=== PATIENT | female | born 1960 | race Caucasian/White ===

== ENCOUNTER 2022-09-20 11:37 | Emergency (ER) | payer MEDICARE, MEDICAID, SELFPAY ==
[2022-09-20 11:57] VITALS: BP 140/79; PULSE 110; RESP 18; TEMP 37.1; O2SAT 96; BMI 36.0
--- NOTE | 2022-09-20 12:38 | DI.RAD.S_ITS ---
PROCEDURE: XR CHEST 1V INDICATIONS: Shortness of breath TECHNIQUE: One view of the chest was acquired. COMPARISON: None. FINDINGS: Surgical changes and devices: None. Lungs and pleura: Lungs are clear. No pleural effusions or pneumothorax. Mediastinum: Mediastinal contours appear normal. Heart size is normal. Bones and chest wall: No suspicious bony lesions. Overlying soft tissues appear unremarkable. IMPRESSION: No acute cardiopulmonary process. Dictated by: Nithin Carter M.D. on 09/20/2022 at 12:52 Approved by: Nithin Carter M.D. on 09/20/2022 at 12:52
[2022-09-20 13:09] LABS: Add Manual Diff / Slide Review NO; Basophils Absolute Auto 100 /uL (0-100); Basophils Percent Auto 0.6 % (0-2); Eosinophils Absolute Auto 100 /uL (0-450); Eosinophils Percent Auto 1.1 % (2-4); Hematocrit 34.6 % (36-46); Hemoglobin 11.1 g/dL (12.0-16.0); Lymphocytes Absolute Auto 1900 /uL (1100-4500); Lymphocytes Percent Auto 18.6 % (25-40); Mean Corpuscular Hemoglobin 23.5 PG (26-34); Mean Corpuscular Volume 73.4 fL (80-100); Monocytes Absolute Auto 1000 /uL (0-900); Monocytes Percent Auto 10.2 % (3-14); Neutrophils Absolute Auto 7100 /uL (1500-7000); Neutrophils Percent Auto 69.5 % (50-75); Platelet Count 506 X10^3/uL (150-400); Red Blood Cell Count 4.71 X10^6/uL (4.0-5.2); Red Cell Distribution Width 18.9 % (11.6-14.8); White Blood Cell Count 10.2 X10^3/uL (4.5-11.0)
[2022-09-20 13:15] LABS: Alanine Aminotransferase 24 IU/L (<35); Albumin 4.1 g/dL (3.5-5.0); Albumin Globulin Ratio 1.2 (1.0-2.8); Alkaline Phosphatase 76 U/L (38-126); Aspartate Aminotransferase 28 IU/L (14-36); BUN Creatinine Ratio 20.9 (6-22); Bilirubin Total 0.2 mg/dL (0.2-1.3); Blood Urea Nitrogen 14 mg/dL (7-17); Calcium 9.1 mg/dL (8.4-10.2); Carbon Dioxide 32 mmol/L (22-32); Chloride 100 mmol/L (98-107); Creatine Kinase 85 U/L (30-135); Estimated Glomerular Filt Rate > 60 mL/min (>60); Globulin 3.4 g/dL (1.7-4.1); Glucose 129 mg/dL (80-110); HEMOLYSIS < 15 (0-50); Potassium 3.5 mmol/L (3.4-5.1); Sodium 139 mmol/L (137-145); Total Protein 7.5 g/dL (6.3-8.2)
[2022-09-20 13:27] LABS: NT-proBNP (BNP-Adult 18+) 62 pg/mL (<125); Troponin I < 0.012 ng/mL (0.01-0.034)
[2022-09-20 14:01] VITALS: BP 174/90; PULSE 105; RESP 18; O2SAT 98
--- NOTE | 2022-09-20 14:22 | ED.EXTPRO ---
HPI - Extremity Problem General Chief complaint: Extremity Problem,Nontraumatic Stated complaint: feet swelling, sent to check if heart related Time Seen by Provider: 09/20/22 14:03 Source: patient Mode of arrival: Ambulatory History of Present Illness HPI Narrative: Patient is a 62-year-old female who is sent from her primary doctor's office for evaluation of bilateral lower extremity swelling. She is had the swelling for the past several weeks. She did take 20 mg of Lasix for 3 days a couple days ago without any improvement of symptoms. She states she is having some shortness of breath with exertion. No chest pain. No fevers. No trauma. Not on anticoagulation. Related Data Home Medications Medication Instructions Recorded Confirmed aspirin 325 mg tablet 325 mg PO BID ##0 01/03/17 Previous Rx's Medication Instructions Recorded ciclopirox 8 % topical solution 3.3 ml TP QDAY ##1 02/13/16 (Ciclodan) ibuprofen 600 mg tablet 600 mg PO Q6HP PRN #60 tabs 10/24/16 Disabled Parking Permit ea ##1 10/25/16 polyethylene glycol 3350 17 17 gm PO QDAY ##527 11/21/16 gram/dose oral powder buspirone 15 mg tablet 15 mg PO BID #60 tabs 12/19/16 oxycodone 5 mg capsule 0 PO Q6HRS #40 tabs 01/03/17 ciprofloxacin HCl 500 mg tablet 500 mg PO BID #20 tabs 01/09/17 (Cipro) diclofenac sodium 1 % topical gel 1 kimo topical BID ##100 01/09/17 (Voltaren) hydrochlorothiazide 25 mg tablet 25 mg PO QDAY #90 tabs 01/09/17 lisinopril 20 mg tablet 20 mg PO QDAY #90 tabs 01/09/17 metronidazole 500 mg tablet 500 mg OR BID #20 tabs 01/09/17 gabapentin 300 mg capsule 0 PO HS #90 caps 01/23/17 (Neurontin) cyanocobalamin (vitamin B-12) 1,000 mcg IM SEE INSTRUCTIONS #14 01/25/17 1,000 mcg/mL injection solution ea tramadol 50 mg tablet 50 mg PO QIDP PRN #120 tabs 02/06/17 furosemide 20 mg tablet (Lasix) 40 mg PO DAILY #60 tabs 09/20/22 potassium chloride 10 mEq 10 meq PO DAILY #30 tabs 09/20/22 tablet,extended release Allergies Allergy/AdvReac Type Severity Reaction Status Date / Time bupropion [BUPROPION] Allergy Intermediate shaky, Verified 09/20/22 12:03 irritable Interferons [INTERFERONS] Allergy Intermediate rash, Verified 09/20/22 12:03 headache ribavirin [RIBAVIRIN] Allergy Intermediate confusion, Verified 09/20/22 12:03 agitation Review of Systems Constitutional Constitutional: Reports system reviewed and no additional complaints, except as documented Cardiovascular Cardiovascular: Reports system reviewed and no additional complaints, except as documented Respiratory Respiratory: Reports system reviewed and no additional complaints, except as documented Patient History Surgical History (Updated 09/17/17 @ 05:14 by Conversion Provider) History of carpal tunnel repair History of carpal tunnel repair Status post hysterectomy Family History (Updated 08/27/16 @ 00:00 by Conversion Provider) Brother Age: 50 Mental health problem ADHD (attention deficit hyperactivity disorder) Mother Age: 84 Hypertension High cholesterol Mental health problem Stroke Sister Age: 64 Hypertension High cholesterol Social History Smoking Status: Never smoker Smoking Status: Never smoker alcohol intake frequency: holidays/special occasions only Substance Use Type: marijuana Exam Initial Vital Signs Initial Vital Signs: Vital Signs Temperature 98.7 F 09/20/22 11:57 Pulse Rate 110 H 09/20/22 11:57 Respiratory Rate 18 09/20/22 11:57 Blood Pressure 140/79 09/20/22 11:57 Pulse Oximetry 96 09/20/22 11:57 Oxygen Delivery Method Room Air 09/20/22 11:57 HENMT Head: normal to inspection and normocephalic Resp Effort & Inspection: normal respiratory effort Auscultation: clear to auscultation bilaterally Cardio Rate: regular rate Rhythm: regular rhythm GI Inspection: normal to inspection Skin General: no rashes or lesions noted Neuro General: patient alert, patient awake and moves all extremities Extrem General: edema Course Orders Ordered: ED Orders 09/20/22 10:25 Complete Blood Count AUTO DIFF Stat Comprehensive Metabolic Panel Stat NT-proBNP (BNP-Adult 18+) Stat Troponin & CK Cardiac Panel Stat 09/20/22 12:38 XR chest 1V Stat 09/20/22 13:05 EKG-12 Lead Stat Vital Signs Vital signs: Vital Signs - 8 hr 09/20/22 11:57 09/20/22 14:01 09/20/22 14:30 Temperature 98.7 F Pulse Rate 110 H 105 H 89 Respiratory Rate 18 18 20 Blood Pressure 140/79 174/90 H Pulse Oximetry 96 98 97 Oxygen Delivery Method Room Air MDM - Extremity (Nontraumatic) Lab Data Attestation: I reviewed the patient's lab results. 09/20/22 10:25 09/20/22 10:25 Labs: Lab Results 09/20/22 09/20/22 Range/Units 10:25 10:25 WBC 10.2 (4.5-11.0) X10^3/uL RBC 4.71 (4.0-5.2) X10^6/uL Hgb 11.1 L (12.0-16.0) g/dL Hct 34.6 L (36-46) % MCV 73.4 L (80-100) fL MCH 23.5 L (26-34) PG MCHC 32.0 (30-36) % RDW 18.9 H (11.6-14.8) % Plt Count 506 H (150-400) X10^3/uL Neut % (Auto) 69.5 (50-75) % Lymph % (Auto) 18.6 L (25-40) % [place] % (Auto) 10.2 (3-14) % Eos % (Auto) 1.1 L (2-4) % Baso % (Auto) 0.6 (0-2) % Neut # (Auto) 7100 H (0637-4001) /uL Lymph # (Auto) 1900 (4223-8232) /uL [place] # (Auto) 1000 H (0-900) /uL Eos # (Auto) 100 (0-450) /uL Baso # (Auto) 100 (0-100) /uL Sodium 139 (137-145) mmol/L Potassium 3.5 (3.4-5.1) mmol/L Chloride 100 (98-107) mmol/L Carbon Dioxide 32 (22-32) mmol/L BUN 14 (7-17) mg/dL Creatinine 0.67 (0.52-1.04) mg/dL Estimated GFR > 60 (>60) mL/min BUN/Creatinine Ratio 20.9 (6-22) Glucose 129 H (80-110) mg/dL Calcium 9.1 (8.4-10.2) mg/dL Total Bilirubin 0.2 (0.2-1.3) mg/dL AST 28 (14-36) IU/L ALT 24 (<35) IU/L Alkaline Phosphatase 76 (38-126) U/L Total Creatine Kinase 85 (30-135) U/L CK-MB (CK-2) TNP CK-MB (CK-2) Rel Index TNP Troponin I < 0.012 (0.01-0.034) ng/mL NT-Pro-B Natriuret Pep 62 (<125) pg/mL Total Protein 7.5 (6.3-8.2) g/dL Albumin 4.1 (3.5-5.0) g/dL Globulin 3.4 (1.7-4.1) g/dL Albumin/Globulin Ratio 1.2 (1.0-2.8) Imaging Data Chest x-ray: Radiologist's Impression: PROCEDURE:? XR CHEST 1V ? INDICATIONS:? Shortness of breath ? TECHNIQUE:? One view of the chest was acquired.? ? COMPARISON:? None. ? FINDINGS:? ? Surgical changes and devices:? None.? ? Lungs and pleura:? Lungs are clear.? No pleural effusions or pneumothorax.? ? Mediastinum:? Mediastinal contours appear normal.? Heart size is normal.? ? Bones and chest wall:? No suspicious bony lesions.? Overlying soft tissues appear unremarkable.? ? IMPRESSION:? No acute cardiopulmonary process. ECG Data Attestation EKG: I personally reviewed and interpreted this ECG as follows: Interpretation: Sinus rhythm Ventricular rate 100 Normal axis Normal QRS No ST T wave changes MDM Narrative Medical decision making narrative: Patient does have bilateral lower extremity edema. Patient clinically not in heart failure. Her chest x-ray is unremarkable. Kidney functions unremarkable. No signs of cellulitis. Low suspicion for DVT/PE. Patient is not hypoxic. Not tachypneic. Her BNP is negative. I did discuss all this with her. She already has a echocardiogram scheduled for later this month which I advised that she continue to keep. According to her medicine list she was only on 20 mg of Lasix for 3 days. She reports no real improvement with that. The plan will be as to put her on 40 mg for a more extended period of time. I did give her quite a few pills so that she could adjust this if needed after she follows up with her primary doctor which I advised that she do. No further workup required here in the emergency department. She was given return precautions. She expressed understanding and agreement. Discharge Plan Departure Patient Disposition: Home Clinical Impression: Edema, peripheral Instructions: DI for Peripheral Edema -- Bilateral Activity Restrictions/Additional Instructions: I do recommend that you contact your primary doctor for follow-up. You will need the echocardiogram that is already scheduled. Continue to take all of your medications as directed. Use the Lasix/furosemide as directed. Return to the emergency department for new symptoms. Prescriptions: New furosemide [Lasix] 20 mg tablet 40 mg PO DAILY Qty: 60 0RF potassium chloride 10 mEq tablet extended release 10 meq PO DAILY Qty: 30 0RF Rx Instructions: use while on Lasix No Action ciclopirox [Ciclodan] 6.6 ML solution 3.3 ml TP QDAY Qty: 1 5RF ibuprofen 600 MG tablet 600 mg PO Q6HP PRNQty: 60 1RF Disabled Parking Permit Qty: 1 0RF polyethylene glycol 3350 527 GM powder 17 gm PO QDAY Qty: 527 0RF buspirone 15 MG tablet 15 mg PO BID Qty: 60 3RF aspirin 325 MG tablet 325 mg PO BID Qty: 0 oxycodone 5 MG capsule 0 PO Q6HRS Qty: 40 0RF metronidazole 500 MG tablet 500 mg OR BID Qty: 20 0RF ciprofloxacin HCl [Cipro] 500 MG tablet 500 mg PO BID Qty: 20 0RF hydrochlorothiazide 25 MG tablet 25 mg PO QDAY Qty: 90 1RF lisinopril 20 MG tablet 20 mg PO QDAY Qty: 90 0RF diclofenac sodium [Voltaren] 1 % gel 1 kimo Topical BID Qty: 100 3RF gabapentin [Neurontin] 300 MG capsule 0 PO HS Qty: 90 3RF cyanocobalamin (vitamin B-12) 1,000 MCG/1 ML solution 1,000 mcg IM SEE INSTRUCTIONS Qty: 14 0RF tramadol 50 MG tablet 50 mg PO QIDP PRNQty: 120 0RF Referrals: Arabella Haynes ARNP [Primary Care Provider] - Stand Alone Forms: Patient Portal/API
[2022-09-20 14:30] VITALS: PULSE 89; RESP 20; O2SAT 97
== END 2022-09-20 14:52 | disposition home or self-care (01) ==
PROVIDERS: Emergency Provider Emergency Medicine; Family Provider Nurse Practitioner; PCP Nurse Practitioner
DX: R60.9 Edema, unspecified (principal); R06.02 Shortness of breath; R07.9 Chest pain, unspecified
CPT/HCPCS: 36415; 71045; 80053; 82550; 83880; 84484; 85025; 93005; 99283; 99284

== ENCOUNTER → 2022-11-29 12:17 | Outpatient (CLI) | payer MEDICARE, MEDICAID, SELFPAY ==
--- NOTE | 2022-11-29 | DI.ECHO.S_ITS ---
[facility] +---------+ : : [address] [place] : : : : [id number] : : : : Phone: [phone]+ Echocardiogram Report + + :Name: ROBY HERRON Study Date: 11/29/2022 Height: 67 in : :[facility] ReadingLocation: Weight: 220 lb : : Gender: Female BSA: 2.1 m2 : :: 1960 Age: 62 yrs BP: 152/99 mmHg: :Reason For Study: SHORTNESS OF BREATH : :Ordering Physician: GILDA POSADAS : :E Performed By: Gabrielle Gill : :Referring: GILDA POSADAS E : + + Interpretation Summary 1) Mildly enlarged left ventriclar with mildly reduced systolic function (EF 45-50%). 2) Normal right ventricular size and function. 3) No significant valvular abnormalities. 4) No prior Echo available for comparison. Procedure: A two-dimensional transthoracic echocardiogram with color flow and Doppler was performed. The study quality was technically adequate. There is no prior echocardiogram noted for this patient. The patient was in sinus rhythm with heart rates between 82-95 bpm during the exam. Left Ventricle: The left ventricle is mildly dilated. There is normal left ventricular wall thickness. The ejection fraction is estimated to be 45-50%. There is mild global hypokinesis of the left ventricle. Diastolic parameters suggest a relaxation abnormality of the left ventricle, consistent with probable normal filling pressures. Right Ventricle: The right ventricle is normal in size and function. Atria: The left atrial size is normal. Right atrial size is normal. There is no Doppler evidence for an interatrial shunt. Mitral Valve: The mitral valve leaflets appear borderline thickened, but open well. There is mild mitral annular calcification. There is no mitral regurgitation noted. Aortic Valve: The aortic valve is trileaflet. The aortic valve opens well. There is no aortic valve stenosis. There is trace aortic regurgitation. Tricuspid Valve: The tricuspid valve is normal in structure and function. There is a trace or physiologic amount of tricuspid regurgitation. Pulmonary artery pressures cannot be estimated because of the lack of a measurable TR jet velocity. Pulmonic Valve: The pulmonic valve leaflets are thin and pliable; valve motion is normal. There is no pulmonic valvular regurgitation. Great Vessels: The aortic root is normal size. The dimensions of the ascending aorta are normal. The IVC is of normal diameter and collapses greater than 50% with a sniff. This suggests a low right atrial pressure of 3 mm Hg. Pericardium/ Pleura There is no pericardial effusion. There is no pleural effusion. MMode/2D Measurements & Calculations LVIDd: 5.9 cm LVOT diam: 2.1 cm LVIDs: 4.1 cm Ao root diam: 3.5 cm FS: 30.8 % asc Aorta Diam: 3.6 cm EPSS: 1.2 cm Ao Arch Diam (Prox Trans): 2.6 cm IVSd: 0.93 cm LVPWd: 0.94 cm LV durant. diameter/BSA (cm/m^2): 2.8 LV sys. diameter/BSA (cm/m^2): 1.9 LA A2 area: 23.7 cm2 RA long axis: 4.8 cm LA A4 area: 16.5 cm2 RA area: 13.4 cm2 LA length (vol): 5.1 cm RA vol: 31.6 ml LA vol: 65.1 ml RA : 15.0 ml/m2 LA vol index: 30.9 ml/m2 IVC diam: 1.0 cm RVD1 (basal): 2.9 cm RVD2 (mid): 2.5 cm TAPSE: 1.6 cm Doppler Measurements & Calculations Ao V2 max: 141.1 cm/sec LVOT Max Warren: 78.8 cm/sec Ao V2 mean: 100.4 cm/sec LV V1 max P.5 mmHg Ao max P.0 mmHg LV V1 VTI: 15.9 cm Ao mean P.4 mmHg KISHORE(I,D): 2.1 cm2 Ao V2 VTI: 25.8 cm KISHORE(V,D): 1.9 cm2 sev ratio: 0.62 KISHORE indexed to BSA (cm^2/m^2): 0.98 Med Peak E' Warren: 8.6 cm/sec PA V2 max: 95.0 cm/sec Lat Peak E' Warren: 6.0 cm/sec PA V2 mean: 65.4 cm/sec PA mean P.9 mmHg PA pr(Accel): 29.3 mmHg SV(LVOT): 53.3 ml Reading Physician:03:36 PM
== END ==
PROVIDERS: Family Provider Nurse Practitioner; PCP Family Medicine; Referring Provider Family Medicine; Visit Provider Family Medicine
DX: R06.02 Shortness of breath (principal); R60.0 Localized edema; I34.81 Nonrheumatic mitral (valve) annulus calcification
CPT/HCPCS: 93306

== ENCOUNTER → 2023-01-07 13:10 | Outpatient (CLI) | payer MEDICARE, MEDICAID, SELFPAY ==
--- NOTE | 2023-01-07 | DI.MRI.S_ITS ---
PROCEDURE: MR LUMBAR SPINE WO CON INDICATIONS: Chronic low back pain TECHNIQUE: Noncontrast sagittal T1 spin echo and T2 fast echo, sagittal STIR, and T2 fast spin echo through the lumbar spine. In cases with scoliosis, additional coronal T2 fast spin echo may be performed. COMPARISON: None. FINDINGS: 3 Image quality: This examination is limited by involuntary motion artifact. Alignment and Curvature: There is minimal grade 1 anterolisthesis seen at the L4-L5 level. No definite associated pars defects are seen. [id number] dextroconvex lumbar scoliosis can seen. Bone Marrow: Marrow is of normal overall signal. No acute vertebral body compression fractures. Spinal Cord: Conus medullaris terminates at the L1 level. Visualized cord demonstrates normal signal and size. Paraspinous Soft Tissues: No paravertebral masses. A 2.3 cm right medial renal cyst is incidentally noted. T12-L1: There is no significant abnormality. L1-L2: The disc height is well-preserved. Loss of disc signal is seen at this level. Mild to moderate disc bulge is seen, which is eccentric to the right. There is a minimal central disc extrusion seen, with inferior migration of the disc material, as on series 2, image 8. Mild to moderate facet hypertrophy is seen. Fluid is seen within the right facet joint. Moderate bilateral neural foraminal narrowing is seen. Mild central canal narrowing is seen. L2-L3: Moderate loss of disc height and disc signal can be seen on the left side. Bridging endplate osteophytes are seen on the left. Moderate disc bulge is seen, with a mild central/left disc extrusion, with mild superior migration of the disc material, as on series 2, image 9. There is mild right-sided and [id number] left-sided facet hypertrophy. There is moderate to severe left-sided neural foraminal narrowing, with a degree of compression upon the exiting left L2 nerve root. No significant right-sided neural foraminal narrowing is seen. Mild central canal narrowing is seen. L3-L4: The disc height is well-preserved. Loss of disc signal is seen at this level. Mild to moderate disc bulge is seen. Moderate facet hypertrophy is seen, left worse than right. No significant neural foraminal narrowing is seen. Moderate central canal narrowing is seen. L4-L5: Mild loss of disc height is seen. Loss of disc signal is seen. Moderate disc bulge is seen, with a superimposed central disc extrusion, with superior migration of the disc material. At least moderate facet hypertrophy is seen. Fluid is seen within the facet joints themselves. There is at least moderate right-sided neural foraminal narrowing, with a degree of compression upon the exiting right L4 nerve root. Moderate left-sided neural foraminal narrowing is seen. At least moderate central canal narrowing is seen at this level. L5-S1: Mild loss of disc height is seen. Loss of disc signal is seen. Mild disc bulge is seen, with a mild central disc extrusion, with inferior migration of the disc material. There is a focal annular fissure seen posteriorly. Moderate facet joint hypertrophy is seen, right worse than left. There is moderate to severe right-sided neural foraminal narrowing can with a degree of compression upon the exiting right L5 nerve root. There is moderate left-sided neural foraminal narrowing. Moderate central canal narrowing is seen. IMPRESSION: Multiple levels of significant lumbar spine degenerative change seen. Moderate disc extrusions are seen at L4-L5 and L5-S1. Milder disc extrusions can be seen at L1-L2 and L2-L3. Several sites of significant neural foraminal narrowing can be seen, with associated exiting nerve root compression. [id number] dextroconvex lumbar scoliosis. Dictated by: Johnny Cagle M.D. on 01/07/2023 at 17:11 Approved by: Johnny Cagle M.D. on 01/07/2023 at 17:17
== END ==
PROVIDERS: Family Provider Nurse Practitioner; PCP Family Medicine; Referring Provider Family Medicine; Visit Provider Family Medicine
DX: M51.16 Intervertebral disc disorders with radiculopathy, lumbar region (principal); M51.17 Intervertebral disc disorders with radiculopathy, lumbosacral region; M47.26 Other spondylosis with radiculopathy, lumbar region; M47.27 Other spondylosis with radiculopathy, lumbosacral region; M48.061 Spinal stenosis, lumbar region without neurogenic claudication; M48.07 Spinal stenosis, lumbosacral region; G89.29 Other chronic pain
CPT/HCPCS: 72148

== ENCOUNTER 2023-10-11 14:44 | Inpatient (IN) | payer MEDICARE, MEDICAID, SELFPAY ==
[2023-10-11] VITALS (15 sets, daily range): BP systolic 127–148; BP diastolic 59–87; PULSE 114–129; RESP 14–26; TEMP 35.6–36.3; O2SAT 88–98; BMI 38.7; BMI 36.6
--- NOTE | 2023-10-11 15:09 | DI.RAD.S_ITS ---
PROCEDURE: XR CHEST 1V INDICATIONS: short of breath TECHNIQUE: One view of the chest was acquired. COMPARISON: [facility], CR, XR CHEST 1V, 09/20/2022, 12:40. FINDINGS: Surgical changes and devices: None. Lungs and pleura: Lungs are clear. No pleural effusions or pneumothorax. Mediastinum: Mediastinal contours appear normal. Heart size is normal. Bones and chest wall: No suspicious bony lesions. Overlying soft tissues appear unremarkable. IMPRESSION: No acute cardiopulmonary pathology. Dictated by: Felix Kc M.D. on 10/11/2023 at 17:12 Approved by: Felix Kc M.D. on 10/11/2023 at 17:12
--- NOTE | 2023-10-11 15:16 | ED_ITS ---
HPI - Abdominal Pain General Chief Complaint: Abdominal Pain Stated Complaint: Lower abdominal pain unable to urinate Time Seen by Provider: 10/11/23 15:01 Source: patient and EMS Mode of arrival: EMS History of Present Illness HPI narrative: Patient is a 63-year-old female history of hypertension back pain on tramadol and methocarbamol presenting today with lower abdominal pain. She reports that she started having significant pain last night. She has had decreased urine output. No nausea or vomiting. She was noted to be slightly hypoxic but denies any sort of no respiratory issue and home oxygen. EMS gave her fentanyl and then she required a small amount of oxygen. She denies any chest pain shortness of breath fever chills. No painful frequent urination. She reports inability to urinate. Bedside bladder scan only shows 83 cc. Patient does have history of diverticulitis however she says it does not feel quite like this. Related Data Home Medications Medication Instructions Recorded Confirmed aspirin 325 mg tablet 325 mg PO BID ##0 01/03/17 Previous Rx's Medication Instructions Recorded ciclopirox 8 % topical solution 3.3 ml TP QDAY ##1 02/13/16 (Ciclodan) ibuprofen 600 mg tablet 600 mg PO Q6HP PRN #60 tabs 10/24/16 Disabled Parking Permit ea ##1 10/25/16 polyethylene glycol 3350 17 17 gm PO QDAY ##527 11/21/16 gram/dose oral powder buspirone 15 mg tablet 15 mg PO BID #60 tabs 12/19/16 oxycodone 5 mg capsule 0 PO Q6HRS #40 tabs 01/03/17 ciprofloxacin HCl 500 mg tablet 500 mg PO BID #20 tabs 01/09/17 (Cipro) diclofenac sodium 1 % topical gel 1 kimo topical BID ##100 01/09/17 (Voltaren) hydrochlorothiazide 25 mg tablet 25 mg PO QDAY #90 tabs 01/09/17 lisinopril 20 mg tablet 20 mg PO QDAY #90 tabs 01/09/17 metronidazole 500 mg tablet 500 mg OR BID #20 tabs 01/09/17 gabapentin 300 mg capsule 0 PO HS #90 caps 01/23/17 (Neurontin) cyanocobalamin (vitamin B-12) 1,000 mcg IM SEE INSTRUCTIONS #14 01/25/17 1,000 mcg/mL injection solution ea tramadol 50 mg tablet 50 mg PO QIDP PRN #120 tabs 02/06/17 furosemide 20 mg tablet (Lasix) 40 mg (2 x 20 mg) PO DAILY #60 tabs 09/20/22 potassium chloride 10 mEq 10 meq PO DAILY #30 tabs 09/20/22 tablet,extended release Allergies Allergy/AdvReac Type Severity Reaction Status Date / Time bupropion [BUPROPION] Allergy Intermediate shaky, Verified 09/20/22 12:03 irritable Interferons [INTERFERONS] Allergy Intermediate rash, Verified 09/20/22 12:03 headache ribavirin [RIBAVIRIN] Allergy Intermediate confusion, Verified 09/20/22 12:03 agitation Patient History Surgical History (Updated 09/17/17 @ 05:14 by Conversion Provider) History of carpal tunnel repair Status post hysterectomy History of carpal tunnel repair Family History (Updated 08/27/16 @ 00:00 by Conversion Provider) Brother Age: 51 Mental health problem ADHD (attention deficit hyperactivity disorder) Mother Age: 85 Hypertension High cholesterol Mental health problem Stroke Sister Age: 65 Hypertension High cholesterol Social History household members: family Smoking Status: Never smoker alcohol intake: current Smoking Status: Never smoker alcohol intake frequency: holidays/special occasions only Substance Use Type: marijuana Exam Initial Vital Signs Initial Vital Signs: Vital Signs Pulse Rate 126 H 10/11/23 14:50 Blood Pressure 136/74 10/11/23 14:50 Pulse Oximetry 93 10/11/23 14:50 Oxygen Delivery Method Room Air 10/11/23 14:50 GENERAL: Alert 63-year-old female BMI 38 no acute distress HEENT: Head atraumatic,EOMI, pupils reactive, face symmetric, moist mucous membranes CARDIOVASCULAR: Tachycardic regular no murmur RESPIRATORY: Breath sounds equal bilaterally, no wheezes rales or rhonchi. No conversational dyspnea ABDOMEN: Soft, no significant distentions flight lower abdominal pain difficult to localize no right upper quadrant pain no guarding or rebound no periumbilical pain : No CVA tenderness EXTREMITIES: Normal range of motion, no clubbing or edema. Neurovascularly intact NEUROLOGICAL: Alert and oriented x4.Normal gait and speech. SKIN: Warm, dry, no laceration, no petechiae, no rashes or lesions. Course Orders Ordered: ED Orders 10/11/23 15:09 XR chest 1V Stat EKG-12 Lead Stat 10/11/23 15:22 BNP [NT-proBNP (BNP-Adult 18+)] Stat Complete Blood Count AUTO DIFF Stat Comprehensive Metabolic Panel Stat Lactate (Lactic Acid) Stat Lipase Stat Procalcitonin Stat Troponin & CK Cardiac Panel Stat 10/11/23 15:23 CT abdomen pelvis w con Stat 10/11/23 15:32 UA Complete [Urinalysis and Microscopic] Stat 10/11/23 15:45 CT angio chest PE protocol Stat 10/11/23 15:52 Blood Culture Stat Acetaminophen (Acetaminophen 325 Mg Tablet) 650 mg PO Q6H PRN PRN Reason: Fever/Mild Pain (1-3) Enoxaparin Sodium (Enoxaparin 40 Mg/0.4 Ml Syringe) 40 mg SUBCUT DAILY SUDARSHAN Hydromorphone HCl (Hydromorphone 0.5 Mg Inj) 0.5 mg IV Q2H PRN PRN Reason: Pain, Severe (7-10) Sodium Chloride (Normal Saline 0.9%) 1,779 mls @ 593 mls/hr 30 ml/kg infuse over 3 hr (1779 ml) IV NOW ONE Stop: 10/11/23 19:32 Last Admin: 10/11/23 17:16 Dose: 593 mls/hr Documented By: SPF Ciprofloxacin (Cipro) 400 mg in 200 mls @ 200 mls/hr IV Q12H SUDARSHAN Metronidazole (Flagyl) 500 mg in 100 mls @ 100 mls/hr IV Q8H SUDARSHAN Sodium Chloride (Normal Saline 0.9%) 1,000 mls @ 100 mls/hr IV CONT SUDARSHAN Naloxone HCl (Naloxone 0.4 Mg/Ml Vial) 0.2 mg IV Q2MIN PRN PRN Reason: Opiate Reversal Ondansetron HCl (Ondansetron 4 Mg/2 Ml Inj) 4 mg IV Q8HR PRN PRN Reason: Nausea And Vomiting Oxycodone HCl (Oxycodone Ir 5 Mg Tablet) 5 mg PO Q3H PRN PRN Reason: Pain, Moderate (4-6) Discontinued Medications Hydromorphone HCl (Hydromorphone 0.5 Mg Inj) 0.5 mg IV NOW ONE Stop: 10/11/23 17:56 Last Admin: 10/11/23 17:59 Dose: 0.5 mg Documented By: SPF Sodium Chloride (Normal Saline 0.9%) 1,000 mls @ 150 mls/hr IV CONT SUDARSHAN Last Infusion: 10/11/23 17:12 Dose: 0 mls/hr Documented By: Admin: 10/11/23 15:52 Dose: 150 mls/hr Documented By: JOSE Piperacillin Sod/Tazobactam (Sod 4.5 gm/ Sodium Chloride) 100 mls @ 200 mls/hr IV NOW ONE Stop: 10/11/23 16:34 Last Infusion: 10/11/23 17:55 Dose: Infused Documented By: Admin: 10/11/23 17:18 Dose: 200 mls/hr Documented By: JOSE Morphine Sulfate (Morphine 2 Mg/Ml Inj) 2 mg IV NOW ONE Stop: 10/11/23 15:24 Last Admin: 10/11/23 15:45 Dose: 2 mg Documented By: JOSE Vital Signs Vital signs: Vital Signs - 8 hr 10/11/23 14:50 10/11/23 14:50 10/11/23 14:57 Pulse Rate 126 H 122 H Respiratory Rate 14 Blood Pressure 136/74 136/74 Pulse Oximetry 93 94 Oxygen Delivery Method Room Air Nasal Cannula Oxygen Flow Rate 1.5 10/11/23 15:00 10/11/23 15:00 10/11/23 15:30 Pulse Rate 124 H 129 H Respiratory Rate 25 H Blood Pressure 127/59 L Pulse Oximetry 90 L 98 Oxygen Delivery Method Room Air Nasal Cannula Oxygen Flow Rate 1.5 10/11/23 15:36 10/11/23 15:36 10/11/23 16:16 Pulse Rate 122 H 114 H Respiratory Rate 26 H Blood Pressure 127/70 Pulse Oximetry 92 Oxygen Delivery Method Nasal Cannula Oxygen Flow Rate 1.5 10/11/23 16:30 10/11/23 16:49 10/11/23 16:49 Pulse Rate 115 H 123 H Respiratory Rate 21 Blood Pressure 132/85 Pulse Oximetry 93 94 Oxygen Delivery Method Nasal Cannula Nasal Cannula Oxygen Flow Rate 1.5 1.5 10/11/23 17:00 10/11/23 17:00 10/11/23 17:28 Pulse Rate 117 H Respiratory Rate Blood Pressure 130/87 Pulse Oximetry 88 L Oxygen Delivery Method Room Air Oxygen Flow Rate 10/11/23 17:29 10/11/23 17:30 05/24/24 17:30 Pulse Rate 114 H Respiratory Rate 20 Blood Pressure 143/84 H Pulse Oximetry 95 92 Oxygen Delivery Method Nasal Cannula High Flow Nasal Cannula Oxygen Flow Rate 1.5 1.5 MDM - Abdominal Pain Lab Data 10/11/23 15:22 10/11/23 15:22 Labs: Lab Results 10/11/23 10/11/23 Range/Units 15:22 15:32 WBC 20.5 H (4.5-11.0) X10^3/uL RBC 4.58 (4.0-5.2) X10^6/uL Hgb 10.8 L (12.0-16.0) g/dL Hct 34.4 L (36-46) % MCV 75.0 L (80-100) fL MCH 23.6 L (26-34) PG MCHC 31.4 (30-36) % RDW 17.9 H (11.6-14.8) % Plt Count 428 H (150-400) X10^3/uL Neut % (Auto) 93.3 H (50-75) % Lymph % (Auto) 2.4 L (25-40) % [place] % (Auto) 4.0 (3-14) % Eos % (Auto) 0.2 L (2-4) % Baso % (Auto) 0.1 (0-2) % Neut # (Auto) 94062 H (6382-9861) /uL Lymph # (Auto) 500 L (7500-1863) /uL [place] # (Auto) 800 (0-900) /uL Eos # (Auto) 0 (0-450) /uL Baso # (Auto) 0 (0-100) /uL Sodium 134 L (137-145) mmol/L Potassium 3.9 (3.4-5.1) mmol/L Chloride 99 (98-107) mmol/L Carbon Dioxide 31 (22-32) mmol/L BUN 16 (7-17) mg/dL Creatinine 0.65 (0.52-1.04) mg/dL Estimated GFR > 60 (>60) mL/min BUN/Creatinine Ratio 24.6 H (6-22) Glucose 134 H (80-110) mg/dL Lactate 0.9 (0.7-2.1) mmol/L Calcium 8.6 (8.4-10.2) mg/dL Total Bilirubin 0.5 (0.2-1.3) mg/dL AST 20 (14-36) IU/L ALT 16 (<35) IU/L Alkaline Phosphatase 84 (38-126) U/L Total Creatine Kinase 44 (30-135) U/L Troponin I < 0.012 (0.01-0.034) ng/mL NT-Pro-B Natriuret Pep 194 H (<125) pg/mL Total Protein 7.3 (6.3-8.2) g/dL Albumin 3.9 (3.5-5.0) g/dL Globulin 3.4 (1.7-4.1) g/dL Albumin/Globulin Ratio 1.1 (1.0-2.8) Lipase 24 (23-300) U/L Procalcitonin 2.44 H (<0.5) ng/mL Urine Color [place] Urine Appearance Clear Urine pH 7.0 (4.5-8.0) Ur Specific [place] 1.015 (1.000-1.035) Urine Protein 1+ H (Negative) Urine Glucose (UA) Negative (Negative) g/dL Urine Ketones Trace H (NEGATIVE) Urine Occult Blood Negative (Negative) Urine Nitrate Negative (Negative) Urine Bilirubin Negative (NEGATIVE) Urine Urobilinogen 1.0 (0.2) E.U./dL Ur Leukocyte Esterase Negative (NEGATIVE) Urine RBC None seen (0-5/HPF) Urine WBC 0-1/hpf (0-5/HPF) Ur Squamous Epith Cells 0-1 /hpf (0-5/HPF) Urine Bacteria Few (2-10) H (None) Urine Mucus 2+ H (Negative) Urine Yeast 0-1/hpf (None) Ur Culture Indicated? Cult not indicated Vol Urine Centrifuged 10ml (spun) Imaging Data Chest x-ray: Radiologist's Impression: PROCEDURE: XR CHEST 1V INDICATIONS: short of breath TECHNIQUE: One view of the chest was acquired. COMPARISON: [facility], , XR CHEST 1V, 09/20/2022, 12:40. FINDINGS: Surgical changes and devices: None. Lungs and pleura: Lungs are clear. No pleural effusions or pneumothorax. Mediastinum: Mediastinal contours appear normal. Heart size is normal. Bones and chest wall: No suspicious bony lesions. Overlying soft tissues appear unremarkable. IMPRESSION: No acute cardiopulmonary pathology. CT scan - abdomen/pelvis: Radiologist's Impression: PROCEDURE: CT ABDOMEN PELVIS W CON INDICATIONS: sever low ab pain TECHNIQUE: After the administration of intravenous contrast, axial sections acquired from the lung bases to the pubic symphysis. Coronal and sagittal reformats were performed. For radiation dose reduction, the following was used: automated exposure control, adjustment of mA and/or kV according to patient size. COMPARISON: [facility], CT, CT ANGIO CHEST PE PROTOCOL, 10/11/2023, 16:03. [facility], CT, ABDOMEN/PELVIS WITH CONTRAST, 04/26/2011, 11:50. FINDINGS: Image quality: Diagnostic. Lower Chest: No significant findings. ABDOMEN: Liver: No solid mass. Gallbladder: No radiopaque gallstones or wall thickening. Biliary ducts: No biliary dilation. Pancreas: No ductal dilation. Spleen: Size is within normal limits. Adrenal Glands: No adrenal nodules the right of the left adrenal nodule previously present had measured up to 2.4 cm transverse dimension and the left adrenal gland mass now measures up to 4.1 cm. A greater degree of soft tissue component is present versus low-attenuation homogeneous throughout previously. Kidneys and Ureters: No hydronephrosis. No solid mass. No complex renal cystic lesion which requires follow up. Stomach and Bowel: Normal colonic caliber, without significant wall thickening. Peritoneum: No abnormal intraperitoneal fluid. No free air. Ventral Wall: No significant ventral hernia. Abdominal Nodes: No retroperitoneal or mesenteric adenopathy by size criteria. Vessels: Aorta and inferior vena cava are normal in size. PELVIS: Pelvic Organs: Uterus appears absent, ovaries remain and there is a finding of a 3.5 cm left ovarian cyst. The right ovary lies in close proximity to an acute appearing inflammatory process involving the sigmoid colon. Bladder: No bladder wall thickening, accounting for underdistention. Pelvic Nodes: No enlarged lymph nodes. Miscellaneous: No inguinal hernias are seen. The appendix is elongated and extends cephalad towards the liver. It is not inflamed. The sigmoid colon shows prominent inflammatory change and extensive sigmoid diverticulosis with acute diverticulitis involving much of the proximal 3rd, the entirety of the middle 3rd and extending into the posterior 3rd of the sigmoid bowel. A peridiverticular abscess is not present, however. Bones: No aggressive osseous abnormality. IMPRESSION: 1. Interval enlargement and increased solid soft tissue component of a previously present left adrenal mass discussed above. Urology consultation is recommended, contrast-enhanced MR scanning may be warranted for more accurate assessment. 2. Severe sigmoid diverticulitis, with prominent sigmoid diverticulosis superimposed. A significant portion of the sigmoid bowel wall is abnormally thickened and inflamed. Currently the appearance is not obstructive. No peridiverticular abscess. 3. Prior hysterectomy. Left ovary contains a 3.5 cm cyst. The right ovary is in close proximity to the inflamed sigmoid colon. Dictated by: Benson Tao M.D. on 10/11/2023 at 16:45 Approved by: Benson Tao M.D. on 10/11/2023 at 16:56 CT scan - chest: Radiologist's Impression: PROCEDURE: CT ANGIO CHEST PE PROTOCOL INDICATIONS: hypoxia TECHNIQUE: After the administration of intravenous contrast, 2 mm thick sections acquired from the pulmonary apices to the posterior costophrenic angles. 3-dimensional maximum intensity projection (MIP) coronal and sagittal reformats were then acquired through the thorax. For radiation dose reduction, the following was used: automated exposure control, adjustment of mA and/or kV according to patient size. COMPARISON: [facility], , XR CHEST 1V, 09/20/2022, 12:40. FINDINGS: Image quality: Diagnostic. Pulmonary arteries: Pulmonary arteries are normal in size, and demonstrate no intraluminal filling defects to suggest central pulmonary embolism. Lower Neck: No enlarged lymph nodes. Thyroid: No thyroid nodules which require sonographic follow up, per consensus guidelines. Axillae: No enlarged lymph nodes. Chest Wall: Unremarkable. Bones: Unremarkable. Lungs and Pleura: No pneumothorax or pleural effusions. No consolidation or suspicious nodules. There is, however, an alveolar prominence not present on plain film imaging 09/20/22. This appears to represent likely an acute process such as alveolitis from any inflammatory cause but also mild alveolar edema potentially cardiogenic in origin. Heart: Heart size is normal. No pericardial effusion. Thoracic Vessels: No aortic aneurysm. Mediastinum and Desire: No enlarged lymph nodes. Esophagus: No wall thickening. No hiatal hernia. Upper Abdomen: Visualized upper abdomen solid organs and bowel loops appear normal. IMPRESSION: No pulmonary embolus. Alveolar edema is present, etiology uncertain. The pattern is generally uniform slightly greater at the lung bases than superiorly and does not have an appearance of definite atypical pneumonia. Alveolitis from an inflammatory etiology could produce this appearance as can cardiogenic alveolar edema. No focal pneumonia found. Dictated by: Benson Tao M.D. on 10/11/2023 at 16:56 ECG Data Attestation: I personally reviewed and interpreted this ECG as follows: Prior ECG tracings: available for review Interpretation: Sinus tachycardia rate 117 VT interval 128 QRS [address] changes MDM Narrative Medical decision making narrative: MDM CC: Decreased urinary output and abdominal Complicating co-morbidities: Obesity Data collected from EMS Medical records reviewed: Yes Differential considered: Urinary retention diverticulitis abdominal perforation, pulmonary embolism acute coronary artery disease, sepsis Exam documented above, pertinent findings include: Patient is quite tender in her lower abdomen no significant flank pain. Awake alert and able to talk is requiring about 1 L of O2. No significant shortness of breath lung sounds are clear Lab Test results independently reviewed as above. Pertinent findings: WBC 20.5, hemoglobin 10.8, Hct 34.4 platelets 428, sodium 134, potassium 3.9, chloride 99, carbon dioxide 31, BUN 16, creatinine 0.65, glucose 134, lactate 0.9, T bili 0.5, AST 20, ALT 16, alk-phos 84 troponin negative BNP is 194 procalcitonin 2.44 Independently reviewed EKG as above no acute ischemic changes or significant interval abnormality Imaging studies independently reviewed: CT angio was done for hypoxia no pulmonary embolism some alveolar edema CT abdomen pelvis shows pretty severe sigmoid diverticulitis with prominent sigmoid diverticulosis superimposed with a thickened inflamed sigmoid wall. There is also concern for an adrenal mass which has enlarged from the previous CT. The left adrenal node was previously 2 point or cm in his now 4.1 cm with soft tissue component Consultations: 1750 Dr. Ramirez urology recommends referral to [facility] urology for an adrenal mass oncology evaluation. And needs faxed referral phone tel:[phone] Humphries accepts to observation Treatments: IV sepsis fluids, Zosyn, Dilaudid morphine Re-evaluations: [Patient is a overall feeling a lot better after the Dilaudid. Discussion: Patient presents today with pretty severe lower abdominal pain. She is noted to be quite tachycardic initially but normotensive no evidence of sepsis shoc, but does have concern for sepsis with elevated heart rate respiratory rate and hypoxia. Also leukocytosis 20. However lactate is surprisingly within normal limits. Procalcitonin is elevated at 2.4. She does have a noose score 8 only concern for worsening sepsis. There was discussion with Neurology in regards to incidental finding of left- sided adrenal mass which has enlarged. This is unlikely related to issues today. National Early Warning Score (NEWS) from [email or web address] on 10/11/2023 All calculations should be rechecked by clinician prior to use RESULT SUMMARY: 8 points High score: Emergency assessment by a clinical/critical care outreach team with critical-care competencies and usually transfer of the patient to a higher dependency care area. INPUTS: Respiratory Rate ?> 2 = 21-24 Oxygen Saturations ?> 2 = 92-93% Any Supplemental Oxygen ?> 2 = Yes Temperature ?> 0 = 36.1-38?C / 96.9-100.4?F Systolic Blood Pressure ?> 0 = 111-219 Heart Rate ?> 2 = 111-130 AVPU Score ?> 0 = A Discharge Plan Departure Patient Disposition: Admitted as Observation Clinical Impression: Diverticulitis, Adrenal mass, left Admit Date/Time: 10/11/23 18:05 Admit Provider: Hira Humphries
--- NOTE | 2023-10-11 15:23 | DI.CT.S_ITS ---
PROCEDURE: CT ABDOMEN PELVIS W CON INDICATIONS: sever low ab pain TECHNIQUE: After the administration of intravenous contrast, axial sections acquired from the lung bases to the pubic symphysis. Coronal and sagittal reformats were performed. For radiation dose reduction, the following was used: automated exposure control, adjustment of mA and/or kV according to patient size. COMPARISON: [facility], CT, CT ANGIO CHEST PE PROTOCOL, 10/11/2023, 16:03. [facility], CT, ABDOMEN/PELVIS WITH CONTRAST, 04/26/2011, 11:50. FINDINGS: Image quality: Diagnostic. Lower Chest: No significant findings. ABDOMEN: Liver: No solid mass. Gallbladder: No radiopaque gallstones or wall thickening. Biliary ducts: No biliary dilation. Pancreas: No ductal dilation. Spleen: Size is within normal limits. Adrenal Glands: No adrenal nodules the right of the left adrenal nodule previously present had measured up to 2.4 cm transverse dimension and the left adrenal gland mass now measures up to 4.1 cm. A greater degree of soft tissue component is present versus low-attenuation homogeneous throughout previously. Kidneys and Ureters: No hydronephrosis. No solid mass. No complex renal cystic lesion which requires follow up. Stomach and Bowel: Normal colonic caliber, without significant wall thickening. Peritoneum: No abnormal intraperitoneal fluid. No free air. Ventral Wall: No significant ventral hernia. Abdominal Nodes: No retroperitoneal or mesenteric adenopathy by size criteria. Vessels: Aorta and inferior vena cava are normal in size. PELVIS: Pelvic Organs: Uterus appears absent, ovaries remain and there is a finding of a 3.5 cm left ovarian cyst. The right ovary lies in close proximity to an acute appearing inflammatory process involving the sigmoid colon. Bladder: No bladder wall thickening, accounting for underdistention. Pelvic Nodes: No enlarged lymph nodes. Miscellaneous: No inguinal hernias are seen. The appendix is elongated and extends cephalad towards the liver. It is not inflamed. The sigmoid colon shows prominent inflammatory change and extensive sigmoid diverticulosis with acute diverticulitis involving much of the proximal 3rd, the entirety of the middle 3rd and extending into the posterior 3rd of the sigmoid bowel. A peridiverticular abscess is not present, however. Bones: No aggressive osseous abnormality. IMPRESSION: 1. Interval enlargement and increased solid soft tissue component of a previously present left adrenal mass discussed above. Urology consultation is recommended, contrast-enhanced MR scanning may be warranted for more accurate assessment. 2. Severe sigmoid diverticulitis, with prominent sigmoid diverticulosis superimposed. A significant portion of the sigmoid bowel wall is abnormally thickened and inflamed. Currently the appearance is not obstructive. No peridiverticular abscess. 3. Prior hysterectomy. Left ovary contains a 3.5 cm cyst. The right ovary is in close proximity to the inflamed sigmoid colon. Dictated by: Benson Tao M.D. on 10/11/2023 at 16:45 Approved by: Benson Tao M.D. on 10/11/2023 at 16:56
[2023-10-11 15:34] LABS: Add Manual Diff / Slide Review NO; Basophils Absolute Auto 0 /uL (0-100); Basophils Percent Auto 0.1 % (0-2); Eosinophils Absolute Auto 0 /uL (0-450); Eosinophils Percent Auto 0.2 % (2-4); Hematocrit 34.4 % (36-46); Hemoglobin 10.8 g/dL (12.0-16.0); Lymphocytes Absolute Auto 500 /uL (1100-4500); Lymphocytes Percent Auto 2.4 % (25-40); Mean Corpuscular HGB Conc 31.4 % (30-36); Mean Corpuscular Hemoglobin 23.6 PG (26-34); Monocytes Absolute Auto 800 /uL (0-900); Neutrophils Absolute Auto 19200 /uL (1500-7000); Neutrophils Percent Auto 93.3 % (50-75); Platelet Count 428 X10^3/uL (150-400); Red Blood Cell Count 4.58 X10^6/uL (4.0-5.2); Red Cell Distribution Width 17.9 % (11.6-14.8); White Blood Cell Count 20.5 X10^3/uL (4.5-11.0)
[2023-10-11] MEDS: MORPHINE 2 MG/ML INJ IV (15:45)
--- NOTE | 2023-10-11 15:45 | DI.CT.S_ITS ---
PROCEDURE: CT ANGIO CHEST PE PROTOCOL INDICATIONS: hypoxia TECHNIQUE: After the administration of intravenous contrast, 2 mm thick sections acquired from the pulmonary apices to the posterior costophrenic angles. 3-dimensional maximum intensity projection (MIP) coronal and sagittal reformats were then acquired through the thorax. For radiation dose reduction, the following was used: automated exposure control, adjustment of mA and/or kV according to patient size. COMPARISON: [facility], CR, XR CHEST 1V, 09/20/2022, 12:40. FINDINGS: Image quality: Diagnostic. Pulmonary arteries: Pulmonary arteries are normal in size, and demonstrate no intraluminal filling defects to suggest central pulmonary embolism. Lower Neck: No enlarged lymph nodes. Thyroid: No thyroid nodules which require sonographic follow up, per consensus guidelines. Axillae: No enlarged lymph nodes. Chest Wall: Unremarkable. Bones: Unremarkable. Lungs and Pleura: No pneumothorax or pleural effusions. No consolidation or suspicious nodules. There is, however, an alveolar prominence not present on plain film imaging 09/20/22. This appears to represent likely an acute process such as alveolitis from any inflammatory cause but also mild alveolar edema potentially cardiogenic in origin. Heart: Heart size is normal. No pericardial effusion. Thoracic Vessels: No aortic aneurysm. Mediastinum and Desire: No enlarged lymph nodes. Esophagus: No wall thickening. No hiatal hernia. Upper Abdomen: Visualized upper abdomen solid organs and bowel loops appear normal. IMPRESSION: No pulmonary embolus. Alveolar edema is present, etiology uncertain. The pattern is generally uniform slightly greater at the lung bases than superiorly and does not have an appearance of definite atypical pneumonia. Alveolitis from an inflammatory etiology could produce this appearance as can cardiogenic alveolar edema. No focal pneumonia found. Dictated by: Benson Tao M.D. on 10/11/2023 at 16:56 Approved by: Benson Tao M.D. on 10/11/2023 at 17:00
[2023-10-11 15:47] LABS: Alanine Aminotransferase 16 IU/L (<35); Albumin 3.9 g/dL (3.5-5.0); Albumin Globulin Ratio 1.1 (1.0-2.8); Alkaline Phosphatase 84 U/L (38-126); Aspartate Aminotransferase 20 IU/L (14-36); BUN Creatinine Ratio 24.6 (6-22); Bilirubin Total 0.5 mg/dL (0.2-1.3); Blood Urea Nitrogen 16 mg/dL (7-17); Calcium 8.6 mg/dL (8.4-10.2); Carbon Dioxide 31 mmol/L (22-32); Chloride 99 mmol/L (98-107); Creatine Kinase 44 U/L (30-135); Estimated Glomerular Filt Rate > 60 mL/min (>60); Globulin 3.4 g/dL (1.7-4.1); Glucose 134 mg/dL (80-110); HEMOLYSIS < 15 (0-50); Lactate (Lactic Acid) 0.9 mmol/L (0.7-2.1); Lipase 24 U/L (23-300); Potassium 3.9 mmol/L (3.4-5.1); Sodium 134 mmol/L (137-145); Total Protein 7.3 g/dL (6.3-8.2)
[2023-10-11] MEDS: SODIUM CHLORIDE 0.9% 1,000 ML 150 ML IV (15:52)
[2023-10-11 15:59] LABS: Troponin I < 0.012 ng/mL (0.01-0.034)
[2023-10-11 16:05] LABS: Procalcitonin 2.44 ng/mL (<0.5)
[2023-10-11 16:08] LABS: NT-proBNP (BNP-Adult 18+) 194 pg/mL (<125)
[2023-10-11 16:10] LABS: Appearance Urine UA CLEAR; Bilirubin Urine UA NEGATIVE (NEGATIVE); Color Urine UA ORANGE; Glucose Urine UA NEGATIVE (Negative); Ketones Urine UA TRACE (NEGATIVE); Leukocyte Esterase Urine UA NEGATIVE (NEGATIVE); Nitrite Urine UA NEGATIVE (Negative); Occult Blood Urine UA NEGATIVE (Negative); Protein Urine UA 1+ (Negative); Specific Gravity Urine UA 1.015 (1.000-1.035)
[2023-10-11 16:18] LABS: Urine Volume 10mL (spun)
[2023-10-11 16:19] LABS: Bacteria Urine Few (2-10); Culture Indicated Urine Cult Not Indicated; Mucus Urine 2+ (Negative); RBC Urine None Seen (0-5/HPF); Squamous Epithelial Cell Urine 0-1 /HPF (0-5/HPF); WBC Urine 0-1/HPF (0-5/HPF)
[2023-10-11] MEDS: SODIUM CHLORIDE 0.9% 1,779 ML 593 ML IV (17:16)
[2023-10-11] MEDS: PIPERACILLIN/TAZO 4.5 GM in SODIUM CHLORIDE 0.9% 100 ML IV (17:18)
[2023-10-11] MEDS: HYDROMORPHONE 0.5 MG INJ IV ×3 (17:59→22:00)
--- NOTE | 2023-10-11 18:53 | P.HP_ITS ---
History of Present Illness History of Present Illness Date Patient Seen: 10/11/23 Time Patient Seen: 18:53 Chief complaint: Lower abdominal pain unable to urinate Narrative: This is a 63 year old female with PMH of HTN, urinary urgency with prior neural stimulator which was removed, ADHD, anxiety and depression, chronic pain who presented with 2 days of suprapubic abdominal pain. She stated she has had little urine output and was concerned that she couldn't void. There was minimal fluid in her bladder per ER provider on bladder scan. She has had a few small loose stools, denies hematochezia, melena or hematemesis. Had a prior c-scope which she said was normal earlier this year at [facility]. She has had one episode of diverticulitis in the past 2 years ago. She has had chills, denies shortness of breath. Did have one episode of nausea/vomiting today which was nb/nb. CT scan in the ER showed diverticulitis, without abscess or free air. WBC was 20. She got some fenatyl for pain with EMS and was mildly hypoxic after, placed on a couple of L. No other evidence of end organ damage. COUNTS INCLUDE 234 BEDS AT THE [facility] Surgical History History of carpal tunnel repair Status post hysterectomy History of carpal tunnel repair Family History Brother Age: 51 Mental health problem ADHD (attention deficit hyperactivity disorder) Mother Age: 85 Hypertension High cholesterol Mental health problem Stroke Sister Age: 65 Hypertension High cholesterol Social History household members: family Smoking Status: Never smoker alcohol intake: current Meds Home Medications and Allergies Home Medications Medication Instructions Recorded Confirmed Type ibuprofen 600 mg tablet 600 mg PO Q6HP PRN #60 tabs 10/24/16 10/11/23 Rx polyethylene glycol 3350 17 17 gm PO QDAY ##527 11/21/16 10/11/23 Rx gram/dose oral powder buspirone 15 mg tablet 15 mg PO BID #60 tabs 12/19/16 10/11/23 Rx hydrochlorothiazide 25 mg tablet 25 mg PO QDAY #90 tabs 01/09/17 10/11/23 Rx tramadol 50 mg tablet 50 mg PO QIDP PRN #120 tabs 02/06/17 10/11/23 Rx alendronate 70 mg tablet 70 mg PO WEEKLY 10/11/23 10/11/23 History amlodipine 5 mg tablet 5 mg PO DAILY 10/11/23 10/11/23 History lisinopril 40 mg tablet 40 mg PO DAILY 10/11/23 10/11/23 History methocarbamol 500 mg tablet 500 - 1,000 mg PO Q6H PRN muscle 10/11/23 10/11/23 History spasm omeprazole 20 mg capsule,delayed 20 mg PO DAILY 10/11/23 10/11/23 History release pregabalin 75 mg capsule 75 mg PO BID 10/11/23 10/11/23 History Allergies Allergy/AdvReac Type Severity Reaction Status Date / Time bupropion [BUPROPION] Allergy Intermediate shaky, Verified 09/20/22 12:03 irritable Interferons [INTERFERONS] Allergy Intermediate rash, Verified 09/20/22 12:03 headache ribavirin [RIBAVIRIN] Allergy Intermediate confusion, Verified 09/20/22 12:03 agitation Review of Systems Review of Systems Narrative: All other systems reviewed with the patient and are negative unless otherwise stated. Exam Vital Signs (past 8 hours): - 10/11/23 14:50 10/11/23 14:50 10/11/23 14:57 Pulse Rate 126 H 122 H Respiratory Rate 14 Blood Pressure 136/74 136/74 Pulse Oximetry 93 94 Oxygen Delivery Method Room Air Nasal Cannula Oxygen Flow Rate 1.5 10/11/23 15:00 10/11/23 15:00 10/11/23 15:30 Pulse Rate 124 H 129 H Respiratory Rate 25 H Blood Pressure 127/59 L Pulse Oximetry 90 L 98 Oxygen Delivery Method Room Air Nasal Cannula Oxygen Flow Rate 1.5 10/11/23 15:36 10/11/23 15:36 10/11/23 16:16 Pulse Rate 122 H 114 H Respiratory Rate 26 H Blood Pressure 127/70 Pulse Oximetry 92 Oxygen Delivery Method Nasal Cannula Oxygen Flow Rate 1.5 10/11/23 16:30 10/11/23 16:49 10/11/23 16:49 Pulse Rate 115 H 123 H Respiratory Rate 21 Blood Pressure 132/85 Pulse Oximetry 93 94 Oxygen Delivery Method Nasal Cannula Nasal Cannula Oxygen Flow Rate 1.5 1.5 10/11/23 17:00 10/11/23 17:00 10/11/23 17:28 Pulse Rate 117 H Respiratory Rate Blood Pressure 130/87 Pulse Oximetry 88 L Oxygen Delivery Method Room Air Oxygen Flow Rate 10/11/23 17:29 10/11/23 17:30 10/11/23 17:30 Pulse Rate 114 H Respiratory Rate 20 Blood Pressure 143/84 H Pulse Oximetry 95 92 Oxygen Delivery Method Nasal Cannula High Flow Nasal Cannula Oxygen Flow Rate 1.5 1.5 Oxygen Delivery Method High Flow Nasal Cannula Oxygen Flow Rate 1.5 Narrative Exam Narrative: General:? Patient is well developed and well nourished, in no distress at this time. HEENT:? Normocephalic, atraumatic, extraocular muscles intact, oral pharynx is clear and mucous membranes are moist. Neck: supple and symmetric, trachea is midline, no cervical adenopathy. Negative for JVD Chest:? Normal AP diameter and contour without kyphoscoliosis, no tachypnea, equal chest rise bilaterally. Lungs:? CTA b/l no wheezing rhonchi or rales. Cardio:?RRR no m/r/g. Abdomen: soft, non-distended, moderate b/l LQ abdominal tenderness without guarding. Musculoskeletal:? Muscle strength and tone are equal within normal limits, no deformity. Extremities: No edema or joint effusions. No cyanosis or clubbing. Neuro:? Alert and orientated x3,? sensation to touch intact in all extremities, no gross deficits noted of cranial nerves. Psych:? Patient has a well-kept appearance, appropriate affect, mental status attitude thought context and judgment are appropriate for age. Objective Labs 10/11/23 15:22 10/11/23 15:22 Labs: Laboratory Results - last 24 hr 10/11/23 10/11/23 15:22 15:32 WBC 20.5 H RBC 4.58 Hgb 10.8 L Hct 34.4 L MCV 75.0 L MCH 23.6 L MCHC 31.4 RDW 17.9 H Plt Count 428 H Neut % (Auto) 93.3 H Lymph % (Auto) 2.4 L Saline % (Auto) 4.0 Eos % (Auto) 0.2 L Baso % (Auto) 0.1 Neut # (Auto) 52600 H Lymph # (Auto) 500 L Saline # (Auto) 800 Eos # (Auto) 0 Baso # (Auto) 0 Sodium 134 L Potassium 3.9 Chloride 99 Carbon Dioxide 31 BUN 16 Creatinine 0.65 Estimated GFR > 60 BUN/Creatinine Ratio 24.6 H Glucose 134 H Lactate 0.9 Calcium 8.6 Total Bilirubin 0.5 AST 20 ALT 16 Alkaline Phosphatase 84 Total Creatine Kinase 44 Troponin I < 0.012 NT-Pro-B Natriuret Pep 194 H Total Protein 7.3 Albumin 3.9 Globulin 3.4 Albumin/Globulin Ratio 1.1 Lipase 24 Procalcitonin 2.44 H Urine Color [place] Urine Appearance Clear Urine pH 7.0 Ur Specific [place] 1.015 Urine Protein 1+ H Urine Glucose (UA) Negative Urine Ketones Trace H Urine Occult Blood Negative Urine Nitrate Negative Urine Bilirubin Negative Urine Urobilinogen 1.0 Ur Leukocyte Esterase Negative Urine RBC None seen Urine WBC 0-1/hpf Ur Squamous Epith Cells 0-1 /hpf Urine Bacteria Few (2-10) H Urine Mucus 2+ H Urine Yeast 0-1/hpf Ur Culture Indicated? Cult not indicated Vol Urine Centrifuged 10ml (spun) Assessment & Plan Assessment & Plan narrative: 1. Acute diverticulitis, present on admission - continue IV fluids, cipro/flagyl for antibiotics, and okay for clears. Can advance diet as tolerated. - reported colonoscopy was unremarkable earlier this year per patient. - WBC 20 - no abscess or free air on CT. Consider surgery consultation if worsening. - continue IV fluids 2. Rule out sepsis, acute respiratory failure with hypoxia - receiving sepsis fluids currently and antibiotics as above. - SOFA score currently 1 for acute respiratory failure. She has borderline hypoxia 89% on room air, possibly secondary to obesity with opiates for pain. Suspect opiate related at this time. No other evidence for end organ failure. 3. HTN - continue home amlodipine, lisionpril. Hold home HCTZ for now. 4. GERD, prior GI bleeding - continue home PPI 5. Chronic pain - continue home tramadol, pregabalin. Code: Full, surrogate is patient's spouse DVT: Lovenox daily I have utilized all available immediate resources to obtain, update, or review the patient's current medications. Dispo: patient admitted under observation status. Likely discharge home in 1-2 days, possibly longer depending on pain, WBC, possible development of sepsis. Additional history obtained via discussions with the ER provider. These discussions contributed to the creation of the above assessment and plan. I have reviewed patient's presenting documentation, labs, and imaging personally. Quality VTE Deep Vein Thrombosis/Pulmonary Embolism Present on Admission: No
[2023-10-11] MEDS: OXYCODONE IR 5 MG TABLET PO ×2 (19:05→23:12)
[2023-10-11] MEDS: SODIUM CHLORIDE 0.9% 1,000 ML 100 ML IV (21:52)
[2023-10-11] MEDS: metroNIDAZOLE 500 MG/100 ML PIGGYBACK 100 MG IV (21:52)
[2023-10-11] MEDS: CIPROFLOXACIN 400 MG/200 ML PIGGYBACK 200 MG IV (22:05)
[2023-10-11] MEDS: PREGABALIN 75 MG CAPSULE PO (23:11)
[2023-10-12] VITALS (11 sets, daily range): BP systolic 119–140; BP diastolic 71–81; PULSE 110–129; RESP 19–24; TEMP 36.1–37.1; O2SAT 91–97
[2023-10-12] MEDS: TRAMADOL 50 MG TABLET PO ×2 (00:35→10:41)
--- NOTE | 2023-10-12 00:57 | PC.NURSE ---
Patient is alert and oriented. Breath sounds CTA but RA sat dropping down to 85%. Patient declines to wear nasal canula related to stuffy nose, so placed on oximask with oxygen at 1L/min initially but increased to 2L/min as still desats intermittently. Daughter reports patient has sleep apnea with CPAP at home but patient has declined to use it. HRR but tachycardic with rate into 120's. Denies nausea but complains of tenderness/pain in RLQ of abdomen with severity of 5-8/10 and has been medicated with dilaudid + oxycodone + tramadol. Is voiding frequently and reports she gets up every hour at home to urinate; urine is clear, dark ramirez. External catheter placed to allow patient to rest and sleep. Fall risk score is moderate and bed alarm is not activated; patient agrees to call for assistance when getting out of bed.
[2023-10-12] MEDS: HYDROMORPHONE 0.5 MG INJ IV ×3 (01:53→06:07)
[2023-10-12] MEDS: OXYCODONE IR 5 MG TABLET PO ×3 (02:45→20:01)
[2023-10-12] MEDS: PANTOPRAZOLE DR 40 MG TABLET PO (06:06)
[2023-10-12] MEDS: metroNIDAZOLE 500 MG/100 ML PIGGYBACK 100 MG IV ×3 (06:12→21:39)
[2023-10-12 06:33] LABS: Add Manual Diff / Slide Review NO; Basophils Absolute Auto 200 /uL (0-100); Basophils Percent Auto 0.9 % (0-2); Eosinophils Absolute Auto 0 /uL (0-450); Hematocrit 33.1 % (36-46); Hemoglobin 10.4 g/dL (12.0-16.0); Lymphocytes Absolute Auto 600 /uL (1100-4500); Mean Corpuscular HGB Conc 31.4 % (30-36); Mean Corpuscular Hemoglobin 23.8 PG (26-34); Mean Corpuscular Volume 75.7 fL (80-100); Monocytes Absolute Auto 1600 /uL (0-900); Monocytes Percent Auto 7.5 % (3-14); Neutrophils Absolute Auto 18400 /uL (1500-7000); Neutrophils Percent Auto 88.6 % (50-75); Platelet Count 388 X10^3/uL (150-400); Red Blood Cell Count 4.38 X10^6/uL (4.0-5.2); Red Cell Distribution Width 17.3 % (11.6-14.8); White Blood Cell Count 20.8 X10^3/uL (4.5-11.0)
[2023-10-12 07:11] LABS: Alanine Aminotransferase 15 IU/L (<35); Albumin 3.7 g/dL (3.5-5.0); Albumin Globulin Ratio 1.1 (1.0-2.8); Alkaline Phosphatase 82 U/L (38-126); Aspartate Aminotransferase 23 IU/L (14-36); BUN Creatinine Ratio 16.4 (6-22); Bilirubin Total 0.4 mg/dL (0.2-1.3); Blood Urea Nitrogen 9 mg/dL (7-17); Calcium 7.9 mg/dL (8.4-10.2); Carbon Dioxide 29 mmol/L (22-32); Chloride 100 mmol/L (98-107); Estimated Glomerular Filt Rate > 60 mL/min (>60); Globulin 3.3 g/dL (1.7-4.1); Glucose 132 mg/dL (80-110); HEMOLYSIS < 15 (0-50); Magnesium 2.2 mg/dL (1.6-2.3); Potassium 3.4 mmol/L (3.4-5.1); Sodium 135 mmol/L (137-145)
[2023-10-12] MEDS: CIPROFLOXACIN 400 MG/200 ML PIGGYBACK 200 MG IV ×2 (08:00→19:50)
[2023-10-12] MEDS: PREGABALIN 75 MG CAPSULE PO ×2 (08:01→21:39)
[2023-10-12] MEDS: ENOXAPARIN 40 MG/0.4 ML SYRINGE SUBCUT (08:16)
[2023-10-12] MEDS: BUSPIRONE 5 MG TABLET 15 MG PO ×2 (08:16→21:39)
[2023-10-12] MEDS: AMLODIPINE 5 MG TABLET PO (08:16)
--- NOTE | 2023-10-12 08:17 | P.PN_ITS ---
Subjective Subjective Interval history: Abdomen pain is better. She still has some right lower quadrant pain. No nausea. Exam Vital Signs (past 8 hours): - 10/12/23 02:46 10/12/23 02:48 10/12/23 06:14 Temperature 98.7 F Pulse Rate 129 H Respiratory Rate 24 Blood Pressure 136/81 Pulse Oximetry 92 92 92 Oxygen Delivery Method Oximask Oximask Oxygen Flow Rate 2 2 2 10/12/23 07:56 Temperature 97.2 F L Pulse Rate 122 H Respiratory Rate 20 Blood Pressure 140/81 Pulse Oximetry 96 Oxygen Delivery Method Oxygen Flow Rate 2 Oxygen Delivery Method Oximask Oxygen Flow Rate 2 Narrative Exam Narrative: NAD, alert and oriented. Fluent speech. Lungs are clear, normal rate and effort. Heart is regular, no murmur gallop or rub. Abdomen is soft, non distended. Some mild right lower quadrant tenderness. Extremities are free of edema. Objective Labs 10/12/23 05:25 10/12/23 05:25 Labs: Laboratory Results - last 24 hr 10/11/23 10/11/23 10/12/23 15:22 15:32 05:25 WBC 20.5 H 20.8 H RBC 4.58 4.38 Hgb 10.8 L 10.4 L Hct 34.4 L 33.1 L MCV 75.0 L 75.7 L MCH 23.6 L 23.8 L MCHC 31.4 31.4 RDW 17.9 H 17.3 H Plt Count 428 H 388 Neut % (Auto) 93.3 H 88.6 H Lymph % (Auto) 2.4 L 3.0 L [place] % (Auto) 4.0 7.5 Eos % (Auto) 0.2 L 0.0 L Baso % (Auto) 0.1 0.9 Neut # (Auto) 62598 H 64107 H Lymph # (Auto) 500 L 600 L [place] # (Auto) 800 1600 H Eos # (Auto) 0 0 Baso # (Auto) 0 200 H Sodium 134 L 135 L Potassium 3.9 3.4 Chloride 99 100 Carbon Dioxide 31 29 BUN 16 9 Creatinine 0.65 0.55 Estimated GFR > 60 > 60 BUN/Creatinine Ratio 24.6 H 16.4 Glucose 134 H 132 H Lactate 0.9 Calcium 8.6 7.9 L Magnesium 2.2 Total Bilirubin 0.5 0.4 AST 20 23 ALT 16 15 Alkaline Phosphatase 84 82 Total Creatine Kinase 44 Troponin I < 0.012 NT-Pro-B Natriuret Pep 194 H Total Protein 7.3 7.0 Albumin 3.9 3.7 Globulin 3.4 3.3 Albumin/Globulin Ratio 1.1 1.1 Lipase 24 Procalcitonin 2.44 H Urine Color [place] Urine Appearance Clear Urine pH 7.0 Ur Specific [place] 1.015 Urine Protein 1+ H Urine Glucose (UA) Negative Urine Ketones Trace H Urine Occult Blood Negative Urine Nitrate Negative Urine Bilirubin Negative Urine Urobilinogen 1.0 Ur Leukocyte Esterase Negative Urine RBC None seen Urine WBC 0-1/hpf Ur Squamous Epith Cells 0-1 /hpf Urine Bacteria Few (2-10) H Urine Mucus 2+ H Urine Yeast 0-1/hpf Ur Culture Indicated? Cult not indicated Vol Urine Centrifuged 10ml (spun) [facility] Surgical History History of carpal tunnel repair Status post hysterectomy History of carpal tunnel repair Family History Brother Age: 51 Mental health problem ADHD (attention deficit hyperactivity disorder) Mother Age: 85 Hypertension High cholesterol Mental health problem Stroke Sister Age: 65 Hypertension High cholesterol Social History household members: family Smoking Status: Never smoker alcohol intake: current Assessment & Plan Assessment & Plan narrative: 1. Acute diverticulitis, present on admission and active. - continue IV fluids, cipro/flagyl for antibiotics, and okay for clears. Can advance diet as tolerated. - reported colonoscopy was unremarkable earlier this year per patient. - no abscess or free air on CT. Consider surgery consultation if worsening. -we will continue IV antibiotics for an additional midnight given her persistent leukocytosis. 2. Acute respiratory failure with hypoxia -She has borderline hypoxia 89% on room air, possibly secondary to obesity with opiates for pain. Suspect opiate related at this time. 3. HTN, stable. - continue home amlodipine, lisionpril. Hold home HCTZ for now. 4. GERD, stable. - continue home PPI 5. Chronic pain, stable. - continue home tramadol, pregabalin. 6. Obesity Class 2, stable. Code: Full, surrogate is patient's spouse DVT: Lovenox daily I have utilized all available immediate resources to obtain, update, or review the patient's current medications. She requires another 24 hours of IV antibiotics for a white count of 20,000. Quality VTE Deep Vein Thrombosis/Pulmonary Embolism Present on Admission: No
[2023-10-12] MEDS: POTASSIUM CHLORIDE 20 MEQ TAB 40 MEQ PO (08:21)
[2023-10-12] MEDS: polyethylene glycoL 3350 17 GM POWD.PACK PO (08:52)
[2023-10-12] MEDS: SODIUM CHLORIDE 0.9% 1,000 ML 100 ML IV (09:57)
[2023-10-12] MEDS: ONDANSETRON 4 MG/2 ML INJ IV (12:27)
--- NOTE | 2023-10-12 12:49 | CM.DANOTE ---
Initial DCP Assessment Visit Note Reviewed EMR and team rounds for status updates. Met with pt at bedside to introduce self and role, pt was found to be resting comfortably in bed, expressing feeling much better today than yesterday. She resides independently alone in her own home on [address], may need a ferry pass at d/c. No anticipated DCP needs at this time. Her landlord will transport her home once she advances in her diet to solids and is medically cleared for home discharge. Payor: [facility] PCP: Julia Lindo Pt is a 63 year-old F who presented to the ED last evening with c/o worsening abdominal pain and nausea/vomiting, and was unable to urinate. CT imaging in the ED showed diverticulitis, she was started on IV fluids and antibiotics, and was placed in OBS for continued tx. Today she has done well with clears, the plan is to advance her diet to solids, 1-more midnight inpt, will d/c back home tomorrow/Saturday. DCP will continue to follow and assist with any further evolving needs. Discharge Planning/Care Management CM Discharge Assessment Start: 10/12/23 12:48 Freq: Status: Active Protocol: Document 10/12/23 12:48 DPL (Rec: 10/12/23 12:49 DPL [id number]) Discharge Planning Assessment Assigned Hand Glove Cleaner LAVERNE Hitchcock Advance Directives? No History Provided By Patient,Medical Record Has Patient been admitted in last 30 No days? Prior Living Arrangements House Household Members family Type of transporation used prior to Drives own vehicle admit Independent with ADL's Yes Is patient alert and oriented? Yes Comment N/A Caregiver for Another No Comment No identified home d/c needs at this time. Barriers to Discharge No Discharge Plan Home Transportation Arrangement Landlord Referrals Initiated None needed Whiteboard Updated in Patient Room with Yes name and ext. # of Hand Glove Cleaner Review Status In Process Please Provide Date Initial DC 10/12/23 Assessment Was Performed
[2023-10-12] MEDS: SODIUM CHLORIDE 0.9% 1,000 ML 75 ML IV (15:55)
[2023-10-12] MEDS: SODIUM CHLORIDE 0.9% FLUSH 10 ML IV (21:39)
[2023-10-13] VITALS (8 sets, daily range): BP systolic 106–124; BP diastolic 71–75; PULSE 108–113; RESP 16–20; TEMP 36–37.1; O2SAT 94–97
[2023-10-13] MEDS: SODIUM CHLORIDE 0.9% 1,000 ML 75 ML IV (00:50)
--- NOTE | 2023-10-13 00:53 | PC.NURSE ---
Patient is alert and oriented. Breath sounds CTA but continues to require oxygen at 2L/min per NC to keep sats > 90%. HRR but remains tachy although rate has come down to 113. Denied nausea but reportedly with poor appetite over the course of today. BT hypoactive and reports not having had BM x several days although on admit has stated last BM was 10/10. Still with RLQ abdominal pain and is tender with palpation; medicated earlier with oxycodone and is currently asleep. Voids frequently but denies dysuria; external catheter placed for overnight per her request. Is able to turn herself in bed and is out of bed with SBA for safety related to generalized weakness. Reports chronic numbness in right LE related to pinched nerve. Fall risk score is moderate and bed alarm is activated.
[2023-10-13] MEDS: metroNIDAZOLE 500 MG/100 ML PIGGYBACK 100 MG IV ×3 (05:58→23:01)
[2023-10-13] MEDS: ACETAMINOPHEN 325 MG TABLET 650 MG PO ×2 (06:01→21:03)
[2023-10-13] MEDS: PANTOPRAZOLE DR 40 MG TABLET PO (06:01)
[2023-10-13 06:28] LABS: Add Manual Diff / Slide Review NO; Basophils Absolute Auto 0 /uL (0-100); Basophils Percent Auto 0.1 % (0-2); Eosinophils Absolute Auto 0 /uL (0-450); Hematocrit 32.3 % (36-46); Lymphocytes Absolute Auto 700 /uL (1100-4500); Lymphocytes Percent Auto 3.4 % (25-40); Mean Corpuscular HGB Conc 30.9 % (30-36); Mean Corpuscular Volume 74.6 fL (80-100); Monocytes Absolute Auto 1200 /uL (0-900); Monocytes Percent Auto 5.4 % (3-14); Neutrophils Absolute Auto 19500 /uL (1500-7000); Neutrophils Percent Auto 91.1 % (50-75); Platelet Count 357 X10^3/uL (150-400); Red Blood Cell Count 4.33 X10^6/uL (4.0-5.2); Red Cell Distribution Width 17.8 % (11.6-14.8); White Blood Cell Count 21.4 X10^3/uL (4.5-11.0)
[2023-10-13 06:47] LABS: Alanine Aminotransferase 14 IU/L (<35); Albumin 3.3 g/dL (3.5-5.0); Albumin Globulin Ratio 1.1 (1.0-2.8); Alkaline Phosphatase 85 U/L (38-126); Aspartate Aminotransferase 19 IU/L (14-36); Bilirubin Total 0.5 mg/dL (0.2-1.3); Blood Urea Nitrogen 10 mg/dL (7-17); Calcium 7.7 mg/dL (8.4-10.2); Carbon Dioxide 31 mmol/L (22-32); Chloride 101 mmol/L (98-107); Estimated Glomerular Filt Rate > 60 mL/min (>60); Glucose 128 mg/dL (80-110); HEMOLYSIS < 15 (0-50); Magnesium 2.3 mg/dL (1.6-2.3); Potassium 3.2 mmol/L (3.4-5.1); Sodium 135 mmol/L (137-145); Total Protein 6.3 g/dL (6.3-8.2)
--- NOTE | 2023-10-13 07:43 | P.PN_ITS ---
Subjective Subjective Interval history: Admitted for diverticulitis. CT imaging negative for fluid collection. She has had a persistent leukocytosis at about 20 K. Today: She feels better overall, less right lower quadrant pain. She does have a clammy feeling and has been sweating her bed. No nausea. She has not really been eating and denies any flatus. WBC today remains elevated at 21.4. Exam Vital Signs (past 8 hours): - 10/12/23 23:50 10/12/23 23:50 10/13/23 03:04 Temperature 97.0 F L Pulse Rate 110 H Respiratory Rate 20 Blood Pressure 124/79 Pulse Oximetry 97 97 94 Oxygen Delivery Method Nasal Cannula Nasal Cannula Oxygen Flow Rate 2 2 2 10/13/23 04:20 Temperature 96.8 F L Pulse Rate 113 H Respiratory Rate 20 Blood Pressure 124/75 Pulse Oximetry 97 Oxygen Delivery Method Oxygen Flow Rate 2 Oxygen Delivery Method Nasal Cannula Oxygen Flow Rate 2 Narrative Exam Narrative: NAD, alert and oriented. Fluent speech. Lungs are clear, normal rate and effort. Heart is regular, no murmur gallop or rub. Abdomen is soft, non distended. She does have fairly significant right lower quadrant tenderness with deep palpation. Extremities are free of edema. Objective Labs 10/13/23 05:45 10/13/23 05:45 Labs: Laboratory Results - last 24 hr 10/13/23 05:45 WBC 21.4 H RBC 4.33 Hgb 10.0 L Hct 32.3 L MCV 74.6 L MCH 23.0 L MCHC 30.9 RDW 17.8 H Plt Count 357 Neut % (Auto) 91.1 H Lymph % (Auto) 3.4 L [place] % (Auto) 5.4 Eos % (Auto) 0.0 L Baso % (Auto) 0.1 Neut # (Auto) 39818 H Lymph # (Auto) 700 L [place] # (Auto) 1200 H Eos # (Auto) 0 Baso # (Auto) 0 Sodium 135 L Potassium 3.2 L Chloride 101 Carbon Dioxide 31 BUN 10 Creatinine 0.50 L Estimated GFR > 60 BUN/Creatinine Ratio 20.0 Glucose 128 H Calcium 7.7 L Magnesium 2.3 Total Bilirubin 0.5 AST 19 ALT 14 Alkaline Phosphatase 85 Total Protein 6.3 Albumin 3.3 L Globulin 3.0 Albumin/Globulin Ratio 1.1 [facility] Surgical History History of carpal tunnel repair Status post hysterectomy History of carpal tunnel repair Family History Brother Age: 51 Mental health problem ADHD (attention deficit hyperactivity disorder) Mother Age: 85 Hypertension High cholesterol Mental health problem Stroke Sister Age: 65 Hypertension High cholesterol Social History household members: family Smoking Status: Never smoker alcohol intake: current Assessment & Plan Assessment & Plan narrative: 1. Acute diverticulitis, present on admission and active. - continue IV fluids, cipro/flagyl for antibiotics, and okay for clears. Can advance diet as tolerated. - reported colonoscopy was unremarkable earlier this year per patient. - no abscess or free air on CT. Consider surgery consultation if worsening. 2. Acute respiratory failure with hypoxia -She has borderline hypoxia 89% on room air, possibly secondary to obesity with opiates for pain. Suspect opiate related at this time. 3. HTN, stable. - continue home amlodipine, lisionpril. Hold home HCTZ for now. 4. GERD, stable. - continue home PPI 5. Chronic pain, stable. - continue home tramadol, pregabalin. 6. Obesity Class 2, stable. PLAN: Given her high white count of 21, we will continue IV antibiotics. If she does not improve clinically and her white count does not began to decrease we will repeat her CT scan on October 13 in the a.m.. Code: Full, surrogate is patient's spouse DVT: Lovenox daily I have utilized all available immediate resources to obtain, update, or review the patient's current medications. Quality VTE Deep Vein Thrombosis/Pulmonary Embolism Present on Admission: No
[2023-10-13] MEDS: CIPROFLOXACIN 400 MG/200 ML PIGGYBACK 200 MG IV ×2 (09:32→21:04)
[2023-10-13] MEDS: PREGABALIN 75 MG CAPSULE PO ×2 (09:33→21:03)
[2023-10-13] MEDS: BUSPIRONE 5 MG TABLET 15 MG PO ×2 (09:33→21:03)
[2023-10-13] MEDS: polyethylene glycoL 3350 17 GM POWD.PACK PO (09:33)
[2023-10-13] MEDS: AMLODIPINE 5 MG TABLET PO (09:33)
[2023-10-13] MEDS: ENOXAPARIN 40 MG/0.4 ML SYRINGE SUBCUT (09:33)
[2023-10-13 10:45] LABS: Hemoglobin A1C% w Est Avg Glu 6.1 % (4.0-6.0)
[2023-10-13] MEDS: POTASSIUM CHLORIDE 20 MEQ TAB 40 MEQ PO ×2 (10:53→14:14)
--- NOTE | 2023-10-13 11:41 | CM.DPNOTE ---
DCP note MOLDER BENCH reviewed EMR. Per hospitalist in morning multidisciplinary rounds, anticipate dc in another day or two. Due to high white count hospitalist wants to continue IV abx. Potential need for repeat CT tomorrow. Per chart review, pt previously denied DCP/CM needs. Landlord plans to transport pt home to [place]. potential need for priority boarding ferry pass. Plan: home when medically stable, landlord to transport. Potential need for priority ferry pass. Saturday vs another few days. CM team will continue to follow as needed. LAVERNE Sun
[2023-10-13] MEDS: HYDROMORPHONE 0.5 MG INJ IV ×2 (14:15→18:55)
[2023-10-13] MEDS: SODIUM CHLORIDE 0.9% FLUSH 10 ML IV (21:16)
[2023-10-14] VITALS (10 sets, daily range): BP systolic 92–133; BP diastolic 67–79; PULSE 99–111; RESP 16–20; TEMP 35.8–36.5; O2SAT 93–98
[2023-10-14] MEDS: HYDROMORPHONE 0.5 MG INJ IV ×2 (00:57→06:11)
[2023-10-14] MEDS: metroNIDAZOLE 500 MG/100 ML PIGGYBACK 100 MG IV ×3 (05:30→23:15)
[2023-10-14] MEDS: PANTOPRAZOLE DR 40 MG TABLET PO (06:01)
[2023-10-14 06:29] LABS: Add Manual Diff / Slide Review NO; Basophils Absolute Auto 100 /uL (0-100); Basophils Percent Auto 0.4 % (0-2); Eosinophils Absolute Auto 0 /uL (0-450); Eosinophils Percent Auto 0.1 % (2-4); Hematocrit 31.5 % (36-46); Hemoglobin 9.8 g/dL (12.0-16.0); Lymphocytes Absolute Auto 800 /uL (1100-4500); Lymphocytes Percent Auto 4.1 % (25-40); Mean Corpuscular HGB Conc 31.1 % (30-36); Mean Corpuscular Hemoglobin 23.2 PG (26-34); Mean Corpuscular Volume 74.7 fL (80-100); Monocytes Absolute Auto 1100 /uL (0-900); Monocytes Percent Auto 5.6 % (3-14); Neutrophils Absolute Auto 17300 /uL (1500-7000); Neutrophils Percent Auto 89.8 % (50-75); Platelet Count 377 X10^3/uL (150-400); Red Blood Cell Count 4.22 X10^6/uL (4.0-5.2); Red Cell Distribution Width 17.6 % (11.6-14.8); White Blood Cell Count 19.3 X10^3/uL (4.5-11.0)
[2023-10-14 06:50] LABS: Alanine Aminotransferase 12 IU/L (<35); Albumin 3.1 g/dL (3.5-5.0); Alkaline Phosphatase 96 U/L (38-126); Aspartate Aminotransferase 18 IU/L (14-36); Bilirubin Total 0.4 mg/dL (0.2-1.3); Blood Urea Nitrogen 12 mg/dL (7-17); Calcium 7.7 mg/dL (8.4-10.2); Carbon Dioxide 32 mmol/L (22-32); Chloride 100 mmol/L (98-107); Glucose 117 mg/dL (80-110); HEMOLYSIS < 15 (0-50); Magnesium 2.6 mg/dL (1.6-2.3); Potassium 3.6 mmol/L (3.4-5.1); Sodium 133 mmol/L (137-145); Total Protein 6.1 g/dL (6.3-8.2)
[2023-10-14 06:55] LABS: BUN Creatinine Ratio 23.1 (6-22); Estimated Glomerular Filt Rate > 60 mL/min (>60)
--- NOTE | 2023-10-14 07:29 | DI.CT.S_ITS ---
PROCEDURE: CT ABDOMEN PELVIS W CON INDICATIONS: Diverticulitis and persist WBC, R/O abscess TECHNIQUE: After the administration of intravenous contrast, axial sections acquired from the lung bases to the pubic symphysis. Coronal and sagittal reformats were performed. For radiation dose reduction, the following was used: automated exposure control, adjustment of mA and/or kV according to patient size. COMPARISON: [facility], CT, CT ABDOMEN PELVIS W CON, 10/11/2023, 16:03. FINDINGS: Image quality: Diagnostic. Lower Chest: No significant findings. ABDOMEN: Liver: No solid mass. Gallbladder: No radiopaque gallstones or wall thickening. Biliary ducts: No biliary dilation. Pancreas: No ductal dilation. Spleen: Size is within normal limits. Adrenal Glands: Stable left adrenal nodule measuring up to 4 cm. No right adrenal nodule. . Kidneys and Ureters: No hydronephrosis. No solid mass. No complex renal cystic lesion which requires follow up. Stomach and Bowel: Sigmoid diverticulosis with wall thickening inflammation, consistent with acute diverticulitis. There is a new gas and fluid collection within the pelvis measuring 9.8 x 4.6 cm. Peritoneum: No abnormal intraperitoneal fluid. No free air. Ventral Wall: No significant ventral hernia. Abdominal Nodes: No retroperitoneal or mesenteric adenopathy by size criteria. Vessels: Aorta and inferior vena cava are normal in size. Atherosclerotic vascular calcifications. PELVIS: Pelvic Organs: Left ovarian cyst measuring 3.5 cm is redemonstrated. Status post hysterectomy.. Bladder: No bladder wall thickening, accounting for underdistention. Pelvic Nodes: No enlarged lymph nodes. Miscellaneous: No inguinal hernias are seen. Bones: No aggressive osseous abnormality. Decreased osseous mineralization. Degenerative changes of the spine. IMPRESSION: 1. Sigmoid diverticulitis with new collection containing gas and fluid in the pelvis. 2. Stable left adrenal nodule measuring 4 cm. Recommend urology consultation given size. 3. Stable left ovarian cyst measuring 3.5 cm. Dictated by: Raleigh Baeza M.D. on 10/14/2023 at 9:05 Approved by: Raleigh Baeza M.D. on 10/14/2023 at 9:14
--- NOTE | 2023-10-14 07:30 | PM.PN.1 ---
Subjective Subjective Interval history: She feels a lot better today. Less pain. More energy. She was able to eat and did have 1 bowel movement. She was still very weak. Physical therapy is evaluating her today. Exam Vital Signs (past 8 hours): - 10/14/23 00:42 10/14/23 01:00 10/14/23 04:39 Temperature 96.6 F L 97.1 F L Pulse Rate 99 H 103 H Respiratory Rate 18 20 Blood Pressure 114/74 131/79 Pulse Oximetry 98 96 98 Oxygen Delivery Method Nasal Cannula Oxygen Flow Rate 2 2 2 10/14/23 05:00 Temperature Pulse Rate Respiratory Rate Blood Pressure Pulse Oximetry 97 Oxygen Delivery Method Nasal Cannula Oxygen Flow Rate 2 Oxygen Delivery Method Nasal Cannula Oxygen Flow Rate 2 Narrative Exam Narrative: NAD, alert and oriented. Fluent speech. Lungs are clear, normal rate and effort. Heart is regular, no murmur gallop or rub. Abdomen is soft, non distended. Minimal RLQ tenderness. Extremities are free of edema. Objective Labs 10/14/23 05:30 10/14/23 05:30 Labs: Laboratory Results - last 24 hr 10/13/23 10/14/23 05:45 05:30 WBC 19.3 H RBC 4.22 Hgb 9.8 L Hct 31.5 L MCV 74.7 L MCH 23.2 L MCHC 31.1 RDW 17.6 H Plt Count 377 Neut % (Auto) 89.8 H Lymph % (Auto) 4.1 L [place] % (Auto) 5.6 Eos % (Auto) 0.1 L Baso % (Auto) 0.4 Neut # (Auto) 43715 H Lymph # (Auto) 800 L [place] # (Auto) 1100 H Eos # (Auto) 0 Baso # (Auto) 100 Sodium 133 L Potassium 3.6 Chloride 100 Carbon Dioxide 32 BUN 12 Creatinine 0.52 Estimated GFR > 60 BUN/Creatinine Ratio 23.1 H Glucose 117 H Hemoglobin A1c 6.1 H Calcium 7.7 L Magnesium 2.6 H Total Bilirubin 0.4 AST 18 ALT 12 Alkaline Phosphatase 96 Total Protein 6.1 L Albumin 3.1 L Globulin 3.0 Albumin/Globulin Ratio 1.0 PFSH Surgical History History of carpal tunnel repair Status post hysterectomy History of carpal tunnel repair Family History Brother Age: 51 Mental health problem ADHD (attention deficit hyperactivity disorder) Mother Age: 85 Hypertension High cholesterol Mental health problem Stroke Sister Age: 65 Hypertension High cholesterol Social History household members: none Smoking Status: Never smoker alcohol intake: current Assessment & Plan Assessment & Plan narrative: 1. Acute diverticulitis, present on admission and active. - continue antibiotics - reported colonoscopy was unremarkable earlier this year per patient. 2. Acute respiratory failure with hypoxia, present on admission and improved. -She has borderline hypoxia 89% on room air, possibly secondary to obesity with opiates for pain. Suspect opiate related at this time. -wean O2 3. HTN, stable. - continue home amlodipine, lisionpril. Hold home HCTZ for now. -Monitor 4. GERD, stable. - continue home PPI 5. Chronic pain, stable. - continue home tramadol, pregabalin. 6. Obesity Class 2, stable. PLAN: -cont antibiotics -she requires another night of in-hospital care with IV antibiotics and monitoring. -ambulate -advance diet and follow WBC. -she is quite weak and physical therapy did evaluate her today and felt that she would require prison facility. I did speak to the social science instructor and we will try to arrange for a transition for rehabilitation. Estimated date of discharge is October 14 or pending clinical improvement in white count. Code: Full, DVT: Lovenox daily Quality VTE Deep Vein Thrombosis/Pulmonary Embolism Present on Admission: No
[2023-10-14] MEDS: AMLODIPINE 5 MG TABLET PO (10:07)
[2023-10-14] MEDS: CIPROFLOXACIN 400 MG/200 ML PIGGYBACK 200 MG IV ×2 (10:07→21:08)
[2023-10-14] MEDS: BUSPIRONE 5 MG TABLET 15 MG PO ×2 (10:07→21:07)
[2023-10-14] MEDS: ENOXAPARIN 40 MG/0.4 ML SYRINGE SUBCUT (10:08)
[2023-10-14] MEDS: PREGABALIN 75 MG CAPSULE PO ×2 (10:08→21:07)
[2023-10-14] MEDS: SODIUM CHLORIDE 0.9% FLUSH 10 ML IV ×2 (10:09→21:08)
--- NOTE | 2023-10-14 11:11 | DIET.CONS ---
Dietary Consultation Note Admission Date: 10/11/2023 18:05 Assessment: 63 y F admitted for diverticulitis. Nutrition consulted for pre-diabetes. Met with pt at bedside. Open to discussing nutrition therapy for pre-DM. Has 1 meal/day, meat + carb/starchy veg. No sugar sweetened beverages. Ht: 167.64 cm Wt: 102.965 kg BMI: 36.6 UBW: 104.326 kg on 09/20/22 per chart Last BM: 10/11/23 (10/11/23 18:14) MNA: 11 Angel Score: 19 Diet: 10/11/23 Dinner Clear Liquid Diet Diet Modifications: Nutrition Percent Meal Consumed 50% 10/13/23 18:00 Percent Meal Consumed 100% 10/12/23 21:40 Labs: RBC 4.22 X10^6/uL (4.0-5.2) 10/14/23 05:30 Hgb 9.8 g/dL (12.0-16.0) L 10/14/23 05:30 Hct 31.5 % (36-46) L 10/14/23 05:30 Creatinine 0.52 mg/dL (0.52-1.04) 10/14/23 05:30 Hemoglobin A1c 6.1 % (4.0-6.0) H 10/13/23 05:45 Lactate 0.9 mmol/L (0.7-2.1) 10/11/23 15:22 NT-Pro-B Natriuret Pep 194 pg/mL (<125) H 10/11/23 15:22 Nutrition Diagnosis: Nutrition r/t knowledge deficit r/t no previous educ aeb pt assessment Interventions: 1. Provided overview MNT for pre-diabetes, provided handout Monitoring/Evaluations: f/u prn Electronically Signed by: Dali Grimes 10/14/23 11:11 Clinical Dietitian [address] [address]
[2023-10-14] MEDS: ACETAMINOPHEN 325 MG TABLET 650 MG PO (12:37)
[2023-10-14] MEDS: OXYCODONE IR 5 MG TABLET PO (12:38)
--- NOTE | 2023-10-14 12:47 | PT.IIE ---
Surgical History (Last Reviewed 10/12/23 @ 08:18 by Oliverio Stewart MD) History of carpal tunnel repair History of carpal tunnel repair Status post hysterectomy Physical Therapy Inpatient Evaluation/Re-Eval M1 PT/OT-IP Prior Functional Status Start: 10/14/23 11:44 Freq: NEEDED Status: Active Protocol: Document 10/14/23 11:45 MB (Rec: 10/14/23 12:46 MB [id number]) Medical Review Prior Functional Status Medical History Reviewed Yes Diet/Fluid Consistency Regular Communication WNLs Mobility and Gait I, has cane Activities of Daily Living and IADL's Pt reports I, drives Social History Household Members none Living Arrangements Other Number of Stairs To Enter/Railing? Pt lives off the grid in a small home that she rents. She has a neighbor and a landlord . She states there are some steps but she is not clear about these. She uses a commode and then manually empties commode outside in the outhouse. Her shower is also outside. Additional Social History Comment Pt states that she is unemployed d/t disability d/t scoliosis. M2 PT-IP Current Condition Start: 10/14/23 11:44 Freq: NEEDED Status: Active Protocol: Document 10/14/23 11:45 MB (Rec: 10/14/23 12:46 MB [id number]) Physical Therapy Current Condition Current Condition Evaluation Date 10/14/23 Treatment Diagnosis Abdominal pain M3 PT-IP Subjective Start: 10/14/23 11:44 Freq: NEEDED Status: Active Protocol: Document 10/14/23 11:45 MB (Rec: 10/14/23 12:46 MB [id number]) Subjective Physical Therapy Visit Type Type Initial Evaluation Visit Start Time 11:45 Visit Stop Time 12:10 Number of SUPERVISOR FIREWORKS ASSEMBLY Visits 0 Physical Therapy Visit Comments Patient Comments Pt states that she would rather stay in the bed with pure wick and she requires encouragement to participate with PT, to get up to the BR and to stay OOB and sit up for lunch after treatment. Therapy Pain Assessment Pain When Pain Assessed At Rest Pain Present Pain Present Denied Pain M4 PT-IP Mobility and Gait Start: 10/14/23 11:44 Freq: NEEDED Status: Active Protocol: Document 10/14/23 11:45 MB (Rec: 10/14/23 12:46 MB [id number]) PT-Bed Mobility Assessment Supine to Sit Supine to Sit Independent,1 Person Assistance,Head of Bed Elevated,Bedrails Scooting Scooting to Edge of Bed Independent PT-Transfer Assessment Sit to and From Stand Sit to and from Stand Contact Guard Assistance,1 Person Assistance,Use of Upper Extremities Equipment Transfer Assistive Device Gait Belt,Front Wheeled Walker Orthotic/Prosthetic Devices or Brace: No Transfers Transfer Destination Chair,Toilet Transfer Technique Ambulation Transfer Ability Level of Assist Contact Guard Assistance,1 Person Assistance,Use of Upper Extremities Comments Mobility Comments Cues for hand placement to push up from the bed and not to reach for RW. 2L O2 donned upon arrival and sats are in the mid to low 90s and HR is 110 BPM. PT doffs O2 and sats remain 91-95% with mobility and HR is 118-122 BPM. Pt has some FERRERA. PT encourages pt to try the toilet in BR when pt states that she can just use the pure wick for urination. PT ed pt that she needs to practice bowel and urination hygiene to prepare for B&B control and d/c. Pt performs toileting hygiene with cues and PT assist with donning and doffing brief. Pt with some bowel incontinence in brief. Gait Assessment Gait Gait Assistance Required: Contact Guard Assist,Minimum Assistance Distance (Feet) 15 Able to Maintain Weight Bearing Status Yes During Gait Assistive Devices Assistive Device Gait Belt,Front Wheeled Walker Gait Deviations General Gait Pattern Decreased Stride Length, Decreased Feet Clearance, Flexed Trunk,Wide Based Gait Factors Limiting Gait Function Factors Limiting Gait Function Difficulty Following Directions,Poor Balance,Poor Safety Awareness Comments Gait Comments 15'x1 and 10'x1 with RW and cues for stepping and staying with walker and PT manages IV line PT-Balance Assessment Sitting Balance and Reactions Static Sitting Balance Ability Good Dynamic Sitting Balance Ability Good Standing Balance and Reactions Static Standing Balance Ability Good Dynamic Standing Balance Ability Good Device Used RW M5 PT-IP Objective Assessments Start: 10/14/23 11:44 Freq: NEEDED Status: Active Protocol: Document 10/14/23 11:45 MB (Rec: 10/14/23 12:46 MB [id number]) Orientation Orientation/Cognition Level of Alertness Alert Orientation Name,Age,Birthday,Month,Year, Place,Situation Language Function Ability No Deficits Noted Safety Awareness Decreased Safety Awareness Memory Description No Deficits Noted Gross Range of Motion Upper Extremity ROM Assessment Within Functional Limits Lower Extremity ROM Assessment Within Functional Limits Strength Upper Extremity Strength Assessment Within Functional Limits Lower Extremity Strength Assessment Within Functional Limits M6 PT-IP Treatment Start: 10/14/23 11:44 Freq: NEEDED Status: Active Protocol: Document 10/14/23 11:45 MB (Rec: 10/14/23 12:46 MB [id number]) Physical Therapy Treatment Education Education Provided Safety Other Treatments Other Treatment Performed See education above M7 PT-IP Assessment and Plan Start: 10/14/23 11:44 Freq: NEEDED Status: Active Protocol: Document 10/14/23 11:45 MB (Rec: 10/14/23 12:46 MB [id number]) PT Summary Assessment and Plan Potential Rehabilitation Potential Good Status of Condition at Evaluation Evolving Summary Impairments Balance,Bed Mobility,Transfers ,Gait,Activity Tolerance Progress Towards Goals Progressing Toward Goals Assessment Summary Pt is a 63 y/o female who is very I and lives off the grid in [facility] at baseline . Pt has supportive neighbor and landlord. She presents with functional weakness and decreased I mobility during PT assessment today and requires CGA to min A as well as cues. Pt uses a commode she has to empty into outhouse at baseline and her shower is also outside. There are steps and uneven terrain in her living area. She will benefit from ongoing skilled PT to maximize I before d/c home. Goals Bed Mobility Goal Independent Transfer Goal Independent,Cane,Front Wheeled Walker,Four Wheeled Walker Gait Goal Independent,Cane,Front Wheel Walker,Four Wheel Walker Gait Distance 100 Other Goals Pt will ascend and descend 2 steps with LRAD and mod I. Days to Meet Goals 5 Frequency of Treatment Frequency Of Treatment Once a Day Treatment Plan Physical Therapy Treatment Plan Bed Mobility Training,Transfer Training,Gait Training, Therapeutic Exercise,Balance Retraining,Discharge Planning, Hot or Cold Pack Weight Bearing Status Weight Bearing Status Weight Bear as Tolerated Recommendations To Nursing Amount of Assist Needed 1 Person Assist Discharge Recommendations PT Discharge Recommendations SNF Rehab Transportation Needs at Discharge Private Vehicle
--- NOTE | 2023-10-14 13:06 | CM.DPC ---
Addendum entered by LAVERNE Mijares 10/14/23 14:38: ADD: Return call from [facility], they will submit for insurance auth to determine if SNF will be approved and then they could accept. Unclear if determination will be made today or tomorrow due to the holiday. BF Original Note: DCP SNF vs Home Cont: Per MD, pt continues to have some abdominal pain and remains on liquids today and not yet stable for discharge but if she continues to tolerate advancing diet might be stable for d/c tomorrow Tues. PT ordered and recommend that pt could benefit from SNF rehab at d/c due to her remote living situation on [place] and has weakness with fatigue and below baseline. SW met bedside with pt and explained role and she confirms that she is still somewhat painful but aware of possible d/c tomorrow. Pt denies any hx of SNF and SW explained purpose of SNF and need for insurance auth for coverage and provided the SNF Choice list. Pt states she is hopeful to stay at her [facility]'s place in their extra room with a bigger bed and bathroom and get some assist but SW confirmed pt has not yet discussed this with [facility]. SW strongly encouraged her to call today and discuss to determine if this could be an options as pt's [facility] already plans to provide transport home for patient at d/. Pt agreeable to call [facility] this afternoon. Pt agreeable with backup plan of SNF and preference is [facility]. SW called [facility] admissions and made new referral and they will review. No PASRR done yet. Plan: SW to follow for [facility] review to determine if they can submit for SNF auth and possible option of home to [facility] [place] for increased assist at d/c. LAVERNE Mijares
[2023-10-15] VITALS (8 sets, daily range): BP systolic 97–137; BP diastolic 47–79; PULSE 65–115; RESP 14–20; TEMP 36.1–37.3; O2SAT 93–96
[2023-10-15] MEDS: metroNIDAZOLE 500 MG/100 ML PIGGYBACK 100 MG IV ×3 (06:28→21:28)
[2023-10-15] MEDS: PANTOPRAZOLE DR 40 MG TABLET PO (06:28)
[2023-10-15] MEDS: OXYCODONE IR 5 MG TABLET PO ×2 (07:15→12:17)
--- NOTE | 2023-10-15 07:59 | PM.CALLCOV.1 ---
Call Coverage Note Note Date of Patient Contact: 10/15/23 Narrative of Care Provided: CT scan reviewed. Labs pending. recommend reveiw w radiology for pelvic drain and transfer if there is a window. o/w continue w antibiotics with the possibility of surgery if she fails to respond.
[2023-10-15] MEDS: AMLODIPINE 5 MG TABLET PO (08:27)
[2023-10-15] MEDS: PREGABALIN 75 MG CAPSULE PO ×2 (08:27→20:57)
[2023-10-15] MEDS: CIPROFLOXACIN 400 MG/200 ML PIGGYBACK 200 MG IV ×2 (08:27→19:46)
[2023-10-15] MEDS: polyethylene glycoL 3350 17 GM POWD.PACK PO (08:28)
[2023-10-15] MEDS: BUSPIRONE 5 MG TABLET 15 MG PO ×2 (08:28→20:57)
[2023-10-15] MEDS: ENOXAPARIN 40 MG/0.4 ML SYRINGE SUBCUT (08:28)
[2023-10-15] MEDS: SODIUM CHLORIDE 0.9% FLUSH 10 ML IV (08:28)
[2023-10-15 08:50] LABS: Add Manual Diff / Slide Review NO; Basophils Absolute Auto 100 /uL (0-100); Basophils Percent Auto 0.4 % (0-2); Eosinophils Absolute Auto 0 /uL (0-450); Eosinophils Percent Auto 0.2 % (2-4); Hematocrit 31.1 % (36-46); Hemoglobin 9.8 g/dL (12.0-16.0); Lymphocytes Absolute Auto 900 /uL (1100-4500); Lymphocytes Percent Auto 4.4 % (25-40); Mean Corpuscular HGB Conc 31.6 % (30-36); Mean Corpuscular Hemoglobin 23.2 PG (26-34); Mean Corpuscular Volume 73.5 fL (80-100); Monocytes Absolute Auto 1000 /uL (0-900); Monocytes Percent Auto 5.1 % (3-14); Neutrophils Absolute Auto 17900 /uL (1500-7000); Neutrophils Percent Auto 89.9 % (50-75); Platelet Count 484 X10^3/uL (150-400); Red Blood Cell Count 4.23 X10^6/uL (4.0-5.2); Red Cell Distribution Width 18.2 % (11.6-14.8); White Blood Cell Count 19.9 X10^3/uL (4.5-11.0)
[2023-10-15 09:02] LABS: Alanine Aminotransferase 12 IU/L (<35); Albumin 3.1 g/dL (3.5-5.0); Alkaline Phosphatase 114 U/L (38-126); Aspartate Aminotransferase 21 IU/L (14-36); Blood Urea Nitrogen 12 mg/dL (7-17); Calcium 7.6 mg/dL (8.4-10.2); Carbon Dioxide 28 mmol/L (22-32); Chloride 98 mmol/L (98-107); Glucose 132 mg/dL (80-110); HEMOLYSIS < 15 (0-50); Potassium 2.9 mmol/L (3.4-5.1); Sodium 131 mmol/L (137-145)
[2023-10-15 09:03] LABS: Magnesium 2.6 mg/dL (1.6-2.3)
[2023-10-15 09:04] LABS: Bilirubin Total 0.5 mg/dL (0.2-1.3); Estimated Glomerular Filt Rate > 60 mL/min (>60); Globulin 3.1 g/dL (1.7-4.1); Total Protein 6.2 g/dL (6.3-8.2)
[2023-10-15] MEDS: POTASSIUM CHLORIDE 20 MEQ TAB 40 MEQ PO ×2 (11:41→17:37)
--- NOTE | 2023-10-15 11:42 | CM.DPC ---
DCP SNF Planning: Per MD, pt needing another day of IV-Abx and labs and then likely discharge tomorrow Wed if stable. BILLY met bedside with pt and explained role again and confirmed that pt has not spoken to her Landlord about staying there as she realized that they would not be able to provide assist anyways and pt decided that SNF would be needed at d/c. SW updated her that [facility] can accept and that they obtained [facility] MCR auth. Pt very appreciative and agreeable with d/c to [facility] and BILLY explained likely semi-private shared room most likely and answered some questions and pt thankful. BILLY called Ronna at [facility] and updated and transport tentatively scheduled for 1100 tomorrow Sat. LAVERNE Mijares
--- NOTE | 2023-10-15 12:35 | PT.IPTN ---
Physical Therapy Treatment Note M2 PT-IP Current Condition Start: 10/14/23 11:44 Freq: NEEDED Status: Active Protocol: Document 10/14/23 11:45 MB (Rec: 10/14/23 12:46 MB [id number]) Physical Therapy Current Condition Current Condition Evaluation Date 10/14/23 Treatment Diagnosis Abdominal pain M3 PT-IP Subjective Start: 10/14/23 11:44 Freq: NEEDED Status: Active Protocol: Document 10/15/23 12:51 TS (Rec: 10/15/23 13:03 TS [id number]) Subjective Physical Therapy Visit Type Type Treatment Note Visit Start Time 12:35 Visit Stop Time 12:51 Number of SHOW JUMPING INSTRUCTOR Visits 1 Physical Therapy Visit Comments Patient Comments Pt is agreeable to PT. M4 PT-IP Mobility and Gait Start: 10/14/23 11:44 Freq: NEEDED Status: Active Protocol: Document 10/15/23 12:51 TS (Rec: 10/15/23 13:03 TS [id number]) PT-Bed Mobility Assessment Supine to Sit Supine to Sit Independent,1 Person Assistance,Head of Bed Elevated,Bedrails Sit to Supine Sit to Supine Independent Scooting Scooting to Edge of Bed Independent PT-Transfer Assessment Sit to and From Stand Sit to and from Stand Standby Assistance,Use of Upper Extremities Equipment Transfer Assistive Device Gait Belt,Front Wheeled Walker Orthotic/Prosthetic Devices or Brace: No Comments Mobility Comments Supine to sit Ind with HOB slighly elevated. STS from bed SBA with FWW, pt has good standing balance. She ambulated in room/hallway ~150 'SBA with FWW. She performed steps x3 with B handrails SBA, pt had no buckling or LOB. She ambulated ~50'CGA with no AD, pt has some swaying but no LOB. Pt was left back in bed, all needs met. Gait Assessment Gait Gait Assistance Required: Contact Guard Assist,Minimum Assistance Distance (Feet) 200 Able to Maintain Weight Bearing Status Yes During Gait Assistive Devices Assistive Device Gait Belt,Front Wheeled Walker Orthotic/Prosthetic Devices or Brace: No Gait Deviations General Gait Pattern Decreased Stride Length, Decreased Feet Clearance, Flexed Trunk,Wide Based Gait Factors Limiting Gait Function Factors Limiting Gait Function Difficulty Following Directions,Poor Balance,Poor Safety Awareness Comments Gait Comments x50' no AD, x150' with AD. Stair Climbing Assessment Evaluation Level of Assist On Stairs Standby Assistance Devices Stair Climbing Assistive Devices Left Railing,Right Railing Technique/Endurance Stair Climbing Direction Ascend and Descend Stair Climbing Technique Step to Step Number of Steps Climbed 3 PT-Balance Assessment Sitting Balance and Reactions Static Sitting Balance Ability Good Dynamic Sitting Balance Ability Good Standing Balance and Reactions Static Standing Balance Ability Good Dynamic Standing Balance Ability Good Device Used RW M5 PT-IP Objective Assessments Start: 10/14/23 11:44 Freq: NEEDED Status: Active Protocol: Document 10/14/23 11:45 MB (Rec: 10/14/23 12:46 MB [id number]) Orientation Orientation/Cognition Level of Alertness Alert Orientation Name,Age,Birthday,Month,Year, Place,Situation Language Function Ability No Deficits Noted Safety Awareness Decreased Safety Awareness Memory Description No Deficits Noted Gross Range of Motion Upper Extremity ROM Assessment Within Functional Limits Lower Extremity ROM Assessment Within Functional Limits Strength Upper Extremity Strength Assessment Within Functional Limits Lower Extremity Strength Assessment Within Functional Limits M6 PT-IP Treatment Start: 10/14/23 11:44 Freq: NEEDED Status: Active Protocol: Document 10/15/23 12:51 TS (Rec: 10/15/23 13:03 TS [id number]) Physical Therapy Treatment Education Education Provided Safety M7 PT-IP Assessment and Plan Start: 10/14/23 11:44 Freq: NEEDED Status: Active Protocol: Document 10/15/23 12:51 TS (Rec: 10/15/23 13:03 TS [id number]) PT Summary Assessment and Plan Potential Rehabilitation Potential Good Summary Impairments Balance,Bed Mobility,Transfers ,Gait,Activity Tolerance Progress Towards Goals Progressing Toward Goals Assessment Summary Bibiana is making good progress with her mobility. She is Ind with all bed mobility. She progressed her gait to ~x50' with no AD and x150' with AD. Pt likes the support the FWW gives. She progressed to stairs SBA with B handrails, had no buckling or LOB. PT is recommending pt return home assist and with HHPT. Goals Bed Mobility Goal Independent Transfer Goal Independent,Cane,Front Wheeled Walker,Four Wheeled Walker Gait Goal Independent,Cane,Front Wheel Walker,Four Wheel Walker Gait Distance 100 Other Goals Pt will ascend and descend 2 steps with LRAD and mod I. Days to Meet Goals 5 Frequency of Treatment Frequency Of Treatment Once a Day Treatment Plan Physical Therapy Treatment Plan Bed Mobility Training,Transfer Training,Gait Training, Therapeutic Exercise,Balance Retraining,Discharge Planning, Hot or Cold Pack Weight Bearing Status Weight Bearing Status Weight Bear as Tolerated Recommendations To Nursing Amount of Assist Needed Standby Assistance Discharge Recommendations PT Discharge Recommendations Home with Assistance,Home Health Transportation Needs at Discharge Private Vehicle
--- NOTE | 2023-10-15 12:40 | PC.NURSE ---
Pt up with PT and walking in the [place] with SBA using FWW. Pt has showered and brushed her teeth. Gown and sheets changed.
--- NOTE | 2023-10-15 13:18 | P.PN_ITS ---
Subjective Subjective Interval history: Continues to feel okay, minimal abdominal pain, wants to try more food. CT showed abscess, discussed with surgery whom recommended discussion with IR for possible drainage whom stated there was no accessible window for drainage. Surgery recommends conservative management with continued IV antibiotics for now. Exam Vital Signs (past 8 hours): - 10/15/23 07:40 10/15/23 08:00 10/15/23 12:00 Temperature 97.2 F L Pulse Rate 108 H Respiratory Rate 16 Blood Pressure 137/79 Pulse Oximetry 94 94 96 Oxygen Delivery Method Room Air Room Air Oxygen Flow Rate 0 0 0 10/15/23 12:00 Temperature 97.5 F L Pulse Rate 110 H Respiratory Rate 16 Blood Pressure 131/69 Pulse Oximetry 93 Oxygen Delivery Method Oxygen Flow Rate 0 Oxygen Delivery Method Room Air Oxygen Flow Rate 0 Narrative Exam Narrative: NAD, alert and oriented. Fluent speech. Lungs are clear, normal rate and effort. Heart is regular, no murmur gallop or rub. Abdomen is soft, non distended. Minimal RLQ tenderness. Extremities are free of edema. Objective Labs 10/15/23 08:33 10/15/23 08:33 Labs: Laboratory Results - last 24 hr 10/15/23 08:33 WBC 19.9 H RBC 4.23 Hgb 9.8 L Hct 31.1 L MCV 73.5 L MCH 23.2 L MCHC 31.6 RDW 18.2 H Plt Count 484 H Neut % (Auto) 89.9 H Lymph % (Auto) 4.4 L Frederick % (Auto) 5.1 Eos % (Auto) 0.2 L Baso % (Auto) 0.4 Neut # (Auto) 60045 H Lymph # (Auto) 900 L [place] # (Auto) 1000 H Eos # (Auto) 0 Baso # (Auto) 100 Sodium 131 L Potassium 2.9 L Chloride 98 Carbon Dioxide 28 BUN 12 Creatinine 0.50 L Estimated GFR > 60 BUN/Creatinine Ratio 24.0 H Glucose 132 H Calcium 7.6 L Magnesium 2.6 H Total Bilirubin 0.5 AST 21 ALT 12 Alkaline Phosphatase 114 Total Protein 6.2 L Albumin 3.1 L Globulin 3.1 Albumin/Globulin Ratio 1.0 PFSH Surgical History History of carpal tunnel repair Status post hysterectomy History of carpal tunnel repair Family History Brother Age: 51 Mental health problem ADHD (attention deficit hyperactivity disorder) Mother Age: 85 Hypertension High cholesterol Mental health problem Stroke Sister Age: 65 Hypertension High cholesterol Social History household members: none Smoking Status: Never smoker alcohol intake: current Assessment & Plan Assessment & Plan narrative: 1. Acute diverticulitis with abscess, present on admission and active. - continue antibiotics. Repeat CT on 10/13 showed 9.8x4.6 cm abscess - reported colonoscopy was unremarkable earlier this year per patient. - discussed with IR today, no window for IR drainage. - continue IV antibiotics with ciprofloxacin and metronidazole for now, follow leukocytosis. General surgery following. - can advance diet to full liquid, consider regular if clinically improving. 2. Acute respiratory failure with hypoxia, present on admission and improved. -She has borderline hypoxia 89% on room air, possibly secondary to obesity with opiates for pain. Suspect opiate related at this time. -wean O2 3. HTN, stable. - continue home amlodipine, lisionpril. Hold home HCTZ for now. -Monitor 4. GERD, stable. - continue home PPI 5. Chronic pain, stable. - continue home tramadol, pregabalin. 6. Obesity Class 2, stable. PLAN: -cont antibiotics IV for now given abscess without available window for IR drainage. Follow WBC count, around 19 today and yesterday, only slightly improved since admit. -she requires another night of in-hospital care with IV antibiotics and monitoring. -ambulate -advance diet and follow WBC. -continue PT/OT. Case discussed with general surgery and radiology to formulate the above assessment and plan. Code: Full, DVT: Lovenox daily Quality VTE Deep Vein Thrombosis/Pulmonary Embolism Present on Admission: No
[2023-10-15] MEDS: FLUCONAZOLE 200 MG/100 ML PIGGYBACK 100 MG IV (16:40)
--- NOTE | 2023-10-15 23:09 | PC.NURSE ---
Patient is alert and oriented. Breath sounds CTA with RA sat of 94%. Continues to be tachycardic and telemetry reading was ST w/rate of 121. Denies nausea. Denies abdominal pain although mixer tender on palpation in RLQ. States she has been having looser bowel movements. Denies dysuria with urination but states she does have frequency which is not new. Is able to turn herself in bed. Gets out of bed with SBA. Fall risk score is moderate and bed alarm is activated. Knows she will be NPO after 0000 for possible surgery in the morning.
[2023-10-16] VITALS (19 sets, daily range): BP systolic 103–153; BP diastolic 55–119; PULSE 100–118; RESP 16–24; TEMP 36.4–37; O2SAT 90–98
[2023-10-16] MEDS: metroNIDAZOLE 500 MG/100 ML PIGGYBACK 100 MG IV ×3 (06:13→21:39)
[2023-10-16] MEDS: PANTOPRAZOLE DR 40 MG TABLET PO (06:14)
[2023-10-16] MEDS: SODIUM CHLORIDE 0.9% 250 ML 21 ML IV (06:14)
[2023-10-16] MEDS: SODIUM CHLORIDE 0.9% FLUSH 10 ML IV ×3 (06:15→19:43)
[2023-10-16 06:38] LABS: Add Manual Diff / Slide Review NO; Basophils Absolute Auto 200 /uL (0-100); Basophils Percent Auto 0.8 % (0-2); Eosinophils Absolute Auto 0 /uL (0-450); Eosinophils Percent Auto 0.3 % (2-4); Hematocrit 30.3 % (36-46); Hemoglobin 9.5 g/dL (12.0-16.0); Lymphocytes Absolute Auto 1000 /uL (1100-4500); Lymphocytes Percent Auto 5.5 % (25-40); Mean Corpuscular HGB Conc 31.3 % (30-36); Mean Corpuscular Hemoglobin 23.1 PG (26-34); Mean Corpuscular Volume 73.8 fL (80-100); Monocytes Absolute Auto 1200 /uL (0-900); Monocytes Percent Auto 6.3 % (3-14); Neutrophils Absolute Auto 16500 /uL (1500-7000); Neutrophils Percent Auto 87.1 % (50-75); Platelet Count 499 X10^3/uL (150-400); Red Cell Distribution Width 17.7 % (11.6-14.8); White Blood Cell Count 18.9 X10^3/uL (4.5-11.0)
[2023-10-16 06:50] LABS: Alanine Aminotransferase 12 IU/L (<35); Albumin 3.1 g/dL (3.5-5.0); Albumin Globulin Ratio 1.1 (1.0-2.8); Alkaline Phosphatase 99 U/L (38-126); Aspartate Aminotransferase 20 IU/L (14-36); BUN Creatinine Ratio 21.6 (6-22); Bilirubin Total 0.3 mg/dL (0.2-1.3); Blood Urea Nitrogen 11 mg/dL (7-17); Calcium 7.8 mg/dL (8.4-10.2); Carbon Dioxide 30 mmol/L (22-32); Chloride 100 mmol/L (98-107); Estimated Glomerular Filt Rate > 60 mL/min (>60); Globulin 2.9 g/dL (1.7-4.1); Glucose 120 mg/dL (80-110); HEMOLYSIS < 15 (0-50); Magnesium 2.7 mg/dL (1.6-2.3); Potassium 3.4 mmol/L (3.4-5.1); Sodium 134 mmol/L (137-145)
[2023-10-16] MEDS: CIPROFLOXACIN 400 MG/200 ML PIGGYBACK 200 MG IV ×2 (07:30→19:41)
[2023-10-16] MEDS: PREGABALIN 75 MG CAPSULE PO ×2 (08:22→20:42)
[2023-10-16] MEDS: AMLODIPINE 5 MG TABLET PO (08:22)
[2023-10-16] MEDS: BUSPIRONE 5 MG TABLET 15 MG PO ×2 (08:22→20:42)
--- NOTE | 2023-10-16 09:11 | PT.IPTN ---
Current Diagnoses Diverticulitis of intestine, part unspecified, without perforation or abscess without bleeding (10/11/23) Surgery Performed Operation Date: 10/16/23 13:00 <No data on this case meets the specified criteria> Physical Therapy Treatment Note M2 PT-IP Current Condition Start: 10/14/23 11:44 Freq: NEEDED Status: Active Protocol: Document 10/14/23 11:45 MB (Rec: 10/14/23 12:46 MB [id number]) Physical Therapy Current Condition Current Condition Evaluation Date 10/14/23 Treatment Diagnosis Abdominal pain M3 PT-IP Subjective Start: 10/14/23 11:44 Freq: NEEDED Status: Active Protocol: Document 10/16/23 09:36 TS (Rec: 10/16/23 09:44 TS [id number]) Subjective Physical Therapy Visit Type Type Treatment Note Visit Start Time 09:11 Visit Stop Time 09:34 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 M4 PT-IP Mobility and Gait Start: 10/14/23 11:44 Freq: NEEDED Status: Active Protocol: Document 10/16/23 09:36 TS (Rec: 10/16/23 09:44 TS [id number]) PT-Bed Mobility Assessment Supine to Sit Supine to Sit Independent,1 Person Assistance,Head of Bed Elevated,Bedrails Sit to Supine Sit to Supine Independent Scooting Scooting to Edge of Bed Independent PT-Transfer Assessment Sit to and From Stand Sit to and from Stand Standby Assistance,Use of Upper Extremities Equipment Transfer Assistive Device Gait Belt,Front Wheeled Walker Orthotic/Prosthetic Devices or Brace: No Comments Mobility Comments Supine to sit with HOB elevated 30D pt is Ind with use of rails. STS from bed Ind with use of FWW. Pt ambulated ~250'SBA with FWW, had good balance. She performed steps x3 with B handrails, pt is slow to step and has some diffiuclty with balance. Pt amublated back to room. Performed NBOS w/ eyes closed, bilateral tandem stance and SLS with rail support. PT was left back in bed, all needs met, RN notified. Gait Assessment Gait Gait Assistance Required: Standby Assistance Distance (Feet) 250 Able to Maintain Weight Bearing Status Yes During Gait Assistive Devices Assistive Device Gait Belt,Front Wheeled Walker Orthotic/Prosthetic Devices or Brace: No Gait Deviations General Gait Pattern Wide Based Gait Factors Limiting Gait Function Factors Limiting Gait Function Decreased Activity Tolerance Comments Gait Comments x250'SBA with FWW Stair Climbing Assessment Evaluation Level of Assist On Stairs Standby Assistance Devices Stair Climbing Assistive Devices Left Railing,Right Railing Technique/Endurance Stair Climbing Direction Ascend and Descend Stair Climbing Technique Step to Step Number of Steps Climbed 3 PT-Balance Assessment Sitting Balance and Reactions Static Sitting Balance Ability Good Dynamic Sitting Balance Ability Good Standing Balance and Reactions Static Standing Balance Ability Good Dynamic Standing Balance Ability Good Device Used RW M5 PT-IP Objective Assessments Start: 10/14/23 11:44 Freq: NEEDED Status: Active Protocol: Document 10/14/23 11:45 MB (Rec: 10/14/23 12:46 MB [id number]) Orientation Orientation/Cognition Level of Alertness Alert Orientation Name,Age,Birthday,Month,Year, Place,Situation Language Function Ability No Deficits Noted Safety Awareness Decreased Safety Awareness Memory Description No Deficits Noted Gross Range of Motion Upper Extremity ROM Assessment Within Functional Limits Lower Extremity ROM Assessment Within Functional Limits Strength Upper Extremity Strength Assessment Within Functional Limits Lower Extremity Strength Assessment Within Functional Limits M6 PT-IP Treatment Start: 10/14/23 11:44 Freq: NEEDED Status: Active Protocol: Document 10/16/23 09:36 TS (Rec: 10/16/23 09:44 [id number]) Physical Therapy Treatment Education Education Provided Safety M7 PT-IP Assessment and Plan Start: 10/14/23 11:44 Freq: NEEDED Status: Active Protocol: Document 10/16/23 09:36 TS (Rec: 10/16/23 09:44 [id number]) PT Summary Assessment and Plan Potential Rehabilitation Potential Good Summary Impairments Balance,Bed Mobility,Transfers ,Gait,Activity Tolerance Progress Towards Goals Progressing Toward Goals Assessment Summary Bibiana continues to make progress with her mobility. She continues to be Ind with all bed mobility. She does require HOB elevated for easier mobility. She progressed her gait to ~250' SBA with FWW. She feel more comfortable with the FWW at this point in time. She performed balance testing of tandem stance, NBOS with eyes closed and SLS with counter support. PT is recommending home with assist and HHPT. Goals Bed Mobility Goal Independent Transfer Goal Independent,Cane,Front Wheeled Walker,Four Wheeled Walker Gait Goal Independent,Cane,Front Wheel Walker,Four Wheel Walker Gait Distance 100 Other Goals Pt will ascend and descend 2 steps with LRAD and mod I. Days to Meet Goals 5 Frequency of Treatment Frequency Of Treatment Once a Day Treatment Plan Physical Therapy Treatment Plan Bed Mobility Training,Transfer Training,Gait Training, Therapeutic Exercise,Balance Retraining,Discharge Planning, Hot or Cold Pack Weight Bearing Status Weight Bearing Status Weight Bear as Tolerated Recommendations To Nursing Amount of Assist Needed Standby Assistance Discharge Recommendations PT Discharge Recommendations Home with Assistance,Home Health Transportation Needs at Discharge Private Vehicle
--- NOTE | 2023-10-16 09:36 | CM.DPC ---
DCP Cont. Reviewed EMR and team rounds for status updates. Pt will not be ready for d/c today to [facility], she may need surgery today, she's been NPO since midnight. Called [facility] and cancelled her admission/transport. Will continue to monitor and reschedule [facility] admit once she's medically stable.
[2023-10-16] MEDS: POTASSIUM CHLORIDE 20 MEQ TAB 40 MEQ PO (09:53)
[2023-10-16] MEDS: OXYCODONE IR 5 MG TABLET PO ×2 (09:55→17:43)
--- NOTE | 2023-10-16 10:18 | PM.CN ---
History of Present Illness Consult details Date Patient Seen: 10/16/23 Time Patient Seen: 10:18 Chief complaint: Lower abdominal pain unable to urinate Reason for consult: Perforated diverticulitis Requesting provider: Oliverio Stewart Narrative: Patient having less abdominal pain today. Having BMs and was tolerating full liquids. Repeat CT scan I reviewed personally and with Dr. Stubbs of radiology. She has free fluid and gas in the pelvis that is not responding to antibiotics. Radiology will try aspiration later today. Continue IV antibiotics. No acute abdomen at this time. Meds Home Medications and Allergies Home Medications Medication Instructions Recorded Confirmed Type ibuprofen 600 mg tablet 600 mg PO Q6HP PRN #60 tabs 10/24/16 10/11/23 Rx polyethylene glycol 3350 17 17 gm PO QDAY ##527 11/21/16 10/11/23 Rx gram/dose oral powder buspirone 15 mg tablet 15 mg PO BID #60 tabs 12/19/16 10/11/23 Rx hydrochlorothiazide 25 mg tablet 25 mg PO QDAY #90 tabs 01/09/17 10/11/23 Rx tramadol 50 mg tablet 50 mg PO QIDP PRN #120 tabs 02/06/17 10/11/23 Rx alendronate 70 mg tablet 70 mg PO WEEKLY 10/11/23 10/11/23 History amlodipine 5 mg tablet 5 mg PO DAILY 10/11/23 10/11/23 History lisinopril 40 mg tablet 40 mg PO DAILY 10/11/23 10/11/23 History methocarbamol 500 mg tablet 500 - 1,000 mg PO Q6H PRN muscle 10/11/23 10/11/23 History spasm omeprazole 20 mg capsule,delayed 20 mg PO DAILY 10/11/23 10/11/23 History release pregabalin 75 mg capsule 75 mg PO BID 10/11/23 10/11/23 History rosuvastatin 10 mg tablet 10 mg PO QPM 10/16/23 10/16/23 History Allergies Allergy/AdvReac Type Severity Reaction Status Date / Time bupropion [BUPROPION] Allergy Intermediate shaky, Verified 09/20/22 12:03 irritable Interferons [INTERFERONS] Allergy Intermediate rash, Verified 09/20/22 12:03 headache ribavirin [RIBAVIRIN] Allergy Intermediate confusion, Verified 09/20/22 12:03 agitation Review of Systems Review of Systems ROS: Yes All systems reviewed with the patient and are negative except as otherwise documented Exam Vital Signs (past 8 hours): - 10/16/23 03:32 10/16/23 03:32 10/16/23 07:00 Temperature 97.6 F 98.4 F Pulse Rate 111 H 107 H Respiratory Rate 17 19 Blood Pressure 103/55 L 122/77 Pulse Oximetry 96 96 94 Oxygen Delivery Method Room Air Oxygen Flow Rate 0 0 0 10/16/23 08:00 Temperature Pulse Rate Respiratory Rate Blood Pressure Pulse Oximetry 94 Oxygen Delivery Method Room Air Oxygen Flow Rate 0 Oxygen Delivery Method Room Air Oxygen Flow Rate 0 Const General: cooperative and No acute distress Nutritional Appearance: obese HENMT Head: normocephalic and atraumatic Eyes Sclera: sclerae normal Neck Neck: normal visual inspection and trachea midline Resp Effort & Inspection: normal respiratory effort and able to speak in complete sentences Cardio Rate: tachycardic Rhythm: regular rhythm GI Inspection: distended and obesity Palpation: soft, No guarding, No rigid and tender (lower abdomen) Skin General: turgor normal and atrophy Neuro General: patient alert, patient awake and patient oriented x3 Cognition: normal cognition Psych Mental Status: mental status grossly normal Judgment: judgment good Objective Labs 10/16/23 05:10 10/16/23 05:10 Labs: Laboratory Results - last 24 hr 10/16/23 05:10 WBC 18.9 H RBC 4.10 Hgb 9.5 L Hct 30.3 L MCV 73.8 L MCH 23.1 L MCHC 31.3 RDW 17.7 H Plt Count 499 H Neut % (Auto) 87.1 H Lymph % (Auto) 5.5 L [place] % (Auto) 6.3 Eos % (Auto) 0.3 L Baso % (Auto) 0.8 Neut # (Auto) 83411 H Lymph # (Auto) 1000 L [place] # (Auto) 1200 H Eos # (Auto) 0 Baso # (Auto) 200 H Sodium 134 L Potassium 3.4 Chloride 100 Carbon Dioxide 30 BUN 11 Creatinine 0.51 L Estimated GFR > 60 BUN/Creatinine Ratio 21.6 Glucose 120 H Calcium 7.8 L Magnesium 2.7 H Total Bilirubin 0.3 AST 20 ALT 12 Alkaline Phosphatase 99 Total Protein 6.0 L Albumin 3.1 L Globulin 2.9 Albumin/Globulin Ratio 1.1 PFSH Surgical History History of carpal tunnel repair Status post hysterectomy History of carpal tunnel repair Family History Brother Age: 51 Mental health problem ADHD (attention deficit hyperactivity disorder) Mother Age: 85 Hypertension High cholesterol Mental health problem Stroke Sister Age: 65 Hypertension High cholesterol Social History household members: none Tobacco & Substance Use Smoking Status: Never smoker alcohol intake: current Assessment & Plan Assessment & Plan narrative: Early perforation of sigmoid diverticulitis, not responding to medical management alone. Plan: IR to aspirate vs drain pelvic collection. Likely too early for drain. Continue IV antibiotics and fluconazole. Time Spent With Patient Time with patient: 30 to 49 minutes with 50% spent counseling/coordinating care
--- NOTE | 2023-10-16 10:20 | DI.CT.S_ITS ---
PROCEDURE: CT GUIDED CATHETER PLACEMENT COMPARISON: [facility], CT, CT ABDOMEN PELVIS W CON, 10/14/2023, 7:53. [facility], CT, CT ABDOMEN PELVIS W CON, 10/11/2023, 16:03. INDICATIONS: aspiration of pelvic fluid for perforated diverticulitis. TECHNIQUE: Informed consent was obtained from the patient. IV contrast was administered. 100 cc IV Isovue-300. A target was identified with CT guidance. The patient was sterilely prepped and draped. 1 % lidocaine was used as a local anesthetic. Intravenous Versed and fentanyl was given for moderate sedation. Under guidance, a 18 gauge Chiba needle was advanced into the fluid collection through a window at the right lower pelvis. Approximately 160 cc of fecculant/purulent fluid was obtained. Repeated attempts to aspirate were performed. The procedure was well tolerated by the patient. FINDINGS: Pelvic fluid collection containing gas. The collection is in close proximity to the rectum. Approximately 160 cc of fecculant/purulent fluid was obtained. IMPRESSION: Successful aspiration of 160 cc fecculant/purulent fluid was obtained from the right pelvis. Dictated by: Moncho Stubbs M.D. on 10/16/2023 at 16:51 Approved by: Moncho Stubbs M.D. on 10/16/2023 at 17:00
--- NOTE | 2023-10-16 11:07 | P.PN_ITS ---
Subjective Subjective Interval history: Continues to feel okay, minimal abdominal pain. Surgery thought there was a window for drainage. After further discussions radiology will attempt drainage today of the abscess. Exam Vital Signs (past 8 hours): - 10/16/23 03:32 10/16/23 03:32 10/16/23 07:00 Temperature 97.6 F 98.4 F Pulse Rate 111 H 107 H Respiratory Rate 17 19 Blood Pressure 103/55 L 122/77 Pulse Oximetry 96 96 94 Oxygen Delivery Method Room Air Oxygen Flow Rate 0 0 0 10/16/23 08:00 Temperature Pulse Rate Respiratory Rate Blood Pressure Pulse Oximetry 94 Oxygen Delivery Method Room Air Oxygen Flow Rate 0 Oxygen Delivery Method Room Air Oxygen Flow Rate 0 Narrative Exam Narrative: NAD, alert and oriented. Fluent speech. Lungs are clear, normal rate and effort. Heart is regular, no murmur gallop or rub. Abdomen is soft, non distended. Minimal RLQ tenderness. Extremities are free of edema. Objective Labs 10/16/23 05:10 10/16/23 05:10 Labs: Laboratory Results - last 24 hr 10/16/23 05:10 WBC 18.9 H RBC 4.10 Hgb 9.5 L Hct 30.3 L MCV 73.8 L MCH 23.1 L MCHC 31.3 RDW 17.7 H Plt Count 499 H Neut % (Auto) 87.1 H Lymph % (Auto) 5.5 L [place] % (Auto) 6.3 Eos % (Auto) 0.3 L Baso % (Auto) 0.8 Neut # (Auto) 72531 H Lymph # (Auto) 1000 L [place] # (Auto) 1200 H Eos # (Auto) 0 Baso # (Auto) 200 H Sodium 134 L Potassium 3.4 Chloride 100 Carbon Dioxide 30 BUN 11 Creatinine 0.51 L Estimated GFR > 60 BUN/Creatinine Ratio 21.6 Glucose 120 H Calcium 7.8 L Magnesium 2.7 H Total Bilirubin 0.3 AST 20 ALT 12 Alkaline Phosphatase 99 Total Protein 6.0 L Albumin 3.1 L Globulin 2.9 Albumin/Globulin Ratio 1.1 PFSH Surgical History History of carpal tunnel repair Status post hysterectomy History of carpal tunnel repair Family History Brother Age: 51 Mental health problem ADHD (attention deficit hyperactivity disorder) Mother Age: 85 Hypertension High cholesterol Mental health problem Stroke Sister Age: 65 Hypertension High cholesterol Social History household members: none Smoking Status: Never smoker alcohol intake: current Assessment & Plan Assessment & Plan narrative: 1. Acute diverticulitis with abscess, present on admission and active. - continue antibiotics. Repeat CT on 10/13 showed 9.8x4.6 cm abscess. IR will now attempt drainage. - reported colonoscopy was unremarkable earlier this year per patient. - continue IV antibiotics with ciprofloxacin and metronidazole for now, follow leukocytosis. General surgery following. - advance diet as tolerated after abscess aspiration, follow up cultures. - surgery recommended addition of fluconazole which was added 10/14. With cipro telemetry monitored and will discontinue today as she has not had prolonged qt interval thus far. 2. Acute respiratory failure with hypoxia, present on admission and improved. -She has borderline hypoxia 89% on room air, possibly secondary to obesity with opiates for pain. Suspect opiate related at this time. -wean O2 3. HTN, stable. - continue home amlodipine, lisionpril. Continuing to hold home HCTZ for now, patient is normotensive. -Monitor 4. GERD, stable. - continue home PPI 5. Chronic pain, stable. - continue home tramadol, pregabalin. 6. Obesity Class 2, stable. PLAN: -cont antibiotics IV for now given abscess IR drainage planned for today. Follow WBC count, around 19 still again today, only slightly improved since admit. -she requires another night of in-hospital care with IV antibiotics and monitoring. -ambulate -advance diet and follow WBC. -continue PT/OT. Case discussed with general surgery to formulate the above assessment and plan. Patient plan for discharge to SNF once able from current inpatient diverticulitis management. Code: Full, DVT: Lovenox daily Quality VTE Deep Vein Thrombosis/Pulmonary Embolism Present on Admission: No
[2023-10-16 12:07] LABS: INR 1.2 (0.9-1.3); Prothrombin Time 13.4 SECONDS (9.4-12.5)
[2023-10-16 12:10] LABS: PTT Partial Thromboplastin Tim 30 SECONDS (25.1-36.5)
[2023-10-16] MEDS: MIDAZOLAM 2 MG/2 ML VIAL IV (13:52)
[2023-10-16] MEDS: fentaNYL 100 MCG/2 ML INJ IV (13:54)
[2023-10-16] MEDS: FLUCONAZOLE 200 MG/100 ML PIGGYBACK 100 MG IV (15:36)
--- NOTE | 2023-10-16 16:28 | PC.NURSE ---
Initial gram stain results resulted from peritoneal fluid show gram + cocci. Pt placed on contact precautions awaiting further results.
[2023-10-16] MEDS: TRAMADOL 50 MG TABLET PO (19:43)
--- NOTE | 2023-10-16 22:48 | PC.NURSE ---
Patient is alert and oriented. Breath sounds CTA with RA sat of 96% although does drop when asleep related to sleep apnea. HRR but remains tachy at 116 bpm. Denied nausea. Complained of 5/10 RLQ abdominal pain and is tender to palpation; medicated with Tramadol. BT present and is passing flatus with some looser stool. Voids frequently but denies dysuria. Independent with bed mobility. Up to bathroom with walker and SBA. Is now wearing bilateral calf SCD's. Fall risk score is high and bed alarm is activated. Now on contact isolation as fluid culture from peritoneum is showing gm + cocci on gram stain; patient verbalized understanding.
[2023-10-17 00:25] VITALS: BP 135/76; PULSE 115; RESP 16; TEMP 36.7; O2SAT 96
[2023-10-17 05:31] VITALS: BP 123/81; PULSE 102; RESP 16; TEMP 37; O2SAT 96
[2023-10-17 05:52] LABS: Alanine Aminotransferase 12 IU/L (<35); Albumin 2.9 g/dL (3.5-5.0); Alkaline Phosphatase 88 U/L (38-126); Aspartate Aminotransferase 23 IU/L (14-36); BUN Creatinine Ratio 20.4 (6-22); Bilirubin Total 0.3 mg/dL (0.2-1.3); Blood Urea Nitrogen 10 mg/dL (7-17); Calcium 7.9 mg/dL (8.4-10.2); Carbon Dioxide 31 mmol/L (22-32); Chloride 100 mmol/L (98-107); Estimated Glomerular Filt Rate > 60 mL/min (>60); Globulin 2.9 g/dL (1.7-4.1); Glucose 122 mg/dL (80-110); HEMOLYSIS < 15 (0-50); Magnesium 2.4 mg/dL (1.6-2.3); Potassium 3.7 mmol/L (3.4-5.1); Sodium 133 mmol/L (137-145); Total Protein 5.8 g/dL (6.3-8.2)
[2023-10-17 05:59] LABS: Add Manual Diff / Slide Review NO; Basophils Absolute Auto 0 /uL (0-100); Basophils Percent Auto 0.2 % (0-2); Eosinophils Absolute Auto 0 /uL (0-450); Eosinophils Percent Auto 0.2 % (2-4); Hematocrit 28.1 % (36-46); Lymphocytes Absolute Auto 1200 /uL (1100-4500); Lymphocytes Percent Auto 6.5 % (25-40); Mean Corpuscular Hemoglobin 23.4 PG (26-34); Monocytes Absolute Auto 1300 /uL (0-900); Neutrophils Absolute Auto 15600 /uL (1500-7000); Neutrophils Percent Auto 86.1 % (50-75); Platelet Count 574 X10^3/uL (150-400); Red Blood Cell Count 3.85 X10^6/uL (4.0-5.2); Red Cell Distribution Width 18.3 % (11.6-14.8); White Blood Cell Count 18.1 X10^3/uL (4.5-11.0)
[2023-10-17] MEDS: metroNIDAZOLE 500 MG/100 ML PIGGYBACK 100 MG IV ×3 (06:03→23:10)
[2023-10-17] MEDS: PANTOPRAZOLE DR 40 MG TABLET PO (06:03)
[2023-10-17] MEDS: SODIUM CHLORIDE 0.9% FLUSH 10 ML IV ×3 (06:04→21:43)
[2023-10-17] MEDS: CIPROFLOXACIN 400 MG/200 ML PIGGYBACK 200 MG IV ×2 (07:28→21:17)
--- NOTE | 2023-10-17 07:45 | PM.PN.1 ---
Subjective Subjective Interval history: She feels better since abdomen tap yesterday. Fluid with 4+ GPC. Less pain overnight, no nausea. Exam Vital Signs (past 8 hours): - 10/17/23 00:25 10/17/23 00:25 10/17/23 05:31 Temperature 98.0 F 98.6 F Pulse Rate 115 H 102 H Respiratory Rate 16 16 Blood Pressure 135/76 123/81 Pulse Oximetry 96 96 96 Oxygen Delivery Method Room Air Oxygen Flow Rate 0 0 0 10/17/23 05:31 Temperature Pulse Rate Respiratory Rate Blood Pressure Pulse Oximetry 96 Oxygen Delivery Method Room Air Oxygen Flow Rate 0 Oxygen Delivery Method Room Air Oxygen Flow Rate 0 Narrative Exam Narrative: NAD, alert and oriented. Fluent speech. Lungs are clear, normal rate and effort. Heart is regular, no murmur gallop or rub. Abdomen is soft, non distended. Some RLQ with deep palpation. Extremities are free of edema. Objective Labs 10/17/23 05:20 10/17/23 05:20 Labs: Laboratory Results - last 24 hr 10/16/23 10/17/23 11:36 05:20 WBC 18.1 H RBC 3.85 L Hgb 9.0 L Hct 28.1 L MCV 73.0 L MCH 23.4 L MCHC 32.0 RDW 18.3 H Plt Count 574 H Neut % (Auto) 86.1 H Lymph % (Auto) 6.5 L [place] % (Auto) 7.0 Eos % (Auto) 0.2 L Baso % (Auto) 0.2 Neut # (Auto) 36098 H Lymph # (Auto) 1200 [place] # (Auto) 1300 H Eos # (Auto) 0 Baso # (Auto) 0 PT 13.4 H INR 1.2 APTT 30 Sodium 133 L Potassium 3.7 Chloride 100 Carbon Dioxide 31 BUN 10 Creatinine 0.49 L Estimated GFR > 60 BUN/Creatinine Ratio 20.4 Glucose 122 H Calcium 7.9 L Magnesium 2.4 H Total Bilirubin 0.3 AST 23 ALT 12 Alkaline Phosphatase 88 Total Protein 5.8 L Albumin 2.9 L Globulin 2.9 Albumin/Globulin Ratio 1.0 PFSH Surgical History History of carpal tunnel repair Status post hysterectomy History of carpal tunnel repair Family History Brother Age: 51 Mental health problem ADHD (attention deficit hyperactivity disorder) Mother Age: 85 Hypertension High cholesterol Mental health problem Stroke Sister Age: 65 Hypertension High cholesterol Social History household members: none Smoking Status: Never smoker alcohol intake: current Assessment & Plan Assessment & Plan narrative: 1. Acute diverticulitis with abscess, present on admission and active. - continue antibiotics. Repeat CT on 10/13 showed 9.8x4.6 cm abscess. IR will now attempt drainage. - reported colonoscopy was unremarkable earlier this year per patient. - continue IV antibiotics with ciprofloxacin and metronidazole for now. - advance diet as tolerated after abscess aspiration, follow up cultures. - surgery recommended addition of fluconazole which was added 10/14. 2. Acute respiratory failure with hypoxia, present on admission and improved. -She has borderline hypoxia 89% on room air, possibly secondary to obesity with opiates for pain. Suspect opiate related at this time. -weaned O2. 3. HTN, stable. - continue home amlodipine, lisionpril. Continuing to hold home HCTZ for now, patient is normotensive. -Monitor 4. GERD, stable. - continue home PPI 5. Chronic pain, stable. - continue home tramadol, pregabalin. 6. Obesity Class 2, stable. PLAN: -continue antibiotics and fluconazole. Await cultures. -advance activity. -discuss with surgery -[facility] tomorrow, possibly with IV antibiotics. Estimated date of discharge is October 17 or October 18. Code: Full, DVT: Lovenox daily Quality VTE Deep Vein Thrombosis/Pulmonary Embolism Present on Admission: No
[2023-10-17] MEDS: AMLODIPINE 5 MG TABLET PO (08:38)
[2023-10-17] MEDS: BUSPIRONE 5 MG TABLET 15 MG PO ×2 (08:38→21:16)
[2023-10-17] MEDS: PREGABALIN 75 MG CAPSULE PO ×2 (08:39→21:17)
[2023-10-17 09:06] VITALS: BP 123/73; PULSE 99; RESP 19; TEMP 36.6; O2SAT 95
[2023-10-17] MEDS: ENOXAPARIN 40 MG/0.4 ML SYRINGE SUBCUT (09:12)
[2023-10-17 09:58] VITALS: O2SAT 95
--- NOTE | 2023-10-17 11:59 | CM.DPC ---
DCP Continued Reviewed EMR and team rounds for pt?s medical status. Per General Surgery, services have signed off due to no signs of SBO per gastrografin challenge completed. Per hospitalist, pt should be stable for dc to SNF either 10/17 or 10/18 with PO antibiotics. DCP spoke with Ronna at [facility] who accepted pt for [facility]. Relayed hospitalist recommendations of PO abx at dc for about 5 days. Plan: [facility] would need new insurance auth, anticipating dc tomorrow, 10/17. CM Team will continue to follow for coordination of discharge plans. AR Guallpa
--- NOTE | 2023-10-17 12:47 | CM.DPC ---
DCP Continued Reviewed EMR and team rounds for pt?s medical status. Per hospitalist, pt should be stable for dc to SNF either 10/17 or 10/18 with PO antibiotics. DCP spoke with Ronna at [facility] who accepted pt for [facility]. Relayed message that provider will be recommending PO abx for approximately 5 days. Plan: [facility] would need new insurance auth, anticipating dc tomorrow, 10/17. CM Team will continue to follow for coordination of discharge plans. AR Guallpa
--- NOTE | 2023-10-17 12:52 | PT.IPTN ---
Addendum entered and electronically signed by Altagracia Sahu PT 10/17/23 13:01: PT provides direct supervision for SPT during treatment Original Note: Current Diagnoses Diverticulitis of intestine, part unspecified, without perforation or abscess without bleeding (10/11/23) Surgery Performed Operation Date: 10/16/23 13:00 <No data on this case meets the specified criteria> Physical Therapy Treatment Note M2 PT-IP Current Condition Start: 10/14/23 11:44 Freq: NEEDED Status: Active Protocol: Document 10/14/23 11:45 MB (Rec: 10/14/23 12:46 MB [id number]) Physical Therapy Current Condition Current Condition Evaluation Date 10/14/23 Treatment Diagnosis Abdominal pain M3 PT-IP Subjective Start: 10/14/23 11:44 Freq: NEEDED Status: Active Protocol: Document 10/17/23 11:50 JG (Rec: 10/17/23 12:35 JG [id number]) Subjective Physical Therapy Visit Type Type Treatment Note Visit Start Time 11:50 Visit Stop Time 12:15 Number of LOCAL AREA NETWORK ADMINISTRATOR Visits 0 Physical Therapy Visit Comments Patient Comments Pt was sleeping upon arrival and was hesitant to begin PT but agreed upon encouragement. M4 PT-IP Mobility and Gait Start: 10/14/23 11:44 Freq: NEEDED Status: Active Protocol: Document 10/17/23 11:50 JG (Rec: 10/17/23 12:35 JG [id number]) PT-Bed Mobility Assessment Supine to Sit Supine to Sit Contact Guard Assistance,Head of Bed Elevated,Bedrails Scooting Scooting to Edge of Bed Contact Guard Assistance PT-Transfer Assessment Sit to and From Stand Sit to and from Stand Standby Assistance,Use of Upper Extremities Equipment Transfer Assistive Device Gait Belt,Front Wheeled Walker Orthotic/Prosthetic Devices or Brace: No Comments Mobility Comments Supine to sit with bed flat. pt used PT's hand to grab onto for support during the side rolling to sitting EOB portion of transfer. Gait Assessment Gait Gait Assistance Required: Standby Assistance Distance (Feet) 120 Able to Maintain Weight Bearing Status Yes During Gait Assistive Devices Assistive Device Gait Belt,Front Wheeled Walker ,4 Wheeled Walker Orthotic/Prosthetic Devices or Brace: No Gait Deviations General Gait Pattern Flexed Trunk,Wide Based Gait Factors Limiting Gait Function Factors Limiting Gait Function Decreased Activity Tolerance, Difficulty Following Directions,Poor Safety Awareness Comments Gait Comments 100'x1, 120'x1, 15'x2, started with RW and then changed to rollator to practice what she would need for outdoor mobility at home. Note, pt is very quick with rollator and impulsive with all transfers and gait. Stair Climbing Assessment Evaluation Level of Assist On Stairs Contact Guard Assistance Devices Stair Climbing Assistive Devices Left Railing Technique/Endurance Stair Climbing Direction Ascend and Descend Stair Climbing Technique Step to Step Number of Steps Climbed 3 Stair Climbing Set # Repetitions (reps) 2 Comments Stair Climbing Comments Pt mentioned that they only had a L railing at home. switched from using both railings to utlizing L railing to mimic home set-up. PT-Balance Assessment Sitting Balance and Reactions Static Sitting Balance Ability Good Dynamic Sitting Balance Ability Good Standing Balance and Reactions Static Standing Balance Ability Good Dynamic Standing Balance Ability Fair Device Used 4WW Comments Other Balance Tests/Deviations/Treatment Impulsivity and dec safety : awareness are her most contributing factors. M5 PT-IP Objective Assessments Start: 10/14/23 11:44 Freq: NEEDED Status: Active Protocol: Document 10/14/23 11:45 MB (Rec: 10/14/23 12:46 MB [id number]) Orientation Orientation/Cognition Level of Alertness Alert Orientation Name,Age,Birthday,Month,Year, Place,Situation Language Function Ability No Deficits Noted Safety Awareness Decreased Safety Awareness Memory Description No Deficits Noted Gross Range of Motion Upper Extremity ROM Assessment Within Functional Limits Lower Extremity ROM Assessment Within Functional Limits Strength Upper Extremity Strength Assessment Within Functional Limits Lower Extremity Strength Assessment Within Functional Limits M6 PT-IP Treatment Start: 10/14/23 11:44 Freq: NEEDED Status: Active Protocol: Document 10/17/23 11:50 JG (Rec: 10/17/23 12:35 JG [id number]) Physical Therapy Treatment Education Education Provided Safety M7 PT-IP Assessment and Plan Start: 10/14/23 11:44 Freq: NEEDED Status: Active Protocol: Document 10/17/23 11:50 JG (Rec: 10/17/23 12:35 JG [id number]) PT Summary Assessment and Plan Potential Rehabilitation Potential Good Summary Impairments Balance,Bed Mobility,Transfers ,Gait,Activity Tolerance Progress Towards Goals Progressing Toward Goals Assessment Summary Pt felt comfortable performing PT today using a 4WW. She was impulsive throughout the session and did not follow instructions for proper hand placement for STS transfers. She was able to perform supine to sit with bed flat. Toileting performed after gait and PT notes that pt does not attempt hygiene by herself and asked nursing staff for help. Goals Bed Mobility Goal Independent Transfer Goal Independent,Cane,Front Wheeled Walker,Four Wheeled Walker Gait Goal Independent,Cane,Front Wheel Walker,Four Wheel Walker Gait Distance 150 Other Goals Pt will ascend and descend 2 steps with LRAD and mod I. Days to Meet Goals 5 Frequency of Treatment Frequency Of Treatment Once a Day Treatment Plan Physical Therapy Treatment Plan Bed Mobility Training,Transfer Training,Gait Training, Therapeutic Exercise,Balance Retraining,Discharge Planning, Hot or Cold Pack Other Recommendations and Next Treatment Focus on impulsivity and Focus safety awareness, Gait training with 4WW, stairs Weight Bearing Status Weight Bearing Status Weight Bear as Tolerated Recommendations To Nursing Amount of Assist Needed Standby Assistance Discharge Recommendations PT Discharge Recommendations Home vs SNF Transportation Needs at Discharge Private Vehicle
--- NOTE | 2023-10-17 13:50 | PM.PN.1 ---
Subjective Subjective Date Patient Seen: 10/17/23 Time Patient Seen: 13:50 Interval history: successful aspiration of pelvis, but love stool appearance. Patient feels better. Exam Vital Signs (past 8 hours): - 10/17/23 09:06 10/17/23 09:58 Temperature 97.9 F Pulse Rate 99 H Respiratory Rate 19 Blood Pressure 123/73 Pulse Oximetry 95 95 Oxygen Delivery Method Room Air Oxygen Flow Rate 0 Oxygen Delivery Method Room Air Oxygen Flow Rate 0 Narrative Exam Narrative: improved tachcardia. WBC remains elevated (could represent post procedure bacteremia Abdomen soft with decreased tenderness. Const General: cooperative, comfortable and No anxious Nutritional Appearance: overweight Objective Labs 10/17/23 05:20 10/17/23 05:20 Labs: Laboratory Results - last 24 hr 10/17/23 05:20 WBC 18.1 H RBC 3.85 L Hgb 9.0 L Hct 28.1 L MCV 73.0 L MCH 23.4 L MCHC 32.0 RDW 18.3 H Plt Count 574 H Neut % (Auto) 86.1 H Lymph % (Auto) 6.5 L [place] % (Auto) 7.0 Eos % (Auto) 0.2 L Baso % (Auto) 0.2 Neut # (Auto) 13596 H Lymph # (Auto) 1200 [place] # (Auto) 1300 H Eos # (Auto) 0 Baso # (Auto) 0 Sodium 133 L Potassium 3.7 Chloride 100 Carbon Dioxide 31 BUN 10 Creatinine 0.49 L Estimated GFR > 60 BUN/Creatinine Ratio 20.4 Glucose 122 H Calcium 7.9 L Magnesium 2.4 H Total Bilirubin 0.3 AST 23 ALT 12 Alkaline Phosphatase 88 Total Protein 5.8 L Albumin 2.9 L Globulin 2.9 Albumin/Globulin Ratio 1.0 PFS Surgical History History of carpal tunnel repair Status post hysterectomy History of carpal tunnel repair Family History Brother Age: 51 Mental health problem ADHD (attention deficit hyperactivity disorder) Mother Age: 85 Hypertension High cholesterol Mental health problem Stroke Sister Age: 65 Hypertension High cholesterol Social History household members: none Smoking Status: Never smoker alcohol intake: current Assessment & Plan Assessment & Plan narrative: Impression: perforated diverticulitis s/p aspiration of pelvic fluid. Clinically improved. Plan: Continue current treatment Time Spent With Patient Time with patient: less than 30 minutes Quality VTE Deep Vein Thrombosis/Pulmonary Embolism Present on Admission: No
--- NOTE | 2023-10-17 15:28 | DI.RAD.S_ITS ---
PROCEDURE: XR CHEST FOR PICC 1V INDICATIONS: picc placement COMPARISON: [facility], , XR CHEST 1V, 10/11/2023, 16:02. FINDINGS: PICC was placed by the intravenous therapy team from the right side. Fluoroscopic spot film demonstrates the tip of PICC projecting to the area of mid SVC. IMPRESSION: Tip of PICC projects to the area of mid SVC. Dictated by: Kylie Lara M.D. on 10/17/2023 at 16:02 Approved by: Kylie Lara M.D. on 10/17/2023 at 16:02
[2023-10-17] MEDS: FLUCONAZOLE 200 MG/100 ML PIGGYBACK 100 MG IV (16:55)
[2023-10-17 20:00] VITALS: BP 126/60; PULSE 108; RESP 18; TEMP 37; O2SAT 95
[2023-10-17] MEDS: HYDROMORPHONE 0.5 MG INJ IV (23:10)
[2023-10-18 04:59] LABS: Add Manual Diff / Slide Review NO; Basophils Absolute Auto 100 /uL (0-100); Basophils Percent Auto 0.9 % (0-2); Eosinophils Absolute Auto 0 /uL (0-450); Eosinophils Percent Auto 0.4 % (2-4); Hemoglobin 9.1 g/dL (12.0-16.0); Lymphocytes Absolute Auto 1300 /uL (1100-4500); Lymphocytes Percent Auto 11.2 % (25-40); Mean Corpuscular HGB Conc 31.5 % (30-36); Mean Corpuscular Hemoglobin 23.1 PG (26-34); Mean Corpuscular Volume 73.1 fL (80-100); Monocytes Absolute Auto 1000 /uL (0-900); Monocytes Percent Auto 8.5 % (3-14); Neutrophils Absolute Auto 9300 /uL (1500-7000); Platelet Count 704 X10^3/uL (150-400); Red Blood Cell Count 3.96 X10^6/uL (4.0-5.2); Red Cell Distribution Width 17.9 % (11.6-14.8); White Blood Cell Count 11.8 X10^3/uL (4.5-11.0)
[2023-10-18 05:45] LABS: Alanine Aminotransferase 14 IU/L (<35); Alkaline Phosphatase 86 U/L (38-126); Aspartate Aminotransferase 29 IU/L (14-36); Bilirubin Total 0.3 mg/dL (0.2-1.3); Blood Urea Nitrogen 10 mg/dL (7-17); Carbon Dioxide 31 mmol/L (22-32); Chloride 102 mmol/L (98-107); Estimated Glomerular Filt Rate > 60 mL/min (>60); Globulin 3.1 g/dL (1.7-4.1); Glucose 122 mg/dL (80-110); HEMOLYSIS < 15 (0-50); Magnesium 2.3 mg/dL (1.6-2.3); Potassium 3.5 mmol/L (3.4-5.1); Sodium 135 mmol/L (137-145); Total Protein 6.1 g/dL (6.3-8.2)
[2023-10-18] MEDS: PANTOPRAZOLE DR 40 MG TABLET PO (06:27)
[2023-10-18 07:00] VITALS: BP 126/77; PULSE 94; RESP 17; O2SAT 96
[2023-10-18] MEDS: metroNIDAZOLE 500 MG/100 ML PIGGYBACK 100 MG IV (07:43)
[2023-10-18] MEDS: PREGABALIN 75 MG CAPSULE PO (08:52)
[2023-10-18] MEDS: BUSPIRONE 5 MG TABLET 15 MG PO (08:52)
[2023-10-18] MEDS: AMLODIPINE 5 MG TABLET PO (08:52)
[2023-10-18] MEDS: ENOXAPARIN 40 MG/0.4 ML SYRINGE SUBCUT (08:53)
[2023-10-18] MEDS: CIPROFLOXACIN 400 MG/200 ML PIGGYBACK 200 MG IV (08:53)
[2023-10-18] MEDS: SODIUM CHLORIDE 0.9% FLUSH 10 ML IV (08:53)
[2023-10-18] MEDS: OXYCODONE IR 5 MG TABLET PO (08:55)
[2023-10-18] MEDS: POTASSIUM CHLORIDE 20 MEQ TAB 40 MEQ PO (09:20)
[2023-10-18] MEDS: HYDROMORPHONE 0.5 MG INJ IV (09:42)
--- NOTE | 2023-10-18 10:32 | CM.DPC ---
DCP Cont. Reviewed EMR and team rounds for status updates. Pt has been medically cleared for d/c back to [facility]. They will be transporting her today at 1:00pm. No further DCP needs indicated at this time. PASSAR and d/c clinicals faxed to [facility].
--- NOTE | 2023-10-18 10:48 | PT.IPTN ---
Current Diagnoses Diverticulitis of intestine, part unspecified, without perforation or abscess without bleeding (10/11/23) Surgery Performed Operation Date: 10/16/23 13:00 <No data on this case meets the specified criteria> Physical Therapy Treatment Note M2 PT-IP Current Condition Start: 10/14/23 11:44 Freq: NEEDED Status: Active Protocol: Document 10/14/23 11:45 MB (Rec: 10/14/23 12:46 MB [id number]) Physical Therapy Current Condition Current Condition Evaluation Date 10/14/23 Treatment Diagnosis Abdominal pain M3 PT-IP Subjective Start: 10/14/23 11:44 Freq: NEEDED Status: Active Protocol: Document 10/18/23 11:06 TS (Rec: 10/18/23 11:14 TS [id number]) Subjective Physical Therapy Visit Type Type Treatment Note Visit Start Time 10:48 Visit Stop Time 11:06 Number of BIT GRINDER Visits 1 Physical Therapy Visit Comments Patient Comments Pt found resting in bed, is agreeable to PT. M4 PT-IP Mobility and Gait Start: 10/14/23 11:44 Freq: NEEDED Status: Active Protocol: Document 10/18/23 11:06 TS (Rec: 10/18/23 11:14 TS [id number]) PT-Bed Mobility Assessment Supine to Sit Supine to Sit Independent Sit to Supine Sit to Supine Independent Scooting Scooting to Edge of Bed Independent PT-Transfer Assessment Sit to and From Stand Sit to and from Stand Standby Assistance,Use of Upper Extremities Equipment Transfer Assistive Device Gait Belt,Front Wheeled Walker Orthotic/Prosthetic Devices or Brace: No Comments Mobility Comments Pt performed all bed mobility Ind. She ambulated with FWW SBA ~250'. She performed steps x3 with B handrails assist SBA. Pt was left back in bed, all needs met. Gait Assessment Gait Gait Assistance Required: Standby Assistance Distance (Feet) 250 Able to Maintain Weight Bearing Status Yes During Gait Assistive Devices Assistive Device Gait Belt,Front Wheeled Walker Orthotic/Prosthetic Devices or Brace: No Gait Deviations General Gait Pattern Wide Based Gait Factors Limiting Gait Function Factors Limiting Gait Function Decreased Activity Tolerance Comments Gait Comments See mobility comments Stair Climbing Assessment Evaluation Level of Assist On Stairs Standby Assistance Devices Stair Climbing Assistive Devices Left Railing Technique/Endurance Stair Climbing Direction Ascend and Descend Stair Climbing Technique Step to Step Number of Steps Climbed 3 Stair Climbing Set # Repetitions (reps) 1 PT-Balance Assessment Sitting Balance and Reactions Static Sitting Balance Ability Good Dynamic Sitting Balance Ability Good Standing Balance and Reactions Static Standing Balance Ability Good Dynamic Standing Balance Ability Fair Device Used FWW M5 PT-IP Objective Assessments Start: 10/14/23 11:44 Freq: NEEDED Status: Active Protocol: Document 10/14/23 11:45 MB (Rec: 10/14/23 12:46 MB [id number]) Orientation Orientation/Cognition Level of Alertness Alert Orientation Name,Age,Birthday,Month,Year, Place,Situation Language Function Ability No Deficits Noted Safety Awareness Decreased Safety Awareness Memory Description No Deficits Noted Gross Range of Motion Upper Extremity ROM Assessment Within Functional Limits Lower Extremity ROM Assessment Within Functional Limits Strength Upper Extremity Strength Assessment Within Functional Limits Lower Extremity Strength Assessment Within Functional Limits M6 PT-IP Treatment Start: 10/14/23 11:44 Freq: NEEDED Status: Active Protocol: Document 10/18/23 11:06 TS (Rec: 10/18/23 11:14 TS [id number]) Physical Therapy Treatment Education Education Provided Safety M7 PT-IP Assessment and Plan Start: 10/14/23 11:44 Freq: NEEDED Status: Active Protocol: Document 10/18/23 11:06 TS (Rec: 10/18/23 11:14 TS [id number]) PT Summary Assessment and Plan Potential Rehabilitation Potential Good Summary Impairments Balance,Bed Mobility,Transfers ,Gait,Activity Tolerance Progress Towards Goals Progressing Toward Goals Assessment Summary Bibiana continues to do well with her mobility. She is ind for all bed mobility. She continues to ambulate long distances with FWW. She performed steps x3 with B handrails SBA. PT is recommending Home vs SNF. Pt is to d/c to SNF for continued use of IV antibiotics. Goals Bed Mobility Goal Independent Transfer Goal Independent,Cane,Front Wheeled Walker,Four Wheeled Walker Gait Goal Independent,Cane,Front Wheel Walker,Four Wheel Walker Gait Distance 150 Other Goals Pt will ascend and descend 2 steps with LRAD and mod I. Days to Meet Goals 5 Frequency of Treatment Frequency Of Treatment Once a Day Treatment Plan Physical Therapy Treatment Plan Bed Mobility Training,Transfer Training,Gait Training, Therapeutic Exercise,Balance Retraining,Discharge Planning, Hot or Cold Pack Weight Bearing Status Weight Bearing Status Weight Bear as Tolerated Recommendations To Nursing Amount of Assist Needed Standby Assistance Discharge Recommendations PT Discharge Recommendations Home vs SNF Transportation Needs at Discharge Private Vehicle
--- NOTE | 2023-10-18 10:48 | P.DS_ITS ---
History of Present Illness History of Present Illness Chief complaint: Lower abdominal pain unable to urinate Narrative: This is a 63 year old female with PMH of HTN, urinary urgency with prior neural stimulator which was removed, ADHD, anxiety and depression, chronic pain who presented with 2 days of suprapubic abdominal pain. She stated she has had little urine output and was concerned that she couldn't void. There was minimal fluid in her bladder per ER provider on bladder scan. She has had a few small loose stools, denies hematochezia, melena or hematemesis. Had a prior c-scope which she said was normal earlier this year at [facility]. She has had one episode of diverticulitis in the past 2 years ago. She has had chills, denies shortness of breath. Did have one episode of nausea/vomiting today which was nb/nb. CT scan in the ER showed diverticulitis, without abscess or free air. WBC was 20. She got some fenatyl for pain with EMS and was mildly hypoxic after, placed on a couple of L. No other evidence of end organ damage. Discharge Providers Provider Date of admission: 10/11/23 18:05 Discharge Date: 10/18/23 Primary care physician: Julia Lindo MD Consults: 10/13/23 14:23 Consult to Dietitian, Adult Routine Comment: Reason For Exam: pre diabetes 10/14/23 11:02 Consult to Physical Therapy Evaluate & Treat Comment: Physician Instructions: Evaluate and Treat Discharge provider: Oliverio Stewart MD Summary Hospital Course Discharge Diagnosis: 1. Acute diverticulitis with abscess, present on admission and active. - continue antibiotics. Repeat CT on 10/13 showed 9.8x4.6 cm abscess. IR will now attempt drainage. - reported colonoscopy was unremarkable earlier this year per patient. - continue IV antibiotics with ciprofloxacin and metronidazole for now. - advance diet as tolerated after abscess aspiration, follow up cultures. - surgery recommended addition of fluconazole which was added 10/14. 2. Acute respiratory failure with hypoxia, present on admission and improved. -She has borderline hypoxia 89% on room air, possibly secondary to obesity with opiates for pain. Suspect opiate related at this time. -weaned O2. 3. HTN, stable. - continue home amlodipine, lisionpril. Continuing to hold home HCTZ for now, patient is normotensive. -Monitor 4. GERD, stable. - continue home PPI 5. Chronic pain, stable. - continue home tramadol, pregabalin. 6. Obesity Class 2, stable. Hospital Course: She was admitted with acute diverticulitis and treated with IV antibiotics. Her initial CT was negative for localizing fluid collection. A repeat CT was performed on October 13 for persistent leukocytosis of 20,000. This revealed a 9.8 by 4.6 cm abscess. IR drained this on October 15 without complication. Cultures are pending. She did improve clinically and her white count dropped over the next 2 days. On the day of discharge she was felt to be stable for transfer to [facility] and will have 5 more days of IV ceftriaxone and metronidazole given via a right arm PICC. The PICC will then be discontinued. She was able to wean off from oxygen while in the hospital. Imaging was unremarkable. Status at Discharge Cognitive/behavioral status at discharge: oriented Functional status at discharge: uses cane/walker Overall status at discharge: patient is back to baseline Time Spent with Patient Time spent: Greater than 30 minutes Exam Vital Signs (past 8 hours): - 10/18/23 07:00 Pulse Rate 94 H Respiratory Rate 17 Blood Pressure 126/77 Pulse Oximetry 96 Oxygen Flow Rate 0 Oxygen Delivery Method Room Air Oxygen Flow Rate 0 Narrative Exam Narrative: NAD, alert and oriented. Fluent speech. Lungs are clear, normal rate and effort. Heart is regular, no murmur gallop or rub. Abdomen is soft, non distended. Extremities are free of edema. Objective Imaging Chest x-ray: Radiologist's impression: MPRESSION: Tip of PICC projects to the area of mid SVC. Dictated by: Kyile Lara M.D. on 10/17/2023 at 16:02 CT scan - chest: Radiologist's impression: No pulmonary embolus. Alveolar edema is present, etiology uncertain. The pattern is generally uniform slightly greater at the lung bases than superiorly and does not have an appearance of definite atypical pneumonia. Alveolitis from an inflammatory etiology could produce this appearance as can cardiogenic alveolar edema. No focal pneumonia found. Dictated by: Benson Tao M.D. on 10/11/2023 at 16:56 CT scan - abdomen: Radiologist's impression: 2nd: 1. Sigmoid diverticulitis with new collection containing gas and fluid in the pelvis. 2. Stable left adrenal nodule measuring 4 cm. Recommend urology consultation given size. 3. Stable left ovarian cyst measuring 3.5 cm. Dictated by: Raleigh Baeza M.D. on 10/14/2023 at 9:05 1st: 1. Interval enlargement and increased solid soft tissue component of a previously present left adrenal mass discussed above. Urology consultation is recommended, contrast-enhanced MR scanning may be warranted for more accurate assessment. 2. Severe sigmoid diverticulitis, with prominent sigmoid diverticulosis superimposed. A significant portion of the sigmoid bowel wall is abnormally thickened and inflamed. Currently the appearance is not obstructive. No peridiverticular abscess. 3. Prior hysterectomy. Left ovary contains a 3.5 cm cyst. The right ovary is in close proximity to the inflamed sigmoid colon. Dictated by: Benson Tao M.D. on 10/11/2023 at 16:45 Labs 10/18/23 04:37 10/18/23 04:37 Labs: Laboratory Results - last 24 hr 10/18/23 04:37 WBC 11.8 H RBC 3.96 L Hgb 9.1 L Hct 29.0 L MCV 73.1 L MCH 23.1 L MCHC 31.5 RDW 17.9 H Plt Count 704 H Neut % (Auto) 79.0 H Lymph % (Auto) 11.2 L [place] % (Auto) 8.5 Eos % (Auto) 0.4 L Baso % (Auto) 0.9 Neut # (Auto) 9300 H Lymph # (Auto) 1300 [place] # (Auto) 1000 H Eos # (Auto) 0 Baso # (Auto) 100 Sodium 135 L Potassium 3.5 Chloride 102 Carbon Dioxide 31 BUN 10 Creatinine 0.50 L Estimated GFR > 60 BUN/Creatinine Ratio 20.0 Glucose 122 H Calcium 8.0 L Magnesium 2.3 Total Bilirubin 0.3 AST 29 ALT 14 Alkaline Phosphatase 86 Total Protein 6.1 L Albumin 3.0 L Globulin 3.1 Albumin/Globulin Ratio 1.0 [facility] Surgical History History of carpal tunnel repair Status post hysterectomy History of carpal tunnel repair Family History Brother Age: 51 Mental health problem ADHD (attention deficit hyperactivity disorder) Mother Age: 85 Hypertension High cholesterol Mental health problem Stroke Sister Age: 65 Hypertension High cholesterol Social History household members: none Smoking Status: Never smoker alcohol intake: current Discharge Assessment & Plan Assessment and Plan Assessment: 1. Acute diverticulitis with abscess, present on admission and active. 2. Acute respiratory failure with hypoxia, present on admission and improved. Plan of Treatment: Discharge to [facility], PICC line in right arm. IV antibiotics including ceftriaxone and metronidazole for an additional 5 days and then stop. Oral fluconazole will be given for 5 additional days. Discharge Plan Discharge Plan Patient Disposition: SNF Transfer to: [facility] Under care of provider: Dr. Carroll Provider Discharge Comment: Stable for discharge to [facility] with 5 additional days of IV antibiotics via PICC. Discharge orders & Medications Prescriptions: New metronidazole in NaCl (iso-os) 500 mg/100 mL Piggyback 500 mg IV Q8H Qty: 15 0RF ceftriaxone 2 gram [place] 2 g IM DAILY Qty: 5 0RF fluconazole 150 mg tablet 150 mg PO DAILY 21 Days Qty: 5 0RF tramadol 50 mg Tablet 50 mg PO QID PRN (Reason: Pain, Moderate (4-6)) Qty: 20 0RF Continued ibuprofen 600 MG tablet 600 mg PO Q6HP PRNQty: 60 1RF buspirone 15 MG tablet 15 mg PO BID Qty: 60 3RF methocarbamol 500 mg tablet 500 - 1,000 mg PO Q6H PRN (Reason: muscle spasm) alendronate 70 mg tablet 70 mg PO WEEKLY amlodipine 5 mg tablet 5 mg PO DAILY omeprazole 20 mg capsule,delayed release(DR/EC) 20 mg PO DAILY lisinopril 40 mg tablet 40 mg PO DAILY rosuvastatin 10 mg tablet 10 mg PO BEDTIME Patient Comments: TAKE ONE(1) TABLET BY MOUTH ONCE DAILY hydrochlorothiazide 25 mg tablet 25 mg PO DAILY Patient Comments: TAKE ONE(1) TABLET BY MOUTH ONCE DAILY pregabalin 75 mg capsule 75 mg PO BID Qty: 30 0RF Changed tramadol 50 MG tablet 50 mg PO QIDP Qty: 20 0RF Medication counseling provided by Pharmacist: No Follow up/Referrals: Julia Lindo MD [Primary Care Provider] - Discharge Health Status Multidrug resistant organism: No MDRO Diet/Activity/Treatments Diet: Diet as Tolerated Liquid consistency: Normal/Thin Activity: As tolerated. Skin/Wound/Dressing Care Report to your healthcare provider any signs of infection, such as:: chills, fever and increased pain Visit Report/Discharge Packet Instructions: DI for Diverticulitis Stand Alone Forms: Patient Portal/API Discharge Data Primary Care Provider: Julia Lindo VTE Deep Vein Thrombosis/Pulmonary Embolism Present on Admission: No
== END 2023-10-18 13:12 | DRG 391 ==
LOC: ED 15:01 → AC 18:38
PROVIDERS: Surgery; Admitting Provider Internal Medicine; Emergency Provider Emergency Medicine; Family Provider Nurse Practitioner; PCP Family Medicine; Referring Provider Emergency Medicine; Visit Provider Internal Medicine
DX: K57.20 Diverticulitis of large intestine with perforation and abscess without bleeding (principal); J96.01 Acute respiratory failure with hypoxia; I10 Essential (primary) hypertension; K21.9 Gastro-esophageal reflux disease without esophagitis; G89.29 Other chronic pain; E66.8 Other obesity; T40.605A Adverse effect of unspecified narcotics, initial encounter; F41.9 Anxiety disorder, unspecified; Z68.36 Body mass index [BMI] 36.0-36.9, adult
CPT/HCPCS: 36415; 36569; 49418; 51798; 71045; 71275; 74177; 80053; 81001; 82550; 83036; 83605; 83690; 83735; 83880; 84145; 84484; 85025; 85610; 85730; 87040; 87070; 87075; 87077; 87185; 87186; 87205; 93005; 94760; 96365; 96375; 97112; 97116; 97161; 97530; 97535; 99285; J0744; J1170; J1450; J1642; J1650; J2250; J2270; J2405; J2543; J3010; Q9967

== ENCOUNTER 2023-10-29 14:48 | Inpatient (IN) | payer MEDICARE, MEDICAID, SELFPAY ==
[2023-10-11 18:14] VITALS: BMI 36.6
[2023-10-29] VITALS (8 sets, daily range): BP systolic 126–164; BP diastolic 76–89; PULSE 116–140; RESP 16–26; TEMP 36.4–36.7; O2SAT 92–95; BMI 37.5
[2023-10-29] MEDS: SODIUM CHLORIDE 0.9% 1,779 ML 593 ML IV (15:30)
--- NOTE | 2023-10-29 15:31 | ED_ITS ---
HPI - General Adult General Chief complaint: Abdominal Pain Stated complaint: Diverticulitis flare up Time Seen by Provider: 10/29/23 15:00 Source: patient, RN notes reviewed and old records reviewed Mode of arrival: Ambulatory Limitations: no limitations History of Present Illness HPI narrative: This is a 63-year-old female with history of hypertension, urinary urgency with prior neurostimulator, prior ADHD, anxiety and depression, chronic pain who represents she had diverticulitis with abscess had percutaneous drainage. Was discharged to [facility] on antibiotics for 5 days and returned home. She was discharged on the 17 of October. Patient represents she had increasing pain in the last day. She states no fevers or chills, sharps came in his lower abdomen but also moving upwards. She has a little bit of lower back pain. She does have some chronic back pain. She denies any nausea or vomiting. She states she started to have small bowel movements they have been dark but no black or blood. She denies any urinary symptoms no gas or air, no dysuria urgency or frequency. Patient states she had aspiration of her abscess but did not have a drain. She denies any drug allergies. No tobacco occasional alcohol uses marijuana but no IV drugs. She sees [facility] as her primary care. She lives on [place] [facility] Medications Medication Instructions Recorded Confirmed alendronate 70 mg tablet 70 mg PO WEEKLY 10/11/23 10/11/23 amlodipine 5 mg tablet 5 mg PO DAILY 10/11/23 10/11/23 lisinopril 40 mg tablet 40 mg PO DAILY 10/11/23 10/11/23 methocarbamol 500 mg tablet 500 - 1,000 mg PO Q6H PRN muscle 10/11/23 10/11/23 spasm omeprazole 20 mg capsule,delayed 20 mg PO DAILY 10/11/23 10/11/23 release hydrochlorothiazide 25 mg tablet 25 mg PO DAILY 10/16/23 10/16/23 rosuvastatin 10 mg tablet 10 mg PO BEDTIME 10/16/23 10/16/23 Previous Rx's Medication Instructions Recorded ibuprofen 600 mg tablet 600 mg PO Q6HP PRN #60 tabs 10/24/16 buspirone 15 mg tablet 15 mg PO BID #60 tabs 12/19/16 ceftriaxone 2 gram solution for 2 g IM DAILY #5 ea 10/18/23 injection fluconazole 150 mg tablet 150 mg PO DAILY 21 days #5 tabs 10/18/23 metronidazole 500 mg/100 mL in 500 mg IV Q8H #15 mL 10/18/23 sodium chlor(iso) intravenous piggyback pregabalin 75 mg capsule 75 mg PO BID #30 caps 10/18/23 tramadol 50 mg tablet 50 mg PO QID PRN Pain, Moderate 10/18/23 (4-6) #20 tabs tramadol 50 mg tablet 50 mg PO QIDP #20 tabs 10/18/23 Allergies Allergy/AdvReac Type Severity Reaction Status Date / Time bupropion [BUPROPION] Allergy Intermediate shaky, Verified 09/20/22 12:03 irritable Interferons [INTERFERONS] Allergy Intermediate rash, Verified 09/20/22 12:03 headache ribavirin [RIBAVIRIN] Allergy Intermediate confusion, Verified 09/20/22 12:03 agitation Review of Systems Review of Systems ROS Unobtainable: All systems reviewed & are unremarkable except as noted in HPI and below Patient History Surgical History History of carpal tunnel repair Status post hysterectomy History of carpal tunnel repair Family History Brother Age: 51 Mental health problem ADHD (attention deficit hyperactivity disorder) Mother Age: 85 Hypertension High cholesterol Mental health problem Stroke Sister Age: 65 Hypertension High cholesterol Social History household members: none Smoking Status: Never smoker alcohol intake: current Smoking Status: Never smoker alcohol intake frequency: holidays/special occasions only Substance Use Type: marijuana Exam Narrative Exam Narrative: GENERAL: Alert and oriented x three, female in mild distress HEENT: Head normocephalic, atraumatic, EOMI, pupils reactive, face symmetric, moist mucous membranes NECK: Supple, full range of motion CARDIOVASCULAR: Tachy but regular rate and rhythm without murmurs, rubs or gallops. No JVD. RESPIRATORY: Breath sounds equal bilaterally, no wheezes rales or rhonchi. ABDOMEN: Soft, mildly distended. Mild tenderness of lower abdomen. Normoactive bowel sounds all 4 quadrants. No guarding or rebound, rigidity, no mass : No CVA tenderness EXTREMITIES: Normal range of motion, no clubbing or edema. Neurovascularly intact NEUROLOGICAL: Cranial nerves II through XII grossly intact. Moving all extremities SKIN: Warm, dry, no petechiae, no rashes or lesions. Initial Vital Signs Initial Vital Signs: Vital Signs Pulse Rate 138 H 10/29/23 15:00 Respiratory Rate 24 10/29/23 15:00 Blood Pressure 140/81 10/29/23 15:00 Pulse Oximetry 95 10/29/23 15:00 Course Orders Ordered: ED Orders 10/29/23 15:00 EKG-12 Lead Stat 10/29/23 15:40 Complete Blood Count AUTO DIFF Stat Comprehensive Metabolic Panel Stat Lipase Stat MAG [Magnesium] Stat 10/29/23 16:00 CT abdomen pelvis w con Stat 10/29/23 17:11 Blood Culture Stat 10/29/23 17:13 UA Complete [Urinalysis and Microscopic] Stat Sodium Chloride (Normal Saline 0.9%) 1,779 mls @ 593 mls/hr 30 ml/kg infuse over 3 hr (1779 ml) IV NOW ONE Stop: 10/29/23 20:10 Last Admin: 10/29/23 15:30 Dose: 593 mls/hr Documented By: NOHEMI Discontinued Medications Sodium Chloride (Normal Saline 0.9%) 1,000 mls @ 1,000 mls/hr IV BOLUS ONE Stop: 10/29/23 15:59 Piperacillin Sod/Tazobactam (Sod 4.5 gm/ Sodium Chloride) 100 mls @ 200 mls/hr IV NOW ONE Stop: 10/29/23 17:12 Morphine Sulfate (Morphine 4 Mg/Ml Inj) 4 mg IV NOW ONE Stop: 10/29/23 17:12 Last Admin: 10/29/23 17:29 Dose: 4 mg Documented By: NOHEMI Ondansetron HCl (Ondansetron 4 Mg/2 Ml Inj) 4 mg IV NOW ONE Stop: 10/29/23 15:01 Last Admin: 10/29/23 16:07 Dose: 4 mg Documented By: RB Vital Signs Vital signs: Vital Signs - 8 hr 10/29/23 15:00 10/29/23 15:04 10/29/23 15:30 Temperature 97.6 F Pulse Rate 138 H 134 H 133 H Respiratory Rate 24 26 H 25 H Blood Pressure 140/81 138/76 144/83 H Pulse Oximetry 95 95 92 Oxygen Delivery Method Room Air 10/29/23 16:30 10/29/23 17:00 Temperature Pulse Rate 140 H 126 H Respiratory Rate 24 23 Blood Pressure 164/82 H 144/84 H Pulse Oximetry 95 93 Oxygen Delivery Method Medical Decision Making Lab Data 10/29/23 15:40 10/29/23 15:40 Labs: Lab Results 10/29/23 Range/Units 15:40 WBC 20.1 H (4.5-11.0) X10^3/uL RBC 4.67 (4.0-5.2) X10^6/uL Hgb 10.8 L (12.0-16.0) g/dL Hct 34.2 L (36-46) % MCV 73.3 L (80-100) fL MCH 23.1 L (26-34) PG MCHC 31.5 (30-36) % RDW 18.2 H (11.6-14.8) % Plt Count 1040 H* (150-400) X10^3/uL Neut % (Auto) 83.0 H (50-75) % Lymph % (Auto) 6.0 L (25-40) % [place] % (Auto) 10.7 (3-14) % Eos % (Auto) 0.3 L (2-4) % Baso % (Auto) 0.0 (0-2) % Neut # (Auto) 23590 H (8798-2495) /uL Lymph # (Auto) 1200 (4522-6378) /uL [place] # (Auto) 2200 H (0-900) /uL Eos # (Auto) 100 (0-450) /uL Baso # (Auto) 0 (0-100) /uL RBC Morphology Normal morphology Sodium 134 L (137-145) mmol/L Potassium 4.2 (3.4-5.1) mmol/L Chloride 100 (98-107) mmol/L Carbon Dioxide 28 (22-32) mmol/L BUN 12 (7-17) mg/dL Creatinine 0.59 (0.52-1.04) mg/dL Estimated GFR > 60 (>60) mL/min BUN/Creatinine Ratio 20.3 (6-22) Glucose 139 H (80-110) mg/dL Calcium 8.9 (8.4-10.2) mg/dL Magnesium 2.0 (1.6-2.3) mg/dL Total Bilirubin 0.5 (0.2-1.3) mg/dL AST 25 (14-36) IU/L ALT 18 (<35) IU/L Alkaline Phosphatase 82 (38-126) U/L Total Protein 7.5 (6.3-8.2) g/dL Albumin 3.9 (3.5-5.0) g/dL Globulin 3.6 (1.7-4.1) g/dL Albumin/Globulin Ratio 1.1 (1.0-2.8) Lipase 48 (23-300) U/L Imaging Data CT scan - abdomen/pelvis: Radiologist's Impression: [address] [address] [address] Scan Report Signed Patient: Bibiana Newsome MR#: [id number] : 1960 Acct:[id number] Age/Sex: 63 / F Date of Service: 10/29/23 Loc: ED Accession Number: [id number] Procedure: CT abdomen pelvis w con Ordering Provider: Lilliam Coyle D.O. PROCEDURE: CT ABDOMEN PELVIS W CON INDICATIONS: diarrhea for several weeks TECHNIQUE: After the administration of intravenous contrast, axial sections acquired from the lung bases to the pubic symphysis. Coronal and sagittal reformats were performed. For radiation dose reduction, the following was used: automated exposure control, adjustment of mA and/or kV according to patient size. COMPARISON: [facility], CT, CT ABDOMEN PELVIS W CON, 10/14/2023, 7:53. [facility], CT, CT ABDOMEN PELVIS W CON, 10/11/2023, 16:03. FINDINGS: Image quality: Diagnostic. Lower Chest: No significant findings. ABDOMEN: Liver: No solid mass. Mild geographic fatty infiltration of the right hepatic lobe. Gallbladder: No radiopaque gallstones or wall thickening. Biliary ducts: No biliary dilation. Pancreas: No ductal dilation. Spleen: Size is within normal limits. Adrenal Glands: Stable 4 cm left adrenal nodule. No right adrenal nodule. Kidneys and Ureters: No hydronephrosis. No solid mass. No complex renal cystic lesion which requires follow up. Right renal simple cyst. Bowel and peritoneum: Bowel wall thickening and pericolonic fat stranding are again seen in the sigmoid colon. Irregular collection of fluid and gas in the right lower quadrant has significantly decreased in size when compared to the CT from 10/14/2023. The collection likely involves the right adnexa and multiple tethered loops of small bowel are seen suspicious for: Anterior fistula. No residual drainable fluid collection is seen in this location. Peripherally enhancing fluid collection is seen in the pelvic cul-de-sac measuring approximately 5.0 x 3.5 cm (80/2), which previously measured approximately 10.0 x 5.2 cm. Inflammatory tissue is again seen inferior to the colon and along the left adnexa. Nearby 3.5 cm left ovarian cyst is not appear significantly changed. No signs of small bowel obstruction. Stomach is unremarkable. Ventral Wall: No significant ventral hernia. Abdominal Nodes: No retroperitoneal or mesenteric adenopathy by size criteria. Vessels: Aorta and inferior vena cava are normal in size. PELVIS: Pelvic Organs: Unremarkable. Bladder: Bladder wall thickening is seen with a small amount of gas in the nondependent portion. Suspected fistula tract extending superiorly from the right superior bladder. Pelvic Nodes: No enlarged lymph nodes. Miscellaneous: No inguinal hernias are seen. Bones: No aggressive osseous abnormality. IMPRESSION: 1. Sigmoid diverticulitis with decreased surrounding inflammatory tissue and fluid collections when compared to the CT from 10/14/2023. Tethering of small bowel loops in the right lower quadrant is suspicious for possible enterocolonic fistula formation. Additionally, suspected colovesical fistula with a small amount of gas in the bladder. Small peripherally enhancing fluid collection in the pelvic cul-de-sac has decreased in size, now measuring up to 5 cm compared to [address] from 10/14/2023. 2. Stable 4 cm left adrenal nodule. Recommend urology consultation if not previously performed. 3. Stable left ovarian 3.5 cm cyst. Approved by: Butch Nuñez M.D. on 10/29/2023 at 16:31 ECG Data Attestation: I personally reviewed and interpreted this ECG as follows: Interpretation: Sinus tachycardia rate of 124 NE 140 QRS 86 QTC 448[address] No acute [address] elevation depression noted. [place] Narrative Medical decision making narrative: 63-year-old female who presents with complaint of abdominal pain, tachycardia with recent diagnosis of diverticulitis with abscess she had aspiration of abscess and discharged to [facility] on antibiotics for 5 days. Ultimately returned home. Labs show white count of 20, patient had a white count of 11 in September, does run elevated range throughout september. Patient's hemoglobin is 10.8 is actually slightly improved has been in the 9 range throughout September. Platelets are significantly elevated at 1040, patient has been trending upwards since October 14. Patient differential shows high note neutrophils on auto as well as elevated monocytes. Electrolytes shows sodium 134 potassium of 4.2 chloride 100 CO2 of 28 BUN 12 creatinine 0.59 glucose of 139 LFTs are appropriate range you do not lipase is negative. EKG shows sinus tach. CT abdomen pelvis shows mild geographic fatty infiltrative right hepatic lobe, stable 4 cm left adrenal nodule right renal simple cyst. Bowel wall thickening and pericolonic fat stranding in the sigmoid seen again irregular fluid collection and gas right lower quadrant significantly decreased and CT of 10/14/2023 likely involves the right adnexa and multiple Radha loops of small bowel suspicious for anterior fistula no residual drainable fluid collection in this location. Peripherally enhancing fluid collection pelvic cul-de-sac measuring 5 x 3.5 cm previously was 10 x 5.2. Telemetry tissue inferior colon to the left adnexa nearby 3.5 cm left ovarian cyst appears unchanged. Bladder wall thickening small amount of gas nondependent portion suspected fistula tract extending superiorly from right superior bladder. Patient abscess has improved in size, she does have changes concerning for entero colonic fistula as well as colovesical fistula. Patient does meet septic criteria with her white count, tachycardia which is still present after almost a L of fluids. Lactate, procalcitonin blood cultures were added on. Patient was given Zosyn. 30 cc/kilos bolus of ideal body weight was ordered. Spoke with Dr. Butler, general surgery who plans to bring the patient in. States we do not require urology consultation at this time. Plan for admission to hospitalist as patient does have multiple medical issues. Spoke with Dr. Stewart hospitalist who accepts. Lactate, protocol and cultures are pending. Receiving additional fluids she is tacky but not hypotensive well- appearing at bedside. Discussed General surgery plans to see. Dr. Stewart saw patient here in the department. Discharge Plan Departure Patient Disposition: Admitted As Inpatient Clinical Impression: Adrenal nodule, Abscess of sigmoid colon due to diverticulitis, Entero-colonic fistula, [place]-vesical fistula, Sepsis Admit Date/Time: 10/29/23 17:28 Admit Provider: Oliverio Stewart
--- NOTE | 2023-10-29 16:00 | DI.CT.S_ITS ---
PROCEDURE: CT ABDOMEN PELVIS W CON INDICATIONS: diarrhea for several weeks TECHNIQUE: After the administration of intravenous contrast, axial sections acquired from the lung bases to the pubic symphysis. Coronal and sagittal reformats were performed. For radiation dose reduction, the following was used: automated exposure control, adjustment of mA and/or kV according to patient size. COMPARISON: [facility], CT, CT ABDOMEN PELVIS W [facility], 10/14/2023, 7:53. [facility], CT, CT ABDOMEN PELVIS W CON, 10/11/2023, 16:03. FINDINGS: Image quality: Diagnostic. Lower Chest: No significant findings. ABDOMEN: Liver: No solid mass. Mild geographic fatty infiltration of the right hepatic lobe. Gallbladder: No radiopaque gallstones or wall thickening. Biliary ducts: No biliary dilation. Pancreas: No ductal dilation. Spleen: Size is within normal limits. Adrenal Glands: Stable 4 cm left adrenal nodule. No right adrenal nodule. Kidneys and Ureters: No hydronephrosis. No solid mass. No complex renal cystic lesion which requires follow up. Right renal simple cyst. Bowel and peritoneum: Bowel wall thickening and pericolonic fat stranding are again seen in the sigmoid colon. Irregular collection of fluid and gas in the right lower quadrant has significantly decreased in size when compared to the CT from 10/14/2023. The collection likely involves the right adnexa and multiple tethered loops of small bowel are seen suspicious for: Anterior fistula. No residual drainable fluid collection is seen in this location. Peripherally enhancing fluid collection is seen in the pelvic cul-de-sac measuring approximately 5.0 x 3.5 cm (80/2), which previously measured approximately 10.0 x 5.2 cm. Inflammatory tissue is again seen inferior to the colon and along the left adnexa. Nearby 3.5 cm left ovarian cyst is not appear significantly changed. No signs of small bowel obstruction. Stomach is unremarkable. Ventral Wall: No significant ventral hernia. Abdominal Nodes: No retroperitoneal or mesenteric adenopathy by size criteria. Vessels: Aorta and inferior vena cava are normal in size. PELVIS: Pelvic Organs: Unremarkable. Bladder: Bladder wall thickening is seen with a small amount of gas in the nondependent portion. Suspected fistula tract extending superiorly from the right superior bladder. Pelvic Nodes: No enlarged lymph nodes. Miscellaneous: No inguinal hernias are seen. Bones: No aggressive osseous abnormality. IMPRESSION: 1. Sigmoid diverticulitis with decreased surrounding inflammatory tissue and fluid collections when compared to the CT from 10/14/2023. Tethering of small bowel loops in the right lower quadrant is suspicious for possible enterocolonic fistula formation. Additionally, suspected colovesical fistula with a small amount of gas in the bladder. Small peripherally enhancing fluid collection in the pelvic cul-de-sac has decreased in size, now measuring up to 5 cm compared to [address] from 10/14/2023. 2. Stable 4 cm left adrenal nodule. Recommend urology consultation if not previously performed. 3. Stable left ovarian 3.5 cm cyst. Approved by: Butch Nuñez M.D. on 10/29/2023 at 16:31
[2023-10-29 16:02] LABS: Add Manual Diff / Slide Review NO; Basophils Absolute Auto 0 /uL (0-100); Eosinophils Absolute Auto 100 /uL (0-450); Eosinophils Percent Auto 0.3 % (2-4); Hematocrit 34.2 % (36-46); Hemoglobin 10.8 g/dL (12.0-16.0); Lymphocytes Absolute Auto 1200 /uL (1100-4500); Mean Corpuscular HGB Conc 31.5 % (30-36); Mean Corpuscular Hemoglobin 23.1 PG (26-34); Mean Corpuscular Volume 73.3 fL (80-100); Monocytes Absolute Auto 2200 /uL (0-900); Monocytes Percent Auto 10.7 % (3-14); Neutrophils Absolute Auto 16700 /uL (1500-7000); Red Blood Cell Count 4.67 X10^6/uL (4.0-5.2); Red Cell Distribution Width 18.2 % (11.6-14.8); White Blood Cell Count 20.1 X10^3/uL (4.5-11.0)
[2023-10-29 16:05] LABS: Platelet Count 1040 X10^3/uL (150-400)
[2023-10-29] MEDS: ONDANSETRON 4 MG/2 ML INJ IV (16:07)
[2023-10-29 16:20] LABS: Alanine Aminotransferase 18 IU/L (<35); Albumin 3.9 g/dL (3.5-5.0); Albumin Globulin Ratio 1.1 (1.0-2.8); Alkaline Phosphatase 82 U/L (38-126); Aspartate Aminotransferase 25 IU/L (14-36); BUN Creatinine Ratio 20.3 (6-22); Bilirubin Total 0.5 mg/dL (0.2-1.3); Blood Urea Nitrogen 12 mg/dL (7-17); Calcium 8.9 mg/dL (8.4-10.2); Carbon Dioxide 28 mmol/L (22-32); Chloride 100 mmol/L (98-107); Estimated Glomerular Filt Rate > 60 mL/min (>60); Globulin 3.6 g/dL (1.7-4.1); Glucose 139 mg/dL (80-110); HEMOLYSIS < 15 (0-50); Lipase 48 U/L (23-300); Potassium 4.2 mmol/L (3.4-5.1); Sodium 134 mmol/L (137-145); Total Protein 7.5 g/dL (6.3-8.2)
[2023-10-29 16:32] LABS: RBC Morphology Normal Morphology
[2023-10-29] MEDS: MORPHINE 4 MG/ML INJ IV (17:29)
--- NOTE | 2023-10-29 17:44 | PM.CALLCOV.1 ---
Call Coverage Note Note Date of Patient Contact: 10/29/23 Time of Patient Contact: 17:45 Narrative of Care Provided: 63F PMH obesity, HTN admitted with sepsis secondary to complicated diverticulitis. Recent hospitalization for diverticular abscess percutaneously drained. Today worsening pain, fever. Now with pneumouria. WBC 20 CT colovesicular fistula, possible entero-colonic fistula. Failing medical treatment will need sigmoid colectomy with likely colostomy . -Ok for clears -NPO after midnight -Abx -No bowel prep -Full consult note to follow -Sigmoid colectomy 10/29
[2023-10-29] MEDS: PIPERACILLIN/TAZO 4.5 GM in SODIUM CHLORIDE 0.9% 100 ML IV (17:51)
--- NOTE | 2023-10-29 18:11 | P.HP_ITS ---
History of Present Illness History of Present Illness Date Patient Seen: 10/29/23 Time Patient Seen: 18:12 Chief complaint: Diverticulitis flare up Narrative: This is a 63-year-old female with history of hypertension, cirrhosis, ADHD, a neurostimulator, and chronic pain who presented with diverticulitis. She had had this before. She was admitted to this hospital from October 10 to October 17 for diverticulitis and treated with IV antibiotics. She was discharged on October 17 2 alf. She had an additional 5 days of IV antibiotics after discharge. The patient did have an abscess noted during that hospitalization which was drained on October 15 by Interventional Radiology. She returned home from alf facility to her home on [address] and did well. She thought she was improving through yesterday. She then developed severe suprapubic right sided anterior and posterior pain today. 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 She was seen by General surgery in the emergency department, they recommend a sigmoid colectomy on October 29. She was started on IV antibiotics. She denies fevers, chills, vomiting, or diarrhea. She also notes some particulate matter in her bladder but no fecal matter. She was tachycardic in the emergency department with a lactic acid pending and IV fluids started. Platelet count is 1040, acute phase reactant. [facility] Surgical History History of carpal tunnel repair Status post hysterectomy History of carpal tunnel repair Family History Brother Age: 51 Mental health problem ADHD (attention deficit hyperactivity disorder) Mother Age: 85 Hypertension High cholesterol Mental health problem Stroke Sister Age: 65 Hypertension High cholesterol Social History household members: none Smoking Status: Never smoker alcohol intake: current Meds Home Medications and Allergies Home Medications Medication Instructions Recorded Confirmed Type ibuprofen 600 mg tablet 600 mg PO Q6HP PRN #60 tabs 10/24/16 10/16/23 Rx buspirone 15 mg tablet 15 mg PO BID #60 tabs 12/19/16 10/11/23 Rx alendronate 70 mg tablet 70 mg PO WEEKLY 10/11/23 10/11/23 History amlodipine 5 mg tablet 5 mg PO DAILY 10/11/23 10/11/23 History lisinopril 40 mg tablet 40 mg PO DAILY 10/11/23 10/11/23 History methocarbamol 500 mg tablet 500 - 1,000 mg PO Q6H PRN muscle 10/11/23 10/11/23 History spasm omeprazole 20 mg capsule,delayed 20 mg PO DAILY 10/11/23 10/11/23 History release hydrochlorothiazide 25 mg tablet 25 mg PO DAILY 10/16/23 10/16/23 History rosuvastatin 10 mg tablet 10 mg PO BEDTIME 10/16/23 10/16/23 History ceftriaxone 2 gram solution for 2 g IM DAILY #5 ea 10/18/23 Rx injection fluconazole 150 mg tablet 150 mg PO DAILY 21 days #5 tabs 10/18/23 Rx metronidazole 500 mg/100 mL in 500 mg IV Q8H #15 mL 10/18/23 Rx sodium chlor(iso) intravenous piggyback pregabalin 75 mg capsule 75 mg PO BID #30 caps 10/18/23 Rx tramadol 50 mg tablet 50 mg PO QID PRN Pain, Moderate 10/18/23 Rx (4-6) #20 tabs tramadol 50 mg tablet 50 mg PO QIDP #20 tabs 10/18/23 Rx Allergies Allergy/AdvReac Type Severity Reaction Status Date / Time bupropion [BUPROPION] Allergy Intermediate shaky, Verified 09/20/22 12:03 irritable Interferons [INTERFERONS] Allergy Intermediate rash, Verified 09/20/22 12:03 headache ribavirin [RIBAVIRIN] Allergy Intermediate confusion, Verified 09/20/22 12:03 agitation Review of Systems Review of Systems Narrative: All else reviewed and otherwise unremarkable except as noted in the history and physical. Exam Vital Signs (past 8 hours): - 10/29/23 15:00 10/29/23 15:04 10/29/23 15:30 Temperature 97.6 F Pulse Rate 138 H 134 H 133 H Respiratory Rate 24 26 H 25 H Blood Pressure 140/81 138/76 144/83 H Pulse Oximetry 95 95 92 Oxygen Delivery Method Room Air 10/29/23 16:30 10/29/23 17:00 10/29/23 17:30 Temperature Pulse Rate 140 H 126 H 127 H Respiratory Rate 24 23 23 Blood Pressure 164/82 H 144/84 H 134/89 Pulse Oximetry 95 93 94 Oxygen Delivery Method Oxygen Delivery Method Room Air Narrative Exam Narrative: NAD, alert and oriented, fluent speech, calm. She does not appear toxic. Normocephalic skull, EOMI, anicteric sclera, symmetric pupils. Oropharynx unremarkable, no droop. Neck supple, midline trachea, no adenopathy. Lungs clear, normal rate and effort. Heart regular, no murmur gallop or rub. She was tachycardic. Abdomen is soft, non distended and non tender. Extremities are free of edema. Skin is free of rash or lesions. Joints are not swollen or deformed. Judgment appears to be normal. Objective Imaging CT scan - abdomen: Radiologist's impression: 1. Sigmoid diverticulitis with decreased surrounding inflammatory tissue and fluid collections when compared to the CT from 10/14/2023. Tethering of small bowel loops in the right lower quadrant is suspicious for possible enterocolonic fistula formation. Additionally, suspected colovesical fistula with a small amount of gas in the bladder. Small peripherally enhancing fluid collection in the pelvic cul-de-sac has decreased in size, now measuring up to 5 cm compared to [address] from 10/14/2023. 2. Stable 4 cm left adrenal nodule. Recommend urology consultation if not previously performed. 3. Stable left ovarian 3.5 cm cyst. Labs 10/29/23 15:40 10/29/23 15:40 Labs: Laboratory Results - last 24 hr 10/29/23 15:40 WBC 20.1 H RBC 4.67 Hgb 10.8 L Hct 34.2 L MCV 73.3 L MCH 23.1 L MCHC 31.5 RDW 18.2 H Plt Count 1040 H* Neut % (Auto) 83.0 H Lymph % (Auto) 6.0 L [place] % (Auto) 10.7 Eos % (Auto) 0.3 L Baso % (Auto) 0.0 Neut # (Auto) 27145 H Lymph # (Auto) 1200 [place] # (Auto) 2200 H Eos # (Auto) 100 Baso # (Auto) 0 RBC Morphology Normal morphology Sodium 134 L Potassium 4.2 Chloride 100 Carbon Dioxide 28 BUN 12 Creatinine 0.59 Estimated GFR > 60 BUN/Creatinine Ratio 20.3 Glucose 139 H Calcium 8.9 Magnesium 2.0 Total Bilirubin 0.5 AST 25 ALT 18 Alkaline Phosphatase 82 Total Protein 7.5 Albumin 3.9 Globulin 3.6 Albumin/Globulin Ratio 1.1 Lipase 48 Assessment & Plan Assessment & Plan narrative: 1. Sigmoid diverticulitis with concern for entero colonic fistula and colonic vesicular fistula. Present on admission and active. 2. Leukocytosis, present on admission and active. 3. Tachycardia, present on admission and active. 4. Sepsis with leukocytosis, tachycardia, and source of infection being sigmoid diverticulitis with possible fistulas. 5. Hypertension, present on admission and stable. 6. GERD, stable. 7. Chronic pain, present stable. Plan: -surgery consult obtained, plan is sigmoid colectomy tomorrow. -continue Zosyn -fluid resuscitation and monitor tachycardia on telemetry. -NPO -hold blood pressure medications and monitor. She was full resuscitation. She was admitted inpatient status, a 2 midnight expectation of need for hospitalization is present. Time Spent With Patient Time with patient: 30 to 49 minutes with 50% spent counseling/coordinating care Quality MIPS - Admit I confirm the patient?s Advance Care Plan is present, Code status is documented, Surrogate decision maker is in patient?s record [If Yes, STOP here]: Yes MIPS - Meds 'Current medications' to include all prescriptions, [id number] products, herbals, cannabis/cannabidiol products, and vitamin/mineral/dietary (nutritional) supplements. I have utilized all available resources to obtain, update, or review the patient?s current medications. [If Yes, STOP here]: Yes
[2023-10-29 18:13] LABS: Lactate (Lactic Acid) 0.9 mmol/L (0.7-2.1)
[2023-10-29 18:19] LABS: Appearance Urine UA SL CLOUDY; Bilirubin Urine UA NEGATIVE (NEGATIVE); Glucose Urine UA NEGATIVE (Negative); Ketones Urine UA NEGATIVE (NEGATIVE); Leukocyte Esterase Urine UA 1+ (NEGATIVE); Nitrite Urine UA NEGATIVE (Negative); Occult Blood Urine UA TRACE-INTACT (Negative); Protein Urine UA NEGATIVE (Negative); Specific Gravity Urine UA <=1.005 (1.000-1.035); Urobilinogen Urine UA 0.2 E.U./dL (0.2)
[2023-10-29 18:25] LABS: Color Urine UA 10; Urine Volume 10mL (spun)
[2023-10-29 18:26] LABS: Bacteria Urine Few (2-10); Culture Indicated Urine Specimen Cultured; RBC Urine 0-1/HPF (0-5/HPF); Squamous Epithelial Cell Urine 5-10 /HPF (0-5/HPF); WBC Urine 5-10/HPF (0-5/HPF)
[2023-10-29 18:31] LABS: Procalcitonin 0.188 ng/mL (<0.5)
[2023-10-29] MEDS: HYDROMORPHONE 0.5 MG INJ IV ×2 (19:30→22:24)
[2023-10-29] MEDS: SODIUM CHLORIDE 0.45% 1,000 ML 125 ML IV (19:38)
[2023-10-30] VITALS (36 sets, daily range): BP systolic 88–139; BP diastolic 61–84; PULSE 104–128; RESP 14–21; TEMP 36.6–37.5; O2SAT 91–98; BMI 37.5
--- NOTE | 2023-10-30 | PATH_ITS ---
[facility] Accession Number: [id number] No. of containers..01 Tissue . 01 Material submitted: . sigmoid colon - SIGMOID COLON, SEGMENTAL RESECTION . 01 Diagnosis: SIGMOID COLON, SEGMENTAL RESECTION: 1. Segment of colon with severe diverticulitis, including abscess formation. 2. Focal subserosal endosalpingiosis, with adjacent benign mesothelial cyst. 3. Five lymph nodes with reactive changes. 4. No dysplasia or malignancy identified. [facility] 11/07/2023 1433 Local . 01 Electronically signed: . Otoniel Mills MD, Pathologist NPI- [id number] . 01 Gross description: . Received in formalin with two identifiers and sigmoid colon, is an unoriented length of colon 17.3 cm in length by 4.4 cm in average diameter with creeping fat and richard smooth serosa. One margin is stapled and is inked blue, while the opposite margin is presumably patent and is inked black, while the mesenteric margin is inked green. Several cystic structures ranging from 0.2 to 0.9 cm are located 2.9 cm from the black-inked margin, and are inked orange. The contents are clear and serous. The lumen contains brown semi-solid fecal material, and the mucosa is richard and velvety with edematous folds and small roughened erythematous areas ranging from 0.2 to 0.4 cm in greatest dimension located across an area measuring approximately 7.4 cm in greatest dimension. A small polyp measures 0.5 cm in greatest dimension and is located 3.2 cm from the nearest black-inked margin. No masses are identified. The ivan range from 0.5 to 0.7 cm thick with numerous diverticula measuring up to 1.5 cm in depth. The lumen is tortuous. Sectioning reveals areas of auguste gelatinous necrotic adipose with a presumed full thickness defect located adjacent to the necrotic fat. No additional lesions are identified. Palpation reveals five richard lymph node candidates 0.4 to 0.6 cm in greatest dimension. . Printer Apprentice sections are submitted as follows: A1: Printer Apprentice blue and black margins en face. A2-A3: Presumed area of defect with necrotic fat. A4: Serosal cysts. A5: Full thickness mucosal roughened area. A6: Mucosal polyp. A7: Full thickness unremarkable sections. A8: Two intact lymph node candidates. A9: Two bisected differentially inked lymph node candidates. A10: Single bisected lymph node candidate. ([id number]) /[facility] 11/07/2023 1433 Local . 01 Microscopic: . SIGMOID COLON: There is a focal aggregate of subserosal cystic spaces lined by bland cuboidal to columnar epithelium, which in places is ciliated. Surrounding this are elements of spindled and hyalinized stroma. A select panel of immunostains was performed for further evaluation, with appropriately staining controls. The spindled stromal cells are negative for CD10 and inhibin, arguing against endometriosis or ovarian type stroma. The epithelium in most areas is positive on Pax8, supporting Mullerian differentiation, consistent with endosalpingiosis. One small cyst is lined by bland epithelium that stains positive for calretinin, consistent with mesothelial cells. The special stains were also reviewed by Dr. Helena Aguillon, who concurs with this interpretation. . 01 Pathologist provided ICD-10: K57.20 . 01 CPT . 305412, [id number], [id number] Specimen Comment: A courtesy copy of this report has been sent to [phone] Performed at: [address] [address], [place], [place] [id number] MD Otoniel Mills MD Phone: [phone]
[2023-10-30] MEDS: PIPERACILLIN/TAZO 3.375 GM in SODIUM CHLORIDE 0.9% 100 ML IV ×3 (01:12→20:02)
[2023-10-30] MEDS: HYDROMORPHONE 0.5 MG INJ IV ×6 (01:28→23:06)
[2023-10-30] MEDS: SODIUM CHLORIDE 0.45% 1,000 ML 125 ML IV ×2 (03:31→11:30)
[2023-10-30 05:53] LABS: Alanine Aminotransferase 15 IU/L (<35); Albumin 3.4 g/dL (3.5-5.0); Alkaline Phosphatase 71 U/L (38-126); Aspartate Aminotransferase 20 IU/L (14-36); BUN Creatinine Ratio 13.2 (6-22); Bilirubin Total 0.5 mg/dL (0.2-1.3); Blood Urea Nitrogen 7 mg/dL (7-17); Calcium 8.1 mg/dL (8.4-10.2); Carbon Dioxide 31 mmol/L (22-32); Chloride 105 mmol/L (98-107); Estimated Glomerular Filt Rate > 60 mL/min (>60); Globulin 3.4 g/dL (1.7-4.1); Glucose 128 mg/dL (80-110); HEMOLYSIS < 15 (0-50); Potassium 4.1 mmol/L (3.4-5.1); Sodium 134 mmol/L (137-145); Total Protein 6.8 g/dL (6.3-8.2)
[2023-10-30 05:57] LABS: Add Manual Diff / Slide Review NO; Basophils Absolute Auto 0 /uL (0-100); Basophils Percent Auto 0.2 % (0-2); Eosinophils Absolute Auto 0 /uL (0-450); Eosinophils Percent Auto 0.2 % (2-4); Hematocrit 32.8 % (36-46); Hemoglobin 10.4 g/dL (12.0-16.0); Lymphocytes Absolute Auto 1300 /uL (1100-4500); Lymphocytes Percent Auto 8.3 % (25-40); Mean Corpuscular HGB Conc 31.7 % (30-36); Mean Corpuscular Hemoglobin 23.4 PG (26-34); Mean Corpuscular Volume 73.6 fL (80-100); Monocytes Absolute Auto 1300 /uL (0-900); Monocytes Percent Auto 8.2 % (3-14); Neutrophils Absolute Auto 12900 /uL (1500-7000); Neutrophils Percent Auto 83.1 % (50-75); Red Blood Cell Count 4.45 X10^6/uL (4.0-5.2); Red Cell Distribution Width 18.5 % (11.6-14.8); White Blood Cell Count 15.6 X10^3/uL (4.5-11.0)
[2023-10-30 06:07] LABS: Platelet Count 929 X10^3/uL (150-400)
[2023-10-30 06:27] LABS: Platelet Estimate Increased on smear
[2023-10-30 06:35] LABS: RBC Morphology Normal Morphology
--- NOTE | 2023-10-30 07:36 | P.PN_ITS ---
Subjective Subjective Interval history: Admitted rate of for recurrent pain after recent admission for diverticulitis. Imaging is suggestive of sigmoid diverticulitis with a fistula to the small bowel and possibly bladder. Dr. Menon of surgery intends to perform a sigmoid colectomy and exploration today. She was having a low more lower abdominal pain today. Her urine is hazy. Her heart rate is improved overnight. Exam Vital Signs (past 8 hours): - 10/30/23 00:02 10/30/23 04:00 Temperature 98.4 F 97.9 F Pulse Rate 118 H 113 H Respiratory Rate 18 14 Blood Pressure 125/75 120/74 Pulse Oximetry 94 96 Oxygen Delivery Method Room Air Oxygen Flow Rate 0 Narrative Exam Narrative: NAD, alert and oriented. Fluent speech. Lungs are clear, normal rate and effort. Heart is regular, no murmur gallop or rub. Tachycardic Abdomen is soft, non distended. Left and right lower quadrants are tender without guarding. Extremities are free of edema. Objective Imaging CT scan - abdomen: Radiologist's impression: 1. Sigmoid diverticulitis with decreased surrounding inflammatory tissue and fluid collections when compared to the CT from 10/14/2023. Tethering of small bowel loops in the right lower quadrant is suspicious for possible enterocolonic fistula formation. Additionally, suspected colovesical fistula with a small amount of gas in the bladder. Small peripherally enhancing fluid collection in the pelvic cul-de-sac has decreased in size, now measuring up to 5 cm compared to [address] from 10/14/2023. 2. Stable 4 cm left adrenal nodule. Recommend urology consultation if not previously performed. 3. Stable left ovarian 3.5 cm cyst. Labs 10/30/23 05:10 10/30/23 05:10 Labs: Laboratory Results - last 24 hr 10/29/23 10/29/23 10/29/23 15:40 17:16 17:40 WBC 20.1 H RBC 4.67 Hgb 10.8 L Hct 34.2 L MCV 73.3 L MCH 23.1 L MCHC 31.5 RDW 18.2 H Plt Count 1040 H* Neut % (Auto) 83.0 H Lymph % (Auto) 6.0 L [place] % (Auto) 10.7 Eos % (Auto) 0.3 L Baso % (Auto) 0.0 Neut # (Auto) 47694 H Lymph # (Auto) 1200 [place] # (Auto) 2200 H Eos # (Auto) 100 Baso # (Auto) 0 Platelet Estimate RBC Morphology Normal morphology Sodium 134 L Potassium 4.2 Chloride 100 Carbon Dioxide 28 BUN 12 Creatinine 0.59 Estimated GFR > 60 BUN/Creatinine Ratio 20.3 Glucose 139 H Lactate 0.9 Calcium 8.9 Magnesium 2.0 Total Bilirubin 0.5 AST 25 ALT 18 Alkaline Phosphatase 82 Total Protein 7.5 Albumin 3.9 Globulin 3.6 Albumin/Globulin Ratio 1.1 Lipase 48 Procalcitonin 0.188 Urine Color 10 Urine Appearance Sl cloudy Urine pH 8.0 Ur Specific [place] <=1.005 Urine Protein Negative Urine Glucose (UA) Negative Urine Ketones Negative Urine Occult Blood Trace-intact Urine Nitrate Negative Urine Bilirubin Negative Urine Urobilinogen 0.2 Ur Leukocyte Esterase 1+ H Urine RBC 0-1/hpf Urine WBC 5-10/hpf H Ur Squamous Epith Cells 5-10 /hpf H Urine Bacteria Few (2-10) H Ur Culture Indicated? Specimen cultured Vol Urine Centrifuged 10ml (spun) 10/30/23 05:10 WBC 15.6 H RBC 4.45 Hgb 10.4 L Hct 32.8 L MCV 73.6 L MCH 23.4 L MCHC 31.7 RDW 18.5 H Plt Count 929 H* Neut % (Auto) 83.1 H Lymph % (Auto) 8.3 L [place] % (Auto) 8.2 Eos % (Auto) 0.2 L Baso % (Auto) 0.2 Neut # (Auto) 76681 H Lymph # (Auto) 1300 [place] # (Auto) 1300 H Eos # (Auto) 0 Baso # (Auto) 0 Platelet Estimate Increased on smear RBC Morphology Normal morphology Sodium 134 L Potassium 4.1 Chloride 105 Carbon Dioxide 31 BUN 7 Creatinine 0.53 Estimated GFR > 60 BUN/Creatinine Ratio 13.2 Glucose 128 H Lactate Calcium 8.1 L Magnesium Total Bilirubin 0.5 AST 20 ALT 15 Alkaline Phosphatase 71 Total Protein 6.8 Albumin 3.4 L Globulin 3.4 Albumin/Globulin Ratio 1.0 Lipase Procalcitonin Urine Color Urine Appearance Urine pH Ur Specific [place] Urine Protein Urine Glucose (UA) Urine Ketones Urine Occult Blood Urine Nitrate Urine Bilirubin Urine Urobilinogen Ur Leukocyte Esterase Urine RBC Urine WBC Ur Squamous Epith Cells Urine Bacteria Ur Culture Indicated? Vol Urine Centrifuged [facility] Surgical History History of carpal tunnel repair Status post hysterectomy History of carpal tunnel repair Family History Brother Age: 51 Mental health problem ADHD (attention deficit hyperactivity disorder) Mother Age: 85 Hypertension High cholesterol Mental health problem Stroke Sister Age: 65 Hypertension High cholesterol Social History household members: none Smoking Status: Never smoker alcohol intake: current Assessment & Plan Assessment & Plan narrative: 1. Sigmoid diverticulitis with concern for enterocolonic fistula and colovesicular fistula. Present on admission and active. 2. Leukocytosis, present on admission and active. 3. Tachycardia, present on admission and active. 4. Sepsis with leukocytosis, tachycardia, and source of infection being sigmoid diverticulitis with possible fistulas. 5. Hypertension, present on admission and stable. 6. GERD, stable. 7. Chronic pain, present stable. Plan: -surgery consult obtained, plan is sigmoid colectomy today. -continue Zosyn -fluid resuscitation and monitor tachycardia on telemetry. -NPO -hold blood pressure medications and monitor. She was full resuscitation. She was admitted inpatient status, a 2 midnight expectation of need for hospitalization is present. Quality VTE Deep Vein Thrombosis/Pulmonary Embolism Present on Admission: No
--- NOTE | 2023-10-30 08:31 | P.CONS_ITS ---
History of Present Illness Consult details Date Patient Seen: 10/30/23 Time Patient Seen: 08:31 Chief complaint: Diverticulitis flare up Narrative: Bibiana Newsome is a 63 y.o woman PMH obesity (BMI 38), HTN, Hep C, GERD admitted with sepsis secondary to complicated diverticulitis. She had a recent hospitalization for diverticulitis, discharged 2 weeks ago. During this hospitalization she had a diverticular abscess percutaneously drained and treated with IV Abx. Yesterday she presented to the ER with worsening abdominal pain, and fever. She now reports pneumouria. At admission WBC 20 CT demonstrates colovesicular fistula, possible entero-colonic fistula intra adominal abscess decreased in size. Prior abdominal surgery is open hysterectomy which she tolerated without bleeding or anesthetic issues. She can climb one flight of stairs before becoming short of breath no angina. Meds Home Medications and Allergies Home Medications Medication Instructions Recorded Confirmed Type buspirone 15 mg tablet 15 mg PO BID #60 tabs 12/19/16 10/29/23 Rx alendronate 70 mg tablet 70 mg PO WEEKLY 10/11/23 10/29/23 History amlodipine 5 mg tablet 5 mg PO DAILY 10/11/23 10/29/23 History lisinopril 40 mg tablet 40 mg PO DAILY 10/11/23 10/29/23 History methocarbamol 500 mg tablet 500 - 1,000 mg PO Q6H PRN muscle 10/11/23 10/29/23 History spasm omeprazole 20 mg capsule,delayed 20 mg PO DAILY 10/11/23 10/29/23 History release hydrochlorothiazide 25 mg tablet 25 mg PO DAILY 10/16/23 10/29/23 History rosuvastatin 10 mg tablet 10 mg PO BEDTIME 10/16/23 10/29/23 History pregabalin 75 mg capsule 75 mg PO BID #30 caps 10/18/23 10/29/23 Rx tramadol 50 mg tablet 50 mg PO QID PRN Pain, Moderate 10/18/23 10/29/23 Rx (4-6) #20 tabs ibuprofen 600 mg tablet 600 mg PO Q6HP PRN Pain (Scale 10/29/23 10/29/23 History Score 4-6) Allergies Allergy/AdvReac Type Severity Reaction Status Date / Time bupropion [BUPROPION] Allergy Intermediate ramiro, Verified 09/20/22 12:03 irritable Interferons [INTERFERONS] Allergy Intermediate rash, Verified 09/20/22 12:03 headache ribavirin [RIBAVIRIN] Allergy Intermediate confusion, Verified 09/20/22 12:03 agitation Exam Vital Signs (past 8 hours): - 10/30/23 04:00 10/30/23 08:00 Temperature 97.9 F 97.9 F Pulse Rate 113 H 122 H Respiratory Rate 14 18 Blood Pressure 120/74 130/81 Pulse Oximetry 96 94 Oxygen Flow Rate 0 Oxygen Delivery Method Room Air Oxygen Flow Rate 0 Narrative Exam Narrative: Gen-Adult woman alert and clearly uncomfortable Cardiac-Sinus tachycardia Resp Mildly labored resp Abdomen-Obese focal peritonitis lower abdomen Ext-WWP Objective Labs 10/30/23 05:10 10/30/23 05:10 Labs: Laboratory Results - last 24 hr 10/29/23 10/29/23 10/29/23 15:40 17:16 17:40 WBC 20.1 H RBC 4.67 Hgb 10.8 L Hct 34.2 L MCV 73.3 L MCH 23.1 L MCHC 31.5 RDW 18.2 H Plt Count 1040 H* Neut % (Auto) 83.0 H Lymph % (Auto) 6.0 L [place] % (Auto) 10.7 Eos % (Auto) 0.3 L Baso % (Auto) 0.0 Neut # (Auto) 38724 H Lymph # (Auto) 1200 [place] # (Auto) 2200 H Eos # (Auto) 100 Baso # (Auto) 0 Platelet Estimate RBC Morphology Normal morphology Sodium 134 L Potassium 4.2 Chloride 100 Carbon Dioxide 28 BUN 12 Creatinine 0.59 Estimated GFR > 60 BUN/Creatinine Ratio 20.3 Glucose 139 H Lactate 0.9 Calcium 8.9 Magnesium 2.0 Total Bilirubin 0.5 AST 25 ALT 18 Alkaline Phosphatase 82 Total Protein 7.5 Albumin 3.9 Globulin 3.6 Albumin/Globulin Ratio 1.1 Lipase 48 Procalcitonin 0.188 Urine Color 10 Urine Appearance Sl cloudy Urine pH 8.0 Ur Specific [place] <=1.005 Urine Protein Negative Urine Glucose (UA) Negative Urine Ketones Negative Urine Occult Blood Trace-intact Urine Nitrate Negative Urine Bilirubin Negative Urine Urobilinogen 0.2 Ur Leukocyte Esterase 1+ H Urine RBC 0-1/hpf Urine WBC 5-10/hpf H Ur Squamous Epith Cells 5-10 /hpf H Urine Bacteria Few (2-10) H Ur Culture Indicated? Specimen cultured Vol Urine Centrifuged 10ml (spun) 10/30/23 05:10 WBC 15.6 H RBC 4.45 Hgb 10.4 L Hct 32.8 L MCV 73.6 L MCH 23.4 L MCHC 31.7 RDW 18.5 H Plt Count 929 H* Neut % (Auto) 83.1 H Lymph % (Auto) 8.3 L [place] % (Auto) 8.2 Eos % (Auto) 0.2 L Baso % (Auto) 0.2 Neut # (Auto) 52792 H Lymph # (Auto) 1300 [place] # (Auto) 1300 H Eos # (Auto) 0 Baso # (Auto) 0 Platelet Estimate Increased on smear RBC Morphology Normal morphology Sodium 134 L Potassium 4.1 Chloride 105 Carbon Dioxide 31 BUN 7 Creatinine 0.53 Estimated GFR > 60 BUN/Creatinine Ratio 13.2 Glucose 128 H Lactate Calcium 8.1 L Magnesium Total Bilirubin 0.5 AST 20 ALT 15 Alkaline Phosphatase 71 Total Protein 6.8 Albumin 3.4 L Globulin 3.4 Albumin/Globulin Ratio 1.0 Lipase Procalcitonin Urine Color Urine Appearance Urine pH Ur Specific [place] Urine Protein Urine Glucose (UA) Urine Ketones Urine Occult Blood Urine Nitrate Urine Bilirubin Urine Urobilinogen Ur Leukocyte Esterase Urine RBC Urine WBC Ur Squamous Epith Cells Urine Bacteria Ur Culture Indicated? Vol Urine Centrifuged [facility] Surgical History History of carpal tunnel repair Status post hysterectomy History of carpal tunnel repair Family History Brother Age: 51 Mental health problem ADHD (attention deficit hyperactivity disorder) Mother Age: 85 Hypertension High cholesterol Mental health problem Stroke Sister Age: 65 Hypertension High cholesterol Social History household members: none Tobacco & Substance Use Smoking Status: Never smoker alcohol intake: current Assessment & Plan Assessment & Plan narrative: 63 y.o woman PMH obesity, hep C, HTN readmitted with complicated diverticulitis failing conservative therapy, sepsis on admission with focal peritonitis. CT A/P demonstrates new colovesicular and possible entero-colonic fistula. She is failing to improve with medical management and will need sigmoid colectomy (open) with likely ostomy either colostomy or diverting loop ileostomy. Operative risk factors include sepsis, contaminated field, emergent nature of operation, and obesity. Operative risks including infection, hemorrhage, anastomotic leak, damage to surrounding structures bowel bladder urinary structures hernia formation rare but serious complications such as stroke myocardial infarction and were reviewed. Her questions have been answered and she is in agreement with this plan she provides her consent to proceed.
[2023-10-30] MEDS: LORazepam 0.5 MG TABLET PO ×2 (10:56→14:55)
--- NOTE | 2023-10-30 15:06 | CM.DANOTE ---
Addendum entered by LAVERNE Brown 10/31/23 13:52: ADD: Patient with new Ostomy and may benefit from SNF upon discharge. PT will plan to see tomorrow according to Dr Humphries. Will wait for therapy recommendations and discuss DCP options with patient. Patient has managed [facility], will need therapy notes before a SNF auth can be obtained by any facility. Following closely. SHANNAN Original Note: Initial DCP Assessment Note Pt is a 63 yo female, resident of [place] , here 10.10-10/17, admitted with acute diverticulitis and treated with IV antibiotics. Patient discharged to [facility] for addtl days of IV abx and r/t deconditioning. Patient readmitted with complicated diverticulitis failing conservative therapy and has been scheduled for sigmoid colectomy (open) with likely ostomy either colostomy or diverting loop ileostomy according to Dr Butler. PCP: Julia Lindo Payer: [facility] Reviewed chart, met with patient briefly to introduce self and role. Patient lives alone on [address], patient reports she has assist from daughter and landlord depending on what is needed. Patient is hopeful to return home instead of returning to [facility]. Patient reports she did well at home x2 days and then sx returned from diverticulitis. CM team will plan to follow clinical course closely for any DC coordination, questions, concerns that may arise. Plan to reassess needs after patient's surgery. LAVERNE Pruitt Discharge Planning/Care Management CM Discharge Assessment Start: 10/30/23 14:58 Freq: Status: Active Protocol: Document 10/30/23 14:58 SHANNAN (Rec: 10/30/23 15:03 SHANNAN [id number]) Discharge Planning Assessment Assigned Order Picker LAVERNE Garrison DPOA/Assigned Designee Name chelo Felton Contact Information [phone] Advance Directives? No History Provided By Patient,Medical Record Has Patient been admitted in last 30 Yes days? Comment Patient admitted 10/10-10/17 Prior Living Arrangements House Household Members none Type of transporation used prior to Drives own vehicle admit Independent with ADL's Yes Is patient alert and oriented? Yes Needs Assistance With Home Chores / Shopping Patient/Family Preference Home with Home Health Barriers to Discharge Yes Comment Discharge needs TBD, will plan to reasess needs post operatively. Discharge Plan Home Transportation Arrangement Family or friend Referrals Initiated None needed
[2023-10-30] MEDS: LACTATED RINGERS 1,000 ML 42 ML IV ×3 (15:51→18:26)
--- NOTE | 2023-10-30 16:16 | PC.NURSE ---
Pt to OR for surgery via bed at 1530
--- NOTE | 2023-10-30 16:34 | SUR.OPER ---
Lithotomy on padded OR bed. Emelle Pad Positioner under torso. Head on pillow, arms padded and out. Legs secured in padded yellow fins stirrups.
[2023-10-30] MEDS: BUPIVACAINE 0.25% (PF) VIAL 30 ML INJ (16:37)
[2023-10-30] MEDS: BUPIVACAINE LIPOSOME 266 MG/20 ML VIAL INJ (18:03)
--- NOTE | 2023-10-30 19:29 | SUR.PHASEI ---
1700 Pt transported from OR to ICU by [employer] bedside report given
[2023-10-30] MEDS: fentaNYL 1,000 MCG in DEXTROSE 5% IN WATER 230 ML 18.495 MCG IV (19:30)
--- NOTE | 2023-10-30 19:36 | PC.NURSE ---
Postop Note Pt to room 226 from OR at 1900. Intubated 22 at the teeth, placed to vent by RT. SpO2 92-95% on 40% FiO2. BP stable, SBP in the 100-[address] in the 110s. Fentanyl gtt and propofol gtt initiated for sedation - see emar. Restraints placed to bilateral wrists for airway protection per MD order. Midline CESAR dressing in place to abdomen, small amount bloody drainage to bottom of dressing. LEYDA drain in place and compressed with sanguinous/serosanguinous drainage. Colostomy to left abdomen, stoma dark red/pink, small amount bloody drainage in bag. Reports given bedside to Eva OCONNOR. Dr. Butler at bedside and updating daughter via phone.
--- NOTE | 2023-10-30 19:47 | DI.RAD.S_ITS ---
PROCEDURE: XR CHEST 1V INDICATIONS: ETT position TECHNIQUE: One view of the chest was acquired. COMPARISON: [facility], , XR CHEST FOR PICC 1V, 10/17/2023, 15:29. FINDINGS: Surgical changes and devices: Endotracheal tube tip projects 4.0 cm above the donn. Lungs and pleura: Streaky opacity in the left lower lung, probable atelectasis. No pleural effusions or pneumothorax. Mediastinum: Mediastinal contours appear normal. Heart size is normal. Bones and chest wall: No suspicious bony lesions. Overlying soft tissues appear unremarkable. IMPRESSION: Endotracheal tube tip projects 4.0 cm above the donn in the midtrachea. Dictated by: Lakshmi Ardon M.D.,Ph.D. on 10/30/2023 at 20:04 Approved by: Lakshmi Ardon M.D.,Ph.D. on 10/30/2023 at 20:07
--- NOTE | 2023-10-30 19:48 | P.TELICUCN_ITS ---
History of Present Illness Consult details IF CAMERA ACTIVATED, patient seen via real-time interactive audiovisual communication: Camera activated Chief complaint: Diverticulitis flare up Consent obtained for tele-telesales supervisor care: Yes Patient Location: ICU Provider location (State): [place] Other participants/roles: bedside nursing team, Dr. Stewart Narrative: This is a 63-year-old female with history of hypertension, cirrhosis, ADHD, a neurostimulator, and chronic pain who presented with diverticulitis. She had had this before. She was admitted to this hospital from October 10 to October 17 for diverticulitis and treated with IV antibiotics. She was discharged on October 17 2 halfway. She had an additional 5 days of IV antibiotics after discharge. The patient did have an abscess noted during that hospitalization which was drained on October 15 by Interventional Radiology. She returned home from halfway facility to her home on [address] and did well. She thought she was improving through yesterday. She then developed severe suprapubic right sided anterior and posterior pain today. 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 She was seen by General surgery in the emergency department, they recommend a sigmoid colectomy on October 29. She was started on IV antibiotics. 10/29 s/p colectomy left intubated post op. no acute events currently intubated sedated in ICU [facility] Surgical History History of carpal tunnel repair Status post hysterectomy History of carpal tunnel repair Family History Brother Age: 51 Mental health problem ADHD (attention deficit hyperactivity disorder) Mother Age: 85 Hypertension High cholesterol Mental health problem Stroke Sister Age: 65 Hypertension High cholesterol Social History household members: none Smoking Status: Never smoker alcohol intake: current Current Medications Current Medications Medications: Home Medications buspirone 15 mg tablet 15 mg PO BID #60 tabs 12/19/16 [Rx Confirmed 10/29/23] alendronate 70 mg tablet 70 mg PO WEEKLY 10/11/23 [History Confirmed 10/29/23] amlodipine 5 mg tablet 5 mg PO DAILY 10/11/23 [History Confirmed 10/29/23] lisinopril 40 mg tablet 40 mg PO DAILY 10/11/23 [History Confirmed 10/29/23] methocarbamol 500 mg tablet 500 - 1,000 mg PO Q6H PRN muscle spasm 10/11/23 [History Confirmed 10/29/23] omeprazole 20 mg capsule,delayed release 20 mg PO DAILY 10/11/23 [History Confirmed 10/29/23] hydrochlorothiazide 25 mg tablet 25 mg PO DAILY 10/16/23 [History Confirmed 10/29/23] rosuvastatin 10 mg tablet 10 mg PO BEDTIME 10/16/23 [History Confirmed 10/29/23] pregabalin 75 mg capsule 75 mg PO BID #30 caps 10/18/23 [Rx Confirmed 10/29/23] tramadol 50 mg tablet 50 mg PO QID PRN Pain, Moderate (4-6) #20 tabs 10/18/23 [Rx Confirmed 10/29/23] ibuprofen 600 mg tablet 600 mg PO Q6HP PRN Pain (Scale Score 4-6) 10/29/23 [History Confirmed 10/29/23] Visit Medications (administered) Generic Name Dose Route Start Last Admin Trade Name Freq PRN Reason Stop Dose Admin Hydromorphone HCl 0.5 mg 10/29/23 18:08 10/30/23 13:53 Hydromorphone 0.5 Mg Inj IV 0.5 mg Q2H PRN Administration Pain, Severe (7-10) Sodium Chloride 1,000 mls @ 125 mls/hr 10/29/23 18:15 10/30/23 11:30 Normal Saline 0.45% IV 125 mls/hr CONT SUDARSHAN Administration Piperacillin Sod/Tazobactam 100 mls @ 25 mls/hr 10/30/23 02:00 10/30/23 13:53 Sod 3.375 gm/ Sodium Chloride IV Infused Q8H SUDARSHAN Infusion Lactated Ringer's 1,000 mls @ 42 mls/hr 10/30/23 15:45 10/30/23 18:26 Lactated Ringers IV 10/31/23 15:33 42 mls/hr NOW ONE Administration Lorazepam 0.5 mg 10/30/23 10:41 10/30/23 14:55 Lorazepam 0.5 Mg Tablet PO 0.5 mg Q4HR PRN Administration Anxiety Exam Vital Signs (past 8 hours): - 10/30/23 12:00 10/30/23 15:34 10/30/23 19:40 Temperature 97.9 F 99 F 99.5 F Pulse Rate 122 H 128 H 114 H Respiratory Rate 18 20 17 Blood Pressure 139/79 131/84 107/67 Pulse Oximetry 94 96 94 Oxygen Delivery Method Room Air Oxygen Flow Rate 0 Fraction of Inspired Oxygen 40 10/30/23 19:41 Temperature Pulse Rate Respiratory Rate Blood Pressure Pulse Oximetry Oxygen Delivery Method Oxygen Flow Rate Fraction of Inspired Oxygen 40 Fraction of Inspired Oxygen 40 Oxygen Delivery Method Room Air Oxygen Flow Rate 0 Objective Labs 10/30/23 05:10 10/30/23 05:10 Labs: Laboratory Results - last 24 hr 10/30/23 05:10 WBC 15.6 H RBC 4.45 Hgb 10.4 L Hct 32.8 L MCV 73.6 L MCH 23.4 L MCHC 31.7 RDW 18.5 H Plt Count 929 H* Neut % (Auto) 83.1 H Lymph % (Auto) 8.3 L [place] % (Auto) 8.2 Eos % (Auto) 0.2 L Baso % (Auto) 0.2 Neut # (Auto) 81304 H Lymph # (Auto) 1300 [place] # (Auto) 1300 H Eos # (Auto) 0 Baso # (Auto) 0 Platelet Estimate Increased on smear RBC Morphology Normal morphology Sodium 134 L Potassium 4.1 Chloride 105 Carbon Dioxide 31 BUN 7 Creatinine 0.53 Estimated GFR > 60 BUN/Creatinine Ratio 13.2 Glucose 128 H Calcium 8.1 L Total Bilirubin 0.5 AST 20 ALT 15 Alkaline Phosphatase 71 Total Protein 6.8 Albumin 3.4 L Globulin 3.4 Albumin/Globulin Ratio 1.0 Assessment & Plan Assessment & Plan narrative: This patient was seen via real time interactive two-way audiovisual telecommunication. 63 year old female admitted to ICU with: acute diverticulitis s/p sigmoid colectomy w/ostomy creation post op respiratory failure suggest: -neurochecks/seizure precautions -minimize sedation, goal rass -1 -sat/sbt in am -vent support keep sat above 92% -check cxr/abg -keep map above 65 -npo/ngt -ivf change to LR, bolus prn -abx -check final cxs -monitor ins/outs -replace lytes prn -keep glucose 140-180s -gi/dvt ppx -please call eICU if condition changes -
[2023-10-30] MEDS: propofoL 1,000 MG/100 ML VIAL 12.682 MG IV (20:00)
--- NOTE | 2023-10-30 20:31 | P.OP_ITS ---
Operative Date/Time/Diagnoses Date of procedure: 10/30/23 Time of procedure: 20:31 Pre-op diagnosis: Colovesicular fistula, purulent peritonitis, intra-abdominal abscess Post-op diagnosis: same Procedure & Clinicians Procedure: Sigmoid colectomy with end-colostomy Drainage of intra abdominal abscess Placement of ventral hernia mesh Same procedure as scheduled: Yes Indications: Bibiana is a 63-year-old woman who presented to the hospital 2 weeks ago with complicated diverticulitis and intra-abdominal abscess. She underwent a percutaneous drainage received antibiotic therapy and re-presented to the hospital 2 weeks later with a colovesicular fistula, sepsis and worsening abdominal pain. Surgeon: Severo Butler Brick Machine Operator: Jerod Martines Anesthesia Type: General Operative Notes Findings: Purulent peritonitis Perforated diverticulitis Suspected colovesicular fistula 1 ft of severely indurated sigmoid colon fixed to the pelvis Specimen(s): other (Sigmoid colon) Estimated Blood Loss (mL): 300 Procedure in detail: Patient was brought to the operating room placed supine on the table. Bilateral lower extremity compression devices were applied. General anesthesia was induced she was intubated with an endotracheal tube. She received Zosyn prior to skin incision. Humphreys catheter was sterilely placed. She was then prepped and draped in sterile fashion time-out was performed. A midline laparotomy was made in the abdomen was entered. A general exploration of the abdomen demonstrated a indurated firm fixed distal colon. There was purulent material in the left lower quadrant cultures were taken. Self-retaining retractor was placed. Using blunt dissection the sigmoid colon was fractured off of the left pelvic wall. During this process we encountered several intra abdominal abscesses which were drained. Sigmoid colon was divided where it was soft and pliable near its junction with the descending colon using the ANGELIKA stapler. Window within the mesentery was made and the the bowel was divided using the linear stapler blue load 75 mm. We divided the mesentery using the LigaSure staying as close as we could to the colon wall. We could not positively identify the left ureter although a search for it was made given the severe inflammatory nature and her intra-abdominal obesity. The dissection was carried down to the rectum were the bowel became fairly soft. The rectal stump was closed using a running PDS suture. The wall of the rectum was quite friable and we placed a tongue of omentum over it to reinforced the stump. In the setting of sepsis multiple intra abdominal abscess the friable nature of the rectal stump and her intra abdominal obesity, marginal functional status I did not feel that we could safely make a primary anastomosis. The descending colon was mobilized by incising along the white line of Toldt to the splenic flexure. A circular incision was made on the left abdominal wall the fascia was divided and the descending colon was brought through the abdominal wall to fashion a end colostomy. The abdomen was irrigated with multiple L of saline a drain was placed into the pelvis brought out through the left abdominal wall. The abdomen was then closed with PDS suture in running fashion. Given the long length of her midline incision, the emergent nature of the operation, the contaminated nature of the operation and her obesity we deemed her to be at high-risk of incisional hernia development. We therefore reinforced the anterior sheath with a 20 cm piece of Phasix mesh cut to size. subcutaneous skin flaps were raised on either side. The Phasix mesh was then tacked to the anterior fascia using interrupted Ethibond suture. The subcutaneous tissue was then reapproximated with Vicryl suture the skin closed with john followed by the application of a incisional VAC decrease her risk of wound infection. We then brooked the colostomy in typical fashion and an appliance was placed. The sponge and instrument count was correct. We used a total of 30 mL of 0.25% bupivacaine and 20 mL of Exparel for local anesthetic. Her respiratory status was not adequate to safely extubate in the operating room and therefore she was transferred intubated to the intensive care unit for further care. Complications: none Post-operative Condition: stable Disposition: ICU
[2023-10-30 20:51] LABS: Add Manual Diff / Slide Review NO; Basophils Absolute Auto 0 /uL (0-100); Basophils Percent Auto 0.2 % (0-2); Eosinophils Absolute Auto 0 /uL (0-450); Hematocrit 32.5 % (36-46); Hemoglobin 10.1 g/dL (12.0-16.0); Lymphocytes Absolute Auto 300 /uL (1100-4500); Lymphocytes Percent Auto 1.5 % (25-40); Mean Corpuscular Hemoglobin 22.9 PG (26-34); Mean Corpuscular Volume 73.8 fL (80-100); Monocytes Absolute Auto 700 /uL (0-900); Monocytes Percent Auto 3.1 % (3-14); Neutrophils Absolute Auto 20200 /uL (1500-7000); Neutrophils Percent Auto 95.2 % (50-75); Platelet Count 834 X10^3/uL (150-400); Red Cell Distribution Width 18.7 % (11.6-14.8); White Blood Cell Count 21.2 X10^3/uL (4.5-11.0)
[2023-10-30 20:53] LABS: RBC Morphology Normal Morphology
[2023-10-30 21:02] LABS: INR 1.1 (0.9-1.3); Prothrombin Time 12.6 SECONDS (9.4-12.5)
[2023-10-30 21:05] LABS: Alanine Aminotransferase 14 IU/L (<35); Albumin 3.3 g/dL (3.5-5.0); Alkaline Phosphatase 72 U/L (38-126); Aspartate Aminotransferase 18 IU/L (14-36); BUN Creatinine Ratio 11.3 (6-22); Bilirubin Total 0.7 mg/dL (0.2-1.3); Blood Urea Nitrogen 7 mg/dL (7-17); Calcium 7.8 mg/dL (8.4-10.2); Carbon Dioxide 25 mmol/L (22-32); Chloride 105 mmol/L (98-107); Estimated Glomerular Filt Rate > 60 mL/min (>60); Globulin 3.2 g/dL (1.7-4.1); Glucose 236 mg/dL (80-110); HEMOLYSIS < 15 (0-50); Potassium 4.2 mmol/L (3.4-5.1); Sodium 135 mmol/L (137-145); Total Protein 6.5 g/dL (6.3-8.2)
[2023-10-30] MEDS: LACTATED RINGERS 1,000 ML 125 ML IV (21:15)
[2023-10-30] MEDS: LACTATED RINGERS 1,000 ML 1000 ML IV (23:05)
[2023-10-30] MEDS: INSULIN LISPRO 100 UNIT/ML 3ML VIAL SUBCUT (23:11)
[2023-10-30] MEDS: CHLORHEXIDINE GLUCONATE 15 ML CUP PO (23:12)
--- NOTE | 2023-10-30 23:25 | PC.NURSE ---
Notified blasting miner that pt urine output was roughly 25 mL/hr over the last 3-4 hours, as well as blood sugar of 236. Ordered 1 L LR bolus, as well as a low dose insulin sliding scale.
[2023-10-31] VITALS (30 sets, daily range): BP systolic 90–125; BP diastolic 60–76; PULSE 99–124; RESP 12–30; TEMP 36.7–37.1; O2SAT 90–98
[2023-10-31] MEDS: propofoL 1,000 MG/100 ML VIAL 15.853 MG IV (00:26)
[2023-10-31] MEDS: fentaNYL 1,000 MCG in DEXTROSE 5% IN WATER 230 ML 36.99 MCG IV (03:19)
[2023-10-31] MEDS: PIPERACILLIN/TAZO 3.375 GM in SODIUM CHLORIDE 0.9% 100 ML IV ×2 (04:15→12:44)
[2023-10-31 05:09] LABS: Allen Test for ABG Passed? Yes, Passed; Blood Gas Collection Site Left Radial; Fractionated Inspired Oxygen 35; HCO3 ABG 23 mmol/L (23-27); Oxygen Saturation ABG 98 % (95-100); PCO2 ABG 33.9 mmHg (35-45); PO2 ABG 98 mmHg (80-100); TCO2 ABG 24 mmol/L (23-27); pH ABG 7.43 (7.35-7.45)
[2023-10-31 05:18] LABS: Add Manual Diff / Slide Review NO; Basophils Absolute Auto 100 /uL (0-100); Basophils Percent Auto 0.4 % (0-2); Eosinophils Absolute Auto 0 /uL (0-450); Hematocrit 29.4 % (36-46); Hemoglobin 9.2 g/dL (12.0-16.0); Lymphocytes Absolute Auto 700 /uL (1100-4500); Lymphocytes Percent Auto 3.9 % (25-40); Mean Corpuscular HGB Conc 31.3 % (30-36); Mean Corpuscular Hemoglobin 23.1 PG (26-34); Mean Corpuscular Volume 73.8 fL (80-100); Monocytes Absolute Auto 1100 /uL (0-900); Monocytes Percent Auto 5.7 % (3-14); Neutrophils Absolute Auto 16600 /uL (1500-7000); Platelet Count 680 X10^3/uL (150-400); Red Blood Cell Count 3.98 X10^6/uL (4.0-5.2); Red Cell Distribution Width 18.5 % (11.6-14.8); White Blood Cell Count 18.5 X10^3/uL (4.5-11.0)
[2023-10-31 05:35] LABS: MRSA (Nasal) PCR NOT DETECTED (Not Detect)
[2023-10-31 05:45] LABS: Alanine Aminotransferase 15 IU/L (<35); Albumin 2.9 g/dL (3.5-5.0); Alkaline Phosphatase 67 U/L (38-126); Aspartate Aminotransferase 21 IU/L (14-36); Bilirubin Total 0.6 mg/dL (0.2-1.3); Blood Urea Nitrogen 11 mg/dL (7-17); Calcium 7.4 mg/dL (8.4-10.2); Carbon Dioxide 25 mmol/L (22-32); Chloride 105 mmol/L (98-107); Estimated Glomerular Filt Rate > 60 mL/min (>60); Globulin 2.9 g/dL (1.7-4.1); Glucose 202 mg/dL (80-110); HEMOLYSIS < 15 (0-50); Potassium 4.1 mmol/L (3.4-5.1); Sodium 133 mmol/L (137-145); Total Protein 5.8 g/dL (6.3-8.2)
[2023-10-31] MEDS: INSULIN LISPRO 100 UNIT/ML 3ML VIAL SUBCUT (06:10)
[2023-10-31] MEDS: CHLORHEXIDINE GLUCONATE 15 ML CUP PO (06:11)
[2023-10-31] MEDS: LACTATED RINGERS 1,000 ML 125 ML IV ×2 (08:22→16:08)
--- NOTE | 2023-10-31 09:25 | RT ---
Leak noted around ETT. Extubation per MD orders at 0911. Patient on room air saturation 95%. No labored breathing, no stridor noted, respirations 23.
[2023-10-31] MEDS: OXYCODONE IR 5 MG TABLET PO (09:48)
--- NOTE | 2023-10-31 09:52 | PM.EICU.INT ---
Teleintensivist Intervention Date/Time Was camera activated?: Yes Time Patient Seen: 09:53 Issue(s) Addressed Issue(s): Resp. Distress/Ventilator management Other:: patient extubated safely by primary team will sign off d/w Dr. Humphries
[2023-10-31] MEDS: HYDROMORPHONE 0.5 MG INJ IV ×2 (10:18→21:35)
--- NOTE | 2023-10-31 11:15 | PM.PNPO.1 ---
Subjective Subjective Date Patient Seen: 10/31/23 Time Patient Seen: 11:16 Interval history: Postoperative day 1 status post sigmoid colectomy and colostomy for perforated diverticulitis with colovesicular fistula. Exam Vital Signs (past 8 hours): - 10/31/23 04:00 10/31/23 04:00 10/31/23 05:00 Temperature 98.8 F Pulse Rate 100 H 99 H Respiratory Rate 17 17 Blood Pressure 106/73 Pulse Oximetry 98 97 Oxygen Delivery Method Oxygen Flow Rate 0 0 10/31/23 05:00 10/31/23 06:00 10/31/23 06:00 Temperature Pulse Rate 100 H Respiratory Rate 18 Blood Pressure 90/61 121/76 Pulse Oximetry 96 Oxygen Delivery Method Oxygen Flow Rate 0 10/31/23 07:00 10/31/23 07:00 10/31/23 07:00 Temperature Pulse Rate 104 H Respiratory Rate 18 Blood Pressure 91/62 Pulse Oximetry 97 Oxygen Delivery Method Mechanical Ventilation Oxygen Flow Rate 10/31/23 07:12 10/31/23 07:12 10/31/23 08:00 Temperature Pulse Rate 103 H Respiratory Rate 17 Blood Pressure 98/60 91/61 Pulse Oximetry 95 Oxygen Delivery Method Oxygen Flow Rate 10/31/23 08:00 10/31/23 09:00 10/31/23 09:00 Temperature Pulse Rate 101 H 104 H Respiratory Rate 20 19 Blood Pressure 99/67 Pulse Oximetry 96 95 Oxygen Delivery Method Oxygen Flow Rate 10/31/23 09:23 10/31/23 10:00 10/31/23 10:00 Temperature 98.0 F Pulse Rate 107 H Respiratory Rate 23 Blood Pressure 107/65 Pulse Oximetry Oxygen Delivery Method Oxygen Flow Rate 10/31/23 10:00 10/31/23 11:00 10/31/23 11:00 Temperature Pulse Rate 113 H 111 H Respiratory Rate 12 22 Blood Pressure 104/60 Pulse Oximetry 91 91 Oxygen Delivery Method Oxygen Flow Rate Fraction of Inspired Oxygen 40 Oxygen Delivery Method Mechanical Ventilation Oxygen Flow Rate 0 Narrative Exam Narrative: General adult woman sedated from mechanical ventilation. Awakens to voice. Follows commands. Chest vent 35% FiO2 peep 5. Abdomen appropriately tender. Colostomy well perfused midline incision with dressing intact but not holding suction. Objective Labs 10/31/23 04:50 10/31/23 04:50 Labs: Laboratory Results - last 24 hr 10/30/23 10/30/23 10/31/23 20:07 20:19 00:30 WBC 21.2 H RBC 4.40 Hgb 10.1 L Hct 32.5 L MCV 73.8 L MCH 22.9 L MCHC 31.0 RDW 18.7 H Plt Count 834 H Neut % (Auto) 95.2 H Lymph % (Auto) 1.5 L [place] % (Auto) 3.1 Eos % (Auto) 0.0 L Baso % (Auto) 0.2 Neut # (Auto) 13833 H Lymph # (Auto) 300 L [place] # (Auto) 700 Eos # (Auto) 0 Baso # (Auto) 0 RBC Morphology Normal morphology PT 12.6 H INR 1.1 ABG Sample Site Left radial ABG pH 7.43 ABG pCO2 33.9 L ABG pO2 98 ABG HCO3 23 ABG Total CO2 24 ABG O2 Saturation 98 ABG Base Excess -1.0 FiO2 35 Sodium 135 L Potassium 4.2 Chloride 105 Carbon Dioxide 25 BUN 7 Creatinine 0.62 Estimated GFR > 60 BUN/Creatinine Ratio 11.3 Glucose 236 H D Calcium 7.8 L Total Bilirubin 0.7 AST 18 ALT 14 Alkaline Phosphatase 72 Total Protein 6.5 Albumin 3.3 L Globulin 3.2 Albumin/Globulin Ratio 1.0 Nasal Screen MRSA (PCR) Not detected 10/31/23 04:50 WBC 18.5 H RBC 3.98 L Hgb 9.2 L Hct 29.4 L MCV 73.8 L MCH 23.1 L MCHC 31.3 RDW 18.5 H Plt Count 680 H Neut % (Auto) 90.0 H Lymph % (Auto) 3.9 L [place] % (Auto) 5.7 Eos % (Auto) 0.0 L Baso % (Auto) 0.4 Neut # (Auto) 16890 H Lymph # (Auto) 700 L [place] # (Auto) 1100 H Eos # (Auto) 0 Baso # (Auto) 100 RBC Morphology PT INR ABG Sample Site ABG pH ABG pCO2 ABG pO2 ABG HCO3 ABG Total CO2 ABG O2 Saturation ABG Base Excess FiO2 Sodium 133 L Potassium 4.1 Chloride 105 Carbon Dioxide 25 BUN 11 Creatinine 0.61 Estimated GFR > 60 BUN/Creatinine Ratio 18.0 Glucose 202 H Calcium 7.4 L Total Bilirubin 0.6 AST 21 ALT 15 Alkaline Phosphatase 67 Total Protein 5.8 L Albumin 2.9 L Globulin 2.9 Albumin/Globulin Ratio 1.0 Nasal Screen MRSA (PCR) PFSH Surgical History History of carpal tunnel repair Status post hysterectomy History of carpal tunnel repair Family History Brother Age: 51 Mental health problem ADHD (attention deficit hyperactivity disorder) Mother Age: 85 Hypertension High cholesterol Mental health problem Stroke Sister Age: 65 Hypertension High cholesterol Social History household members: none Smoking Status: Never smoker alcohol intake: current Assessment & Plan Post-op Postoperative Procedures: Procedures Operation Date: 10/30/23 16:30 Actual Procedure Side Surgeon p Colon Resection Severo Butler MD Postoperative status narrative: 63-year-old woman postoperative day 1 status post open sigmoid colectomy with end-colostomy drainage of intra-abdominal abscess for perforated diverticulitis with colovesicular fistula.. Intra-abdominal infection/purulent peritonitis-sources been controlled. Follow up intra-abdominal abscess cultures. Continue Zosyn until microbiology results. Colostomy-we will need ostomy teaching at some point Colovesicular fistula-continue Humphreys catheter for least [address] cystogram. If cystogram negative for leak Humphreys can be removed. Replaced snap VAC dressing with Aquacel as not holding suction. SCDs prophylactic Lovenox Full liquid diet once extubated Quality VTE Deep Vein Thrombosis/Pulmonary Embolism Present on Admission: No
[2023-10-31] MEDS: HYDROMORPHONE 1 MG INJ IV (12:38)
[2023-10-31] MEDS: OXYCODONE IR 10 MG TABLET PO ×3 (13:45→20:13)
--- NOTE | 2023-10-31 15:53 | PM.PN.1 ---
Subjective Subjective Interval history: S/p ex-lap with colectomy and colostomy placement. Extubated early this morning, doing well. No issues with swallowing after surgery and intubation. Exam Vital Signs (past 8 hours): - 10/31/23 08:00 10/31/23 08:00 10/31/23 09:00 Temperature Pulse Rate 101 H Respiratory Rate 20 Blood Pressure 91/61 99/67 Pulse Oximetry 96 Oxygen Flow Rate 10/31/23 09:00 10/31/23 09:23 10/31/23 10:00 Temperature 98.0 F Pulse Rate 104 H 107 H Respiratory Rate 19 23 Blood Pressure Pulse Oximetry 95 Oxygen Flow Rate 10/31/23 10:00 10/31/23 10:00 10/31/23 11:00 Temperature Pulse Rate 113 H 111 H Respiratory Rate 12 22 Blood Pressure 107/65 Pulse Oximetry 91 91 Oxygen Flow Rate 10/31/23 11:00 10/31/23 12:00 10/31/23 12:00 Temperature 98.0 F Pulse Rate 110 H Respiratory Rate 20 Blood Pressure 104/60 Pulse Oximetry 93 Oxygen Flow Rate 10/31/23 12:00 10/31/23 13:00 10/31/23 13:00 Temperature Pulse Rate 117 H Respiratory Rate 23 Blood Pressure 106/68 113/68 Pulse Oximetry 90 L Oxygen Flow Rate 10/31/23 13:38 10/31/23 14:00 10/31/23 14:00 Temperature Pulse Rate 115 H Respiratory Rate 19 Blood Pressure 109/62 Pulse Oximetry 93 94 Oxygen Flow Rate 2 10/31/23 15:00 10/31/23 15:00 Temperature Pulse Rate 111 H Respiratory Rate 18 Blood Pressure 121/60 Pulse Oximetry 92 Oxygen Flow Rate Fraction of Inspired Oxygen 40 Oxygen Delivery Method Mechanical Ventilation Oxygen Flow Rate 2 Narrative Exam Narrative: NAD, alert and oriented. Fluent speech. Lungs are clear, normal rate and effort. Heart is regular, no murmur gallop or rub. Tachycardic Abdomen is soft, non distended. appropriately tender near incisions. Extremities are free of edema. Objective Labs 10/31/23 04:50 10/31/23 04:50 Labs: Laboratory Results - last 24 hr 10/30/23 10/30/23 10/31/23 20:07 20:19 00:30 WBC 21.2 H RBC 4.40 Hgb 10.1 L Hct 32.5 L MCV 73.8 L MCH 22.9 L MCHC 31.0 RDW 18.7 H Plt Count 834 H Neut % (Auto) 95.2 H Lymph % (Auto) 1.5 L [place] % (Auto) 3.1 Eos % (Auto) 0.0 L Baso % (Auto) 0.2 Neut # (Auto) 51022 H Lymph # (Auto) 300 L [place] # (Auto) 700 Eos # (Auto) 0 Baso # (Auto) 0 RBC Morphology Normal morphology PT 12.6 H INR 1.1 ABG Sample Site Left radial ABG pH 7.43 ABG pCO2 33.9 L ABG pO2 98 ABG HCO3 23 ABG Total CO2 24 ABG O2 Saturation 98 ABG Base Excess -1.0 FiO2 35 Sodium 135 L Potassium 4.2 Chloride 105 Carbon Dioxide 25 BUN 7 Creatinine 0.62 Estimated GFR > 60 BUN/Creatinine Ratio 11.3 Glucose 236 H D Calcium 7.8 L Total Bilirubin 0.7 AST 18 ALT 14 Alkaline Phosphatase 72 Total Protein 6.5 Albumin 3.3 L Globulin 3.2 Albumin/Globulin Ratio 1.0 Nasal Screen MRSA (PCR) Not detected 10/31/23 04:50 WBC 18.5 H RBC 3.98 L Hgb 9.2 L Hct 29.4 L MCV 73.8 L MCH 23.1 L MCHC 31.3 RDW 18.5 H Plt Count 680 H Neut % (Auto) 90.0 H Lymph % (Auto) 3.9 L [place] % (Auto) 5.7 Eos % (Auto) 0.0 L Baso % (Auto) 0.4 Neut # (Auto) 79315 H Lymph # (Auto) 700 L [place] # (Auto) 1100 H Eos # (Auto) 0 Baso # (Auto) 100 RBC Morphology PT INR ABG Sample Site ABG pH ABG pCO2 ABG pO2 ABG HCO3 ABG Total CO2 ABG O2 Saturation ABG Base Excess FiO2 Sodium 133 L Potassium 4.1 Chloride 105 Carbon Dioxide 25 BUN 11 Creatinine 0.61 Estimated GFR > 60 BUN/Creatinine Ratio 18.0 Glucose 202 H Calcium 7.4 L Total Bilirubin 0.6 AST 21 ALT 15 Alkaline Phosphatase 67 Total Protein 5.8 L Albumin 2.9 L Globulin 2.9 Albumin/Globulin Ratio 1.0 Nasal Screen MRSA (PCR) [facility] Surgical History History of carpal tunnel repair Status post hysterectomy History of carpal tunnel repair Family History Brother Age: 51 Mental health problem ADHD (attention deficit hyperactivity disorder) Mother Age: 85 Hypertension High cholesterol Mental health problem Stroke Sister Age: 65 Hypertension High cholesterol Social History household members: none Smoking Status: Never smoker alcohol intake: current Assessment & Plan Assessment & Plan narrative: 1. Sigmoid diverticulitis with concern for enterocolonic fistula and colovesicular fistula. Present on admission and active. 2. Leukocytosis, present on admission and active. 3. Tachycardia, present on admission and active. 4. Sepsis with leukocytosis, tachycardia, and source of infection being sigmoid diverticulitis with possible fistulas. 5. Hypertension, present on admission and stable. 6. GERD, stable. 7. Chronic pain, present stable. Plan: -s/p colectomy with colostomy placement. - per surgery needs ramirez for 2 weeks, with cystogram in 2 weeks recommended as outpatient for further evaluation of possible bladder fistula. Discussed with surgery today. -continue Zosyn for now, did have pseudomonas on previous aspiration so will increase to 4.5 g dosing from 3.375 given prior cultures with pseudomonas amongst other bacteria sensitive to zosyn. -fluid resuscitation and monitor tachycardia on telemetry. -advanced diet to full liquid, bedside swallow without issues after successful extubation this morning 10/30. -hold blood pressure medications and monitor. She was full resuscitation. She was admitted inpatient status then ICU after surgery. Can likely downgrade to floor later today. I spent 35 minutes providing critical care management this patient. This excludes time spent in performing separately billed procedures. Quality VTE Deep Vein Thrombosis/Pulmonary Embolism Present on Admission: No
--- NOTE | 2023-10-31 18:15 | PC.NURSE ---
Day shift: Sedation titrated off at 0800 per provider. Pt awake, able to follow commands, tracking, vitals stable. Pt extubated at approximately 0905, able to cough, RA 95%, talking. Pt able to swallow water, sitting up in bed. CESAR CDI, LEYDA in place. Holding PT/OT per provider until tomorrow. Pt able to reposition in bed ind, ramirez care provided, urine dark and cloudy provider aware. Able to tolerate meds whole with water, able to tolerate full liquid diet. Care ongoing, will continue to monitor.
[2023-10-31] MEDS: PIPERACILLIN/TAZO 4.5 GM in SODIUM CHLORIDE 0.9% 100 ML IV (20:12)
[2023-10-31] MEDS: BUSPIRONE 5 MG TABLET 15 MG PO (20:13)
[2023-10-31] MEDS: PREGABALIN 75 MG CAPSULE PO (20:13)
[2023-10-31] MEDS: ATORVASTATIN 20 MG TABLET PO (20:13)
[2023-11-01] VITALS (31 sets, daily range): BP systolic 108–169; BP diastolic 58–91; PULSE 95–121; RESP 12–28; TEMP 36.3–37.1; O2SAT 91–97
[2023-11-01] MEDS: HYDROMORPHONE 0.5 MG INJ IV ×4 (01:21→10:37)
[2023-11-01 01:40] LABS: Appearance Urine UA CLEAR; Bilirubin Urine UA NEGATIVE (NEGATIVE); Color Urine UA YELLOW; Glucose Urine UA NEGATIVE (Negative); Ketones Urine UA NEGATIVE (NEGATIVE); Leukocyte Esterase Urine UA 2+ (NEGATIVE); Nitrite Urine UA NEGATIVE (Negative); Occult Blood Urine UA 3+ (Negative); Protein Urine UA 1+ (Negative); Urobilinogen Urine UA 0.2 E.U./dL (0.2)
[2023-11-01 01:43] LABS: Bacteria Urine Many (>30); Culture Indicated Urine Specimen Cultured; RBC Urine 10-30/HPF (0-5/HPF); Squamous Epithelial Cell Urine 1-5 /HPF (0-5/HPF); Urine Volume 10mL (spun); WBC Urine >100/HPF (0-5/HPF)
[2023-11-01] MEDS: PIPERACILLIN/TAZO 4.5 GM in SODIUM CHLORIDE 0.9% 100 ML IV ×3 (04:05→20:08)
[2023-11-01 04:34] LABS: Add Manual Diff / Slide Review NO; Basophils Absolute Auto 100 /uL (0-100); Basophils Percent Auto 0.5 % (0-2); Eosinophils Absolute Auto 0 /uL (0-450); Hematocrit 22.6 % (36-46); Hemoglobin 7.2 g/dL (12.0-16.0); Lymphocytes Absolute Auto 1000 /uL (1100-4500); Lymphocytes Percent Auto 5.8 % (25-40); Mean Corpuscular Hemoglobin 23.4 PG (26-34); Mean Corpuscular Volume 73.1 fL (80-100); Monocytes Absolute Auto 1400 /uL (0-900); Monocytes Percent Auto 7.9 % (3-14); Neutrophils Absolute Auto 15500 /uL (1500-7000); Neutrophils Percent Auto 85.8 % (50-75); Platelet Count 558 X10^3/uL (150-400); Red Blood Cell Count 3.09 X10^6/uL (4.0-5.2); White Blood Cell Count 18.1 X10^3/uL (4.5-11.0)
[2023-11-01 04:48] LABS: Alanine Aminotransferase 15 IU/L (<35); Albumin 2.6 g/dL (3.5-5.0); Albumin Globulin Ratio 0.9 (1.0-2.8); Alkaline Phosphatase 69 U/L (38-126); Aspartate Aminotransferase 18 IU/L (14-36); BUN Creatinine Ratio 15.7 (6-22); Bilirubin Total 0.3 mg/dL (0.2-1.3); Blood Urea Nitrogen 8 mg/dL (7-17); Calcium 7.7 mg/dL (8.4-10.2); Carbon Dioxide 31 mmol/L (22-32); Chloride 105 mmol/L (98-107); Estimated Glomerular Filt Rate > 60 mL/min (>60); Globulin 2.9 g/dL (1.7-4.1); Glucose 134 mg/dL (80-110); HEMOLYSIS < 15 (0-50); Potassium 4.2 mmol/L (3.4-5.1); Sodium 136 mmol/L (137-145); Total Protein 5.5 g/dL (6.3-8.2)
[2023-11-01] MEDS: BUSPIRONE 5 MG TABLET 15 MG PO ×2 (08:25→21:18)
[2023-11-01] MEDS: PREGABALIN 75 MG CAPSULE PO ×2 (08:25→21:18)
[2023-11-01] MEDS: OXYCODONE IR 10 MG TABLET PO ×5 (08:25→21:18)
[2023-11-01] MEDS: SODIUM CHLORIDE 0.9% FLUSH 10 ML IV ×2 (08:26→20:08)
--- NOTE | 2023-11-01 09:13 | OT.IPNOTE ---
Checked in with nursing for OT eval and pt just got back to bed to rest after sitting up for over an hour. To check on the pt later for OT eval.
--- NOTE | 2023-11-01 10:25 | PT.IIE ---
Current Diagnoses Sepsis, unspecified organism (10/29/23) Diverticulitis of large intestine with perforation and abscess without bleeding (10/29/23) Surgery Performed Operation Date: 10/30/23 16:30 Actual Procedures p Colon Resection - Severo Butler MD Surgical History (Last Reviewed 10/30/23 @ 07:37 by Oliverio Stewart MD) History of carpal tunnel repair History of carpal tunnel repair Status post hysterectomy Physical Therapy Inpatient Evaluation/Re-Eval M1 PT/OT-IP Prior Functional Status Start: 11/01/23 13:45 Freq: NEEDED Status: Active Protocol: Document 11/01/23 10:25 AB (Rec: 11/01/23 13:59 AB [id number]) Medical Review Prior Functional Status Medical History Reviewed Yes Communication able to make needs known Mobility and Gait pt stated that she was independent with all mobilities and ambulation wihtout AD Activities of Daily Living and IADL's per OT note: Completely independent for ADL amd IADL needs. Social History Household Members none Living Arrangements House Number of Floors (Floors) One Floor Number of Stairs To Enter/Railing? pt has 2 steps with R rail ascending to enter the house Home Environment Walk in Shower Home Equipment Straight Cane,Bedside Commode, Shower Seat without Backrest, Hand Held Shower,Applications Engineering Manager Additional Social History Comment Pt lives on [address] in a rental and uses a bedside commode inside and has to take it outside to empty in the outhouse. Pt also has an outside shower. pt stated that her daughter can borrow a FWW for her at [facility] M2 PT-IP Current Condition Start: 11/01/23 13:45 Freq: NEEDED Status: Active Protocol: Document 11/01/23 10:25 AB (Rec: 11/01/23 13:59 AB [id number]) Physical Therapy Current Condition Current Condition Evaluation Date 11/01/23 Treatment Diagnosis sepsis; abscess of sigmoid colon s/p colectomy; difficulty in walking Onset Date 10/29/23 M3 PT-IP Subjective Start: 11/01/23 13:45 Freq: NEEDED Status: Active Protocol: Document 11/01/23 10:25 AB (Rec: 11/01/23 13:59 AB [id number]) Subjective Physical Therapy Visit Type Type Initial Evaluation Visit Start Time 10:25 Visit Stop Time 11:10 Number of APPAREL PATTERNMAKER Visits 0 Physical Therapy Visit Comments Patient Comments needs encouragement Therapy Pain Assessment Pain When Pain Assessed At Rest Pain Present Pain Present Pain Reported Location Lower Abdomen Intensity 8 Scale Used Numeric (0 - 10) Pain Management Techniques Distraction,Modification of Treatment,Re-positioning, Timing of Activity with Medications M4 PT-IP Mobility and Gait Start: 11/01/23 13:45 Freq: NEEDED Status: Active Protocol: Document 11/01/23 10:25 AB (Rec: 11/01/23 13:59 AB [id number]) PT-Bed Mobility Assessment Rolling Type of Rolling Log Rolling Level of Assist Standby Assistance Supine to Sit Supine to Sit Standby Assistance PT-Transfer Assessment Sit to and From Stand Sit to and from Stand Minimal Assistance,1 Person Assistance,Use of Upper Extremities Equipment Transfer Assistive Device Gait Belt,Front Wheeled Walker Orthotic/Prosthetic Devices or Brace: No Transfers Transfer Destination Chair Transfer Technique ambulated Transfer Ability Level of Assist Minimal Assistance,1 Person Assistance,Use of Upper Extremities Comments Mobility Comments pt supine in bed wants her pain meds first before doing PT. nurse provided pt with IV pain meds. obtained pLOF and home set up from pt. BP: 129 /74. educated pt regarding abdominal precautions and log roll bed mobility. pt completed supine to sit SBA and max cues for techniques. BP checked: 134/86. able to sit on EOB SBA. completed sit to stand min A and ambulated in room using FWW ~20 ft min A . pt sat on the chair. encouraged pt to stay up on the chair and agreed. positioned pt on the chair. call light and table placed within reach. Gait Assessment Gait Gait Assistance Required: Minimum Assistance Distance (Feet) 20 Able to Maintain Weight Bearing Status Yes During Gait Assistive Devices Assistive Device Gait Belt,Front Wheeled Walker Orthotic/Prosthetic Devices or Brace: No Gait Deviations General Gait Pattern Antalgic,Step-to Gait Factors Limiting Gait Function Factors Limiting Gait Function Decreased Activity Tolerance, Decreased Strength,Difficulty Following Directions,Limited Range of Motion,Pain,Poor Balance,Poor Safety Awareness PT-Balance Assessment Sitting Balance and Reactions Static Sitting Balance Ability Normal Dynamic Sitting Balance Ability Good Standing Balance and Reactions Static Standing Balance Ability Fair Dynamic Standing Balance Ability Fair Device Used FWW M5 PT-IP Objective Assessments Start: 11/01/23 13:45 Freq: NEEDED Status: Active Protocol: Document 11/01/23 10:25 AB (Rec: 11/01/23 13:59 AB [id number]) Orientation Orientation/Cognition Level of Alertness Alert Orientation Name,Place,Situation Safety Awareness Decreased Safety Awareness Memory Description No Deficits Noted Gross Range of Motion Lower Extremity ROM Assessment Within Functional Limits Strength Lower Extremity Strength Hip 4-/5 Knee 4-/5 Sensation Assessment Sensation Gross Sensation Right LE Impaired,Left LE Impaired Comments Sensation Comments chronic numbness on BLE per pt due to pinched nerves due to her scoliosis Muscle Tone Muscle Tone WNL Yes M6 PT-IP Treatment Start: 11/01/23 13:45 Freq: NEEDED Status: Active Protocol: Document 11/01/23 10:25 AB (Rec: 11/01/23 13:59 AB [id number]) Physical Therapy Treatment Education Education Provided Precautions,Post-Op Packet, Safety M7 PT-IP Assessment and Plan Start: 11/01/23 13:45 Freq: NEEDED Status: Active Protocol: Document 11/01/23 10:25 AB (Rec: 11/01/23 13:59 AB [id number]) PT Summary Assessment and Plan Potential Rehabilitation Potential Fair Status of Condition at Evaluation Evolving Summary Impairments Pain,ROM,Strength,Balance, Coordination,Sensation,Tone, Cognition,Bed Mobility, Transfers,Gait,Activity Tolerance Assessment Summary pt is a 63 y/o F who is admitted for sepsis, abscess of sigmoid colon and underwent colectomy POD 2. pt requiring min A for transfers and ambulation using FWW and needs encouragement to get out of the bed and do PT. pt lives alone and will need assistance. pt may require SNF rehab to improve overall strength and mobility independence. will continue to assess. Goals Bed Mobility Goal Independent Transfer Goal Independent,Front Wheeled Walker Gait Goal Independent,Front Wheel Walker Gait Distance 200 Other Goals improve transfers and ambulation without AD/LRAD 300 ft mod I up/down 2 steps R rail ascending mod I Days to Meet Goals 10 Frequency of Treatment Frequency Of Treatment Once a Day Treatment Plan Physical Therapy Treatment Plan Bed Mobility Training,Transfer Training,Gait Training, Therapeutic Exercise,Balance Retraining,Post Op Education, Discharge Planning,Hot or Cold Pack,Neuromuscular Re-ed, Coordination Retraining,Manual Therapy Precautions Abdominal Surgery Precautions Log Roll,Lifting Restrictions, Gait Belt above Incisional Area Recommendations To Nursing Amount of Assist Needed 1 Person Assist Discharge Recommendations PT Discharge Recommendations SNF Rehab Equipment Needed for Home Before FWW Discharge Transportation Needs at Discharge Private Vehicle,Wheelchair/ Cabulance
--- NOTE | 2023-11-01 12:06 | OT.IP.EVAL ---
Current Diagnoses Sepsis, unspecified organism (10/29/23) Diverticulitis of large intestine with perforation and abscess without bleeding (10/29/23) Surgery Performed Operation Date: 10/30/23 16:30 Actual Procedures p Colon Resection - Severo Butler MD Surgical History (Last Reviewed 10/30/23 @ 07:37 by Oliverio Stewart MD) History of carpal tunnel repair History of carpal tunnel repair Status post hysterectomy Occupational Therapy Inpatient Evaluation/Re-Eval M1 PT/OT-IP Prior Functional Status Start: 11/01/23 12:34 Freq: NEEDED Status: Active Protocol: Document 11/01/23 12:35 [facility] (Rec: 11/01/23 13:00 [facility] [id number]) Medical Review Prior Functional Status Medical History Reviewed Yes Communication Independent Mobility and Gait Independent and did not use a device. Activities of Daily Living and IADL's Completely independent for ADL amd IADL needs. Social History Household Members none Living Arrangements House Number of Floors (Floors) One Floor Number of Stairs To Enter/Railing? 2 steps up with right rail. Home Equipment Straight Cane,Bedside Commode, Shower Seat without Backrest, Hand Held Shower,Hand Carver Additional Social History Comment Pt lives on [address] in a rental and uses a commode inside and has to take it outside to empty in the outhouse. Pt also has an outside shower. Pt also lives with multiple pets. M2 OT-IP Current Condition Start: 11/01/23 12:34 Freq: Status: Active Protocol: Document 11/01/23 12:35 [facility] (Rec: 11/01/23 13:00 [facility] [id number]) Occupational Therapy Current Condition Current Condition Evaluation Date 11/01/23 Treatment Diagnosis S/P Ex-lap with colectomy and colostomy placement Diagnosis Onset Date 10/30/23 Post Operative Precautions Abdominal Surgery Precautions Log Roll,Lifting Restrictions, Gait Belt above Incisional Area M3 OT- IP Subjective and Pain Start: 11/01/23 12:34 Freq: Status: Active Protocol: Document 11/01/23 12:35 [facility] (Rec: 11/01/23 13:00 [facility] [id number]) OT- Subjective Occupational Therapy Visit Type Type Initial Evaluation Visit Start Time 11:25 Visit Stop Time 12:06 Occupational Therapy Visit Comments Patient Comments Pt after encouragement agreed to get up brush her teeth and work with OT. Patient/Caregiver Goals TO get better. OT Pain Assessment Pain When Pain Assessed During Mobility Pain Present Pain Present Pain Reported Location Lower Abdomen Pain Behaviors Facial Grimacing,Holding Area M4 OT- IP ADL's Start: 11/01/23 12:34 Freq: Status: Active Protocol: Document 11/01/23 12:35 [facility] (Rec: 11/01/23 13:00 [facility] [id number]) OT [id number] Comments OT Self-Feeding Comments Not at meal time. OT ADL-Grooming General Evaluation Grooming Ability Standby Assistance Comments OT Grooming Comments Pt able to do while standing with FWW. OT ADL-Oral Care General Eval Oral Care Ability Independent OT ADL-Dressing General Eval Lower Body Dressing Ability Maximum Assistance Comments OT Dressing Comments Able to go over LB dressing needs with pt so able to follow her abdominal precautions. Able to issue pt sock aid, long handled shoe horn and sponge to pt. OT ADL-Toileting General Evaluation Toileting Ability Total Assistance Comments OT Toileting Comments Humphreys in place. OT ADL-Bathing Comments OT Bathing Comments Not performed. M5 OT- IP IADL's Start: 11/01/23 12:34 Freq: Status: Active Protocol: Document 11/01/23 12:35 [facility] (Rec: 11/01/23 13:00 [facility] [id number]) OT-Instrumental Activities of Daily Living Home Safety Awareness Awareness of Need for Assistance at Home Good Awareness Ability to Problem Solve Emergency Able to Problem Solve Situations Home Safety Comments At this time pt will need assist for IADL needs. Medication Management Medication Management No Deficits Identified Money Management Money Management No Deficits Identified Meal Preparation Meal Preparation Comments Pt will benefit from assist. Wood Heel Flap Trimmer Wood Heel Flap Trimmer Comments Pt to benefit from assist. M6 OT- IP Functional Cognition Start: 11/01/23 12:34 Freq: Status: Active Protocol: Document 11/01/23 12:35 [facility] (Rec: 11/01/23 13:00 [facility] [id number]) Cognitive Factors Limiting Selfcare Function Cognitive Ability Level of Alertness Alert Patient Orientation Name,Age,Birthday,Month,Date, Year,Day of Week,Place, Situation Attention Span Ability Capable of Focused Attention, Capable of Sustained Attention Ability to Follow Commands Able to Follow One Step Commands Cognitive Comments Cognitive Assessment Comments Pt able to follow commands for ADL and mobility needs. OT- Vision and Hearing OT- Hearing Assessment OT- Hearing Assessment Hearing Impaired OT- Vision Assessment Visual Acuity Glasses All The Time Vision Assessment Comments Pt states that she probably needs hearing aids. M7 OT- IP Mobility and Balance Start: 11/01/23 12:34 Freq: Status: Active Protocol: Document 11/01/23 12:35 [facility] (Rec: 11/01/23 13:00 [facility] [id number]) OT-Transfer Assessment Sit to and From Stand Sit to and from Stand Contact Guard Assistance Transfers Transfer Ability Contact Guard Assistance Comments Mobility Comments Pt on RA and O2 at 91% and dropped to mid 80's after activity. Educated pt to take deep breaths and still not coming up. Nursing came in to give pt spirometer and put pt on 2L of O2 and up to 95%. Pt gets fatigued after just getting up to the sink and now having to use FWW for mobility. OT- Balance Assessment Sitting Balance and Reactions Static Sitting Balance Ability Normal Dynamic Sitting Balance Ability Good Standing Balance and Reactions Static Standing Balance Ability Good Dynamic Standing Balance Ability Fair M8 OT- IP Objective Assessments Start: 11/01/23 12:34 Freq: Status: Active Protocol: Document 11/01/23 12:35 [facility] (Rec: 11/01/23 13:00 [facility] [id number]) OT Gross Range of Motion Upper Extremity Range of Motion Assessment Within Functional Limits OT Strength Upper Extremity Strength Assessment Within Functional Limits OT- Coordination Assessment Upper Extremity Finger to Nose Test Within Functional Limits OT-Muscle Tone Assessment Muscle Tone WNL Yes M9 OT- IP Assessment and Plan Start: 11/01/23 12:34 Freq: Status: Active Protocol: Document 11/01/23 12:35 [facility] (Rec: 11/01/23 13:00 [facility] [id number]) OT Summary Assessment and Plan Potential Rehabilitation Potential Good Analytic Complexity at Evaluation Moderate Summary OT Impairments Pain,Balance,Functional Mobility,Grooming,Dressing, Toileting,Bathing,Toilet Transfers,Shower Transfers, Activity Tolerance Progress Towards Goals Progressing Toward Goals,Slow Progress due to Medical Issues ,Slow Progress due to Activity Tolerance Assessment Summary Pt main barriers are pain, steps, having to negotiate terrain to walk to and from her outhouse, decreased activity tolerance. Pt would greatly benefit from skilled rehab to improve her activity tolerance, overall strength and balance, so able to return home to take care of herself and multiple pets. Goals Self-Feeding Goal Independent Grooming Goal Independent Dressing Goal Independent,Long Handled Shoe Horn,Hand Carver,Sock Aid Toileting Goal Independent Bathing Goal Independent Toilet Transfer Goal Independent Shower Transfer Goal Independent Days to Meet Goals 15 Frequency of Treatment Frequency Of Treatment Once a Day Treatment Plan OT Treatment Plan ADL Training,Functional Mobility,Patient/Family Education,Discharge Planning Other Treatment Recommendations and Next ADL activity tolerance Treatment Focus Discharge Recommendations OT Discharge Recommendations SNF Rehab Transportation Needs at Discharge Private Vehicle,Wheelchair/ Cabulance
--- NOTE | 2023-11-01 14:36 | CM.DPNOTE ---
DCP Cont Therapies recommending SNF upon discharge. Met w/patient to review discharge plan and patient requests referral to [facility]. Spoke with Ronna at [facility]; she will review and submit auth to [facility], may be secured by tomorrow. CM team following closely for discharge coordination. SHANNAN
--- NOTE | 2023-11-01 16:49 | PM.PN.1 ---
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 Not much gas or liquid out of her ostomy yet. She continues to have pain which is a bit worse today. Was able to tolerate her diet thus far but has minimal appetite and doesn't eat much. No fever, chills, vomiting. Exam Vital Signs (past 8 hours): - 11/01/23 14:00 Temperature 97.8 F Pulse Rate 113 H Respiratory Rate 16 Blood Pressure 128/77 Pulse Oximetry 95 Fraction of Inspired Oxygen 40 Oxygen Delivery Method Nasal Cannula Oxygen Flow Rate 2 Narrative Exam Narrative: NAD, alert and oriented. Fluent speech. Lungs are clear, normal rate and effort. Heart is regular, no murmur gallop or rub. Tachycardic Abdomen is soft, non distended. appropriately tender near incisions. Extremities are free of edema. Objective Labs 11/01/23 04:10 11/01/23 04:10 Labs: Laboratory Results - last 24 hr 11/01/23 11/01/23 01:10 04:10 WBC 18.1 H RBC 3.09 L Hgb 7.2 L Hct 22.6 L MCV 73.1 L MCH 23.4 L MCHC 32.0 RDW 18.0 H Plt Count 558 H Neut % (Auto) 85.8 H Lymph % (Auto) 5.8 L Andrews % (Auto) 7.9 Eos % (Auto) 0.0 L Baso % (Auto) 0.5 Neut # (Auto) 51573 H Lymph # (Auto) 1000 L Andrews # (Auto) 1400 H Eos # (Auto) 0 Baso # (Auto) 100 Sodium 136 L Potassium 4.2 Chloride 105 Carbon Dioxide 31 BUN 8 Creatinine 0.51 L Estimated GFR > 60 BUN/Creatinine Ratio 15.7 Glucose 134 H Calcium 7.7 L Total Bilirubin 0.3 AST 18 ALT 15 Alkaline Phosphatase 69 Total Protein 5.5 L Albumin 2.6 L Globulin 2.9 Albumin/Globulin Ratio 0.9 L Urine Color Yellow Urine Appearance Clear Urine pH 6.0 Ur Specific [place] 1.010 Urine Protein 1+ H Urine Glucose (UA) Negative Urine Ketones Negative Urine Occult Blood 3+ H Urine Nitrate Negative Urine Bilirubin Negative Urine Urobilinogen 0.2 Ur Leukocyte Esterase 2+ H Urine RBC 10-30/hpf H Urine WBC >100/hpf H Ur Squamous Epith Cells 1-5 /hpf Urine Bacteria Many (>30) H Ur Culture Indicated? Specimen cultured Vol Urine Centrifuged 10ml (spun) [facility] [place] Surgical History History of carpal tunnel repair Status post hysterectomy History of carpal tunnel repair Family History Brother Age: 51 Mental health problem ADHD (attention deficit hyperactivity disorder) Mother Age: 85 Hypertension High cholesterol Mental health problem Stroke Sister Age: 65 Hypertension High cholesterol Social History household members: none Smoking Status: Never smoker alcohol intake: current Assessment & Plan Assessment & Plan narrative: 1. Sigmoid diverticulitis with concern for enterocolonic fistula and colovesicular fistula. Present on admission and active. 2. Leukocytosis, present on admission and active. 3. Tachycardia, present on admission and active. 4. Sepsis with leukocytosis, tachycardia, and source of infection being sigmoid diverticulitis with possible fistulas. 5. Hypertension, present on admission and stable. 6. GERD, stable. 7. Chronic pain, present stable. Plan: -POD #2 s/p colectomy with colostomy placement. WBC remains high but has been falling since her surgery. - per surgery needs ramirez for 2 weeks, with cystogram in 2 weeks recommended as outpatient for further evaluation of possible bladder fistula. Discussed with surgery today. -continue Zosyn for now, did have pseudomonas on previous aspiration of abscess so increased to 4.5 g dosing from 3.375 given prior cultures with pseudomonas amongst other bacteria sensitive to zosyn. -advanced diet to full liquid, bedside swallow without issues after successful extubation this morning 10/30. -hold blood pressure medications still for now and continue to monitor. 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 Will follow up cultures for possible ESBL organism, but should be adequately treated by zosyn. She was full resuscitation. Remains inpatient status. Probable discharge to SNF, in 3-4 days likely awaiting return of bowel function. Quality VTE Deep Vein Thrombosis/Pulmonary Embolism Present on Admission: No
--- NOTE | 2023-11-01 18:12 | P.PN_ITS ---
Subjective Subjective Date Patient Seen: 11/01/23 Time Patient Seen: 18:12 Interval history: Tolerating liquids minimal appetite. Incision pain No colostomy output Exam Vital Signs (past 8 hours): - 11/01/23 14:00 Temperature 97.8 F Pulse Rate 113 H Respiratory Rate 16 Blood Pressure 128/77 Pulse Oximetry 95 Fraction of Inspired Oxygen 40 Oxygen Delivery Method Nasal Cannula Oxygen Flow Rate 2 Narrative Exam Narrative: Gen-Adult woman alert oriented Abdomen-Soft appropriately tender. Colostomy perfused. Objective Labs 11/01/23 04:10 11/01/23 04:10 Labs: Laboratory Results - last 24 hr 11/01/23 11/01/23 01:10 04:10 WBC 18.1 H RBC 3.09 L Hgb 7.2 L Hct 22.6 L MCV 73.1 L MCH 23.4 L MCHC 32.0 RDW 18.0 H Plt Count 558 H Neut % (Auto) 85.8 H Lymph % (Auto) 5.8 L Teller % (Auto) 7.9 Eos % (Auto) 0.0 L Baso % (Auto) 0.5 Neut # (Auto) 88379 H Lymph # (Auto) 1000 L Teller # (Auto) 1400 H Eos # (Auto) 0 Baso # (Auto) 100 Sodium 136 L Potassium 4.2 Chloride 105 Carbon Dioxide 31 BUN 8 Creatinine 0.51 L Estimated GFR > 60 BUN/Creatinine Ratio 15.7 Glucose 134 H Calcium 7.7 L Total Bilirubin 0.3 AST 18 ALT 15 Alkaline Phosphatase 69 Total Protein 5.5 L Albumin 2.6 L Globulin 2.9 Albumin/Globulin Ratio 0.9 L Urine Color Yellow Urine Appearance Clear Urine pH 6.0 Ur Specific [place] 1.010 Urine Protein 1+ H Urine Glucose (UA) Negative Urine Ketones Negative Urine Occult Blood 3+ H Urine Nitrate Negative Urine Bilirubin Negative Urine Urobilinogen 0.2 Ur Leukocyte Esterase 2+ H Urine RBC 10-30/hpf H Urine WBC >100/hpf H Ur Squamous Epith Cells 1-5 /hpf Urine Bacteria Many (>30) H Ur Culture Indicated? Specimen cultured Vol Urine Centrifuged 10ml (spun) PFSH Surgical History History of carpal tunnel repair Status post hysterectomy History of carpal tunnel repair Family History Brother Age: 51 Mental health problem ADHD (attention deficit hyperactivity disorder) Mother Age: 85 Hypertension High cholesterol Mental health problem Stroke Sister Age: 65 Hypertension High cholesterol Social History household members: none Smoking Status: Never smoker alcohol intake: current Assessment & Plan Post-op Postoperative Procedures: Procedures Operation Date: 10/30/23 16:30 Actual Procedure Side Surgeon p Colon Resection Severo Butler MD Postoperative status narrative: POD 2 sp sigmoid colectomy with end colostomy for perforated diverticulitis with colovesicular fistula -Slowly recovering -WBC downtrending. Continue Zosyn f/u cultures. -Advance to regular diet -SCDs lovenox -Colostomy teaching when able Quality VTE Deep Vein Thrombosis/Pulmonary Embolism Present on Admission: No
--- NOTE | 2023-11-01 18:13 | PC.NURSE ---
Day shift: Pt dangled at bedside for breakfast, tolerated full liq meal. Up with PT/OT, pain managed with PRN medication (See MAR). VSS, 2L NC 96%-97%. Up around room with FWW. Up in chair for meals. Encouraged to use IS. Bed bath performed, dressing changed from CESAR to aquacel per Dr. Butler. Stoma appliance changed d/t leakage. Pt passing gas through stoma, color beefy red with mucoid discharge. Care ongoing, will continue to monitor.
[2023-11-01] MEDS: ATORVASTATIN 20 MG TABLET PO (21:18)
[2023-11-02] VITALS (13 sets, daily range): BP systolic 121–142; BP diastolic 71–87; PULSE 86–113; RESP 19–22; TEMP 36.4–37.1; O2SAT 94–97
[2023-11-02] MEDS: PIPERACILLIN/TAZO 4.5 GM in SODIUM CHLORIDE 0.9% 100 ML IV ×3 (03:59→22:12)
[2023-11-02] MEDS: OXYCODONE IR 10 MG TABLET PO ×6 (04:06→22:50)
[2023-11-02 05:27] LABS: Add Manual Diff / Slide Review NO; Basophils Absolute Auto 0 /uL (0-100); Basophils Percent Auto 0.4 % (0-2); Eosinophils Absolute Auto 0 /uL (0-450); Eosinophils Percent Auto 0.2 % (2-4); Hematocrit 22.4 % (36-46); Hemoglobin 7.2 g/dL (12.0-16.0); Lymphocytes Absolute Auto 1100 /uL (1100-4500); Lymphocytes Percent Auto 9.9 % (25-40); Mean Corpuscular HGB Conc 31.9 % (30-36); Mean Corpuscular Hemoglobin 23.4 PG (26-34); Mean Corpuscular Volume 73.4 fL (80-100); Monocytes Absolute Auto 1000 /uL (0-900); Monocytes Percent Auto 9.4 % (3-14); Neutrophils Absolute Auto 9000 /uL (1500-7000); Neutrophils Percent Auto 80.1 % (50-75); Platelet Count 555 X10^3/uL (150-400); Red Blood Cell Count 3.05 X10^6/uL (4.0-5.2); White Blood Cell Count 11.2 X10^3/uL (4.5-11.0)
[2023-11-02 05:59] LABS: Alanine Aminotransferase 30 IU/L (<35); Albumin 2.7 g/dL (3.5-5.0); Albumin Globulin Ratio 0.8 (1.0-2.8); Alkaline Phosphatase 81 U/L (38-126); Aspartate Aminotransferase 45 IU/L (14-36); BUN Creatinine Ratio 15.5 (6-22); Bilirubin Total 0.3 mg/dL (0.2-1.3); Blood Urea Nitrogen 9 mg/dL (7-17); Carbon Dioxide 30 mmol/L (22-32); Chloride 104 mmol/L (98-107); Estimated Glomerular Filt Rate > 60 mL/min (>60); Globulin 3.2 g/dL (1.7-4.1); Glucose 128 mg/dL (80-110); HEMOLYSIS < 15 (0-50); Potassium 3.8 mmol/L (3.4-5.1); Sodium 135 mmol/L (137-145); Total Protein 5.9 g/dL (6.3-8.2)
[2023-11-02] MEDS: BUSPIRONE 5 MG TABLET 15 MG PO ×2 (08:05→19:59)
[2023-11-02] MEDS: PREGABALIN 75 MG CAPSULE PO ×2 (08:05→19:59)
[2023-11-02] MEDS: SODIUM CHLORIDE 0.9% FLUSH 10 ML IV ×2 (08:14→19:58)
--- NOTE | 2023-11-02 11:40 | PT.IPTN ---
Current Diagnoses Sepsis, unspecified organism (10/29/23) Diverticulitis of large intestine with perforation and abscess without bleeding (10/29/23) Surgery Performed Operation Date: 10/30/23 16:30 Actual Procedures p Colon Resection - Severo Butler MD Physical Therapy Treatment Note M2 PT-IP Current Condition Start: 11/01/23 13:45 Freq: NEEDED Status: Active Protocol: Document 11/01/23 10:25 AB (Rec: 11/01/23 13:59 AB [id number]) Physical Therapy Current Condition Current Condition Evaluation Date 11/01/23 Treatment Diagnosis sepsis; abscess of sigmoid colon s/p colectomy; difficulty in walking Onset Date 10/29/23 M3 PT-IP Subjective Start: 11/01/23 13:45 Freq: NEEDED Status: Active Protocol: Document 11/02/23 11:40 AB (Rec: 11/02/23 12:59 AB [id number]) Subjective Physical Therapy Visit Type Type Treatment Note Visit Start Time 11:40 Visit Stop Time 11:55 Number of INSURANCE CLAIM REPRESENTATIVE Visits 0 Physical Therapy Visit Comments Patient Comments agreeable to do PT Therapy Pain Assessment Pain When Pain Assessed At Rest Pain Present Pain Present Pain Reported Location Lower Abdomen Intensity 7 Scale Used Numeric (0 - 10) Pain Management Techniques Distraction,Modification of Treatment,Re-positioning, Timing of Activity with Medications M4 PT-IP Mobility and Gait Start: 11/01/23 13:45 Freq: NEEDED Status: Active Protocol: Document 11/02/23 11:40 AB (Rec: 11/02/23 12:59 AB [id number]) PT-Transfer Assessment Sit to and From Stand Sit to and from Stand Standby Assistance,1 Person Assistance,Use of Upper Extremities Equipment Transfer Assistive Device Gait Belt,Front Wheeled Walker Orthotic/Prosthetic Devices or Brace: No Comments Mobility Comments pt sitting on the chair and agreeable to do PT. completed sit to stand from the chair SBA. ambulated in room using FWW ~ 35 ft CGA with (+) LOB x 1 with turning requiring min A for stabilizing. pt sat back on chair. refused further activities. positioned pt on the chair. call light and table placed within reach. PT f/u with pt regarding obtained a FWW. pt stated yesterday that she will ask her daughter to borrow one from the [email or web address]. asked pt today regarding FWW update and pt stated that somebody told her she can get one from the hospital. informed pt regarding FWW purchase from the hospital . pt then decided again that she will just ask her daughter again to borrow one for her from the [facility]. Gait Assessment Gait Gait Assistance Required: Contact Guard Assist,Minimum Assistance,1 Person Assist Distance (Feet) 35 Able to Maintain Weight Bearing Status Yes During Gait Assistive Devices Assistive Device Gait Belt,Front Wheeled Walker Orthotic/Prosthetic Devices or Brace: No Gait Deviations General Gait Pattern Decreased Stride Length, Decreased Feet Clearance,Step- to Gait Factors Limiting Gait Function Factors Limiting Gait Function Decreased Activity Tolerance, Decreased Strength,Limited Range of Motion,Pain,Poor Balance,Poor Safety Awareness M5 PT-IP Objective Assessments Start: 11/01/23 13:45 Freq: NEEDED Status: Active Protocol: Document 11/01/23 10:25 AB (Rec: 11/01/23 13:59 AB [id number]) Orientation Orientation/Cognition Level of Alertness Alert Orientation Name,Place,Situation Safety Awareness Decreased Safety Awareness Memory Description No Deficits Noted Gross Range of Motion Lower Extremity ROM Assessment Within Functional Limits Strength Lower Extremity Strength Hip 4-/5 Knee 4-/5 Sensation Assessment Sensation Gross Sensation Right LE Impaired,Left LE Impaired Comments Sensation Comments chronic numbness on BLE per pt due to pinched nerves due to her scoliosis Muscle Tone Muscle Tone WNL Yes M6 PT-IP Treatment Start: 11/01/23 13:45 Freq: NEEDED Status: Active Protocol: Document 11/02/23 11:40 AB (Rec: 11/02/23 12:59 AB [id number]) Physical Therapy Treatment Education Education Provided Safety M7 PT-IP Assessment and Plan Start: 11/01/23 13:45 Freq: NEEDED Status: Active Protocol: Document 11/02/23 11:40 AB (Rec: 11/02/23 12:59 AB [id number]) PT Summary Assessment and Plan Potential Rehabilitation Potential Fair Summary Impairments Pain,ROM,Strength,Balance, Coordination,Sensation,Tone, Cognition,Bed Mobility, Transfers,Gait,Activity Tolerance Progress Towards Goals Slow Progress due to Pain,Slow Progress due to Activity Tolerance Assessment Summary pt improving slowly with mobility using fWW and able to ambulate ~ 35 ft today. pt lives alone and will need assistance at this time. pt will benefit from SNF rehab. will continue to assess progress. Goals Bed Mobility Goal Independent Transfer Goal Independent,Front Wheeled Walker Gait Goal Independent,Front Wheel Walker Gait Distance 200 Other Goals improve transfers and ambulation without AD/LRAD 300 ft mod I up/down 2 steps R rail ascending mod I Days to Meet Goals 10 Frequency of Treatment Frequency Of Treatment Once a Day Treatment Plan Physical Therapy Treatment Plan Bed Mobility Training,Transfer Training,Gait Training, Therapeutic Exercise,Balance Retraining,Post Op Education, Discharge Planning,Hot or Cold Pack,Neuromuscular Re-ed, Coordination Retraining,Manual Therapy Precautions Abdominal Surgery Precautions Log Roll,Lifting Restrictions, Gait Belt above Incisional Area Recommendations To Nursing Amount of Assist Needed 1 Person Assist Discharge Recommendations PT Discharge Recommendations SNF Rehab Equipment Needed for Home Before FWW Discharge Transportation Needs at Discharge Private Vehicle,Wheelchair/ Cabulance
--- NOTE | 2023-11-02 13:00 | P.PN_ITS ---
Subjective Subjective Date Patient Seen: 11/02/23 Time Patient Seen: 13:01 Interval history: Feeling better today. Tolerating some diet but still minimal appetite. No colostomy output yet. Exam Vital Signs (past 8 hours): - 11/02/23 06:00 11/02/23 07:00 11/02/23 07:00 Temperature Pulse Rate 92 H 91 H Respiratory Rate Blood Pressure Pulse Oximetry 96 96 Oxygen Delivery Method Nasal Cannula Oxygen Flow Rate 11/02/23 07:54 11/02/23 07:54 11/02/23 08:00 Temperature 97.6 F Pulse Rate 94 H 91 H Respiratory Rate 20 Blood Pressure 129/71 129/71 Pulse Oximetry 97 97 Oxygen Delivery Method Oxygen Flow Rate 0 11/02/23 08:00 Temperature Pulse Rate 91 H Respiratory Rate Blood Pressure Pulse Oximetry 95 Oxygen Delivery Method Oxygen Flow Rate Fraction of Inspired Oxygen 40 Oxygen Delivery Method Nasal Cannula Oxygen Flow Rate 0 Narrative Exam Narrative: Colostomy appears well perfused with no output Objective Labs 11/02/23 04:32 11/02/23 04:32 Labs: Laboratory Results - last 24 hr 11/02/23 04:32 WBC 11.2 H RBC 3.05 L Hgb 7.2 L Hct 22.4 L MCV 73.4 L MCH 23.4 L MCHC 31.9 RDW 18.0 H Plt Count 555 H Neut % (Auto) 80.1 H Lymph % (Auto) 9.9 L [place] % (Auto) 9.4 Eos % (Auto) 0.2 L Baso % (Auto) 0.4 Neut # (Auto) 9000 H Lymph # (Auto) 1100 [place] # (Auto) 1000 H Eos # (Auto) 0 Baso # (Auto) 0 Sodium 135 L Potassium 3.8 Chloride 104 Carbon Dioxide 30 BUN 9 Creatinine 0.58 Estimated GFR > 60 BUN/Creatinine Ratio 15.5 Glucose 128 H Calcium 8.0 L Total Bilirubin 0.3 AST 45 H ALT 30 Alkaline Phosphatase 81 Total Protein 5.9 L Albumin 2.7 L Globulin 3.2 Albumin/Globulin Ratio 0.8 L PFSH Surgical History History of carpal tunnel repair Status post hysterectomy History of carpal tunnel repair Family History Brother Age: 51 Mental health problem ADHD (attention deficit hyperactivity disorder) Mother Age: 85 Hypertension High cholesterol Mental health problem Stroke Sister Age: 65 Hypertension High cholesterol Social History household members: none Smoking Status: Never smoker alcohol intake: current Assessment & Plan Assessment and plan (1) Diverticulitis: Status: Acute Plan Doing well following sigmoid colectomy with end-colostomy for diverticulitis Continue Humphreys due to history of colovesical fistula Colostomy teaching Discharge planning. [place] [address] and she is likely to have minimal support services when she goes home. Quality VTE Deep Vein Thrombosis/Pulmonary Embolism Present on Admission: No
--- NOTE | 2023-11-02 16:11 | P.PN_ITS ---
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 Patient reports that she is doing a bit better today. She feels as though she may be turning a corner. She states her pain is a 7/10. She is tolerating some diet today, and is excited she had a regular diet. She denies any shortness a breath, nausea chest pain. She has had a small smear of output from her colostomy. Exam Vital Signs (past 8 hours): Fraction of Inspired Oxygen 40 Oxygen Delivery Method Nasal Cannula Oxygen Flow Rate 0 Narrative Exam Narrative: GEN: Middle-aged female, Alert and oriented x 3, NAD HEENT:NC, Face symmetric CHEST: Respiratory excursions symmetric, CTAB CV: RRR, no M/R/G ABD: Moderately distended, BT present in all 4 quadrants, no output from colostomy, no gas noted EXTR: warm, well perfused, no C/C/trace bilateral lower extremity edema SKIN: warm and dry, no rash NEURO: Alert and oriented x 3, nonfocal Objective Labs 11/02/23 04:32 11/02/23 04:32 Labs: Laboratory Results - last 24 hr 11/02/23 04:32 WBC 11.2 H RBC 3.05 L Hgb 7.2 L Hct 22.4 L MCV 73.4 L MCH 23.4 L MCHC 31.9 RDW 18.0 H Plt Count 555 H Neut % (Auto) 80.1 H Lymph % (Auto) 9.9 L [place] % (Auto) 9.4 Eos % (Auto) 0.2 L Baso % (Auto) 0.4 Neut # (Auto) 9000 H Lymph # (Auto) 1100 [place] # (Auto) 1000 H Eos # (Auto) 0 Baso # (Auto) 0 Sodium 135 L Potassium 3.8 Chloride 104 Carbon Dioxide 30 BUN 9 Creatinine 0.58 Estimated GFR > 60 BUN/Creatinine Ratio 15.5 Glucose 128 H Calcium 8.0 L Total Bilirubin 0.3 AST 45 H ALT 30 Alkaline Phosphatase 81 Total Protein 5.9 L Albumin 2.7 L Globulin 3.2 Albumin/Globulin Ratio 0.8 L PFSH Surgical History History of carpal tunnel repair Status post hysterectomy History of carpal tunnel repair Family History Brother Age: 51 Mental health problem ADHD (attention deficit hyperactivity disorder) Mother Age: 85 Hypertension High cholesterol Mental health problem Stroke Sister Age: 65 Hypertension High cholesterol Social History household members: none Smoking Status: Never smoker alcohol intake: current Assessment & Plan Assessment & Plan narrative: 1. Sigmoid diverticulitis with for entero colonic and colovesicular fistula, postoperative day 3. From colectomy and colostomy placement Overall, patient appears to be improving. She is tolerating regular diet. Has had a smear of stool output from her colostomy. She notes her pain is about a 7/10 which is an improvement overall. LEYDA has a small amount of serosanguineous drainage. She does note it is hard to participate in physical therapy due to the timing of her pain medications. I have discussed with the nurse efforts should be made to time that therapy with when she gets her pain medication to allow her to more fully participate. Remains on Zosyn. White blood cell count is down from 18 0.1-11.2 2. Hypertension Pressures remain normotensive. Antihypertensives have been held for now. 3. GERD At baseline is on omeprazole. Will start pantoprazole. 4. Chronic pain Patient takes tramadol at baseline well as Lyrica. We will restart the Lyrica. New oxycodone and Dilaudid as needed 5. Anemia Hemoglobin down from 9.2 on the 13th-7.2 today. This is stable compared with yesterday. 6. Thrombocytosis Platelet count is improving from 680 on the 13th-555 today. Resolved issue Sepsis Code status Full Prophylaxis Defer DVT prophylaxis to General surgery but would initiate when they feel it is safe to do so Disposition Pending. Quality VTE Deep Vein Thrombosis/Pulmonary Embolism Present on Admission: No
[2023-11-02] MEDS: ATORVASTATIN 20 MG TABLET PO (19:59)
[2023-11-02] MEDS: LORazepam 0.5 MG TABLET PO (22:12)
[2023-11-03] VITALS: BP 121/71; PULSE 105; RESP 20; TEMP 37.1; O2SAT 92
[2023-11-03] MEDS: OXYCODONE IR 10 MG TABLET PO ×7 (01:57→23:03)
[2023-11-03 04:00] VITALS: BP 115/79; PULSE 96; RESP 19; TEMP 36.4; O2SAT 94
[2023-11-03 05:30] LABS: Add Manual Diff / Slide Review NO; Basophils Absolute Auto 100 /uL (0-100); Basophils Percent Auto 0.4 % (0-2); Eosinophils Absolute Auto 0 /uL (0-450); Eosinophils Percent Auto 0.3 % (2-4); Hematocrit 23.5 % (36-46); Hemoglobin 7.5 g/dL (12.0-16.0); Lymphocytes Absolute Auto 1400 /uL (1100-4500); Lymphocytes Percent Auto 11.4 % (25-40); Mean Corpuscular HGB Conc 31.8 % (30-36); Mean Corpuscular Hemoglobin 23.2 PG (26-34); Mean Corpuscular Volume 72.8 fL (80-100); Monocytes Absolute Auto 1100 /uL (0-900); Neutrophils Absolute Auto 9800 /uL (1500-7000); Neutrophils Percent Auto 78.9 % (50-75); Platelet Count 553 X10^3/uL (150-400); Red Blood Cell Count 3.23 X10^6/uL (4.0-5.2); Red Cell Distribution Width 17.8 % (11.6-14.8); White Blood Cell Count 12.5 X10^3/uL (4.5-11.0)
[2023-11-03 05:47] LABS: BUN Creatinine Ratio 12.9 (6-22); Blood Urea Nitrogen 8 mg/dL (7-17); Calcium 8.4 mg/dL (8.4-10.2); Carbon Dioxide 32 mmol/L (22-32); Chloride 101 mmol/L (98-107); Estimated Glomerular Filt Rate > 60 mL/min (>60); Glucose 121 mg/dL (80-110); HEMOLYSIS < 15 (0-50); Magnesium 2.2 mg/dL (1.6-2.3); Potassium 3.9 mmol/L (3.4-5.1); Sodium 135 mmol/L (137-145)
[2023-11-03] MEDS: PIPERACILLIN/TAZO 4.5 GM in SODIUM CHLORIDE 0.9% 100 ML IV ×3 (06:33→20:05)
[2023-11-03] MEDS: PANTOPRAZOLE DR 20 MG TABLET PO (06:34)
[2023-11-03 08:00] VITALS: BP 141/87; PULSE 101; RESP 18; TEMP 36.4; O2SAT 94
[2023-11-03] MEDS: SODIUM CHLORIDE 0.9% FLUSH 10 ML IV ×2 (08:03→20:05)
[2023-11-03] MEDS: PREGABALIN 75 MG CAPSULE PO ×2 (08:03→20:05)
[2023-11-03] MEDS: BUSPIRONE 5 MG TABLET 15 MG PO ×2 (08:03→20:05)
[2023-11-03] MEDS: HYDROMORPHONE 0.5 MG INJ IV (10:25)
--- NOTE | 2023-11-03 10:38 | PT.IPTN ---
Current Diagnoses Sepsis, unspecified organism (10/29/23) Diverticulitis of large intestine with perforation and abscess without bleeding (10/29/23) Diverticulitis of intestine, part unspecified, without perforation or abscess without bleeding (10/29/23) Surgery Performed Operation Date: 10/30/23 16:30 Actual Procedures p Colon Resection - Severo Butler MD Physical Therapy Treatment Note M2 PT-IP Current Condition Start: 11/01/23 13:45 Freq: NEEDED Status: Active Protocol: Document 11/01/23 10:25 AB (Rec: 11/01/23 13:59 AB [id number]) Physical Therapy Current Condition Current Condition Evaluation Date 11/01/23 Treatment Diagnosis sepsis; abscess of sigmoid colon s/p colectomy; difficulty in walking Onset Date 10/29/23 M3 PT-IP Subjective Start: 11/01/23 13:45 Freq: NEEDED Status: Active Protocol: Document 11/03/23 10:18 KS (Rec: 11/03/23 11:41 KS [id number]) Subjective Physical Therapy Visit Type Type Treatment Note Visit Start Time 10:18 Visit Stop Time 10:38 Number of ENGINEERING COORDINATOR Visits 1 Physical Therapy Visit Comments Patient Comments agreeable to do PT Therapy Pain Assessment Pain When Pain Assessed During Mobility Pain Present Pain Present Pain Reported Location Lower Abdomen Intensity 7 Scale Used Numeric (0 - 10) Pain Management Techniques Distraction,Re-positioning, Timing of Activity with Medications M4 PT-IP Mobility and Gait Start: 11/01/23 13:45 Freq: NEEDED Status: Active Protocol: Document 11/03/23 10:18 KS (Rec: 11/03/23 11:41 KS [id number]) PT-Bed Mobility Assessment Rolling Type of Rolling Log Rolling Level of Assist Minimal Assistance,1 Person Assistance Supine to Sit Supine to Sit Minimal Assistance Scooting Scooting to Edge of Bed Standby Assistance PT-Transfer Assessment Sit to and From Stand Sit to and from Stand Contact Guard Assistance,1 Person Assistance,Use of Upper Extremities Equipment Transfer Assistive Device Gait Belt,Front Wheeled Walker Orthotic/Prosthetic Devices or Brace: No Transfers Transfer Destination Chair Transfer Technique ambulated Transfer Ability Level of Assist Contact Guard Assistance,1 Person Assistance,Use of Upper Extremities Comments Mobility Comments Pt in bed upon arrival, requests pain meds prior to working w/ PT. MIn A for logroll and sidelying<>Sit. CGA for scooting EOB and sit<> stand w/ FWW. Pt feeling better today and agreeable to ambulate further. She was able to tolerate ~150 ft w/ FWW in hallway CGA before returning to room and transferring to chair. Pt left in chair w/ all needs in reach. Gait Assessment Gait Gait Assistance Required: Contact Guard Assist,1 Person Assist Distance (Feet) 150 Able to Maintain Weight Bearing Status Yes During Gait Assistive Devices Assistive Device Gait Belt,Front Wheeled Walker Orthotic/Prosthetic Devices or Brace: No Gait Deviations General Gait Pattern Decreased Stride Length, Decreased Feet Clearance,Step- to Gait Factors Limiting Gait Function Factors Limiting Gait Function Decreased Activity Tolerance, Decreased Strength,Limited Range of Motion,Pain,Poor Balance,Poor Safety Awareness Comments Gait Comments see mobility section. PT-Balance Assessment Sitting Balance and Reactions Static Sitting Balance Ability Normal Dynamic Sitting Balance Ability Good Standing Balance and Reactions Static Standing Balance Ability Good Dynamic Standing Balance Ability Fair Device Used FWW M5 PT-IP Objective Assessments Start: 11/01/23 13:45 Freq: NEEDED Status: Active Protocol: Document 11/01/23 10:25 AB (Rec: 11/01/23 13:59 AB [id number]) Orientation Orientation/Cognition Level of Alertness Alert Orientation Name,Place,Situation Safety Awareness Decreased Safety Awareness Memory Description No Deficits Noted Gross Range of Motion Lower Extremity ROM Assessment Within Functional Limits Strength Lower Extremity Strength Hip 4-/5 Knee 4-/5 Sensation Assessment Sensation Gross Sensation Right LE Impaired,Left LE Impaired Comments Sensation Comments chronic numbness on BLE per pt due to pinched nerves due to her scoliosis Muscle Tone Muscle Tone WNL Yes M6 PT-IP Treatment Start: 11/01/23 13:45 Freq: NEEDED Status: Active Protocol: Document 11/03/23 10:18 KS (Rec: 11/03/23 11:41 KS [id number]) Physical Therapy Treatment Education Education Provided Safety M7 PT-IP Assessment and Plan Start: 11/01/23 13:45 Freq: NEEDED Status: Active Protocol: Document 11/03/23 10:18 KS (Rec: 11/03/23 11:41 KS [id number]) PT Summary Assessment and Plan Potential Rehabilitation Potential Fair Summary Impairments Pain,ROM,Strength,Balance, Coordination,Sensation,Tone, Cognition,Bed Mobility, Transfers,Gait,Activity Tolerance Progress Towards Goals Slow Progress due to Pain,Slow Progress due to Activity Tolerance Assessment Summary Pt showing progress w/ mobility and activity tolerance tody. She was able to tolerate ~150 ft ambulation using FWW CGA. Will continue to assess progress. Goals Bed Mobility Goal Independent Transfer Goal Independent,Front Wheeled Walker Gait Goal Independent,Front Wheel Walker Gait Distance 200 Other Goals improve transfers and ambulation without AD/LRAD 300 ft mod I up/down 2 steps R rail ascending mod I Days to Meet Goals 10 Frequency of Treatment Frequency Of Treatment Once a Day Treatment Plan Physical Therapy Treatment Plan Bed Mobility Training,Transfer Training,Gait Training, Therapeutic Exercise,Balance Retraining,Post Op Education, Discharge Planning,Hot or Cold Pack,Neuromuscular Re-ed, Coordination Retraining,Manual Therapy Precautions Abdominal Surgery Precautions Log Roll,Lifting Restrictions, Gait Belt above Incisional Area Recommendations To Nursing Amount of Assist Needed 1 Person Assist Discharge Recommendations PT Discharge Recommendations Home with 10/12 Assist Available,Home Health,SNF Rehab Equipment Needed for Home Before FWW Discharge Transportation Needs at Discharge Private Vehicle,Wheelchair/ Cabulance
[2023-11-03 10:55] VITALS: BP 123/78; PULSE 106; RESP 18; TEMP 36.1; O2SAT 94
[2023-11-03] MEDS: VANCOMYCIN 1,250 MG/250 ML PIGGYBACK 250 MG IV ×2 (11:33→18:40)
--- NOTE | 2023-11-03 13:12 | PM.PN.1 ---
Subjective Subjective Date Patient Seen: 11/03/23 Time Patient Seen: 13:12 Interval history: Doing well. Still no colostomy output. Tolerating her diet. Pain is controlled. Exam Vital Signs (past 8 hours): - 11/03/23 07:00 11/03/23 08:00 11/03/23 10:55 Temperature 97.6 F 97.0 F L Pulse Rate 101 H 106 H Respiratory Rate 18 18 Blood Pressure 141/87 H 123/78 Pulse Oximetry 94 94 Oxygen Delivery Method Room Air Oxygen Flow Rate 0 0 Fraction of Inspired Oxygen 40 Oxygen Delivery Method Room Air Oxygen Flow Rate 0 Const General: No acute distress Resp Effort & Inspection: normal respiratory effort Objective Labs 11/03/23 05:03 11/03/23 05:03 Labs: Laboratory Results - last 24 hr 11/03/23 05:03 WBC 12.5 H RBC 3.23 L Hgb 7.5 L Hct 23.5 L MCV 72.8 L MCH 23.2 L MCHC 31.8 RDW 17.8 H Plt Count 553 H Neut % (Auto) 78.9 H Lymph % (Auto) 11.4 L [place] % (Auto) 9.0 Eos % (Auto) 0.3 L Baso % (Auto) 0.4 Neut # (Auto) 9800 H Lymph # (Auto) 1400 [place] # (Auto) 1100 H Eos # (Auto) 0 Baso # (Auto) 100 Sodium 135 L Potassium 3.9 Chloride 101 Carbon Dioxide 32 BUN 8 Creatinine 0.62 Estimated GFR > 60 BUN/Creatinine Ratio 12.9 Glucose 121 H Calcium 8.4 Magnesium 2.2 PFSH Surgical History History of carpal tunnel repair Status post hysterectomy History of carpal tunnel repair Family History Brother Age: 51 Mental health problem ADHD (attention deficit hyperactivity disorder) Mother Age: 85 Hypertension High cholesterol Mental health problem Stroke Sister Age: 65 Hypertension High cholesterol Social History household members: none Smoking Status: Never smoker alcohol intake: current Assessment & Plan Assessment and plan (1) [place]-vesical fistula: Status: Acute Plan Await colostomy output Colostomy teaching Discharge planning Quality VTE Deep Vein Thrombosis/Pulmonary Embolism Present on Admission: No
--- NOTE | 2023-11-03 13:25 | CM.DPC ---
DCP Cont. Reviewed EMR and team rounds for status updates. Plan continues to be [facility], auth is still pending for placement, likely will not be approved until Saturday. Monitor closely with SV.
[2023-11-03 15:32] VITALS: BP 124/77; PULSE 106; RESP 18; TEMP 36.7; O2SAT 95
--- NOTE | 2023-11-03 18:16 | P.PN_ITS ---
Subjective Subjective Interval history: Patient having small amount of ostomy output today. Her abscess and urine cultures grew Enterococcus faecium. 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 Exam Vital Signs (past 8 hours): - 11/03/23 10:55 11/03/23 15:32 Temperature 97.0 F L 98.1 F Pulse Rate 106 H 106 H Respiratory Rate 18 18 Blood Pressure 123/78 124/77 Pulse Oximetry 94 95 Oxygen Flow Rate 0 0 Fraction of Inspired Oxygen 40 Oxygen Delivery Method Room Air Oxygen Flow Rate 0 Narrative Exam Narrative: GEN: Middle-aged female, Alert and oriented x 3, NAD HEENT:NC, Face symmetric CHEST: Respiratory excursions symmetric, CTAB CV: RRR, no M/R/G ABD: Moderately distended, BT present in all 4 quadrants, no output from colostomy, no gas noted EXTR: warm, well perfused, no C/C/trace bilateral lower extremity edema SKIN: warm and dry, no rash NEURO: Alert and oriented x 3, nonfocal Objective Labs 11/03/23 05:03 11/03/23 05:03 Labs: Laboratory Results - last 24 hr 11/03/23 05:03 WBC 12.5 H RBC 3.23 L Hgb 7.5 L Hct 23.5 L MCV 72.8 L MCH 23.2 L MCHC 31.8 RDW 17.8 H Plt Count 553 H Neut % (Auto) 78.9 H Lymph % (Auto) 11.4 L [place] % (Auto) 9.0 Eos % (Auto) 0.3 L Baso % (Auto) 0.4 Neut # (Auto) 9800 H Lymph # (Auto) 1400 [place] # (Auto) 1100 H Eos # (Auto) 0 Baso # (Auto) 100 Sodium 135 L Potassium 3.9 Chloride 101 Carbon Dioxide 32 BUN 8 Creatinine 0.62 Estimated GFR > 60 BUN/Creatinine Ratio 12.9 Glucose 121 H Calcium 8.4 Magnesium 2.2 PFSH Surgical History History of carpal tunnel repair Status post hysterectomy History of carpal tunnel repair Family History Brother Age: 51 Mental health problem ADHD (attention deficit hyperactivity disorder) Mother Age: 85 Hypertension High cholesterol Mental health problem Stroke Sister Age: 65 Hypertension High cholesterol Social History household members: none Smoking Status: Never smoker alcohol intake: current Assessment & Plan Assessment & Plan narrative: 1. 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 She is tolerating regular diet. Has had a small amount of stool output from her colostomy. LEYDA has a small amount of serosanguineous drainage. Remains on Zosyn and vanco added due to enterococcus faecium in abscess and urine culture. White blood cell count is improving. 2. Hypertension Pressures remain normotensive. Antihypertensives have been held for now. 3. GERD At baseline is on omeprazole. Continue pantoprazole. 4. Chronic pain Patient takes tramadol at baseline well as Lyrica. Restarted the Lyrica. Oxycodone and Dilaudid as needed 5. Anemia Hemoglobin currently in 7's. Likely from surgical blood loss. Monitor and transfuse at Hgb <7. 6. Thrombocytosis Platelet count is improving. Resolved issue Sepsis Code status Full Prophylaxis Defer DVT prophylaxis to General surgery but would initiate when they feel it is safe to do so Disposition Back to SNF in 2 days. Quality VTE Deep Vein Thrombosis/Pulmonary Embolism Present on Admission: No
[2023-11-03 20:00] VITALS: BP 136/87; PULSE 117; RESP 18; TEMP 36.8; O2SAT 93
[2023-11-03] MEDS: ATORVASTATIN 20 MG TABLET PO (20:05)
[2023-11-03] MEDS: LORazepam 0.5 MG TABLET PO (23:03)
[2023-11-04] VITALS: BP 130/80; PULSE 111; RESP 19; TEMP 36.9; O2SAT 93
[2023-11-04] MEDS: OXYCODONE IR 10 MG TABLET PO ×6 (02:07→23:32)
[2023-11-04] MEDS: VANCOMYCIN 1,250 MG/250 ML PIGGYBACK 250 MG IV ×3 (02:42→20:06)
[2023-11-04 04:00] VITALS: BP 121/74; PULSE 103; RESP 18; TEMP 37.4; O2SAT 92
[2023-11-04] MEDS: PIPERACILLIN/TAZO 4.5 GM in SODIUM CHLORIDE 0.9% 100 ML IV ×3 (04:55→21:32)
[2023-11-04] MEDS: OXYCODONE IR 5 MG TABLET PO (05:08)
[2023-11-04] MEDS: PANTOPRAZOLE DR 20 MG TABLET PO (05:08)
[2023-11-04 08:00] VITALS: BP 122/69; PULSE 113; RESP 17; TEMP 36.4; O2SAT 96
[2023-11-04 08:58] LABS: Alanine Aminotransferase 40 IU/L (<35); Albumin Globulin Ratio 0.9 (1.0-2.8); Alkaline Phosphatase 94 U/L (38-126); Aspartate Aminotransferase 36 IU/L (14-36); BUN Creatinine Ratio 11.3 (6-22); Bilirubin Total 0.3 mg/dL (0.2-1.3); Blood Urea Nitrogen 8 mg/dL (7-17); Calcium 8.4 mg/dL (8.4-10.2); Carbon Dioxide 29 mmol/L (22-32); Chloride 103 mmol/L (98-107); Estimated Glomerular Filt Rate > 60 mL/min (>60); Globulin 3.3 g/dL (1.7-4.1); Glucose 146 mg/dL (80-110); HEMOLYSIS < 15 (0-50); Potassium 3.6 mmol/L (3.4-5.1); Sodium 135 mmol/L (137-145); Total Protein 6.3 g/dL (6.3-8.2)
[2023-11-04 09:10] LABS: Add Manual Diff / Slide Review NO; Basophils Absolute Auto 100 /uL (0-100); Basophils Percent Auto 0.4 % (0-2); Eosinophils Absolute Auto 100 /uL (0-450); Eosinophils Percent Auto 1.1 % (2-4); Hematocrit 25.2 % (36-46); Hemoglobin 7.8 g/dL (12.0-16.0); Lymphocytes Absolute Auto 1400 /uL (1100-4500); Lymphocytes Percent Auto 10.4 % (25-40); Mean Corpuscular HGB Conc 30.9 % (30-36); Mean Corpuscular Hemoglobin 22.8 PG (26-34); Mean Corpuscular Volume 73.7 fL (80-100); Monocytes Absolute Auto 1200 /uL (0-900); Monocytes Percent Auto 8.5 % (3-14); Neutrophils Absolute Auto 10800 /uL (1500-7000); Neutrophils Percent Auto 79.6 % (50-75); Platelet Count 572 X10^3/uL (150-400); Red Blood Cell Count 3.41 X10^6/uL (4.0-5.2); Red Cell Distribution Width 18.2 % (11.6-14.8); White Blood Cell Count 13.6 X10^3/uL (4.5-11.0)
[2023-11-04] MEDS: BUSPIRONE 5 MG TABLET 15 MG PO ×2 (09:23→21:33)
[2023-11-04] MEDS: SODIUM CHLORIDE 0.9% FLUSH 10 ML IV ×2 (09:23→20:06)
[2023-11-04] MEDS: PREGABALIN 75 MG CAPSULE PO ×2 (09:23→21:33)
--- NOTE | 2023-11-04 10:50 | OT.IP.TRT ---
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) Surgery Performed Operation Date: 10/30/23 16:30 Actual Procedures p Colon Resection - Severo Butler MD Occupational Therapy Treatment Note M2 OT-IP Current Condition Start: 11/01/23 12:34 Freq: Status: Active Protocol: Document 11/01/23 12:35 [facility] (Rec: 11/01/23 13:00 [facility] [id number]) Occupational Therapy Current Condition Current Condition Evaluation Date 11/01/23 Treatment Diagnosis S/P Ex-lap with colectomy and colostomy placement Diagnosis Onset Date 10/30/23 Post Operative Precautions Abdominal Surgery Precautions Log Roll,Lifting Restrictions, Gait Belt above Incisional Area M3 OT- IP Subjective and Pain Start: 11/01/23 12:34 Freq: Status: Active Protocol: Document 11/04/23 16:19 [facility]GR (Rec: 11/04/23 16:44 [facility]GR [id number]) OT- Subjective Occupational Therapy Visit Type Type Treatment Note Visit Start Time 10:21 Visit Stop Time 10:50 Occupational Therapy Visit Comments Patient Comments I would feel better with a shower. M4 OT- IP ADL's Start: 11/01/23 12:34 Freq: Status: Active Protocol: Document 11/04/23 16:19 CGR (Rec: 11/04/23 16:44 [facility]GR [id number]) OT [id number] Comments OT Self-Feeding Comments not meal time OT ADL-Grooming General Evaluation Grooming Ability Independent Areas Needing Assistance Face Washing Comments OT Grooming Comments in shower OT ADL-Oral Care Comments Oral Care Comments not performed OT ADL-Dressing General Eval Lower Body Dressing Ability Total Assistance Areas Needing Assistance Socks Comments OT Dressing Comments Pt doffed hospital gown with IND but needed total assist for doffing socks. OT ADL-Toileting Comments OT Toileting Comments not performed OT ADL-Bathing Bathing Type Bathing Type Shower General Evaluation Bathing Ability Minimal Assistance Areas Needing Assistance Retrieving/Setting Up Items, Wash/Dry Back Devices Bathing Equipment Hand Held Shower Sprayer, Shower Chair with Arms,Grab Bars Comments OT Bathing Comments Pt performed shower with min a seated on chair. Pt completed shower with nursing. M5 OT- IP IADL's Start: 11/01/23 12:34 Freq: Status: Active Protocol: Document 11/01/23 12:35 [facility] (Rec: 11/01/23 13:00 [facility] [id number]) OT-Instrumental Activities of Daily Living Home Safety Awareness Awareness of Need for Assistance at Home Good Awareness Ability to Problem Solve Emergency Able to Problem Solve Situations Home Safety Comments At this time pt will need asisst for IADL needs. Medication Management Medication Management No Deficits Identified Money Management Money Management No Deficits Identified Meal Preparation Meal Preparation Comments Pt will benefit from assist. Foreign Correspondent Foreign Correspondent Comments Pt to benefit from assist. M6 OT- IP Functional Cognition Start: 11/01/23 12:34 Freq: Status: Active Protocol: Document 11/01/23 12:35 [facility] (Rec: 11/01/23 13:00 [facility] [id number]) Cognitive Factors Limiting Selfcare Function Cognitive Ability Level of Alertness Alert Patient Orientation Name,Age,Birthday,Month,Date, Year,Day of Week,Place, Situation Attention Span Ability Capable of Focused Attention, Capable of Sustained Attention Ability to Follow Commands Able to Follow One Step Commands Cognitive Comments Cognitive Assessment Comments Pt able to follow commands for ADL and mobility needs. OT- Vision and Hearing OT- Hearing Assessment OT- Hearing Assessment Hearing Impaired OT- Vision Assessment Visual Acuity Glasses All The Time Vision Assessment Comments Pt states that she probably needs hearing aids. M7 OT- IP Mobility and Balance Start: 11/01/23 12:34 Freq: Status: Active Protocol: Document 11/04/23 16:19 CGR (Rec: 11/04/23 16:44 CGR [id number]) OT- Bed Mobility Assessment Supine to Sit Supine to Sit Assist Standby Assistance Scooting Scooting to Edge of Bed Standby Assistance OT-Transfer Assessment Sit to and From Stand Sit to and from Stand Standby Assistance Transfers Transfer Ability Standby Assistance Technique Transfer Destination Bed,Shower Stall Transfer Technique Stand Step Pivot Devices Transfer Assistive Devices Gait Belt,Front Wheeled Walker Comments Mobility Comments Pt ambulated from bed to shower. OT- Gait Assessment Gait Gait Assistance Required: Standby Assistance Assistive Devices Assistive Device Gait Belt Comments Gait Ability Comments Pt ambulated around room. OT- Balance Assessment Sitting Balance and Reactions Static Sitting Balance Ability Normal Dynamic Sitting Balance Ability Normal M8 OT- IP Objective Assessments Start: 11/01/23 12:34 Freq: Status: Active Protocol: Document 11/01/23 12:35 [facility] (Rec: 11/01/23 13:00 [facility] [id number]) OT Gross Range of Motion Upper Extremity Range of Motion Assessment Within Functional Limits OT Strength Upper Extremity Strength Assessment Within Functional Limits OT- Coordination Assessment Upper Extremity Finger to Nose Test Within Functional Limits OT-Muscle Tone Assessment Muscle Tone WNL Yes M9 OT- IP Assessment and Plan Start: 11/01/23 12:34 Freq: Status: Active Protocol: Document 11/04/23 16:19 CGR (Rec: 11/04/23 16:44 CGR [id number]) OT Summary Assessment and Plan Potential Rehabilitation Potential Good Analytic Complexity at Evaluation Moderate Summary OT Impairments Pain,Balance,Functional Mobility,Grooming,Dressing, Toileting,Bathing,Toilet Transfers,Shower Transfers, Activity Tolerance Progress Towards Goals Progressing Toward Goals,Slow Progress due to Medical Issues ,Slow Progress due to Activity Tolerance Assessment Summary Pt main barriers are pain, steps, having to negotiate terrain to walk to and from her outhouse, decreased activity tolerance. Pt would greatly benefit from skilled rehab to improve her activity tolerance, overall strength and balance, so able to return home to take care of herself and multiple pets. Pt needs encouragement to perform tasks but did well in therapy today . Pt will continue to benefit from therapy services to address deficits. Goals Self-Feeding Goal Independent Grooming Goal Independent Dressing Goal Independent,Long Handled Shoe Horn,Procurement Inspector,Sock Aid Toileting Goal Independent Bathing Goal Independent Toilet Transfer Goal Independent Shower Transfer Goal Independent Days to Meet Goals 15 Frequency of Treatment Frequency Of Treatment Once a Day Treatment Plan OT Treatment Plan ADL Training,Functional Mobility,Patient/Family Education,Discharge Planning Other Treatment Recommendations and Next ADL activity tolerance Treatment Focus Discharge Recommendations OT Discharge Recommendations SNF Rehab Transportation Needs at Discharge Private Vehicle,Wheelchair/ Cabulance
[2023-11-04 11:58] LABS: Vancomycin Trough 12.8 ug/mL (10-20)
[2023-11-04 12:00] VITALS: BP 118/83; PULSE 110; RESP 17; TEMP 36.3; O2SAT 96
--- NOTE | 2023-11-04 12:15 | PT-IP ANOTE ---
Patient refused PT, states she will walk later with nursing and/or family. Family member present as stated she will walk with her.
--- NOTE | 2023-11-04 13:23 | PM.PN.1 ---
Subjective Subjective Date Patient Seen: 11/04/23 Time Patient Seen: 13:23 Interval history: Still minimal colostomy output. Exam Vital Signs (past 8 hours): - 11/04/23 08:00 11/04/23 10:47 Temperature 97.6 F Pulse Rate 113 H Respiratory Rate 17 Blood Pressure 122/69 Pulse Oximetry 96 Oxygen Delivery Method Room Air Oxygen Flow Rate 0 Fraction of Inspired Oxygen 40 Oxygen Delivery Method Room Air Oxygen Flow Rate 0 Narrative Exam Narrative: Drain with scant serous fluid Objective Labs 11/04/23 08:20 11/04/23 08:20 Labs: Laboratory Results - last 24 hr 11/04/23 11/04/23 08:20 11:10 WBC 13.6 H RBC 3.41 L Hgb 7.8 L Hct 25.2 L MCV 73.7 L MCH 22.8 L MCHC 30.9 RDW 18.2 H Plt Count 572 H Neut % (Auto) 79.6 H Lymph % (Auto) 10.4 L [place] % (Auto) 8.5 Eos % (Auto) 1.1 L Baso % (Auto) 0.4 Neut # (Auto) 83408 H Lymph # (Auto) 1400 [place] # (Auto) 1200 H Eos # (Auto) 100 Baso # (Auto) 100 Sodium 135 L Potassium 3.6 Chloride 103 Carbon Dioxide 29 BUN 8 Creatinine 0.71 Estimated GFR > 60 BUN/Creatinine Ratio 11.3 Glucose 146 H Calcium 8.4 Total Bilirubin 0.3 AST 36 ALT 40 H Alkaline Phosphatase 94 Total Protein 6.3 Albumin 3.0 L Globulin 3.3 Albumin/Globulin Ratio 0.9 L Vancomycin Trough 12.8 PFSH Surgical History History of carpal tunnel repair Status post hysterectomy History of carpal tunnel repair Family History Brother Age: 51 Mental health problem ADHD (attention deficit hyperactivity disorder) Mother Age: 85 Hypertension High cholesterol Mental health problem Stroke Sister Age: 65 Hypertension High cholesterol Social History household members: none Smoking Status: Never smoker alcohol intake: current Assessment & Plan Assessment and plan (1) [place]-vesical fistula: Status: Acute Plan Await colostomy function Drain out Continue ramirez Discharge planning Quality VTE Deep Vein Thrombosis/Pulmonary Embolism Present on Admission: No
--- NOTE | 2023-11-04 14:02 | CM.DPC ---
DCP SNF Planning Cont: Per MD, pt to remain on IV-Abx Dapto Q8 until 11/17/23 after discussion with ID and Surgeon. Pt still without really any outpt from new ostomy and not yet medically stable to discharge. Per PT, pt has been improving with ambulation and yesterday went about 150 ft. Per RN, order placed for Wound refrigerator car icer consult bedside and Kanchan Colon will be available Wed 11/05 for bedside teach SW received a call from Victoria at [facility] [phone] option 8 inquiring about pt's medical need for SNF as she was reviewing the [facility] submission for SNF auth and pt ambulating fairly well. BILLY discussed need also for IV-Abx and new ostomy care and Victoria requested IV-Abx be faxed to [phone] Attn: Victoria for review as she feels this likely might skill her for SNF. wrote script for IV-Abx and BILLY faxed to requested number with confirmation received. BILLY met bedside with pt and two friends visiting bedside from [place] and updated on above and she confirms she remains agreeable to d/c to [facility] and aware that insurance has not auth'd yet and requests SW to call Dtr with this update. BILLY left voicemail for pt's Dtr Mary [phone] after confirming with pt accurate phone number per pt request. PASRR previously completed in anticipation of SNF. Plan: SW to follow closely for ongoing insurance review to confirm they will auth SNF at [facility] before return home to [place] in a remote/off grid housing situation. LAVERNE Mijares
--- NOTE | 2023-11-04 15:45 | DIET.CONS2 ---
Dietary Inpatient Consultation Note Admission Date: 10/29/2023 17:28 63 y F admitted for complicated diverticulitis failing conservative therapy and had a sigmoid colectomy with end-colostomy. Nutrition screened for LOS. Attempted visit, pt with multiple visitors and would like me to come back another time. Chart reviewed. Recorded PO intakes of 75-100% since starting general diet. Ensure chocolate being sent BID. Minimal colostomy output. Will f/u tomorrow. Diet: 11/02/23 Breakfast Regular [General (Regular) Diet] Diet Modifications: protein supplement with each meal Food Texture: Level 7 - Regular Liquid Consistency: Level 0 - Thin Nutrition Percent Meal Consumed 90 11/02/23 17:47 Electronically Signed by: Dali Grimes 11/04/23 15:45 Clinical Dietitian [address] [id number]
[2023-11-04 16:00] VITALS: BP 128/79; PULSE 120; RESP 18; TEMP 37.1; O2SAT 96
--- NOTE | 2023-11-04 16:50 | PM.PN.1 ---
Subjective Subjective Interval history: Gen surg pulled LEYDA drain today. She still doesn't have much ostomy output. Spoke with ID about abx and they recommended IV dapto plus augmentin for 2 weeks and have her see them in clinic. WATCH ASSEMBLY INSTRUCTOR working on SNF. Exam Vital Signs (past 8 hours): - 11/04/23 10:47 11/04/23 12:00 11/04/23 16:00 Temperature 97.4 F L 98.8 F Pulse Rate 110 H 120 H Respiratory Rate 17 18 Blood Pressure 118/83 128/79 Pulse Oximetry 96 96 Oxygen Delivery Method Room Air Oxygen Flow Rate 0 0 Fraction of Inspired Oxygen 40 Oxygen Delivery Method Room Air Oxygen Flow Rate 0 Narrative Exam Narrative: GEN: Middle-aged female, Alert and oriented x 3, NAD HEENT:NC, Face symmetric CHEST: Respiratory excursions symmetric, CTAB CV: RRR, no M/R/G ABD: Moderately distended, BT present in all 4 quadrants, no output from colostomy, some gas EXTR: warm, well perfused, no C/C/trace bilateral lower extremity edema SKIN: warm and dry, no rash NEURO: Alert and oriented x 3, nonfocal Objective Labs 11/04/23 08:20 11/04/23 08:20 Labs: Laboratory Results - last 24 hr 11/04/23 11/04/23 08:20 11:10 WBC 13.6 H RBC 3.41 L Hgb 7.8 L Hct 25.2 L MCV 73.7 L MCH 22.8 L MCHC 30.9 RDW 18.2 H Plt Count 572 H Neut % (Auto) 79.6 H Lymph % (Auto) 10.4 L [place] % (Auto) 8.5 Eos % (Auto) 1.1 L Baso % (Auto) 0.4 Neut # (Auto) 14278 H Lymph # (Auto) 1400 [place] # (Auto) 1200 H Eos # (Auto) 100 Baso # (Auto) 100 Sodium 135 L Potassium 3.6 Chloride 103 Carbon Dioxide 29 BUN 8 Creatinine 0.71 Estimated GFR > 60 BUN/Creatinine Ratio 11.3 Glucose 146 H Calcium 8.4 Total Bilirubin 0.3 AST 36 ALT 40 H Alkaline Phosphatase 94 Total Protein 6.3 Albumin 3.0 L Globulin 3.3 Albumin/Globulin Ratio 0.9 L Vancomycin Trough 12.8 PFSH Surgical History History of carpal tunnel repair Status post hysterectomy History of carpal tunnel repair Family History Brother Age: 51 Mental health problem ADHD (attention deficit hyperactivity disorder) Mother Age: 85 Hypertension High cholesterol Mental health problem Stroke Sister Age: 65 Hypertension High cholesterol Social History household members: none Smoking Status: Never smoker alcohol intake: current Assessment & Plan Assessment & Plan narrative: 1. 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 -plan for IV dapto plus augmentin x2 weeks once discharge to SNF' -gen surg following -LEYDA drain out -PICC ordered 2. Hypertension Pressures remain normotensive. Antihypertensives have been held for now. 3. GERD At baseline is on omeprazole. Continue pantoprazole. 4. Chronic pain Patient takes tramadol at baseline well as Lyrica. Restarted the Lyrica. Oxycodone and Dilaudid as needed 5. Anemia Hemoglobin currently in 7's. Likely from surgical blood loss. Monitor and transfuse at Hgb <7. 6. Thrombocytosis Platelet count is improving. Resolved issue Sepsis Code status Full Prophylaxis lovenox Disposition Back to SNF in 2 days. Quality VTE Deep Vein Thrombosis/Pulmonary Embolism Present on Admission: No
--- NOTE | 2023-11-04 17:21 | DI.RAD.S_ITS ---
PROCEDURE: XR CHEST 1V INDICATIONS: PICC placement TECHNIQUE: One view of the chest was acquired. COMPARISON: [facility], CR, XR CHEST 1V, 10/30/2023, 19:48. [facility], CR, XR CHEST FOR PICC 1V, 10/17/2023, 15:29. FINDINGS: Surgical changes and devices: Right PICC terminates in the mid SVC. Lungs and pleura: Low lung volumes. Mildly prominent interstitium. No drainable effusions Mediastinum: Cardiomediastinal contours are unchanged Bones and chest wall: Unremarkable IMPRESSION: Right PICC terminates in the mid SVC. Dictated by: Lefty Jacobs M.D. on 11/04/2023 at 18:02 Approved by: Lefty Jacobs M.D. on 11/04/2023 at 18:03
[2023-11-04 20:00] VITALS: BP 134/75; PULSE 113; RESP 17; TEMP 36.5; O2SAT 94
[2023-11-04] MEDS: ATORVASTATIN 20 MG TABLET PO (21:33)
[2023-11-04] MEDS: LORazepam 0.5 MG TABLET PO (23:32)
[2023-11-05] VITALS: BP 123/67; PULSE 108; RESP 17; TEMP 36.9; O2SAT 92
[2023-11-05] MEDS: OXYCODONE IR 10 MG TABLET PO ×5 (02:47→21:42)
[2023-11-05] MEDS: VANCOMYCIN 1,250 MG/250 ML PIGGYBACK 250 MG IV ×3 (02:47→19:07)
[2023-11-05 04:00] VITALS: BP 123/71; PULSE 95; RESP 16; TEMP 36.4; O2SAT 93
[2023-11-05] MEDS: PIPERACILLIN/TAZO 4.5 GM in SODIUM CHLORIDE 0.9% 100 ML IV ×3 (04:33→20:26)
[2023-11-05] MEDS: BUSPIRONE 5 MG TABLET 15 MG PO ×2 (08:12→20:25)
[2023-11-05] MEDS: SODIUM CHLORIDE 0.9% FLUSH 10 ML IV ×2 (08:13→21:42)
[2023-11-05] MEDS: PREGABALIN 75 MG CAPSULE PO ×2 (08:13→20:25)
[2023-11-05 08:18] LABS: Add Manual Diff / Slide Review NO; Basophils Absolute Auto 0 /uL (0-100); Basophils Percent Auto 0.3 % (0-2); Eosinophils Absolute Auto 200 /uL (0-450); Eosinophils Percent Auto 1.1 % (2-4); Hematocrit 22.8 % (36-46); Hemoglobin 7.2 g/dL (12.0-16.0); Lymphocytes Absolute Auto 1400 /uL (1100-4500); Lymphocytes Percent Auto 9.6 % (25-40); Mean Corpuscular HGB Conc 31.5 % (30-36); Mean Corpuscular Hemoglobin 23.3 PG (26-34); Mean Corpuscular Volume 73.8 fL (80-100); Monocytes Absolute Auto 1100 /uL (0-900); Neutrophils Absolute Auto 11600 /uL (1500-7000); Platelet Count 511 X10^3/uL (150-400); Red Blood Cell Count 3.09 X10^6/uL (4.0-5.2); Red Cell Distribution Width 18.1 % (11.6-14.8); White Blood Cell Count 14.3 X10^3/uL (4.5-11.0)
[2023-11-05 08:37] LABS: BUN Creatinine Ratio 17.2 (6-22); Blood Urea Nitrogen 10 mg/dL (7-17); Calcium 8.3 mg/dL (8.4-10.2); Carbon Dioxide 32 mmol/L (22-32); Chloride 105 mmol/L (98-107); Estimated Glomerular Filt Rate > 60 mL/min (>60); Glucose 124 mg/dL (80-110); HEMOLYSIS < 15 (0-50); Potassium 3.7 mmol/L (3.4-5.1); Sodium 136 mmol/L (137-145)
[2023-11-05 10:25] VITALS: BP 145/75; PULSE 102; RESP 18; TEMP 36.5; O2SAT 98
--- NOTE | 2023-11-05 10:25 | PT.IPTN ---
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) Surgery Performed Operation Date: 10/30/23 16:30 Actual Procedures p Colon Resection - Severo Butler MD Physical Therapy Treatment Note M2 PT-IP Current Condition Start: 11/01/23 13:45 Freq: NEEDED Status: Active Protocol: Document 11/01/23 10:25 AB (Rec: 11/01/23 13:59 AB [id number]) Physical Therapy Current Condition Current Condition Evaluation Date 11/01/23 Treatment Diagnosis sepsis; abscess of sigmoid colon s/p colectomy; difficulty in walking Onset Date 10/29/23 M3 PT-IP Subjective Start: 11/01/23 13:45 Freq: NEEDED Status: Active Protocol: Document 11/05/23 11:02 TS (Rec: 11/05/23 11:07 TS [id number]) Subjective Physical Therapy Visit Type Type Treatment Note Visit Start Time 10:25 Visit Stop Time 10:45 Notes Sister in room Number of AQUATIC DIRECTOR Visits 1 Physical Therapy Visit Comments Patient Comments Pt reports pain is 8/10 with mobility, she is agreeable to PT. Therapy Pain Assessment Pain When Pain Assessed During Mobility Pain Present Pain Present Pain Reported Location Lower Abdomen Intensity 8 Scale Used Numeric (0 - 10) Pain Management Techniques Distraction,Re-positioning, Timing of Activity with Medications M4 PT-IP Mobility and Gait Start: 11/01/23 13:45 Freq: NEEDED Status: Active Protocol: Document 11/05/23 11:02 TS (Rec: 11/05/23 11:07 TS [id number]) PT-Bed Mobility Assessment Rolling Type of Rolling Log Rolling Level of Assist Standby Assistance Supine to Sit Supine to Sit Standby Assistance Scooting Scooting to Edge of Bed Standby Assistance PT-Transfer Assessment Sit to and From Stand Sit to and from Stand Standby Assistance Equipment Transfer Assistive Device Gait Belt,Front Wheeled Walker Orthotic/Prosthetic Devices or Brace: No Comments Mobility Comments Logroll to L side SBA with use of rails. Supine to sit from flat bed SBA with BUE support. STS from bed with FWW SBA, pt c/o 8/10 pain. She ambulated ~200'SBA with FWW, had nob uckling or LOB. PT was left bakc in room, all needs met. Gait Assessment Gait Gait Assistance Required: Standby Assistance Distance (Feet) 200 Able to Maintain Weight Bearing Status Yes During Gait Assistive Devices Assistive Device Gait Belt,Front Wheeled Walker Orthotic/Prosthetic Devices or Brace: No Gait Deviations General Gait Pattern Decreased Stride Length, Decreased Feet Clearance,Step- to Gait Factors Limiting Gait Function Factors Limiting Gait Function Decreased Activity Tolerance, Decreased Strength,Limited Range of Motion,Pain,Poor Balance,Poor Safety Awareness Comments Gait Comments Pt ambulated around room. PT-Balance Assessment Sitting Balance and Reactions Static Sitting Balance Ability Normal Dynamic Sitting Balance Ability Good Standing Balance and Reactions Static Standing Balance Ability Good Dynamic Standing Balance Ability Fair Device Used FWW M5 PT-IP Objective Assessments Start: 11/01/23 13:45 Freq: NEEDED Status: Active Protocol: Document 11/01/23 10:25 AB (Rec: 11/01/23 13:59 AB [id number]) Orientation Orientation/Cognition Level of Alertness Alert Orientation Name,Place,Situation Safety Awareness Decreased Safety Awareness Memory Description No Deficits Noted Gross Range of Motion Lower Extremity ROM Assessment Within Functional Limits Strength Lower Extremity Strength Hip 4-/5 Knee 4-/5 Sensation Assessment Sensation Gross Sensation Right LE Impaired,Left LE Impaired Comments Sensation Comments chronic numbness on BLE per pt due to pinched nerves due to her scoliosis Muscle Tone Muscle Tone WNL Yes M6 PT-IP Treatment Start: 11/01/23 13:45 Freq: NEEDED Status: Active Protocol: Document 11/05/23 11:02 TS (Rec: 11/05/23 11:07 TS [id number]) Physical Therapy Treatment Education Education Provided Safety M7 PT-IP Assessment and Plan Start: 11/01/23 13:45 Freq: NEEDED Status: Active Protocol: Document 11/05/23 11:02 TS (Rec: 11/05/23 11:07 TS [id number]) PT Summary Assessment and Plan Potential Rehabilitation Potential Fair Summary Impairments Pain,ROM,Strength,Balance, Coordination,Sensation,Tone, Cognition,Bed Mobility, Transfers,Gait,Activity Tolerance Progress Towards Goals Progressing Toward Goals Assessment Summary Bibiana is progressing well with her mobility. She is SBA for all bed mobility and demonstrates good carryover of sequencing. She progressed her gait to ~200 SBA with FWW. She c/o pian 12/27 with mobility. PT continues to recommend home 24/ vs SNF. Goals Bed Mobility Goal Independent Transfer Goal Independent,Front Wheeled Walker Gait Goal Independent,Front Wheel Walker Gait Distance 200 Other Goals improve transfers and ambulation without AD/LRAD 300 ft mod I up/down 2 steps R rail ascending mod I Days to Meet Goals 10 Frequency of Treatment Frequency Of Treatment Once a Day Treatment Plan Physical Therapy Treatment Plan Bed Mobility Training,Transfer Training,Gait Training, Therapeutic Exercise,Balance Retraining,Post Op Education, Discharge Planning,Hot or Cold Pack,Neuromuscular Re-ed, Coordination Retraining,Manual Therapy Precautions Abdominal Surgery Precautions Log Roll,Lifting Restrictions, Gait Belt above Incisional Area Recommendations To Nursing Amount of Assist Needed 1 Person Assist Discharge Recommendations PT Discharge Recommendations Home with 24/7 Assist Available,Home Health,SNF Rehab Equipment Needed for Home Before FWW Discharge Transportation Needs at Discharge Private Vehicle,Wheelchair/ Cabulance
--- NOTE | 2023-11-05 13:51 | P.PN_ITS ---
Subjective Subjective Date Patient Seen: 11/05/23 Time Patient Seen: 13:51 Interval history: Colostomy with output Ambulatory Pain control is improving Exam Vital Signs (past 8 hours): - 11/05/23 10:25 Temperature 97.7 F Pulse Rate 102 H Respiratory Rate 18 Blood Pressure 145/75 H Pulse Oximetry 98 Oxygen Flow Rate 0 Fraction of Inspired Oxygen 40 Oxygen Delivery Method Room Air Oxygen Flow Rate 0 Narrative Exam Narrative: General elderly woman alert oriented no acute distress Abdomen soft appropriately tender. Midline dressing clean stool from colostomy Objective Labs 11/05/23 08:08 11/05/23 08:08 Labs: Laboratory Results - last 24 hr 11/05/23 08:08 WBC 14.3 H RBC 3.09 L Hgb 7.2 L Hct 22.8 L MCV 73.8 L MCH 23.3 L MCHC 31.5 RDW 18.1 H Plt Count 511 H Neut % (Auto) 81.0 H Lymph % (Auto) 9.6 L [place] % (Auto) 8.0 Eos % (Auto) 1.1 L Baso % (Auto) 0.3 Neut # (Auto) 55422 H Lymph # (Auto) 1400 [place] # (Auto) 1100 H Eos # (Auto) 200 Baso # (Auto) 0 Sodium 136 L Potassium 3.7 Chloride 105 Carbon Dioxide 32 BUN 10 Creatinine 0.58 Estimated GFR > 60 BUN/Creatinine Ratio 17.2 Glucose 124 H Calcium 8.3 L PFSH Surgical History History of carpal tunnel repair Status post hysterectomy History of carpal tunnel repair Family History Brother Age: 51 Mental health problem ADHD (attention deficit hyperactivity disorder) Mother Age: 85 Hypertension High cholesterol Mental health problem Stroke Sister Age: 65 Hypertension High cholesterol Social History household members: none Smoking Status: Never smoker alcohol intake: current Assessment & Plan Post-op Postoperative Procedures: Procedures Operation Date: 10/30/23 16:30 Actual Procedure Side Surgeon p Colon Resection Severo Butler MD Postoperative status narrative: Postoperative day 6 status post sigmoid colectomy for colovesicular fistula -recovery appropriate -colostomy teaching with Kaia Colon RN tomorrow -ready for discharge after teaching -SCDs and Lovenox -Humphreys catheter total of [address] cystogram if negative okay to remove Quality VTE Deep Vein Thrombosis/Pulmonary Embolism Present on Admission: No
[2023-11-05 14:00] VITALS: BP 128/73; PULSE 102; RESP 14; TEMP 36.6; O2SAT 95
--- NOTE | 2023-11-05 14:17 | OT.IPNOTE ---
Pt just getting back to bed and agreed to get back up later with nursing. Encouraged pt to get up often, pt agrees will ask nursing for assistance.
--- NOTE | 2023-11-05 14:24 | P.PN_ITS ---
Subjective Subjective Interval history: Patient finally had stool today in her ostomy. Confirmed with ID the abx regimen would be IV zosyn 4.5g q8h over extended infusion of 4 hours plus daptomycin 620mg daily for 2 weeks. Exam Vital Signs (past 8 hours): - 11/05/23 10:25 11/05/23 14:00 Temperature 97.7 F 97.9 F Pulse Rate 102 H 102 H Respiratory Rate 18 14 Blood Pressure 145/75 H 128/73 Pulse Oximetry 98 95 Oxygen Flow Rate 0 0 Fraction of Inspired Oxygen 40 Oxygen Delivery Method Room Air Oxygen Flow Rate 0 Narrative Exam Narrative: GEN: Middle-aged female, Alert and oriented x 3, NAD HEENT:NC, Face symmetric CHEST: Respiratory excursions symmetric, CTAB CV: RRR, no M/R/G ABD: Moderately distended, BT present in all 4 quadrants, no output from colostomy, some gas EXTR: warm, well perfused, no C/C/trace bilateral lower extremity edema SKIN: warm and dry, no rash NEURO: Alert and oriented x 3, nonfocal Objective Labs 11/05/23 08:08 11/05/23 08:08 Labs: Laboratory Results - last 24 hr 11/05/23 08:08 WBC 14.3 H RBC 3.09 L Hgb 7.2 L Hct 22.8 L MCV 73.8 L MCH 23.3 L MCHC 31.5 RDW 18.1 H Plt Count 511 H Neut % (Auto) 81.0 H Lymph % (Auto) 9.6 L [place] % (Auto) 8.0 Eos % (Auto) 1.1 L Baso % (Auto) 0.3 Neut # (Auto) 56177 H Lymph # (Auto) 1400 [place] # (Auto) 1100 H Eos # (Auto) 200 Baso # (Auto) 0 Sodium 136 L Potassium 3.7 Chloride 105 Carbon Dioxide 32 BUN 10 Creatinine 0.58 Estimated GFR > 60 BUN/Creatinine Ratio 17.2 Glucose 124 H Calcium 8.3 L PFSH Surgical History History of carpal tunnel repair Status post hysterectomy History of carpal tunnel repair Family History Brother Age: 51 Mental health problem ADHD (attention deficit hyperactivity disorder) Mother Age: 85 Hypertension High cholesterol Mental health problem Stroke Sister Age: 65 Hypertension High cholesterol Social History household members: none Smoking Status: Never smoker alcohol intake: current Assessment & Plan Assessment & Plan narrative: 1. 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 Previous IR drainage culture grew strep mitis, pseudomonas and enterococcus gallinarum. -per ID, plan for IV dapto plus zosyn x2 weeks -gen surg following -per gen surg keep ramirez x2 weeks then CT cystogram to confirm if can be removed -PICC in place 2. Hypertension Pressures remain normotensive. Antihypertensives have been held for now. 3. GERD At baseline is on omeprazole. Continue pantoprazole. 4. Chronic pain Patient takes tramadol at baseline well as Lyrica. Restarted the Lyrica. Oxycodone and Dilaudid as needed 5. Anemia Hemoglobin currently in 7's. Likely from surgical blood loss. Monitor and transfuse at Hgb <7. 6. Thrombocytosis Platelet count is improving. Resolved issue Sepsis Code status Full Prophylaxis lovenox Disposition SNF. Awaiting approval. Quality VTE Deep Vein Thrombosis/Pulmonary Embolism Present on Admission: No
--- NOTE | 2023-11-05 16:04 | CM.DPNOTE ---
DCP Note BALLOON TESTER received notice from Dr. Sorensen that he attempted to do peer to peer in an attempt to auth the IV abx for SNF placement, but the person from [place] that he was speaking with told him they could not find her in their system. From RN, call from [facility] re: the IV abx auth. Victoria ([phone] option 8) reported that all their medical record librarians teacher wanted to know was the frequency of the IV abx. (pt's [facility] policy number is [id number]) From Dr. Sorensen, pt will require IV zosyn 4.5g q8h over 4 hours and IV daptomycin 620mg IV q24h, both for two weeks. BALLOON TESTER passed this information along to Victoria. She reports she will relay the IV abx to their medical record librarians teacher in an attempt to continue to pursue authorization. CM team will continue to follow as needed. LAVERNE Sun
--- NOTE | 2023-11-05 16:12 | DIET.CONS ---
Dietary Consultation Note Admission Date: 10/29/2023 17:28 Assessment: Nutrition f/u. Met with pt and daughter at bedside, report lower than normal appetite, but has been eating breakfast and dinner, which is when she feels hungry, and drinking water and juices. Pt had stool in ostomy today. Ht: 167.64 cm Wt: 105.687 kg BMI: 37.5 UBW: 102.965 kg on 10/11/23 Last BM: 11/05/23 (11/05/23 12:29) MNA: 14 Angel Score: 23 Diet: 11/02/23 Breakfast Regular [General (Regular) Diet] Diet Modifications: protein supplement with each meal Food Texture: Level 7 - Regular Liquid Consistency: Level 0 - Thin Nutrition Percent Meal Consumed daughter bought food outside 11/04/23 18:00 Labs: RBC 3.09 X10^6/uL (4.0-5.2) L 11/05/23 08:08 Hgb 7.2 g/dL (12.0-16.0) L 11/05/23 08:08 Hct 22.8 % (36-46) L 11/05/23 08:08 Creatinine 0.58 mg/dL (0.52-1.04) 11/05/23 08:08 Lactate 0.9 mmol/L (0.7-2.1) 10/29/23 17:40 Nutrition Diagnosis: Altered GI function r/t altercations in GI tract aeb colectomy w/ colostomy placement Interventions: 1. Reviewed nutrition information after colostomy 2. Encouraged adequate intake for recovery Monitoring/Evaluations: po intakes, f/u prn Electronically Signed by: Dali Grimes 11/05/23 16:12 Clinical Dietitian [address] [address]
[2023-11-05 18:00] VITALS: BP 115/68; PULSE 102; RESP 16; TEMP 36.8; O2SAT 95
[2023-11-05 20:00] VITALS: BP 117/73; PULSE 115; RESP 18; TEMP 37.1; O2SAT 98
[2023-11-05] MEDS: ATORVASTATIN 20 MG TABLET PO (20:25)
[2023-11-06] VITALS: BP 122/86; PULSE 110; RESP 18; TEMP 37; O2SAT 96
[2023-11-06] MEDS: OXYCODONE IR 10 MG TABLET PO ×7 (00:39→23:27)
[2023-11-06] MEDS: VANCOMYCIN 1,250 MG/250 ML PIGGYBACK 250 MG IV ×3 (02:43→18:52)
[2023-11-06] MEDS: PIPERACILLIN/TAZO 4.5 GM in SODIUM CHLORIDE 0.9% 100 ML IV ×3 (03:51→20:12)
[2023-11-06 04:00] VITALS: BP 130/72; PULSE 96; RESP 18; TEMP 36.8; O2SAT 94
[2023-11-06] MEDS: PANTOPRAZOLE DR 20 MG TABLET PO (05:10)
[2023-11-06 05:50] LABS: Add Manual Diff / Slide Review NO; Basophils Absolute Auto 100 /uL (0-100); Basophils Percent Auto 0.8 % (0-2); Eosinophils Absolute Auto 200 /uL (0-450); Eosinophils Percent Auto 1.4 % (2-4); Hematocrit 23.4 % (36-46); Hemoglobin 7.4 g/dL (12.0-16.0); Lymphocytes Absolute Auto 1500 /uL (1100-4500); Lymphocytes Percent Auto 10.9 % (25-40); Mean Corpuscular HGB Conc 31.7 % (30-36); Mean Corpuscular Hemoglobin 23.3 PG (26-34); Mean Corpuscular Volume 73.6 fL (80-100); Monocytes Absolute Auto 1100 /uL (0-900); Neutrophils Absolute Auto 11100 /uL (1500-7000); Neutrophils Percent Auto 78.9 % (50-75); Platelet Count 520 X10^3/uL (150-400); Red Blood Cell Count 3.18 X10^6/uL (4.0-5.2); Red Cell Distribution Width 18.2 % (11.6-14.8); White Blood Cell Count 14.1 X10^3/uL (4.5-11.0)
[2023-11-06 06:18] LABS: Blood Urea Nitrogen 13 mg/dL (7-17); Calcium 8.2 mg/dL (8.4-10.2); Carbon Dioxide 32 mmol/L (22-32); Chloride 102 mmol/L (98-107); Estimated Glomerular Filt Rate > 60 mL/min (>60); Glucose 117 mg/dL (80-110); HEMOLYSIS < 15 (0-50); Potassium 3.6 mmol/L (3.4-5.1); Sodium 136 mmol/L (137-145)
[2023-11-06] MEDS: ONDANSETRON 4 MG/2 ML INJ IV (06:59)
[2023-11-06 08:00] VITALS: BP 121/80; PULSE 105; RESP 16; TEMP 36.8; O2SAT 92
[2023-11-06] MEDS: BUSPIRONE 5 MG TABLET 15 MG PO ×2 (08:36→20:32)
[2023-11-06] MEDS: PREGABALIN 75 MG CAPSULE PO ×2 (08:37→20:32)
--- NOTE | 2023-11-06 10:30 | PT-IP ANOTE ---
Pt refused to work with PT this morning, pt requested PT to come back later today.
--- NOTE | 2023-11-06 10:44 | CM.DPC ---
DCP Cont. Reviewed EMR and team rounds for status updates. We are waiting for the [facility] auth, and today's a National holiday. She will be getting ostomy training later this morning, we are anticipating her d/c for tomorrow to [facility]. Monitoring closely.
[2023-11-06] MEDS: SODIUM CHLORIDE 0.9% FLUSH 10 ML IV ×2 (11:17→20:32)
[2023-11-06 12:00] VITALS: BP 123/71; PULSE 106; RESP 16; TEMP 36.9; O2SAT 91
--- NOTE | 2023-11-06 13:42 | PC.NURSE ---
Wound care nurse unable to come today for patient teaching. This nurse changed ostomy appliance and provided some teaching but patient was very drowsy during the process. For future reference, appliance size 57mm worked well for pt's ostomy. Aqualcel midline dressing was also changed at this time. Midline incision is approximated with john, serous drainage noted at the distal end of the wound.
--- NOTE | 2023-11-06 13:55 | PT.IPTN ---
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) Surgery Performed Operation Date: 10/30/23 16:30 Actual Procedures p Colon Resection - Severo Butler MD Physical Therapy Treatment Note M2 PT-IP Current Condition Start: 11/01/23 13:45 Freq: NEEDED Status: Active Protocol: Document 11/01/23 10:25 AB (Rec: 11/01/23 13:59 AB [id number]) Physical Therapy Current Condition Current Condition Evaluation Date 11/01/23 Treatment Diagnosis sepsis; abscess of sigmoid colon s/p colectomy; difficulty in walking Onset Date 10/29/23 M3 PT-IP Subjective Start: 11/01/23 13:45 Freq: NEEDED Status: Active Protocol: Document 11/06/23 13:55 AB (Rec: 11/06/23 16:22 AB [id number]) Subjective Physical Therapy Visit Type Type Treatment Note Visit Start Time 13:55 Visit Stop Time 14:10 Number of ELECTRONIC DRAFTER Visits 0 Physical Therapy Visit Comments Patient Comments agreeable to do PT M4 PT-IP Mobility and Gait Start: 11/01/23 13:45 Freq: NEEDED Status: Active Protocol: Document 11/06/23 13:55 AB (Rec: 11/06/23 16:22 AB [id number]) PT-Bed Mobility Assessment Rolling Type of Rolling Log Rolling Level of Assist Standby Assistance Supine to Sit Supine to Sit Standby Assistance,Bedrails Sit to Supine Sit to Supine Standby Assistance,Bedrails PT-Transfer Assessment Sit to and From Stand Sit to and from Stand Standby Assistance,1 Person Assistance,Use of Upper Extremities Equipment Transfer Assistive Device Gait Belt,Front Wheeled Walker Orthotic/Prosthetic Devices or Brace: No Comments Mobility Comments pt supine in bed and agreeable to do PT. completed log roll supine to sit SBA using bed rail and cues to do log roll. pt able to sit on EOB SBA. pt completed sit to stand SBA and ambulated in the hallway using FWW ~ 200 ft SBA. pt requested to go back to bed. completed sit to supine log roll SBA and cues. positioned pt in bed. call light and table placed within reach. Gait Assessment Gait Gait Assistance Required: Standby Assistance Distance (Feet) 200 Able to Maintain Weight Bearing Status Yes During Gait Assistive Devices Assistive Device Gait Belt,Front Wheeled Walker Orthotic/Prosthetic Devices or Brace: No Gait Deviations General Gait Pattern Antalgic,Decreased Stride Length,Decreased Feet Clearance Factors Limiting Gait Function Factors Limiting Gait Function Decreased Activity Tolerance, Decreased Strength,Pain,Poor Balance,Poor Safety Awareness M5 PT-IP Objective Assessments Start: 11/01/23 13:45 Freq: NEEDED Status: Active Protocol: Document 11/01/23 10:25 AB (Rec: 11/01/23 13:59 AB [id number]) Orientation Orientation/Cognition Level of Alertness Alert Orientation Name,Place,Situation Safety Awareness Decreased Safety Awareness Memory Description No Deficits Noted Gross Range of Motion Lower Extremity ROM Assessment Within Functional Limits Strength Lower Extremity Strength Hip 4-/5 Knee 4-/5 Sensation Assessment Sensation Gross Sensation Right LE Impaired,Left LE Impaired Comments Sensation Comments chronic numbness on BLE per pt due to pinched nerves due to her scoliosis Muscle Tone Muscle Tone WNL Yes M6 PT-IP Treatment Start: 11/01/23 13:45 Freq: NEEDED Status: Active Protocol: Document 11/06/23 13:55 AB (Rec: 11/06/23 16:22 AB [id number]) Physical Therapy Treatment Education Education Provided Precautions,Safety M7 PT-IP Assessment and Plan Start: 11/01/23 13:45 Freq: NEEDED Status: Active Protocol: Document 11/06/23 13:55 AB (Rec: 11/06/23 16:22 AB [id number]) PT Summary Assessment and Plan Potential Rehabilitation Potential Good Summary Impairments Pain,ROM,Strength,Balance,Bed Mobility,Transfers,Gait, Activity Tolerance Progress Towards Goals Slow Progress due to Medical Issues,Slow Progress due to Activity Tolerance Assessment Summary pt progressing well with mobility and able to ambulate using FWW SBA. pt still continues to have decrease activity tolerance and needs occasional cues for safety. pt plans to go to SNF rehab. Goals Bed Mobility Goal Independent Transfer Goal Independent,Front Wheeled Walker Gait Goal Independent,Front Wheel Walker Gait Distance 200 Other Goals improve transfers and ambulation without AD/LRAD 300 ft mod I up/down 2 steps R rail ascending mod I Days to Meet Goals 10 Frequency of Treatment Frequency Of Treatment Once a Day Treatment Plan Physical Therapy Treatment Plan Bed Mobility Training,Transfer Training,Gait Training, Therapeutic Exercise,Balance Retraining,Post Op Education, Discharge Planning,Hot or Cold Pack,Neuromuscular Re-ed, Coordination Retraining,Manual Therapy Precautions Abdominal Surgery Precautions Log Roll,Lifting Restrictions, Gait Belt above Incisional Area Recommendations To Nursing Amount of Assist Needed 1 Person Assist Discharge Recommendations PT Discharge Recommendations Home with / Assist Available,Home Health,SNF Rehab Equipment Needed for Home Before FWW Discharge Transportation Needs at Discharge Private Vehicle,Wheelchair/ Cabulance
--- NOTE | 2023-11-06 14:55 | P.PN_ITS ---
Subjective Subjective Interval history: Pateint had large volume emesis this AM. Now controlled with IV antiemetics. She currently feels well after vomiting. Small stool in ostomy today. SNF still working on abx approval. Exam Vital Signs (past 8 hours): - 11/06/23 08:00 11/06/23 10:00 11/06/23 12:00 Temperature 98.2 F 98.4 F Pulse Rate 105 H 106 H Respiratory Rate 16 16 Blood Pressure 121/80 123/71 Pulse Oximetry 92 91 Oxygen Delivery Method Room Air Oxygen Flow Rate 0 0 Fraction of Inspired Oxygen 40 Oxygen Delivery Method Room Air Oxygen Flow Rate 0 Narrative Exam Narrative: GEN: Middle-aged female, Alert and oriented x 3, NAD HEENT:NC, Face symmetric CHEST: Respiratory excursions symmetric, CTAB CV: RRR, no M/R/G ABD: Moderately distended, BT present in all 4 quadrants, no output from colostomy, some gas EXTR: warm, well perfused, no C/C/trace bilateral lower extremity edema SKIN: warm and dry, no rash NEURO: Alert and oriented x 3, nonfocal Objective Labs 11/06/23 05:20 11/06/23 05:20 Labs: Laboratory Results - last 24 hr 11/06/23 05:20 WBC 14.1 H RBC 3.18 L Hgb 7.4 L Hct 23.4 L MCV 73.6 L MCH 23.3 L MCHC 31.7 RDW 18.2 H Plt Count 520 H Neut % (Auto) 78.9 H Lymph % (Auto) 10.9 L [place] % (Auto) 8.0 Eos % (Auto) 1.4 L Baso % (Auto) 0.8 Neut # (Auto) 84122 H Lymph # (Auto) 1500 [place] # (Auto) 1100 H Eos # (Auto) 200 Baso # (Auto) 100 Sodium 136 L Potassium 3.6 Chloride 102 Carbon Dioxide 32 BUN 13 Creatinine 0.59 Estimated GFR > 60 BUN/Creatinine Ratio 22.0 Glucose 117 H Calcium 8.2 L PFSH Surgical History History of carpal tunnel repair Status post hysterectomy History of carpal tunnel repair Family History Brother Age: 51 Mental health problem ADHD (attention deficit hyperactivity disorder) Mother Age: 85 Hypertension High cholesterol Mental health problem Stroke Sister Age: 65 Hypertension High cholesterol Social History household members: none Smoking Status: Never smoker alcohol intake: current Assessment & Plan Assessment & Plan narrative: 1. 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 Previous IR drainage culture grew strep mitis, pseudomonas and enterococcus gallinarum. -per ID, plan for IV dapto plus zosyn x2 weeks -gen surg following -per gen surg keep ramirez x2 weeks then CT cystogram to confirm if can be removed -PICC in place 2. Hypertension Pressures remain normotensive. Antihypertensives have been held for now. 3. GERD At baseline is on omeprazole. Continue pantoprazole. 4. Chronic pain Patient takes tramadol at baseline well as Lyrica. Restarted the Lyrica. Oxycodone and Dilaudid as needed 5. Anemia Hemoglobin currently in 7's. Likely from surgical blood loss. Monitor and transfuse at Hgb <7. 6. Thrombocytosis Platelet count is improving. Resolved issue Sepsis Code status Full Prophylaxis lovenox Disposition SNF. Awaiting abx approval. Patient happy to stay in hospital for weeks. Quality VTE Deep Vein Thrombosis/Pulmonary Embolism Present on Admission: No
--- NOTE | 2023-11-06 15:11 | OT.IPNOTE ---
Pt states just walked the hallway with PT prior and also tired from taking a shower this morning as well.
[2023-11-06 16:00] VITALS: BP 125/76; PULSE 101; RESP 16; TEMP 36.9; O2SAT 91
[2023-11-06 20:00] VITALS: BP 120/64; PULSE 94; RESP 17; TEMP 36.7; O2SAT 92
[2023-11-06] MEDS: ATORVASTATIN 20 MG TABLET PO (20:32)
[2023-11-07] VITALS: BP 149/77; PULSE 89; RESP 19; TEMP 37.1; O2SAT 95
[2023-11-07] MEDS: VANCOMYCIN 1,250 MG/250 ML PIGGYBACK 250 MG IV ×2 (02:22→11:26)
[2023-11-07] MEDS: OXYCODONE IR 10 MG TABLET PO ×7 (03:26→23:51)
[2023-11-07] MEDS: PIPERACILLIN/TAZO 4.5 GM in SODIUM CHLORIDE 0.9% 100 ML IV ×3 (03:40→20:01)
[2023-11-07 04:00] VITALS: BP 117/74; PULSE 89; RESP 17; TEMP 36.3; O2SAT 93
[2023-11-07 05:48] LABS: Add Manual Diff / Slide Review NO; Basophils Absolute Auto 100 /uL (0-100); Basophils Percent Auto 0.8 % (0-2); Eosinophils Absolute Auto 200 /uL (0-450); Eosinophils Percent Auto 1.6 % (2-4); Hematocrit 22.6 % (36-46); Hemoglobin 7.1 g/dL (12.0-16.0); Lymphocytes Absolute Auto 1300 /uL (1100-4500); Lymphocytes Percent Auto 9.5 % (25-40); Mean Corpuscular HGB Conc 31.6 % (30-36); Mean Corpuscular Hemoglobin 23.4 PG (26-34); Mean Corpuscular Volume 73.9 fL (80-100); Monocytes Absolute Auto 800 /uL (0-900); Monocytes Percent Auto 6.2 % (3-14); Neutrophils Absolute Auto 10900 /uL (1500-7000); Neutrophils Percent Auto 81.9 % (50-75); Platelet Count 531 X10^3/uL (150-400); Red Blood Cell Count 3.05 X10^6/uL (4.0-5.2); Red Cell Distribution Width 18.1 % (11.6-14.8); White Blood Cell Count 13.3 X10^3/uL (4.5-11.0)
[2023-11-07] MEDS: PANTOPRAZOLE DR 20 MG TABLET PO (05:53)
[2023-11-07 05:56] LABS: Blood Urea Nitrogen 13 mg/dL (7-17); Calcium 8.1 mg/dL (8.4-10.2); Carbon Dioxide 31 mmol/L (22-32); Chloride 104 mmol/L (98-107); Estimated Glomerular Filt Rate > 60 mL/min (>60); Glucose 115 mg/dL (80-110); HEMOLYSIS < 15 (0-50); Potassium 3.7 mmol/L (3.4-5.1); Sodium 136 mmol/L (137-145)
[2023-11-07] MEDS: SODIUM CHLORIDE 0.9% FLUSH 10 ML IV ×3 (06:38→21:04)
[2023-11-07 08:00] VITALS: BP 132/75; PULSE 89; RESP 18; TEMP 36.5; O2SAT 93
[2023-11-07] MEDS: PREGABALIN 75 MG CAPSULE PO ×2 (09:09→21:04)
[2023-11-07] MEDS: BUSPIRONE 5 MG TABLET 15 MG PO ×2 (09:09→21:02)
--- NOTE | 2023-11-07 11:48 | PT.IPTN ---
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) Surgery Performed Operation Date: 10/30/23 16:30 Actual Procedures p Colon Resection - Severo Butler MD Physical Therapy Treatment Note M2 PT-IP Current Condition Start: 11/01/23 13:45 Freq: NEEDED Status: Active Protocol: Document 11/01/23 10:25 AB (Rec: 11/01/23 13:59 AB [id number]) Physical Therapy Current Condition Current Condition Evaluation Date 11/01/23 Treatment Diagnosis sepsis; abscess of sigmoid colon s/p colectomy; difficulty in walking Onset Date 10/29/23 M3 PT-IP Subjective Start: 11/01/23 13:45 Freq: NEEDED Status: Active Protocol: Document 11/07/23 12:05 TS (Rec: 11/07/23 12:24 TS [id number]) Subjective Physical Therapy Visit Type Type Treatment Note Visit Start Time 11:48 Visit Stop Time 12:03 Number of MANUFACTURING MANAGEMENT ASSOCIATE Visits 1 Physical Therapy Visit Comments Patient Comments Pt was found resting in bed, she reports she is getting up with nursing and family taking walks. Pt initially did not want to participate with PT, with some motivation she agreed. Therapy Pain Assessment Pain When Pain Assessed At Rest Pain Present Pain Present Denied Pain M4 PT-IP Mobility and Gait Start: 11/01/23 13:45 Freq: NEEDED Status: Active Protocol: Document 11/07/23 12:05 TS (Rec: 11/07/23 12:24 TS [id number]) PT-Bed Mobility Assessment Rolling Type of Rolling Log Rolling Level of Assist Independent Supine to Sit Supine to Sit Independent,Bedrails Scooting Scooting to Edge of Bed Independent PT-Transfer Assessment Sit to and From Stand Sit to and from Stand Independent Equipment Transfer Assistive Device Gait Belt,Front Wheeled Walker Orthotic/Prosthetic Devices or Brace: No Comments Mobility Comments She performed logroll to L side Ind with good carryover of sequencing. STS with FWW Ind, pt has good standing balance. She ambulated ~150' SBA with FWW, had no buckling or LOB. She performed steps SBA with single rail, pt reported some pain in abdomen when ascending step. Pt was left in chair, all needs met. Gait Assessment Gait Gait Assistance Required: Standby Assistance Distance (Feet) 150 Able to Maintain Weight Bearing Status Yes During Gait Assistive Devices Assistive Device Gait Belt,Front Wheeled Walker Orthotic/Prosthetic Devices or Brace: No Gait Deviations General Gait Pattern Antalgic,Decreased Stride Length,Decreased Feet Clearance Factors Limiting Gait Function Factors Limiting Gait Function Decreased Activity Tolerance, Decreased Strength,Pain,Poor Balance,Poor Safety Awareness Comments Gait Comments See mobility comments Stair Climbing Assessment Evaluation Level of Assist On Stairs Standby Assistance Devices Stair Climbing Assistive Devices Left Railing Technique/Endurance Stair Climbing Direction Ascend and Descend Stair Climbing Technique Step to Step Number of Steps Climbed 3 Comments Stair Climbing Comments See mobility comments PT-Balance Assessment Sitting Balance and Reactions Static Sitting Balance Ability Normal Dynamic Sitting Balance Ability Good Standing Balance and Reactions Static Standing Balance Ability Good Dynamic Standing Balance Ability Good Device Used FWW M5 PT-IP Objective Assessments Start: 11/01/23 13:45 Freq: NEEDED Status: Active Protocol: Document 11/01/23 10:25 AB (Rec: 11/01/23 13:59 AB [id number]) Orientation Orientation/Cognition Level of Alertness Alert Orientation Name,Place,Situation Safety Awareness Decreased Safety Awareness Memory Description No Deficits Noted Gross Range of Motion Lower Extremity ROM Assessment Within Functional Limits Strength Lower Extremity Strength Hip 4-/5 Knee 4-/5 Sensation Assessment Sensation Gross Sensation Right LE Impaired,Left LE Impaired Comments Sensation Comments chronic numbness on BLE per pt due to pinched nerves due to her scoliosis Muscle Tone Muscle Tone WNL Yes M6 PT-IP Treatment Start: 11/01/23 13:45 Freq: NEEDED Status: Active Protocol: Document 11/07/23 12:05 TS (Rec: 11/07/23 12:24 TS [id number]) Physical Therapy Treatment Education Education Provided Precautions,Safety M7 PT-IP Assessment and Plan Start: 11/01/23 13:45 Freq: NEEDED Status: Active Protocol: Document 11/07/23 12:05 TS (Rec: 11/07/23 12:24 TS [id number]) PT Summary Assessment and Plan Potential Rehabilitation Potential Good Summary Impairments Pain,ROM,Strength,Balance,Bed Mobility,Transfers,Gait, Activity Tolerance Progress Towards Goals Progressing Toward Goals Assessment Summary Pt is progressing well with her mobility. She performs bed mobility Ind with use of rails and from flat bed. She continues to ambulate around unit SBA with FWW. She performed steps x3 with use of single rail SBA, had no LOB. She demonstrates good carryover of mobility and precautions. She reports ambulating with nurses and family members throughout the day. PT is recommending home with assist and HHPT. Goals Bed Mobility Goal Independent Transfer Goal Independent,Front Wheeled Walker Gait Goal Independent,Front Wheel Walker Gait Distance 200 Other Goals improve transfers and ambulation without AD/LRAD 300 ft mod I up/down 2 steps R rail ascending mod I Days to Meet Goals 10 Frequency of Treatment Frequency Of Treatment Once a Day Treatment Plan Physical Therapy Treatment Plan Bed Mobility Training,Transfer Training,Gait Training, Therapeutic Exercise,Balance Retraining,Post Op Education, Discharge Planning,Hot or Cold Pack,Neuromuscular Re-ed, Coordination Retraining,Manual Therapy Precautions Abdominal Surgery Precautions Log Roll,Lifting Restrictions, Gait Belt above Incisional Area Recommendations To Nursing Amount of Assist Needed Standby Assistance Discharge Recommendations PT Discharge Recommendations Home with Assistance,Home Health Other Discharge Recommendations Recommending d/c from PT. Pt is safe to mobilize with nursing staff and family. Has no needs from PT. Equipment Needed for Home Before FWW Discharge Transportation Needs at Discharge Private Vehicle
[2023-11-07 12:00] VITALS: BP 137/77; PULSE 88; RESP 18; TEMP 36.6; O2SAT 95
--- NOTE | 2023-11-07 12:26 | PT-IP ANOTE ---
Pt up walking with daughter and nsg. No more acute PT needs. Will d/c PT order.
--- NOTE | 2023-11-07 13:06 | OT.IPNOTE ---
Pt states has been doing her ADL needs while in the hospital and therefore to discharge pt from OT services at this time. Pt to focus on PT needs and eventually to be able to do all her needs without devices.
--- NOTE | 2023-11-07 13:29 | PM.PN.1 ---
Subjective Subjective Interval history: No complaints today. Hg down to 7.1, but no shortness of breath, dizziness, or other symptoms. Also waiting on SNF approval. Exam Vital Signs (past 8 hours): - 11/07/23 07:00 11/07/23 08:00 11/07/23 12:00 Temperature 97.7 F 97.9 F Pulse Rate 89 88 Respiratory Rate 18 18 Blood Pressure 132/75 137/77 Pulse Oximetry 93 95 Oxygen Delivery Method Room Air Oxygen Flow Rate 0 0 Fraction of Inspired Oxygen 40 Oxygen Delivery Method Room Air Oxygen Flow Rate 0 Narrative Exam Narrative: GEN: Middle-aged female, Alert and oriented x 3, NAD HEENT:NC, Face symmetric CHEST: Respiratory excursions symmetric, CTAB CV: RRR, no M/R/G ABD: Moderately distended, BT present in all 4 quadrants, no output from colostomy, some gas EXTR: warm, well perfused, no C/C/trace bilateral lower extremity edema SKIN: warm and dry, no rash NEURO: Alert and oriented x 3, nonfocal Objective Labs 11/07/23 05:18 11/07/23 05:18 Labs: Laboratory Results - last 24 hr 11/07/23 05:18 WBC 13.3 H RBC 3.05 L Hgb 7.1 L Hct 22.6 L MCV 73.9 L MCH 23.4 L MCHC 31.6 RDW 18.1 H Plt Count 531 H Neut % (Auto) 81.9 H Lymph % (Auto) 9.5 L [place] % (Auto) 6.2 Eos % (Auto) 1.6 L Baso % (Auto) 0.8 Neut # (Auto) 81009 H Lymph # (Auto) 1300 [place] # (Auto) 800 Eos # (Auto) 200 Baso # (Auto) 100 Sodium 136 L Potassium 3.7 Chloride 104 Carbon Dioxide 31 BUN 13 Creatinine 0.59 Estimated GFR > 60 BUN/Creatinine Ratio 22.0 Glucose 115 H Calcium 8.1 L PFSH Surgical History History of carpal tunnel repair Status post hysterectomy History of carpal tunnel repair Family History Brother Age: 51 Mental health problem ADHD (attention deficit hyperactivity disorder) Mother Age: 85 Hypertension High cholesterol Mental health problem Stroke Sister Age: 65 Hypertension High cholesterol Social History household members: none Smoking Status: Never smoker alcohol intake: current Assessment & Plan Assessment & Plan narrative: 1. 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 Previous IR drainage culture grew strep mitis, pseudomonas and enterococcus gallinarum. -per ID, plan for IV dapto plus zosyn x2 weeks with outpatient follow up. -gen surg following -per gen surg keep ramirez x2 weeks then CT cystogram to confirm if can be removed -PICC in place 2. Hypertension Pressures remain normotensive. Antihypertensives have been held for now. 3. GERD At baseline is on omeprazole. Continue pantoprazole. 4. Chronic pain Patient takes tramadol at baseline well as Lyrica. Restarted the Lyrica. Oxycodone and Dilaudid as needed 5. Anemia Hemoglobin currently in 7's. Likely from surgical blood loss. Monitor and transfuse at Hgb <7. Slightly lower at 7.1 today, continue to monitor with CBC tomorrow. 6. Thrombocytosis Platelet count is improving. Resolved issue Sepsis Code status Full Prophylaxis lovenox Disposition SNF. Awaiting approval. Possible discharge tomorrow depending on insurance auth, stability of anemia. Discussed with surgeon and case management to contribute to the above history, assessment and plan. Quality VTE Deep Vein Thrombosis/Pulmonary Embolism Present on Admission: No
[2023-11-07 16:00] VITALS: BP 127/75; PULSE 99; RESP 18; TEMP 36.8; O2SAT 93
[2023-11-07] MEDS: DAPTOMYCIN IV (16:38)
[2023-11-07] MEDS: SODIUM CHLORIDE 0.9% IV (16:38)
--- NOTE | 2023-11-07 19:40 | P.PN_ITS ---
Subjective Subjective Date Patient Seen: 11/07/23 Time Patient Seen: 19:40 Interval history: No major events Awaiting SNF placement Exam Vital Signs (past 8 hours): - 11/07/23 12:00 11/07/23 16:00 Temperature 97.9 F 98.2 F Pulse Rate 88 99 H Respiratory Rate 18 18 Blood Pressure 137/77 127/75 Pulse Oximetry 95 93 Oxygen Flow Rate 0 0 Fraction of Inspired Oxygen 40 Oxygen Delivery Method Room Air Oxygen Flow Rate 0 Narrative Exam Narrative: Gen-Adult woman alert and oriented Abdomen-Soft colostomy productive Objective Labs 11/07/23 05:18 11/07/23 05:18 Labs: Laboratory Results - last 24 hr 11/07/23 05:18 WBC 13.3 H RBC 3.05 L Hgb 7.1 L Hct 22.6 L MCV 73.9 L MCH 23.4 L MCHC 31.6 RDW 18.1 H Plt Count 531 H Neut % (Auto) 81.9 H Lymph % (Auto) 9.5 L [place] % (Auto) 6.2 Eos % (Auto) 1.6 L Baso % (Auto) 0.8 Neut # (Auto) 52552 H Lymph # (Auto) 1300 [place] # (Auto) 800 Eos # (Auto) 200 Baso # (Auto) 100 Sodium 136 L Potassium 3.7 Chloride 104 Carbon Dioxide 31 BUN 13 Creatinine 0.59 Estimated GFR > 60 BUN/Creatinine Ratio 22.0 Glucose 115 H Calcium 8.1 L PFSH Surgical History History of carpal tunnel repair Status post hysterectomy History of carpal tunnel repair Family History Brother Age: 51 Mental health problem ADHD (attention deficit hyperactivity disorder) Mother Age: 85 Hypertension High cholesterol Mental health problem Stroke Sister Age: 65 Hypertension High cholesterol Social History household members: none Smoking Status: Never smoker alcohol intake: current Assessment & Plan Post-op Postoperative Procedures: Procedures Operation Date: 10/30/23 16:30 Actual Procedure Side Surgeon p Colon Resection Severo Butler MD Postoperative status narrative: POD 8 [place] for perf diverticulitis with colovesicular fistula. -CT cystogram at 2 weeks post op if neg remove catheter -Awaiting SNF Quality VTE Deep Vein Thrombosis/Pulmonary Embolism Present on Admission: No
[2023-11-07 20:00] VITALS: BP 130/77; PULSE 91; RESP 18; TEMP 36.5; O2SAT 94
[2023-11-07] MEDS: ATORVASTATIN 20 MG TABLET PO (21:02)
[2023-11-08] VITALS: BP 137/77; PULSE 62; RESP 17; TEMP 36.4; O2SAT 94
[2023-11-08] MEDS: OXYCODONE IR 10 MG TABLET PO ×3 (03:16→09:11)
[2023-11-08] MEDS: PIPERACILLIN/TAZO 4.5 GM in SODIUM CHLORIDE 0.9% 100 ML IV (03:16)
[2023-11-08 04:00] VITALS: BP 141/74; PULSE 91; RESP 19; TEMP 36.5; O2SAT 95
[2023-11-08] MEDS: PANTOPRAZOLE DR 20 MG TABLET PO (05:40)
[2023-11-08 06:36] LABS: Add Manual Diff / Slide Review NO; Basophils Absolute Auto 100 /uL (0-100); Basophils Percent Auto 0.8 % (0-2); Eosinophils Absolute Auto 300 /uL (0-450); Eosinophils Percent Auto 2.2 % (2-4); Hematocrit 24.2 % (36-46); Hemoglobin 7.6 g/dL (12.0-16.0); Lymphocytes Absolute Auto 900 /uL (1100-4500); Lymphocytes Percent Auto 7.1 % (25-40); Mean Corpuscular HGB Conc 31.4 % (30-36); Mean Corpuscular Volume 73.3 fL (80-100); Monocytes Absolute Auto 700 /uL (0-900); Neutrophils Absolute Auto 11200 /uL (1500-7000); Neutrophils Percent Auto 84.9 % (50-75); Platelet Count 572 X10^3/uL (150-400); Red Cell Distribution Width 18.1 % (11.6-14.8); White Blood Cell Count 13.2 X10^3/uL (4.5-11.0)
[2023-11-08 06:54] LABS: BUN Creatinine Ratio 14.5 (6-22); Blood Urea Nitrogen 8 mg/dL (7-17); Calcium 7.8 mg/dL (8.4-10.2); Carbon Dioxide 32 mmol/L (22-32); Chloride 103 mmol/L (98-107); Estimated Glomerular Filt Rate > 60 mL/min (>60); Glucose 102 mg/dL (80-110); HEMOLYSIS < 15 (0-50); Potassium 3.1 mmol/L (3.4-5.1); Sodium 136 mmol/L (137-145)
[2023-11-08 08:00] VITALS: BP 160/74; PULSE 107; RESP 19; TEMP 36.4; O2SAT 95
[2023-11-08] MEDS: PREGABALIN 75 MG CAPSULE PO (09:11)
[2023-11-08] MEDS: BUSPIRONE 5 MG TABLET 15 MG PO (09:11)
--- NOTE | 2023-11-08 09:38 | P.DS_ITS ---
History of Present Illness History of Present Illness Date Patient Seen: 11/08/23 Time Patient Seen: 09:38 Chief complaint: Diverticulitis flare up Narrative: This is a 63-year-old female with history of hypertension, cirrhosis, ADHD, a neurostimulator, and chronic pain who presented with diverticulitis. She had had this before. She was admitted to this hospital from October 10 to October 17 for diverticulitis and treated with IV antibiotics. She was discharged on October 17 2 nursing home. She had an additional 5 days of IV antibiotics after discharge. The patient did have an abscess noted during that hospitalization which was drained on October 15 by Interventional Radiology. She returned home from nursing home facility to her home on [address] and did well. She thought she was improving through yesterday. She then developed severe suprapubic right sided anterior and posterior pain today. 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 She was seen by General surgery in the emergency department, they recommend a sigmoid colectomy on October 29. She was started on IV antibiotics. She denies fevers, chills, vomiting, or diarrhea. She also notes some particulate matter in her bladder but no fecal matter. She was tachycardic in the emergency department with a lactic acid pending and IV fluids started. Platelet count is 1040, acute phase reactant. Discharge Providers Provider Date of admission: 10/29/23 17:28 Discharge Date: 11/08/23 Primary care physician: Julia Lindo MD Consults: 10/29/23 18:11 Consult to General Surgery Routine Comment: Consulting Provider: Severo Butler Reason for consultation: Diverticulitis with Fistula Has provider been notified: Yes 10/31/23 15:40 Consult to Occupational Therapy Evaluate & Treat Comment: Physician Instructions: Evaluate and treat Consult to Physical Therapy Evaluate & Treat Comment: Physician Instructions: Evaluate and Treat Discharge provider: Hira Humphries DO Summary Hospital Course Discharge Diagnosis: 1. Sepsis ruled out. 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 2. Hypertension 3. GERD 4. Chronic pain 5. Anemia 6. Thrombocytosis, improved Hospital Course: This is a 63 year old female with PMH of HTN, GERD, chronic pain, anemia recently admitted with diverticular abscess who presented with worsening pain and had ex-lap with partial colectomy and colostomy placement with general surgery. Initially there was concern for sepsis however SOFA score was 0 so sepsis is ruled out. Based on her previous culture with polymicrobial infection she was started on zosyn and vancomycin for antimicrobial therapy. Once cultures finalized case was discussed with infectious disease whom recommended initiation of daptomycin (for enterococcus) with zosyn (anti-pseudomonal dosing as previous cultures with pseudomonas). Infectious disease recommended two week course at minimum with outpatient follow up. She will need labs on Mondays and including a CBC, CMP, CPK, and CRP per infectious disease provider. She has an appointment scheduled for next 11/12/[address] Pina. Her anemia was stable over the course of admission, dropped as low as 7.1 but did not require transfusion. Pain was controlled at the time of discharge, she had gas and some stool output from colostomy. She returned to [facility] for ongoing PT and OT as well as continued antibiotic therapy at discharge. Time Spent with Patient Time spent: Greater than 30 minutes Exam Vital Signs (past 8 hours): - 11/08/23 04:00 Temperature 97.7 F Pulse Rate 91 H Respiratory Rate 19 Blood Pressure 141/74 H Pulse Oximetry 95 Oxygen Flow Rate 0 Fraction of Inspired Oxygen 40 Oxygen Delivery Method Room Air Oxygen Flow Rate 0 Narrative Exam Narrative: GEN: Middle-aged female, Alert and oriented x 3, NAD HEENT:NC, Face symmetric CHEST: Respiratory excursions symmetric, CTAB CV: RRR, no M/R/G ABD: Moderately distended, BT present in all 4 quadrants, no output from colostomy, some gas EXTR: warm, well perfused, no C/C/trace bilateral lower extremity edema SKIN: warm and dry, no rash NEURO: Alert and oriented x 3, nonfocal Objective Labs 11/08/23 06:20 11/08/23 06:20 Labs: Laboratory Results - last 24 hr 11/08/23 06:20 WBC 13.2 H RBC 3.30 L Hgb 7.6 L Hct 24.2 L MCV 73.3 L MCH 23.0 L MCHC 31.4 RDW 18.1 H Plt Count 572 H Neut % (Auto) 84.9 H Lymph % (Auto) 7.1 L [place] % (Auto) 5.0 Eos % (Auto) 2.2 Baso % (Auto) 0.8 Neut # (Auto) 66874 H Lymph # (Auto) 900 L [place] # (Auto) 700 Eos # (Auto) 300 Baso # (Auto) 100 Sodium 136 L Potassium 3.1 L Chloride 103 Carbon Dioxide 32 BUN 8 Creatinine 0.55 Estimated GFR > 60 BUN/Creatinine Ratio 14.5 Glucose 102 Calcium 7.8 L PFSH Surgical History History of carpal tunnel repair Status post hysterectomy History of carpal tunnel repair Family History Brother Age: 51 Mental health problem ADHD (attention deficit hyperactivity disorder) Mother Age: 85 Hypertension High cholesterol Mental health problem Stroke Sister Age: 65 Hypertension High cholesterol Social History household members: none Smoking Status: Never smoker alcohol intake: current Discharge Plan Discharge Plan Patient Disposition: SNF Transfer to: [facility] Provider Discharge Comment: 63 F admitted with diverticulitis s/p ex-lap with colostomy placement, possible bladder injury. Continues on IV antibiotics of zosyn and daptomycin via PICC line, will need follow up with Dr. Pina in infectious disease within 2 weeks (Referral faxed to their clinic). Will need outpatient follow up with general surgery for post op check. Continues with ramirez catheter for at least two weeks and will need cystogram prior to removal. Discharge orders & Medications Prescriptions: New oxycodone 5 mg Tablet 5 - 10 mg PO Q4HR PRN (Reason: Pain, Moderate (4-6)) 7 Days Qty: 30 0RF piperacillin-tazobactam 4.5 gram recon soln 4.5 g IV Q8H 14 Days daptomycin 350 mg Recon Soln 630 mg IV Q24H 14 Days Qty: 14 0RF Continued buspirone 15 MG tablet 15 mg PO BID Qty: 60 3RF methocarbamol 500 mg tablet 500 - 1,000 mg PO Q6H PRN (Reason: muscle spasm) alendronate 70 mg tablet 70 mg PO WEEKLY Rx Instructions: Takes on -states she hasn't taken it in a while amlodipine 5 mg tablet 5 mg PO DAILY omeprazole 20 mg capsule,delayed release(DR/EC) 20 mg PO DAILY rosuvastatin 10 mg tablet 10 mg PO BEDTIME Patient Comments: TAKE ONE(1) TABLET BY MOUTH ONCE DAILY hydrochlorothiazide 25 mg tablet 25 mg PO DAILY Patient Comments: TAKE ONE(1) TABLET BY MOUTH ONCE DAILY pregabalin 75 mg capsule 75 mg PO BID Qty: 30 0RF ibuprofen 600 MG tablet 600 mg PO Q6HP PRN (Reason: Pain (Scale Score 4-6)) Discontinued lisinopril 40 mg tablet 40 mg PO DAILY tramadol 50 mg Tablet 50 mg PO QID PRN (Reason: Pain, Moderate (4-6)) Qty: 20 0RF Follow up/Referrals: Yolanda Pina MD [Non-Staff] - 2 Weeks Julia Lindo MD [Primary Care Provider] - Severo Butler MD [Physician] - 1 Week Other Ambulatory Orders: Referral to: (Schedule) Timeframe: 2 Weeks Location: Determined by Patient Ordered By: Hira Humphries Discharge Health Status Multidrug resistant organism: No MDRO Precautions: [place] Diet/Activity/Treatments Diet: Diet as Tolerated and Carb-consistent/Diabetic Liquid consistency: Normal/Thin Food texture: Regular Diet comment: As tolerated Activity: As tolerated, no heavy lifting >10-15 lbs for 4-6 weeks. Catheter: 2-way Ramirez Catheter comment: should remain until cystogram done per surgery recommendations Other treatments: Colostomy care Skin/Wound/Dressing Care Dressing: PICC line Special Rehabilitation [facility] Reason for rehabilitation: Post-operative therapy Rehab type: Physical therapy and Occupational therapy Visit Report/Discharge Packet Instructions: How to Care for Your Colostomy or Ileostomy Stand Alone Forms: Patient Portal/API Discharge Data Primary Care Provider: Julia Lindo Quality VTE Deep Vein Thrombosis/Pulmonary Embolism Present on Admission: No
--- NOTE | 2023-11-08 10:28 | PC.NURSE ---
Day shift: Pt going to [facility] at approx 1100 today. PICC and aKye are to stay in place per Dr Humphries.
--- NOTE | 2023-11-08 10:37 | CM.DPNOTE ---
DC Note Discharge to [facility]. 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 Patient remains aware and agreeable to plan. Dr Humphries completing SNF orders and BAMBI Curran assisting with discharge coordination. [facility] completed, signed and faxed to Shelby Da[facility] marine consultant. Plan: Discharge today to [facility] via w/c anni. SHANNAN
--- NOTE | 2023-11-08 11:07 | PC.NURSE ---
Day shift: Report given to RN at [facility] [place] at approx 1105. All questions answered. Pt left unit at approx 1110 and is headed to [facility] [place]. Has all personal belongings. Colostomy functioning well with good stool output. Midline Aquacel remains CDI.
== END 2023-11-08 11:22 | DRG 329 ==
LOC: ED 17:23 → AC 17:29 → ICU 10-30 17:12
PROVIDERS: Family Medicine; Internal Medicine Critical Care Medicine; Student in an Organized Health Care Education/Training Program; Surgery; Admitting Provider Hospitalist; Emergency Provider Emergency Medicine; Family Provider Nurse Practitioner; PCP Family Medicine; Referring Provider Emergency Medicine; Visit Provider Hospitalist
PROC: 0DTN0ZZ Resection of Sigmoid Colon, Open Approach (ICD-10-PCS; CPT 44140; principal; 2023-10-30 16:30)
DX: K57.20 Diverticulitis of large intestine with perforation and abscess without bleeding (principal); K65.1 Peritoneal abscess; K65.9 Peritonitis, unspecified; N32.1 Vesicointestinal fistula; K63.2 Fistula of intestine; I10 Essential (primary) hypertension; K21.9 Gastro-esophageal reflux disease without esophagitis; G89.29 Other chronic pain; D64.9 Anemia, unspecified; D75.839 Thrombocytosis, unspecified; B95.2 Enterococcus as the cause of diseases classified elsewhere
CPT/HCPCS: 36415; 36569; 36592; 36600; 71045; 74177; 80048; 80053; 80202; 81001; 82805; 82962; 83605; 83690; 83735; 84145; 85025; 85610; 87040; 87070; 87075; 87077; 87086; 87186; 87205; 87797; 93005; 93010; 94002; 94003; 94799; 96374; 96375; 97116; 97162; 97166; 97530; 97535; 99284; 99285; C1781; C9290; J0878; J1100; J1170; J1815; J2250; J2270; J2405; J2543; J2704; J3010; J7050; Q9967

== ENCOUNTER → 2023-11-20 13:17 | Outpatient (CLI) | payer MEDICARE, MEDICAID, SELFPAY ==
[2023-10-29 18:10] VITALS: BMI 37.5
[2023-10-31 07:11] VITALS: PULSE 102; RESP 17; O2SAT 97
--- NOTE | 2023-11-20 13:19 | DI.CT.S_ITS ---
PROCEDURE: CT CYSTOGRAM INDICATIONS: Vesicointestinal fistula TECHNIQUE: Both before and after gravity instillation of 10% Isovue contrast solution into the bladder through a Humphreys catheter, 5 mm axial images acquired from the bladder dome to the symphysis. 5 mm thick coronal and sagittal reformats were acquired. For radiation dose reduction, the following was used: automated exposure control, adjustment of mA and/or kV according to patient size. COMPARISON: [facility], CT, CT ABDOMEN PELVIS W CON, 10/29/2023, 15:39. FINDINGS: Image quality: Diagnostic. Bladder: Prior to administration of bladder contrast, Humphreys catheter and air is present within the urinary bladder. The bladder was distended with contrast. No extraluminal contrast identified. Distal Ureters: No abnormal distension. PELVIS: Peritoneum and Bowel: Partial colectomy, with left lower quadrant diverting colostomy. Persistent fat stranding in the deep pelvis. Pelvic Organs: No pelvic mass. Pelvic Nodes: No enlarged lymph nodes. Miscellaneous: Fluid collection along the anterior margin of the rectus abdominus muscle measuring 9.1 x 1.8 centimeter, probably a postoperative seroma. Bones: No aggressive osseous abnormality. Degenerative disc disease of the lumbar spine. IMPRESSION: No extraluminal contrast outside of the urinary bladder. Other chronic findings as above. Dictated by: Nithin Carter M.D. on 11/20/2023 at 16:56 Approved by: Nithin Carter M.D. on 11/20/2023 at 16:59
== END ==
PROVIDERS: Family Provider Nurse Practitioner; PCP Family Medicine; Visit Provider Registered Nurse
DX: N32.1 Vesicointestinal fistula (principal); M51.36 Other intervertebral disc degeneration, lumbar region; Z93.3 Colostomy status
CPT/HCPCS: 72194; Q9967

== ENCOUNTER → 2024-03-24 13:40 | Outpatient (CLI) | payer MEDICARE, MEDICAID, SELFPAY ==
[2023-10-29 18:10] VITALS: BMI 37.5
[2023-10-31 07:11] VITALS: PULSE 102; RESP 17; O2SAT 97
--- NOTE | 2024-03-24 13:42 | DI.CT.S_ITS ---
PROCEDURE: CT ABDOMEN ADRENAL PROTOCOL INDICATIONS: ADRENAL NODULE TECHNIQUE: Noncontrast 3 mm thick sections acquired from the diaphragms to the iliac crests. After the administration of intravenous contrast, 3 mm thick venous-phase and 15-minute delayed images acquired from the diaphragms to the iliac crests. For radiation dose reduction, the following was used: automated exposure control, adjustment of mA and/or kV according to patient size. COMPARISON: [facility], CT, CT ABDOMEN PELVIS W CON, 10/11/2023, 16:03. [facility], CT, CT ABDOMEN PELVIS W CON, 10/29/2023, 15:39. FINDINGS: Image quality: Excellent. Lower chest: Unremarkable. ABDOMEN: Adrenal Glands: Ovoid, bilobed 4.0 cm left adrenal nodule with pre and post Hounsfield unit measurements consistent a benign lipid rich adenoma. No right adrenal mass. Liver: No solid mass. Gallbladder: No wall thickening or calcified stones. Phrygian cap morphology is also present. Biliary ducts: No biliary dilation. Pancreas: Normal size and morphology without visible ductal dilatation or inflammation. Spleen: Size is within normal limits. Kidneys and Ureters: No definite solid mass. Right renal cysts. No hydronephrosis or nephrolithiasis. Stomach and Bowel: Stomach and visible bowel loops are within normal limits. Partially imaged normal appendix. Peritoneum: No abnormal intraperitoneal fluid. No free air. Ventral Wall: No hernia. Partially imaged probable mesh umbilical hernia repair. Abdominal Nodes: No retroperitoneal or mesenteric adenopathy by size criteria. Vessels: Aorta and inferior vena cava are normal in size. Bones: No aggressive osseous abnormality. IMPRESSION: 4.0 cm left adrenal adenoma, similar size compared to prior exams. 6-12 month follow-up is recommended to assess for size change. Dictated by: Susanna Frost M.D. on 03/24/2024 at 20:17 Approved by: Susanna Frost M.D. on 03/24/2024 at 20:27
[2024-03-24 14:07] LABS: Estimated Glomerular Filt Rate > 60 mL/min (>60)
== END ==
LOC: CT 13:41
PROVIDERS: Radiology Diagnostic Radiology; Family Provider Nurse Practitioner; PCP Family Medicine; Referring Provider Physician Assistant Medical; Visit Provider Physician Assistant Medical
DX: D35.02 Benign neoplasm of left adrenal gland (principal); E27.8 Other specified disorders of adrenal gland
CPT/HCPCS: 36415; 74170; 82565; Q9967

== ENCOUNTER 2024-04-22 11:23 | Inpatient (IN) | payer MEDICARE, MEDICAID, SELFPAY ==
[2023-10-29 18:10] VITALS: BMI 37.5
[2023-10-31 07:11] VITALS: PULSE 102; RESP 17; O2SAT 97
[2024-04-20 10:34] VITALS: BMI 37.1
[2024-04-22] VITALS (13 sets, daily range): BP systolic 111–160; BP diastolic 78–110; PULSE 102–127; RESP 14–20; TEMP 36.2–37.4; O2SAT 93–99; BMI 36.0; BMI 41.8
[2024-04-22] MEDS: LACTATED RINGERS 1,000 ML 21 ML IV ×2 (12:41→16:36)
--- NOTE | 2024-04-22 12:51 | P.HP_ITS ---
History of Present Illness History of Present Illness Date Patient Seen: 04/22/24 Time Patient Seen: 12:51 Chief complaint: Colostomy reversal Narrative: 64F with history of perforated diverticulitis with end colostomy here for reversal. No interval change in health. [facility] Medical History (Updated 04/20/24 @ 11:05 by Dolores Grimes, RN) Decreased cardiac ejection fraction (11/29/22) Surgical History (Updated 04/20/24 @ 10:51 by Dolores Grimes RN) Status post Cristi's procedure (10/30/23) History of bilateral knee replacement History of carpal tunnel repair Status post hysterectomy History of carpal tunnel repair Family History Brother Age: 51 Mental health problem ADHD (attention deficit hyperactivity disorder) Mother Age: 85 Hypertension High cholesterol Mental health problem Stroke Sister Age: 65 Hypertension High cholesterol Social History household members: none Smoking Status: Never smoker alcohol intake: current Meds Home Medications and Allergies Home Medications Medication Instructions Recorded Confirmed Type buspirone 15 mg tablet 15 mg PO BID #60 tabs 12/19/16 04/22/24 Rx alendronate 70 mg tablet 70 mg PO WEEKLY 10/11/23 04/22/24 History amlodipine 5 mg tablet 5 mg PO DAILY 10/11/23 04/22/24 History methocarbamol 500 mg tablet 500 - 1,000 mg PO Q6H PRN muscle 10/11/23 04/22/24 History spasm omeprazole 20 mg capsule,delayed 20 mg PO DAILY 10/11/23 04/22/24 History release hydrochlorothiazide 25 mg tablet 25 mg PO DAILY 10/16/23 04/22/24 History pregabalin 75 mg capsule 75 mg PO BID #30 caps 10/18/23 04/22/24 Rx ibuprofen 600 mg tablet 600 mg PO Q6HP PRN Pain (Scale 10/29/23 04/22/24 History Score 4-6) diclofenac sodium 1 % topical gel 2 g topical .q6hr 11/29/23 04/22/24 History (Aleve (diclofenac)) lisinopril 30 mg tablet 30 mg PO DAILY 11/29/23 04/22/24 History metronidazole 0.75 % topical cream 1 applic topical BID 11/29/23 04/22/24 History tramadol 50 mg tablet 50 mg PO DAILY PRN Pain (Scale 11/29/23 04/22/24 History Score 4-6) hydromorphone 2 mg tablet 2 mg PO PRN PRN Pain (Scale Score 04/22/24 04/22/24 History (Dilaudid) 4-6) Allergies Allergy/AdvReac Type Severity Reaction Status Date / Time bupropion [BUPROPION] Allergy Intermediate shaky, Verified 04/22/24 12:10 irritable Interferons [INTERFERONS] Allergy Intermediate rash, Verified 04/22/24 12:10 headache ribavirin [RIBAVIRIN] Allergy Intermediate confusion, Verified 04/22/24 12:10 agitation Exam Vital Signs (past 8 hours): - 04/22/24 12:26 Temperature 98.6 F Pulse Rate 102 H Respiratory Rate 18 Blood Pressure 160/96 H Pulse Oximetry 96 Narrative Exam Narrative: Gen-Adult woman alert and oriented Abdomen-Soft colostomy viable. Assessment & Plan Assessment and plan (1) Colostomy in place: Status: Acute Assessment & Plan narrative: 64F with end colostomy here for reversal. She understands this is a difficult operation given her history of perforated diverticulitis. I explained that there is always a possibility I will be unable to reverse her. She understands that there is a risk of damage to surrounding structures including bowel, urinary system, vascular. She understands the risk of infection, hemorrhage, anastamotic leak. She provides her informed consent to proceed. Time-Based Coding :: [TOTAL MINUTES] spent with patient and on the chart (including review of chart, obtaining history, exam, reviewing outside data, placing orders, documenting exam and treatment plan, and counseling patient) on [DATE].
[2024-04-22] MEDS: PIPERACILLIN/TAZO 4.5 GM in SODIUM CHLORIDE 0.9% 100 ML IV ×2 (13:44→15:45)
--- NOTE | 2024-04-22 13:55 | SUR.OPER ---
Lithotomy on padded OR bed. [place] Pad Positioner under torso. Head on pillow, arms padded and extended at 90degrees. Legs secured in padded yellow fins stirrups.
[2024-04-22] MEDS: BUPIVACAINE 0.25% (PF) VIAL 30 ML INJ (14:01)
[2024-04-22] MEDS: ACETAMINOPHEN IV 1,000 MG/100 ML VIAL 400 MG IV (15:14)
[2024-04-22] MEDS: BUPIVACAINE LIPOSOME 266 MG/20 ML VIAL INJ (16:34)
--- NOTE | 2024-04-22 17:57 | PM.OP.1 ---
Operative Date/Time/Diagnoses Date of procedure: 04/22/24 Time of procedure: 17:57 Pre-op diagnosis: Colostomy Obesity Chronic pain Post-op diagnosis: same Procedure & Clinicians Procedure: Colostomy reversal Same procedure as scheduled: Yes Indications: Patient is a 64-year-old woman who presented with a colovesicular fistula perforated diverticulitis with abscess who underwent an emergent Cristi's operation 6 months ago. She returns today for colostomy reversal. She understands this is a complex operation and there some possibility that it can not be completed. She understands there are risks of infection hemorrhage anastomotic leak damage to surrounding structures. She provides informed consent to proceed. Surgeon: Severo Butler Agricultural Service Worker: Jerod Martines Anesthesia Type: General Operative Notes Findings: Extensive adhesions within the pelvis. Multiple small bowel serosal tears. Negative leak test Specimen(s): none sent Estimated Blood Loss (mL): 150 Procedure in detail: Patient was brought to the operating room placed supine on the table. Bilateral lower extremity compression devices were applied. General anesthesia was induced and she was intubated with an endotracheal tube. Humphreys catheter was sterilely placed. She was placed into lithotomy position. She was appropriately padded. Time-out was performed. She received Zosyn prior to skin incision. We opened the infraumbilical incision. There was small bowel that was plastered to the anterior abdominal wall and we performed a rather extensive lysis of adhesions using sharp dissection. There were multiple interloop adhesions as well as adhesions between the small bowel to the abdominal wall and the colon to the abdominal wall. Ultimately we are able to reach the pelvis safely. Using a Sizer within the rectum we are able to identify the rectal stump. Once we ensured that the stump was adequate and that anastomosis was possible we proceeded to take down the colostomy. An incision was made around the colostomy which was deepened through the subcutaneous tissue and it was released from the abdominal wall. The distal end of the colon was freshened. We found the rectum to accommodate a 33 mm Sizer adequately. Using a 31 mm EEA stapler and anvil was placed into the distal colon and a pursestring was fashioned using PDS suture. The stapler was then advanced through the rectum and it is point was deployed under direct visualization. The anvil and stapler were mated after being careful that there were no intervening structures and no twist to the colon the stapler was fired. Two anastomotic donuts were returned both of which were intact. Colonoscope was then placed into the colon and across the anastomosis. The anastomosis was observed it was widely patent hemostatic. There was a negative leak test after filling the pelvis with saline. We ran the small bowel in its entirety from the ligament of Treitz to the terminal ileum. There were multiple serosal tears perhaps 5 which were imbricated using silk suture. The abdomen was copiously lavaged and returned clear. Fascia at the ostomy site was closed using 0 Vicryl suture. The abdominal wall was anesthetized using 30 mL of 0.25% bupivacaine with 20 mL of Exparel. The fascia was then closed in a running manner using PDS suture. Skin incisions were irrigated and then skin was closed with john. A Erin drain was left in the ostomy site to allow for drainage. Count at the end of the operation was correct x2. She received bilateral tap blocks by the anesthesia team prior to extubation. She extubated and was transferred to recovery in stable condition. Complications: none Post-operative Condition: stable Disposition: Acute Care
--- NOTE | 2024-04-22 19:45 | PC.NURSE ---
Pt arrived from PACU at 1816. Drowsy but arousable, A&Ox3, not oriented to month. Tachycardic in 120s, diastolic BP >100, saturating between low 80s-90s on 3L NC, but O2 sats improved when NC replaced with oxymask. 2 dressings underneath abdominal binder. Dressing to L abdomen with moderate drainage, outlined by this nurse. Per PACU nurse, tommie drain located underneath this dressing. Dressing to midline incision has several spots of drainage and is leaking out the bottom. Bloody drainage found in pt's groin, between legs and on the sheet underneath. Dressing reinforced with ABD pad and Dr. Butler called about VS and leaking dressing. Per Dr. Butler, drainage is expected and nursing staff should continue to reinforce as necessary, notifying him if pt becomes hypotensive. Pt oriented to room and call light. Bed in low position, call light within reach.
[2024-04-22] MEDS: SODIUM CHLORIDE 0.9% 1,000 ML 100 ML IV (20:00)
[2024-04-22] MEDS: OXYCODONE IR 10 MG TABLET PO (20:14)
[2024-04-22] MEDS: PREGABALIN 75 MG CAPSULE PO (21:00)
[2024-04-22] MEDS: BUSPIRONE 5 MG TABLET 15 MG PO (21:00)
[2024-04-22] MEDS: CELECOXIB 200 MG CAPSULE PO (21:00)
[2024-04-23] VITALS (10 sets, daily range): BP systolic 85–117; BP diastolic 54–81; PULSE 93–123; RESP 17–20; TEMP 36.1–36.4; O2SAT 90–98
[2024-04-23] MEDS: OXYCODONE IR 10 MG TABLET PO ×3 (01:51→09:59)
[2024-04-23 05:28] LABS: Add Manual Diff / Slide Review NO; Basophils Absolute Auto 100 /uL (0-100); Basophils Percent Auto 0.5 % (0-2); Eosinophils Absolute Auto 0 /uL (0-450); Hematocrit 28.3 % (36-46); Hemoglobin 8.3 g/dL (12.0-16.0); Lymphocytes Absolute Auto 1000 /uL (1100-4500); Lymphocytes Percent Auto 6.5 % (25-40); Mean Corpuscular HGB Conc 29.3 % (30-36); Mean Corpuscular Hemoglobin 20.3 PG (26-34); Mean Corpuscular Volume 69.3 fL (80-100); Monocytes Absolute Auto 1500 /uL (0-900); Monocytes Percent Auto 9.4 % (3-14); Neutrophils Absolute Auto 13500 /uL (1500-7000); Neutrophils Percent Auto 83.6 % (50-75); Platelet Count 559 X10^3/uL (150-400); Red Blood Cell Count 4.09 X10^6/uL (4.0-5.2); Red Cell Distribution Width 23.1 % (11.6-14.8); White Blood Cell Count 16.1 X10^3/uL (4.5-11.0)
[2024-04-23] MEDS: PANTOPRAZOLE DR 20 MG TABLET PO (05:28)
[2024-04-23 05:48] LABS: BUN Creatinine Ratio 20.4 (6-22); Blood Urea Nitrogen 21 mg/dL (7-17); Calcium 7.2 mg/dL (8.4-10.2); Carbon Dioxide 24 mmol/L (22-32); Chloride 105 mmol/L (98-107); Estimated Glomerular Filt Rate > 60 mL/min (>60); Glucose 156 mg/dL (80-110); HEMOLYSIS < 15 (0-50); Potassium 4.5 mmol/L (3.4-5.1); Sodium 133 mmol/L (137-145)
[2024-04-23] MEDS: HYDROMORPHONE 2 MG TABLET PO (07:30)
[2024-04-23] MEDS: CALCIUM CARBONATE 500 MG TAB 1000 MG PO ×2 (07:37→11:11)
[2024-04-23] MEDS: methocarbamoL 500 MG TABLET PO (07:45)
--- NOTE | 2024-04-23 09:09 | P.PN_ITS ---
Subjective Subjective Date Patient Seen: 04/23/24 Time Patient Seen: 09:09 Interval history: No acute events Tolerant of sips of clears Exam Vital Signs (past 8 hours): - 04/23/24 03:00 04/23/24 04:00 04/23/24 07:44 Temperature 97.3 F L Pulse Rate 123 H Respiratory Rate 17 Blood Pressure 117/79 Pulse Oximetry 98 97 Oxygen Delivery Method Oximask Oximask Oxygen Flow Rate 2 2 2 Fraction of Inspired Oxygen 97 04/23/24 08:00 Temperature 96.9 F L Pulse Rate 122 H Respiratory Rate 18 Blood Pressure 113/81 Pulse Oximetry 95 Oxygen Delivery Method Oxygen Flow Rate 2 Fraction of Inspired Oxygen Fraction of Inspired Oxygen 97 Oxygen Delivery Method Oximask Oxygen Flow Rate 2 Narrative Exam Narrative: General adult woman alert oriented no acute distress Chest mildly labored respiration Abdomen soft appropriately tender to palpation Objective Labs 04/23/24 05:03 04/23/24 05:03 Labs: Laboratory Results - last 24 hr 04/23/24 05:03 WBC 16.1 H RBC 4.09 Hgb 8.3 L Hct 28.3 L MCV 69.3 L MCH 20.3 L MCHC 29.3 L RDW 23.1 H Plt Count 559 H Neut % (Auto) 83.6 H Lymph % (Auto) 6.5 L [place] % (Auto) 9.4 Eos % (Auto) 0.0 L Baso % (Auto) 0.5 Neut # (Auto) 59984 H Lymph # (Auto) 1000 L [place] # (Auto) 1500 H Eos # (Auto) 0 Baso # (Auto) 100 Sodium 133 L Potassium 4.5 Chloride 105 Carbon Dioxide 24 BUN 21 H Creatinine 1.03 Estimated GFR > 60 BUN/Creatinine Ratio 20.4 Glucose 156 H Calcium 7.2 L PFSH Medical History (Updated 04/20/24 @ 11:05 by Dolores Grimes RN) Decreased cardiac ejection fraction (11/29/22) Surgical History (Updated 04/20/24 @ 10:51 by Dolores Grimes RN) Status post Cristi's procedure (10/30/23) History of bilateral knee replacement History of carpal tunnel repair Status post hysterectomy History of carpal tunnel repair Family History Brother Age: 51 Mental health problem ADHD (attention deficit hyperactivity disorder) Mother Age: 85 Hypertension High cholesterol Mental health problem Stroke Sister Age: 65 Hypertension High cholesterol Social History household members: none Smoking Status: Never smoker alcohol intake: current Assessment & Plan Post-op Postoperative Procedures: Procedures Operation Date: 04/22/24 13:45 Actual Procedure Side Surgeon p Colostomy Reversal Severo Butler MD Postoperative status narrative: Postoperative day 1 status post colostomy reversal -anticipate we will need discharge to [place] [facility] based on extensive nature of yesterday's operation her lack of support and facility at home -clear liquid diet until flatus -DC IV fluids -remove Humphreys catheter -adding metoprolol for tachycardia -Wean O2, Incentive spirometry -OOB, PT OT -SCDs and pLovenox Quality VTE Deep Vein Thrombosis/Pulmonary Embolism Present on Admission: No
[2024-04-23] MEDS: PREGABALIN 75 MG CAPSULE PO ×2 (09:57→21:16)
[2024-04-23] MEDS: hydroCHLOROthiazide 25 MG TABLET PO (09:57)
[2024-04-23] MEDS: BUSPIRONE 5 MG TABLET 15 MG PO ×2 (09:58→21:22)
[2024-04-23] MEDS: ENOXAPARIN 40 MG/0.4 ML SYRINGE SUBCUT ×2 (09:58→21:22)
[2024-04-23] MEDS: AMLODIPINE 5 MG TABLET PO (09:58)
[2024-04-23] MEDS: lisinopriL 10 MG TABLET 30 MG PO (09:59)
[2024-04-23] MEDS: CELECOXIB 200 MG CAPSULE PO ×2 (10:00→21:16)
[2024-04-23] MEDS: METOPROLOL ER 25 MG TABLET PO (10:00)
[2024-04-23 10:59] LABS: Anisocytosis 2+; Hypochromasia 2+; Microcytosis 1+; Platelet Estimate Increased on smear
--- NOTE | 2024-04-23 11:27 | OT.IP.EVAL ---
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) Surgery Performed Operation Date: 04/22/24 13:45 Actual Procedures p Colostomy Reversal - Severo Butler MD Past Medical History (Last Updated 04/20/24 @ 11:05 by Dolores Grimes, RN) Decreased cardiac ejection fraction (11/29/22) Surgical History (Last Updated 04/20/24 @ 10:51 by Dolores Grimes, RN) History of bilateral knee replacement History of carpal tunnel repair History of carpal tunnel repair Status post Cristi's procedure (10/30/23) Status post hysterectomy Occupational Therapy Inpatient Evaluation/Re-Eval M1 PT/OT-IP Prior Functional Status Start: 04/23/24 11:32 Freq: NEEDED Status: Active Protocol: Document 04/23/24 11:32 [facility] (Rec: 04/23/24 11:49 [facility] [id number]) Medical Review Prior Functional Status Communication I Mobility and Gait Pt states was independent with all needs and did not use a device. Activities of Daily Living and IADL's I with all needs. Social History Household Members none Living Arrangements House Number of Floors (Floors) One Floor Number of Stairs To Enter/Railing? 2 steps to enter and right rail, but has a ramp now. Home Environment Walk in Shower Home Equipment Four Wheel Walker,Straight Cane,Bedside Commode,Shower Seat without Backrest,Hand Held Shower Additional Social History Comment Pt has an outdoor shower and uses a BSC. Pt's house is off the grid. M2 OT-IP Current Condition Start: 04/23/24 11:32 Freq: Status: Active Protocol: Document 04/23/24 11:32 [facility] (Rec: 04/23/24 11:49 [facility] [id number]) Occupational Therapy Current Condition Current Condition Evaluation Date 04/23/24 Treatment Diagnosis S/P Colostomy reversal Diagnosis Onset Date 04/22/24 Post Operative Precautions Abdominal Surgery Precautions Log Roll,Lifting Restrictions, Gait Belt above Incisional Area M3 OT- IP Subjective and Pain Start: 04/23/24 11:32 Freq: Status: Active Protocol: Document 04/23/24 11:32 [facility] (Rec: 04/23/24 11:49 [facility] [id number]) OT- Subjective Occupational Therapy Visit Type Type Initial Evaluation Visit Start Time 11:05 Visit Stop Time 11:27 Occupational Therapy Visit Comments Patient Comments Pt agreed to get up. Patient/Caregiver Goals To get better. OT Pain Assessment Pain When Pain Assessed At Rest Pain Present Pain Present Pain Reported Location Lower Abdomen Intensity 7 Scale Used Numeric (0 - 10) M4 OT- IP ADL's Start: 04/23/24 11:32 Freq: Status: Active Protocol: Document 04/23/24 11:32 [facility] (Rec: 04/23/24 11:49 [facility] [id number]) OT [id number] Comments OT Self-Feeding Comments Pt just having clear liquids. OT ADL-Grooming Comments OT Grooming Comments Pt able to wash her face after set-up. OT ADL-Oral Care Comments Oral Care Comments Not performed. OT ADL-Dressing General Eval Lower Body Dressing Ability Total Assistance Areas Needing Assistance Socks OT ADL-Toileting General Evaluation Toileting Ability Total Assistance Areas Needing Assistance Empty Catheter or Colostomy OT ADL-Bathing Comments OT Bathing Comments Sponge bath more appropriate at this time. M5 OT- IP IADL's Start: 04/23/24 11:32 Freq: Status: Active Protocol: Document 04/23/24 11:32 [facility] (Rec: 04/23/24 11:49 [facility] [id number]) OT-Instrumental Activities of Daily Living Home Safety Awareness Awareness of Need for Assistance at Home Good Awareness Ability to Problem Solve Emergency Able to Problem Solve Situations Medication Management Medication Management No Deficits Identified Money Management Money Management No Deficits Identified Meal Preparation Meal Preparation Comments Pt will need assist. Catia Designer Catia Designer Comments Pt will need assist. M6 OT- IP Functional Cognition Start: 04/23/24 11:32 Freq: Status: Active Protocol: Document 04/23/24 11:32 [facility] (Rec: 04/23/24 11:49 [facility] [id number]) Cognitive Factors Limiting Selfcare Function Cognitive Ability Level of Alertness Alert Patient Orientation Name,Age,Birthday,Month,Date, Year,Day of Week,Place, Situation Attention Span Ability Capable of Focused Attention, Capable of Sustained Attention Ability to Follow Commands Able to Follow One Step Commands Cognitive Comments Cognitive Assessment Comments Pt able to follow commands for needs. Pt getting orthrostatic and and having to lie back down. OT- Vision and Hearing OT- Hearing Assessment OT- Hearing Assessment WFL OT- Vision Assessment Visual Acuity Glasses All The Time Visual Attentiveness WFL Occular Pursuits WFL M7 OT- IP Mobility and Balance Start: 04/23/24 11:32 Freq: Status: Active Protocol: Document 04/23/24 11:32 [facility] (Rec: 04/23/24 11:49 [facility] [id number]) OT- Bed Mobility Assessment Supine to Sit Supine to Sit Assist Moderate Assistance Sit to Supine Sit to Supine Assist Maximum Assistance OT-Transfer Assessment Comments Mobility Comments Pt supine BP 99/54 and sitting 77/41 and diaphorectic. MODA to follow log rolling and assist to get the trunk upright. OT- Balance Assessment Sitting Balance and Reactions Static Sitting Balance Ability Fair Comments Other Balance Tests/Deviations/Treatment CGA to MANDEEP for sitting : balance. M8 OT- IP Objective Assessments Start: 04/23/24 11:32 Freq: Status: Active Protocol: Document 04/23/24 11:32 [facility] (Rec: 04/23/24 11:49 [facility] [id number]) OT Gross Range of Motion Upper Extremity Range of Motion Assessment Within Functional Limits OT Strength Upper Extremity Strength Assessment Within Functional Limits Comments Strength Comments WFL for mobility needs. M9 OT- IP Assessment and Plan Start: 04/23/24 11:32 Freq: Status: Active Protocol: Document 04/23/24 11:32 [facility] (Rec: 04/23/24 11:49 [facility] [id number]) OT Summary Assessment and Plan Potential Rehabilitation Potential Good Analytic Complexity at Evaluation Moderate Summary OT Impairments Pain,Strength,Balance, Functional Mobility,Grooming, Dressing,Toileting,Bathing, Toilet Transfers,Shower Transfers,Activity Tolerance Progress Towards Goals Slow Progress due to Pain,Slow Progress due to Medical Issues,Slow Progress due to Activity Tolerance Assessment Summary Pt MOD complexity and main barriers are pain, diaphorectic and getting orthrostatic. Pt just able to sit to the edge of the bed at this time. Pt home is off grid and to go to skilled rehab when medically stable. Goals Self-Feeding Goal Independent Grooming Goal Independent Dressing Goal Independent,Corrugator Operator,Sock Aid Toileting Goal Independent Bathing Goal Standby Assistance Toilet Transfer Goal Independent Shower Transfer Goal Standby Assistance Days to Meet Goals 20 Frequency of Treatment Other frequency 5x/week Treatment Plan OT Treatment Plan ADL Training,Functional Mobility,Patient/Family Education,Discharge Planning Discharge Recommendations OT Discharge Recommendations SNF Rehab Transportation Needs at Discharge Wheelchair/Cabulance
--- NOTE | 2024-04-23 12:23 | PT.IIE ---
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) Surgery Performed Operation Date: 04/22/24 13:45 Actual Procedures p Colostomy Reversal - Severo Butler MD Surgical History (Last Updated 04/20/24 @ 10:51 by Dolores Grimes, RN) History of bilateral knee replacement History of carpal tunnel repair History of carpal tunnel repair Status post Crisit's procedure (10/30/23) Status post hysterectomy Medical History (Last Updated 04/20/24 @ 11:05 by Dolores Grimes, RN) Decreased cardiac ejection fraction (11/29/22) Physical Therapy Inpatient Evaluation/Re-Eval M1 PT/OT-IP Prior Functional Status Start: 04/23/24 11:32 Freq: NEEDED Status: Active Protocol: Document 04/23/24 11:32 [facility] (Rec: 04/23/24 11:49 [facility] [id number]) Medical Review Prior Functional Status Communication I Mobility and Gait Pt states was independent with all needs and did not use a device. Activities of Daily Living and IADL's I with all needs. Social History Household Members none Living Arrangements House Number of Floors (Floors) One Floor Number of Stairs To Enter/Railing? 2 steps to enter and right rail, but has a ramp now. Home Environment Walk in Shower Home Equipment Four Wheel Walker,Straight Cane,Bedside Commode,Shower Seat without Backrest,Hand Held Shower Additional Social History Comment Pt has an outdoor shower and uses a BSC. Pt's house is off the grid. M2 PT-IP Current Condition Start: 04/23/24 07:43 Freq: NEEDED Status: Active Protocol: Document 04/23/24 11:05 MB (Rec: 04/23/24 12:22 MB [id number]) Physical Therapy Current Condition Current Condition Evaluation Date 04/23/24 Treatment Diagnosis Colosomy reversal M3 PT-IP Subjective Start: 04/23/24 07:43 Freq: NEEDED Status: Active Protocol: Document 04/23/24 11:05 MB (Rec: 04/23/24 12:22 MB [id number]) Subjective Physical Therapy Visit Type Type Initial Evaluation Visit Start Time 11:05 Visit Stop Time 11:30 Number of NATURAL DEVELOPER Visits 0 Physical Therapy Visit Comments Patient Comments Pt reports fear of getting up, asks to have therapy after she gets pain medication and nsg reports she just received pain medication Therapy Pain Assessment Pain When Pain Assessed At Rest Pain Present Pain Present Pain Reported Location Lower Abdomen Intensity 7 Scale Used Numeric (0 - 10) M4 PT-IP Mobility and Gait Start: 04/23/24 07:43 Freq: NEEDED Status: Active Protocol: Document 04/23/24 11:05 MB (Rec: 04/23/24 12:22 [id number]) PT-Bed Mobility Assessment Rolling Type of Rolling Roll to Right,Roll to Left, Bilateral Level of Assist Moderate Assistance,1 Person Assistance Supine to Sit Supine to Sit Moderate Assistance,1 Person Assistance,Bedrails Sit to Supine Sit to Supine Maximum Assistance,1 Person Assistance,Bedrails Scooting Scooting to Edge of Bed Maximum Assistance PT-Transfer Assessment Comments Mobility Comments Several care providers nearby to assist pt as she has increased drainage from lower abdominal wound: nsg does assist with pad occ with bed mobility and bed changed. Instructed pt on log rolling and pt is fearful today of mobility. She becomes diaphoretic with sitting and she is severely orthostatic and hypotension. BP and HR in RUE: hook lying 99/59, 111; sitting EOB 77/41, 111, returned to supine and left with nsg. PT-Balance Assessment Sitting Balance and Reactions Static Sitting Balance Ability Fair Dynamic Sitting Balance Ability Poor M5 PT-IP Objective Assessments Start: 04/23/24 07:43 Freq: NEEDED Status: Active Protocol: Document 04/23/24 11:05 MB (Rec: 04/23/24 12:22 [id number]) Orientation Orientation/Cognition Level of Alertness Alert Orientation Name,Age,Birthday,Month,Date, Year,Place,Situation Language Function Ability No Deficits Noted Safety Awareness Decreased Safety Awareness Memory Description No Deficits Noted Gross Range of Motion Upper Extremity ROM Impairments Defer to OT Lower Extremity ROM Assessment Within Functional Limits Impairments Limited assessement of LE range and strength today Strength Comments Strength Comments See above for LE strength today Coordination Assessment Assessment Coordination Comments NT Sensation Assessment Comments Sensation Comments NT Muscle Tone Muscle Tone WNL Yes M6 PT-IP Treatment Start: 04/23/24 07:43 Freq: NEEDED Status: Active Protocol: Document 04/23/24 11:05 MB (Rec: 04/23/24 12:22 [id number]) Physical Therapy Treatment Exercises Exercises Ankle Pumps Education Education Provided Precautions,Post-Op Packet, Safety M7 PT-IP Assessment and Plan Start: 04/23/24 07:43 Freq: NEEDED Status: Active Protocol: Document 04/23/24 11:05 MB (Rec: 04/23/24 12:22 MB [id number]) PT Summary Assessment and Plan Potential Rehabilitation Potential Fair Status of Condition at Evaluation Unstable Summary Impairments Pain,ROM,Strength,Balance, Coordination,Bed Mobility, Transfers,Gait,Activity Tolerance Progress Towards Goals Slow Progress due to Activity Tolerance Assessment Summary Pt is a 64 y/o female s/p colostomy reversal. Her incision is draining a lot today and through dressing and bedding. Nsg nearby to reinforce during mobility. Pt requires encouragement and assistance for minimal bed mobility today. She is familiar with log rolling from previous surgery. She is orthostatic and severely hypotensive with getting to EOB and she is diaphoretic as well. Returned to supine. Hgb was 8.3 when PT reviewed before assessment in the a.m. Con't mobility efforts as pt medically able to participate. Goals Bed Mobility Goal Independent Transfer Goal Standby Assistance,Front Wheeled Walker Gait Goal Standby Assistance,Front Wheel Walker Gait Distance 75 Days to Meet Goals 5 Frequency of Treatment Frequency Of Treatment Once a Day Other frequency 1-2x/day when able Treatment Plan Physical Therapy Treatment Plan Bed Mobility Training,Transfer Training,Gait Training, Therapeutic Exercise,Balance Retraining,Post Op Education, Discharge Planning,Hot or Cold Pack,Neuromuscular Re-ed, Coordination Retraining,Manual Therapy Precautions Abdominal Surgery Precautions Log Roll,Lifting Restrictions, Gait Belt above Incisional Area Recommendations To Nursing Amount of Assist Needed Mechanical Lift Discharge Recommendations PT Discharge Recommendations SNF Rehab Transportation Needs at Discharge Private Vehicle,Wheelchair/ Cabulance
[2024-04-23] MEDS: SODIUM CHLORIDE 0.9% 500 ML IV (14:00)
--- NOTE | 2024-04-23 15:50 | CM.DANOTE ---
Initial DCP Assessment Note Pt is a 64 yo female, resident of [place] , s/p colostomy reversal . Therapies recommending SNF at discharge. PCP: Julia Lindo Payer: [facility] JANELLE/KEVIN Reviewed chart, met with patient briefly to introduce self and role. Patient lives alone on [address], home is off the grid w/outdoor shower. Patient requests SNF referral to [facility]. Referral made via email to Ronna at [facility], Hospital exempt PASRR completed and will need provider signature. Plan: Discharge to SNF is anticipated, likely [facility] if they accept and insurance auth for SNF stay is obtained. LAVERNE Pruitt Discharge Planning/Care Management CM Discharge Assessment Start: 04/23/24 14:59 Freq: Status: Active Protocol: Document 04/23/24 14:59 SHANNAN (Rec: 04/23/24 15:05 SHANNAN [id number]) Discharge Planning Assessment Assigned It Service Continuity Supervisor LAVERNE Garrison DPOA/Assigned Designee Name chelo Felton Contact Information [phone] Advance Directives? No History Provided By Patient,Medical Record Has Patient been admitted in last 30 No days? Prior Living Arrangements House Household Members none Type of transporation used prior to Drives own vehicle admit Comment Patient lives off the grid, outdoor shower, uses BSC. Independent with ADL's Yes Is patient alert and oriented? Yes Comment Therapies currently recommending SNF. Discharge Plan [facility] Transportation Arrangement Facility van is likely. Additional Comment Will plan to discuss dispo options with patient. Provider and therapy team recommending SNF at discharge.
[2024-04-23] MEDS: TRAMADOL 50 MG TABLET PO (17:21)
[2024-04-23] MEDS: HYDROMORPHONE 0.5 MG INJ IV (21:22)
[2024-04-23] MEDS: SODIUM CHLORIDE 0.9% 1,000 ML 1000 ML IV (22:25)
[2024-04-24] VITALS (15 sets, daily range): BP systolic 86–141; BP diastolic 46–75; PULSE 93–114; RESP 14–21; TEMP 35.7–37.8; O2SAT 90–98
[2024-04-24] MEDS: ACETAMINOPHEN 325 MG TABLET 650 MG PO (02:15)
[2024-04-24] MEDS: OXYCODONE IR 5 MG TABLET PO ×2 (02:16→07:42)
[2024-04-24] MEDS: PANTOPRAZOLE DR 20 MG TABLET PO (06:06)
[2024-04-24 06:28] LABS: Add Manual Diff / Slide Review NO; Basophils Absolute Auto 100 /uL (0-100); Basophils Percent Auto 0.5 % (0-2); Eosinophils Absolute Auto 100 /uL (0-450); Eosinophils Percent Auto 0.9 % (2-4); Hematocrit 21.5 % (36-46); Lymphocytes Absolute Auto 1100 /uL (1100-4500); Lymphocytes Percent Auto 8.3 % (25-40); Mean Corpuscular HGB Conc 29.8 % (30-36); Mean Corpuscular Hemoglobin 20.5 PG (26-34); Mean Corpuscular Volume 68.8 fL (80-100); Monocytes Absolute Auto 1100 /uL (0-900); Monocytes Percent Auto 8.3 % (3-14); Neutrophils Absolute Auto 11300 /uL (1500-7000); Platelet Count 442 X10^3/uL (150-400); Red Blood Cell Count 3.12 X10^6/uL (4.0-5.2); Red Cell Distribution Width 22.3 % (11.6-14.8); White Blood Cell Count 13.7 X10^3/uL (4.5-11.0)
[2024-04-24 06:31] LABS: Hemoglobin 6.4 g/dL (12.0-16.0)
[2024-04-24 06:37] LABS: BUN Creatinine Ratio 22.9 (6-22); Blood Urea Nitrogen 24 mg/dL (7-17); Calcium 7.2 mg/dL (8.4-10.2); Carbon Dioxide 27 mmol/L (22-32); Chloride 102 mmol/L (98-107); Estimated Glomerular Filt Rate 59 mL/min (>60); Glucose 114 mg/dL (80-110); HEMOLYSIS < 15 (0-50); Potassium 4.2 mmol/L (3.4-5.1); Sodium 129 mmol/L (137-145)
--- NOTE | 2024-04-24 07:41 | PC.NURSE ---
Pt hypotensive through night, maintaining barely above MAP 65 (see documentation). 1 L bolus given at ~2330. (1.5 L given during dayshift) Low UO 400 ml overnight. Abd distended, and dressing reinforced with ABD r/t moderate serosanguinous drainage. Bowel tones hypoactive, passed small amount of flatus. AM H/H down from 8.3/28.3 --> 6.4/21.[address] Butler, felt message. Charge nurse and oncoming dayshift RN aware.
[2024-04-24 07:46] LABS: Nucleated Red Blood Cells 1 #/Diff
[2024-04-24 07:47] LABS: Anisocytosis 3+; Hypochromasia 1+; Microcytosis 2+; Poikilocytosis 1+
[2024-04-24 07:48] LABS: Platelet Estimate Incr
--- NOTE | 2024-04-24 08:55 | PC.NURSE ---
Day shift: OK to not give BP meds this AM per Dr Butler.
--- NOTE | 2024-04-24 09:34 | P.PN_ITS ---
Subjective Subjective Date Patient Seen: 04/24/24 Time Patient Seen: 09:34 Interval history: Hypotensive yesterday after adding new medication metoprolol for control of tachycardia. Pain is better controlled today than yesterday. Unable to work with physical therapy yesterday due to lightheadedness. Positive flatus Exam Vital Signs (past 8 hours): - 04/24/24 02:00 04/24/24 03:45 04/24/24 06:00 Temperature 98 F Pulse Rate 93 H Respiratory Rate 18 Blood Pressure 97/50 L 96/55 L 91/46 L Pulse Oximetry 98 Oxygen Flow Rate 2 Fraction of Inspired Oxygen 97 Oxygen Delivery Method Oximask Oxygen Flow Rate 2 Narrative Exam Narrative: General adult woman alert oriented no acute distress Abdomen soft appropriately tender to palpation. Dressings removed incisions clean with slight oozing of serosanguineous fluid Objective Labs 04/24/24 05:40 04/24/24 05:40 Labs: Laboratory Results - last 24 hr 04/23/24 04/24/24 05:03 05:40 WBC 13.7 H RBC 3.12 L Hgb 6.4 L* Hct 21.5 L MCV 68.8 L MCH 20.5 L MCHC 29.8 L RDW 22.3 H Plt Count 442 H Neut % (Auto) 82.0 H Lymph % (Auto) 8.[address] % (Auto) 8.3 Eos % (Auto) 0.9 L Baso % (Auto) 0.5 Neut # (Auto) 90048 H Lymph # (Auto) 1100 [place] # (Auto) 1100 H Eos # (Auto) 100 Baso # (Auto) 100 Nucleated RBCs 1 H Platelet Estimate Increased on smear Incr RBC Morphology See below See below Hypochromasia 2+ H 1+ H Poikilocytosis 1+ H Anisocytosis 2+ H 3+ H Microcytosis 1+ H 2+ H Sodium 129 L Potassium 4.2 Chloride 102 Carbon Dioxide 27 BUN 24 H Creatinine 1.05 H Estimated GFR 59 L BUN/Creatinine Ratio 22.9 H Glucose 114 H Calcium 7.2 L PFSH Medical History (Updated 04/20/24 @ 11:05 by Dolores Grimes, RN) Decreased cardiac ejection fraction (11/29/22) Surgical History (Updated 04/20/24 @ 10:51 by Dolores Grimes RN) Status post Cristi's procedure (10/30/23) History of bilateral knee replacement History of carpal tunnel repair Status post hysterectomy History of carpal tunnel repair Family History Brother Age: 51 Mental health problem ADHD (attention deficit hyperactivity disorder) Mother Age: 85 Hypertension High cholesterol Mental health problem Stroke Sister Age: 65 Hypertension High cholesterol Social History household members: none Smoking Status: Never smoker alcohol intake: current Assessment & Plan Post-op Postoperative Procedures: Procedures Operation Date: 04/22/24 13:45 Actual Procedure Side Surgeon p Colostomy Reversal Severo Butler MD Postoperative status narrative: Postoperative day 2 status post difficult colostomy reversal. -advanced from clear liquid diet to full liquids -transfuse 2 units packed RBCs for acute blood loss anemia -SCDs and prophylactic Lovenox Quality VTE Deep Vein Thrombosis/Pulmonary Embolism Present on Admission: No
[2024-04-24] MEDS: BUSPIRONE 5 MG TABLET 15 MG PO ×2 (09:39→20:40)
[2024-04-24] MEDS: PREGABALIN 75 MG CAPSULE PO ×2 (09:39→20:40)
[2024-04-24] MEDS: CELECOXIB 200 MG CAPSULE PO ×2 (09:40→20:41)
[2024-04-24] MEDS: ENOXAPARIN 40 MG/0.4 ML SYRINGE SUBCUT ×2 (09:42→20:50)
--- NOTE | 2024-04-24 11:11 | OT.IPNOTE ---
Pt having and to be getting blood today, not seen.
[2024-04-24] MEDS: OXYCODONE IR 10 MG TABLET PO ×3 (11:12→20:41)
--- NOTE | 2024-04-24 15:55 | CM.DPNOTE ---
DCP Cont Ronna at [facility] reports patient has been accepted pending auth from insurance. Hospital exempt PASRR has been completed and signed by DR Butler. Plan: Discharge to [facility] H+R anticipated via wheelchair van. PASRR done. Awaiting insurance auth for SNF. SHANNAN
--- NOTE | 2024-04-24 17:43 | PT-IP ANOTE ---
checked with nurse and stated that pt is still receiving her blood transfusion. hold PT for today.
[2024-04-25] VITALS (7 sets, daily range): BP systolic 110–121; BP diastolic 65–73; PULSE 110–120; RESP 16–20; TEMP 35.1–36.4; O2SAT 92–96
[2024-04-25] MEDS: OXYCODONE IR 10 MG TABLET PO ×4 (04:23→20:40)
--- NOTE | 2024-04-25 04:31 | PC.NURSE ---
04/24 2045: This Rn called Dr. Butler requesting an order for H/H draw after blood transfusion finished, alerted dr of patient's heart rate in 110s. No new orders at this time. Dr. Butler stated will recheck in the morning and that heart rate is patient's normal
[2024-04-25 05:28] LABS: Add Manual Diff / Slide Review NO; Basophils Absolute Auto 100 /uL (0-100); Basophils Percent Auto 0.8 % (0-2); Eosinophils Absolute Auto 200 /uL (0-450); Eosinophils Percent Auto 1.5 % (2-4); Hematocrit 25.7 % (36-46); Hemoglobin 8.1 g/dL (12.0-16.0); Lymphocytes Absolute Auto 1100 /uL (1100-4500); Mean Corpuscular HGB Conc 31.4 % (30-36); Mean Corpuscular Hemoglobin 22.6 PG (26-34); Monocytes Absolute Auto 1000 /uL (0-900); Monocytes Percent Auto 8.1 % (3-14); Neutrophils Absolute Auto 9500 /uL (1500-7000); Neutrophils Percent Auto 80.6 % (50-75); Platelet Count 431 X10^3/uL (150-400); Red Blood Cell Count 3.57 X10^6/uL (4.0-5.2); Red Cell Distribution Width 22.3 % (11.6-14.8); White Blood Cell Count 11.8 X10^3/uL (4.5-11.0)
[2024-04-25 05:40] LABS: BUN Creatinine Ratio 16.2 (6-22); Blood Urea Nitrogen 17 mg/dL (7-17); Calcium 7.9 mg/dL (8.4-10.2); Carbon Dioxide 26 mmol/L (22-32); Chloride 104 mmol/L (98-107); Estimated Glomerular Filt Rate 59 mL/min (>60); Glucose 125 mg/dL (80-110); HEMOLYSIS < 15 (0-50); Potassium 3.7 mmol/L (3.4-5.1); Sodium 133 mmol/L (137-145)
[2024-04-25] MEDS: PANTOPRAZOLE DR 20 MG TABLET PO (05:58)
[2024-04-25 06:13] LABS: Anisocytosis 2+; Hypochromasia 1+; Microcytosis 1+; Platelet Estimate Increased on smear
[2024-04-25] MEDS: PREGABALIN 75 MG CAPSULE PO ×2 (08:33→20:39)
[2024-04-25] MEDS: BUSPIRONE 5 MG TABLET 15 MG PO ×2 (08:33→20:39)
[2024-04-25] MEDS: CELECOXIB 200 MG CAPSULE PO ×2 (08:33→20:40)
[2024-04-25] MEDS: ENOXAPARIN 40 MG/0.4 ML SYRINGE SUBCUT ×2 (08:35→22:56)
--- NOTE | 2024-04-25 09:54 | PM.PNPO.1 ---
Subjective Subjective Date Patient Seen: 04/25/24 Time Patient Seen: 09:54 Interval history: No major overnight events. Received 2 units packed red blood cells yesterday for acute blood loss anemia. Tolerant of full liquid diet Exam Vital Signs (past 8 hours): - 04/25/24 03:00 04/25/24 08:00 04/25/24 08:09 Temperature 97.1 F L 95.1 F L Pulse Rate 110 H 110 H Respiratory Rate 18 20 Blood Pressure 121/65 116/70 Pulse Oximetry 95 95 94 Oxygen Delivery Method Nasal Cannula Oxygen Flow Rate 3 1 2 Fraction of Inspired Oxygen 97 Oxygen Delivery Method Nasal Cannula Oxygen Flow Rate 2 Narrative Exam Narrative: General adult woman alert oriented no acute distress Abdomen soft appropriately tender to palpation. Midline incision clean dry intact. Objective Labs 04/25/24 05:15 04/25/24 05:15 Labs: Laboratory Results - last 24 hr 04/24/24 04/25/24 10:00 05:15 WBC 11.8 H RBC 3.57 L Hgb 8.1 L Hct 25.7 L MCV 72.0 L D MCH 22.6 L MCHC 31.4 RDW 22.3 H Plt Count 431 H Neut % (Auto) 80.6 H Lymph % (Auto) 9.0 L [place] % (Auto) 8.1 Eos % (Auto) 1.5 L Baso % (Auto) 0.8 Neut # (Auto) 9500 H Lymph # (Auto) 1100 [place] # (Auto) 1000 H Eos # (Auto) 200 Baso # (Auto) 100 Platelet Estimate Increased on smear RBC Morphology See below Hypochromasia 1+ H Anisocytosis 2+ H Microcytosis 1+ H Sodium 133 L Potassium 3.7 Chloride 104 Carbon Dioxide 26 BUN 17 Creatinine 1.05 H Estimated GFR 59 L BUN/Creatinine Ratio 16.2 Glucose 125 H Calcium 7.9 L Blood Type O Positive Antibody Screen Negative Crossmatch See Detail [facility] Medical History (Updated 04/20/24 @ 11:05 by Dolores Grimes RN) Decreased cardiac ejection fraction (11/29/22) Surgical History (Updated 04/20/24 @ 10:51 by Dolores Grimes RN) Status post Cristi's procedure (10/30/23) History of bilateral knee replacement History of carpal tunnel repair Status post hysterectomy History of carpal tunnel repair Family History Brother Age: 51 Mental health problem ADHD (attention deficit hyperactivity disorder) Mother Age: 85 Hypertension High cholesterol Mental health problem Stroke Sister Age: 65 Hypertension High cholesterol Social History household members: none Smoking Status: Never smoker alcohol intake: current Assessment & Plan Post-op Postoperative Procedures: Procedures Operation Date: 04/22/24 13:45 Actual Procedure Side Surgeon p Colostomy Reversal Severo Butler MD Postoperative status narrative: Status post colostomy reversal -advance to regular diet -SCDs and Lovenox -out of bed ambulate physical therapy -discharge to [facility] but unavailable until Friday 04/27 Quality VTE Deep Vein Thrombosis/Pulmonary Embolism Present on Admission: No
--- NOTE | 2024-04-25 11:44 | PT.IPTN ---
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) Surgery Performed Operation Date: 04/22/24 13:45 Actual Procedures p Colostomy Reversal - Severo Butler MD Physical Therapy Treatment Note M2 PT-IP Current Condition Start: 04/23/24 07:43 Freq: NEEDED Status: Active Protocol: Document 04/23/24 11:05 MB (Rec: 04/23/24 12:22 MB [id number]) Physical Therapy Current Condition Current Condition Evaluation Date 04/23/24 Treatment Diagnosis Colosomy reversal M3 PT-IP Subjective Start: 04/23/24 07:43 Freq: NEEDED Status: Active Protocol: Document 04/25/24 12:10 TS (Rec: 04/25/24 12:16 TS [id number]) Subjective Physical Therapy Visit Type Type Treatment Note Visit Start Time 11:44 Visit Stop Time 12:00 Number of CLERK RATING Visits 1 Physical Therapy Visit Comments Patient Comments Pt found resting in bed, is agreeable to PT. Therapy Pain Assessment Pain When Pain Assessed At Rest Pain Present Pain Present Pain Reported Location Lower Abdomen Intensity 7 Scale Used Numeric (0 - 10) M4 PT-IP Mobility and Gait Start: 04/23/24 07:43 Freq: NEEDED Status: Active Protocol: Document 04/25/24 12:10 TS (Rec: 04/25/24 12:16 TS [id number]) PT-Bed Mobility Assessment Supine to Sit Supine to Sit Moderate Assistance,1 Person Assistance,Bedrails PT-Transfer Assessment Sit to and From Stand Sit to and from Stand Contact Guard Assistance Equipment Transfer Assistive Device Front Wheeled Walker Transfers Transfer Destination Chair Transfer Ability Level of Assist Standby Assistance Comments Mobility Comments Logroll to L side SBA. Supine to sit ModA for uprighting her trunk, cues provided for pushing through BUE's. STS with FWW CGA. Pt transfers to the chair CGA/SBA with FWW. PT-Balance Assessment Sitting Balance and Reactions Static Sitting Balance Ability Good Dynamic Sitting Balance Ability Fair Standing Balance and Reactions Static Standing Balance Ability Good Dynamic Standing Balance Ability Fair Device Used FWW M5 PT-IP Objective Assessments Start: 04/23/24 07:43 Freq: NEEDED Status: Active Protocol: Document 04/23/24 11:05 MB (Rec: 04/23/24 12:22 MB [id number]) Orientation Orientation/Cognition Level of Alertness Alert Orientation Name,Age,Birthday,Month,Date, Year,Place,Situation Language Function Ability No Deficits Noted Safety Awareness Decreased Safety Awareness Memory Description No Deficits Noted Gross Range of Motion Upper Extremity ROM Impairments Defer to OT Lower Extremity ROM Assessment Within Functional Limits Impairments Limited assessement of LE range and strength today Strength Comments Strength Comments See above for LE strength today Coordination Assessment Assessment Coordination Comments NT Sensation Assessment Comments Sensation Comments NT Muscle Tone Muscle Tone WNL Yes M6 PT-IP Treatment Start: 04/23/24 07:43 Freq: NEEDED Status: Active Protocol: Document 04/25/24 12:10 TS (Rec: 04/25/24 12:16 TS [id number]) Physical Therapy Treatment Education Education Provided Precautions,Post-Op Packet, Safety M7 PT-IP Assessment and Plan Start: 04/23/24 07:43 Freq: NEEDED Status: Active Protocol: Document 04/25/24 12:10 TS (Rec: 04/25/24 12:16 TS [id number]) PT Summary Assessment and Plan Potential Rehabilitation Potential Fair Summary Impairments Pain,ROM,Strength,Balance, Coordination,Bed Mobility, Transfers,Gait,Activity Tolerance Progress Towards Goals Progressing Toward Goals Assessment Summary Pt progressed to standing and transfer to the chair with FWW . She has some difficulty sitting up to EOB, requires ModA. She ambulated this morning with [facility] and [facility]. PT is recommending SNF at this time to progress activity tolerance and strength. Goals Bed Mobility Goal Independent Transfer Goal Standby Assistance,Front Wheeled Walker Gait Goal Standby Assistance,Front Wheel Walker Gait Distance 75 Days to Meet Goals 5 Frequency of Treatment Frequency Of Treatment Once a Day Other frequency 1-2x/day when able Treatment Plan Physical Therapy Treatment Plan Bed Mobility Training,Transfer Training,Gait Training, Therapeutic Exercise,Balance Retraining,Post Op Education, Discharge Planning,Hot or Cold Pack,Neuromuscular Re-ed, Coordination Retraining,Manual Therapy Precautions Abdominal Surgery Precautions Log Roll,Lifting Restrictions, Gait Belt above Incisional Area Recommendations To Nursing Amount of Assist Needed 1 Person Assist Discharge Recommendations PT Discharge Recommendations SNF Rehab Transportation Needs at Discharge Private Vehicle,Wheelchair/ Cabulance
[2024-04-25] MEDS: OXYCODONE IR 5 MG TABLET PO (11:53)
--- NOTE | 2024-04-25 13:54 | PC.NURSE ---
Day shift: In chair for lunch and tolerated well. Wanted to get back into bed at approx 1330. Moving well w/ 1 person assist FWW.
[2024-04-25] MEDS: SODIUM CHLORIDE 0.9% FLUSH 10 ML IV (22:56)
--- NOTE | 2024-04-25 23:33 | PC.NURSE ---
Addendum entered by Nadine Dumas R.N. 04/26/24 06:42: pt urine is cloudy in color. Pt complaining of some faint burning when urinating. Original Note: Dressing to abdomen saturated with sanguineous drainage, dressing clean and change with new abd pads, no s/s of infection noted. pt continues to be elevated HR in the 110's-120's (regular HR apical).
[2024-04-26] VITALS: BP 132/76; PULSE 109; O2SAT 97
[2024-04-26] MEDS: OXYCODONE IR 10 MG TABLET PO ×3 (01:22→20:24)
[2024-04-26] MEDS: methocarbamoL 500 MG TABLET PO (03:58)
[2024-04-26] MEDS: TRAMADOL 50 MG TABLET PO (03:58)
[2024-04-26 04:00] VITALS: BP 144/80; PULSE 111; RESP 16; TEMP 36.4; O2SAT 95
[2024-04-26] MEDS: PANTOPRAZOLE DR 20 MG TABLET PO (06:34)
[2024-04-26] MEDS: PREGABALIN 75 MG CAPSULE PO ×2 (08:20→20:23)
[2024-04-26] MEDS: hydroCHLOROthiazide 25 MG TABLET PO (08:20)
[2024-04-26] MEDS: CELECOXIB 200 MG CAPSULE PO ×2 (08:20→20:23)
[2024-04-26] MEDS: BUSPIRONE 5 MG TABLET 15 MG PO ×2 (08:20→20:23)
[2024-04-26 08:23] VITALS: BP 132/70; PULSE 111; RESP 16; TEMP 36.1; O2SAT 93
[2024-04-26] MEDS: AMLODIPINE 5 MG TABLET PO (08:23)
[2024-04-26] MEDS: OXYCODONE IR 5 MG TABLET PO ×3 (08:30→15:12)
[2024-04-26] MEDS: ENOXAPARIN 40 MG/0.4 ML SYRINGE SUBCUT ×2 (08:31→20:24)
[2024-04-26] MEDS: SODIUM CHLORIDE 0.9% FLUSH 10 ML IV ×2 (08:57→20:25)
[2024-04-26 09:04] VITALS: O2SAT 97
--- NOTE | 2024-04-26 09:30 | PM.PNPO.1 ---
Subjective Subjective Date Patient Seen: 04/26/24 Time Patient Seen: 09:30 Interval history: Ambulating Diminishing pain Positive flatus and tolerant regular diet Exam Vital Signs (past 8 hours): - 04/26/24 04:00 04/26/24 08:23 04/26/24 09:04 Temperature 97.6 F 96.9 F L Pulse Rate 111 H 111 H Respiratory Rate 16 16 Blood Pressure 144/80 H 132/70 Pulse Oximetry 95 93 97 Oxygen Delivery Method Nasal Cannula Oxygen Flow Rate 1 0 2 Fraction of Inspired Oxygen 97 Oxygen Delivery Method Nasal Cannula Oxygen Flow Rate 2 Narrative Exam Narrative: General adult woman alert oriented no acute distress Abdomen soft appropriately tender to palpation. Dressings clean dry intact. Objective Labs 04/25/24 05:15 04/25/24 05:15 [facility] Medical History (Updated 04/20/24 @ 11:05 by Dolores Grimes RN) Decreased cardiac ejection fraction (11/29/22) Surgical History (Updated 04/20/24 @ 10:51 by Dolores Grimes RN) Status post Cristi's procedure (10/30/23) History of bilateral knee replacement History of carpal tunnel repair Status post hysterectomy History of carpal tunnel repair Family History Brother Age: 51 Mental health problem ADHD (attention deficit hyperactivity disorder) Mother Age: 85 Hypertension High cholesterol Mental health problem Stroke Sister Age: 65 Hypertension High cholesterol Social History household members: none Smoking Status: Never smoker alcohol intake: current Assessment & Plan Post-op Postoperative Procedures: Procedures Operation Date: 04/22/24 13:45 Actual Procedure Side Surgeon p Colostomy Reversal Severo Butler MD Postoperative status narrative: Postop day 4 status post colostomy reversal -awaiting discharge to [place] rehab tomorrow -remove [place] drain from old colostomy site -SCDs and Lovenox Quality VTE Deep Vein Thrombosis/Pulmonary Embolism Present on Admission: No
[2024-04-26 13:23] LABS: Appearance Urine UA SL CLOUDY; Bilirubin Urine UA NEGATIVE (NEGATIVE); Color Urine UA YELLOW; Glucose Urine UA NEGATIVE (Negative); Ketones Urine UA NEGATIVE (NEGATIVE); Leukocyte Esterase Urine UA 3+ (NEGATIVE); Nitrite Urine UA POSITIVE (Negative); Occult Blood Urine UA 2+ (Negative); Protein Urine UA TRACE (Negative); Specific Gravity Urine UA 1.015 (1.000-1.035); Urobilinogen Urine UA 0.2 E.U./dL (0.2)
--- NOTE | 2024-04-26 13:27 | PT-IP ANOTE ---
PT checks on pt twice this afternoon. First attempt, she is sitting EOB finishing lunch. Second attempt, she is back in bed and working on computer. She declines working with PT. States she is feeling a lot better and getting up to the BR frequently. She anticipates d/c to [facility] next date.
[2024-04-26 13:30] LABS: Bacteria Urine Many (>30); Culture Indicated Urine Specimen Cultured; RBC Urine 1-5/HPF (0-5/HPF); Squamous Epithelial Cell Urine 5-10 /HPF (0-5/HPF); Urine Volume 10mL (spun); WBC Urine 30-100/HPF (0-5/HPF)
[2024-04-26 20:00] VITALS: BP 136/65; PULSE 111; RESP 12; TEMP 36.1; O2SAT 91
[2024-04-26 21:00] VITALS: O2SAT 94
[2024-04-27] MEDS: OXYCODONE IR 10 MG TABLET PO ×2 (00:13→04:43)
[2024-04-27 00:33] VITALS: BP 115/74; PULSE 117; RESP 18; TEMP 36.1; O2SAT 94
[2024-04-27] MEDS: PANTOPRAZOLE DR 20 MG TABLET PO (05:42)
[2024-04-27 08:00] VITALS: BP 135/82; PULSE 103; RESP 20; TEMP 35.8; O2SAT 91
[2024-04-27] MEDS: CELECOXIB 200 MG CAPSULE PO (08:04)
[2024-04-27] MEDS: BUSPIRONE 5 MG TABLET 15 MG PO (08:04)
[2024-04-27] MEDS: hydroCHLOROthiazide 25 MG TABLET PO (08:05)
[2024-04-27] MEDS: OXYCODONE IR 5 MG TABLET PO ×2 (08:05→11:06)
[2024-04-27] MEDS: PREGABALIN 75 MG CAPSULE PO (08:05)
[2024-04-27] MEDS: AMLODIPINE 5 MG TABLET PO (08:05)
[2024-04-27] MEDS: ENOXAPARIN 40 MG/0.4 ML SYRINGE SUBCUT (08:07)
[2024-04-27] MEDS: SODIUM CHLORIDE 0.9% FLUSH 10 ML IV (08:08)
--- NOTE | 2024-04-27 10:47 | PC.NURSE ---
Late entry 04/26/24: Patient without post op BM from bowel surgery, flatus positive, POD#4, no bowel regimen ordered, patient taking narcotics for pain control. MD Butler made aware by this RN, no new orders. Concern for UTI, UA ordered, UA positive, no new orders. 04/27/24: Patient without post op BM, POD#5, patient expressed concern to MD López, per patient MD expressed this is normal and can take a few days. No new orders, no bowel regimen ordered, patient continued to take narcotics for pain control. Patient due to discharge this afternoon, patient given prune juice. MD López made aware of no BM by other staff, no no orders. This RN expressed concern to charge nurse Gideon, charge nurse to follow-up with Rene concerning BM.
--- NOTE | 2024-04-27 11:28 | PC.NURSE ---
Spoke with Pt's Nurse regarding bowel status. Discussed plan of action and left messages for Dr. López at his clinic and on his phone. Awaiting a response.
--- NOTE | 2024-04-27 12:14 | CM.DPC ---
DCP Discharge SNF Per Surgeon, pt medically stable to d/c to SNF today and no identified barriers to discharge, signed med list and wrote out script for pain medication. confirmed with [facility] they can accept today with transport around [id number] today and secure emailed signed med list, script, MD LUCY orders and d/c summary a draft to review. RN updated pt bedside and she remains agreeable to d/c to [facility] to recover from reversal surgery before returning to her home on [place]. LAVERNE Mijares
--- NOTE | 2024-04-27 12:23 | PM.DS.1 ---
History of Present Illness History of Present Illness Chief complaint: Colostomy reversal Discharge Providers Provider Date of admission: 04/22/24 11:23 Discharge Date: 04/27/24 Primary care physician: Julia Lindo MD Consults: 04/22/24 16:59 Consult to Discharge Planning Routine Comment: Consult to Occupational Therapy Evaluate & Treat Comment: Physician Instructions: Evaluate and treat Consult to Physical Therapy Evaluate & Treat Comment: Physician Instructions: Evaluate and Treat Discharge provider: Parveen López MD Summary Hospital Course Discharge Diagnosis: Colostomy reversal Hospital Course: The patient underwent a takedown of the colostomy. She recovered on the floor for few days and then was transferred to [facility] rehab. She was passing flatus and tolerating a diet at the time of discharge. Exam Vital Signs (past 8 hours): - 04/27/24 08:00 Temperature 96.4 F L Pulse Rate 103 H Respiratory Rate 20 Blood Pressure 135/82 Pulse Oximetry 91 Oxygen Flow Rate 0 Fraction of Inspired Oxygen 97 Oxygen Delivery Method Nasal Cannula Oxygen Flow Rate 0 Objective Labs 04/25/24 05:15 04/25/24 05:15 Labs: Laboratory Results - last 24 hr 04/26/24 12:15 Urine Color Yellow Urine Appearance Sl cloudy Urine pH 6.0 Ur Specific [place] 1.015 Urine Protein Trace H Urine Glucose (UA) Negative Urine Ketones Negative Urine Occult Blood 2+ H Urine Nitrate Positive H Urine Bilirubin Negative Urine Urobilinogen 0.2 Ur Leukocyte Esterase 3+ H Urine RBC 1-5/hpf D Urine WBC 30-100/hpf H Ur Squamous Epith Cells 5-10 /hpf H Urine Bacteria Many (>30) H Ur Culture Indicated? Specimen cultured Vol Urine Centrifuged 10ml (spun) [facility], [facility] Medical History (Updated 04/20/24 @ 11:05 by Dolores Grimes RN) Decreased cardiac ejection fraction (11/29/22) Surgical History (Updated 04/20/24 @ 10:51 by Dolores Grimes RN) Status post Cristi's procedure (10/30/23) History of bilateral knee replacement History of carpal tunnel repair Status post hysterectomy History of carpal tunnel repair Family History Brother Age: 51 Mental health problem ADHD (attention deficit hyperactivity disorder) Mother Age: 85 Hypertension High cholesterol Mental health problem Stroke Sister Age: 65 Hypertension High cholesterol Social History household members: none Smoking Status: Never smoker alcohol intake: current Discharge Plan Discharge Plan Patient Disposition: SNF Transfer to: [facility] Discharge orders & Medications Prescriptions: New hydrocodone-acetaminophen 5-325 mg tablet 1 tab PO Q8H PRN (Reason: pain) Qty: 14 0RF Continued buspirone 15 MG tablet 15 mg PO BID Qty: 60 3RF lisinopril 30 mg tablet 30 mg PO DAILY diclofenac sodium [Aleve (diclofenac)] 1 % gel 2 g topical .q6hr metronidazole 0.75 % cream 1 applic topical BID tramadol 50 mg tablet 50 mg PO DAILY PRN (Reason: Pain (Scale Score 4-6)) methocarbamol 500 mg tablet 500 - 1,000 mg PO Q6H PRN (Reason: muscle spasm) alendronate 70 mg tablet 70 mg PO WEEKLY Rx Instructions: Takes on -states she hasn't taken it in a while amlodipine 5 mg tablet 5 mg PO DAILY omeprazole 20 mg capsule,delayed release(DR/EC) 20 mg PO DAILY hydrochlorothiazide 25 mg tablet 25 mg PO DAILY Patient Comments: TAKE ONE(1) TABLET BY MOUTH ONCE DAILY pregabalin 75 mg capsule 75 mg PO BID Qty: 30 0RF ibuprofen 600 MG tablet 600 mg PO Q6HP PRN (Reason: Pain (Scale Score 4-6)) Discontinued hydromorphone [Dilaudid] 2 mg Tablet 2 mg PO PRN PRN (Reason: Pain (Scale Score 4-6)) Rx Instructions: No longer prescribed. States she had some left over. Took this morning Follow up/Referrals: Julia Lindo MD [Primary Care Provider] - Diet/Activity/Treatments Diet: Regular Diet comment: Protein supplements with each meal [facility] Reason for rehabilitation: Post-operative therapy Rehab type: Physical therapy and Occupational therapy Visit Report/Discharge Packet Stand Alone Forms: Patient Portal/API, Stroke Signs & Symptoms Discharge Data Primary Care Provider: Julia Lindo Quality VTE Deep Vein Thrombosis/Pulmonary Embolism Present on Admission: No
[2024-04-27] MEDS: TRAMADOL 50 MG TABLET PO (12:44)
[2024-04-27] MEDS: methocarbamoL 500 MG TABLET PO (12:44)
--- NOTE | 2024-04-27 17:53 | PC.NURSE ---
Erin drain site opening, dressed with gauze and MD Rene marie aware.
--- NOTE | 2024-05-02 22:32 | PC.NURSE ---
Late entry, this nurse gave 10 mg of oxycodone 10 mg for abdominal pain 11/26 on 04/26/2024 at 0120.
== END 2024-04-27 13:15 | DRG 336 ==
PROVIDERS: Admitting Provider Surgery; Family Provider Nurse Practitioner; PCP Family Medicine; Referring Provider Surgery; Visit Provider Surgery
PROC: 0DSM0ZZ Reposition Descending Colon, Open Approach (ICD-10-PCS; CPT 44620; principal; 2024-04-22 13:45)
DX: Z43.3 Encounter for attention to colostomy (principal); D62 Acute posthemorrhagic anemia; Z68.41 Body mass index [BMI] 40.0-44.9, adult; E66.9 Obesity, unspecified; G89.29 Other chronic pain; N73.6 Female pelvic peritoneal adhesions (postinfective); R00.0 Tachycardia, unspecified; I95.9 Hypotension, unspecified; M81.0 Age-related osteoporosis without current pathological fracture; K21.9 Gastro-esophageal reflux disease without esophagitis; R01.1 Cardiac murmur, unspecified
CPT/HCPCS: 36415; 36430; 80048; 81001; 85025; 86850; 86900; 86901; 87077; 87086; 87186; 94760; 94762; 97161; 97166; 97530; P9016; C9290; J0134; J1100; J1171; J1650; J2250; J2405; J2543; J2704; J3010; J3490

== ENCOUNTER 2024-06-06 12:32 | Emergency (ER) | payer MEDICARE, MEDICAID, SELFPAY ==
[2023-10-31 07:11] VITALS: PULSE 102; RESP 17; O2SAT 97
[2024-04-22 21:53] VITALS: BMI 41.8
[2024-06-06] VITALS (13 sets, daily range): BP systolic 120–145; BP diastolic 69–83; PULSE 90–103; RESP 18; TEMP 36.8–36.9; O2SAT 95–97; BMI 34.7
--- NOTE | 2024-06-06 12:58 | ED.GENADULT ---
HPI - General Adult General Chief complaint: Urogenital-Female Stated complaint: Vaginal Infection Time Seen by Provider: 06/06/24 12:58 Source: patient Mode of arrival: Wheelchair History of Present Illness HPI narrative: 64-year-old woman with a history of hypertension, cirrhosis, chronic pain with neurostimulator with diverticulitis in October of 2023 eventually developing colovesical fistula treated with sigmoid colectomy and subsequent colectomy take down. Colostomy takedown was April of this year. She still has a small area of the lower abdominal incision that is healing and seems to be healing appropriately. Comes in today complaining of severe vaginal pain. She notes that she has had slight increase in vaginal discharge that has not been particularly smelly. She has had more particulate matter in her urine. She has not having any abdominal pain, notes that she seems to be stooling fairly well still not back to 100% normal after her recent surgery and colectomy takedown Related Data Home Medications Medication Instructions Recorded Confirmed alendronate 70 mg tablet 70 mg PO WEEKLY 10/11/23 05/07/24 amlodipine 5 mg tablet 5 mg PO DAILY 10/11/23 05/07/24 methocarbamol 500 mg tablet 500 - 1,000 mg PO Q6H PRN muscle 10/11/23 05/07/24 spasm omeprazole 20 mg capsule,delayed 20 mg PO DAILY 10/11/23 05/07/24 release hydrochlorothiazide 25 mg tablet 25 mg PO DAILY 10/16/23 05/07/24 ibuprofen 600 mg tablet 600 mg PO Q6HP PRN Pain (Scale 10/29/23 05/07/24 Score 4-6) diclofenac sodium 1 % topical gel 2 g topical .q6hr 11/29/23 05/07/24 (Aleve (diclofenac)) lisinopril 30 mg tablet 30 mg PO DAILY 11/29/23 05/07/24 metronidazole 0.75 % topical cream 1 applic topical BID 11/29/23 05/07/24 tramadol 50 mg tablet 50 mg PO DAILY PRN Pain (Scale 11/29/23 05/07/24 Score 4-6) Previous Rx's Medication Instructions Recorded buspirone 15 mg tablet 15 mg PO BID #60 tabs 12/19/16 pregabalin 75 mg capsule 75 mg PO BID #30 caps 10/18/23 hydrocodone 5 mg-acetaminophen 325 1 tab PO Q8H PRN pain #14 tabs 04/27/24 mg tablet cephalexin 500 mg capsule 500 mg PO TID #21 caps 06/06/24 oxycodone 5 mg tablet 5 mg PO Q6H PRN pain #14 tabs 06/06/24 valacyclovir 1 gram tablet 1,000 mg PO BID #20 tabs 06/06/24 Allergies Allergy/AdvReac Type Severity Reaction Status Date / Time bupropion [BUPROPION] Allergy Intermediate shaky, Verified 06/06/24 12:41 irritable Interferons [INTERFERONS] Allergy Intermediate rash, Verified 06/06/24 12:41 headache ribavirin [RIBAVIRIN] Allergy Intermediate confusion, Verified 06/06/24 12:41 agitation Review of Systems Review of Systems Narrative: Pertinent positive and negative findings as per HPI Patient History Medical History (Updated 06/06/24 @ 17:41 by Lyndsey Arevalo MD) Hobbs-vesical fistula Decreased cardiac ejection fraction (11/29/22) Surgical History (Updated 06/06/24 @ 13:45 by Lyndsey Arevalo MD) Status post Cristi's procedure (10/30/23) History of bilateral knee replacement History of carpal tunnel repair Status post hysterectomy History of carpal tunnel repair Family History Brother Age: 51 Mental health problem ADHD (attention deficit hyperactivity disorder) Mother Age: 85 Hypertension High cholesterol Mental health problem Stroke Sister Age: 65 Hypertension High cholesterol Social History household members: none Smoking Status: Never smoker alcohol intake: current Smoking Status: Never smoker alcohol intake frequency: holidays/special occasions only Exam Initial Vital Signs Initial Vital Signs: Vital Signs Temperature 98.4 F 06/06/24 12:35 Pulse Rate 103 H 06/06/24 12:35 Respiratory Rate 18 06/06/24 12:35 Blood Pressure 120/83 06/06/24 12:35 Pulse Oximetry 97 06/06/24 12:35 Oxygen Delivery Method Room Air 06/06/24 12:35 General: Healthy appearing, in no acute distress. Able to give a complete and coherent history. Well-nourished well-developed HEENT: Moist mucous membranes, normal sclera with reactive pupils, Respiratory: Lungs are clear to auscultation, no wheezing no rales no rhonchi. Full and symmetrical air movement Cardiac: Regular rate and rhythm no murmurs no bruits Abdomen: Soft, obese, healing vertical abdominal wound, there is still 3-4 mm that is being packed but does not appear to be infected Skin: Warm and dry, : Significant vulvo vaginal erythema, discharge. Mucosal layers have vesicular type skin breakdown with serpiginous edges exquisitely tender to touch. Entire vulvovaginal area is significantly erythematous,. There is not significant odor. Perineum and rectum do not seem to be involved. Area is far too tender for bimanual exam. She does not have inguinal adenopathy Neurologic: Grossly neurologically intact with no obvious asymmetries or abnormalities Extremities: No trauma, well perfused Psych: Cooperative, appropriate insight and affect Course Orders Ordered: ED Orders 06/06/24 13:04 Genital Culture Stat HSV Culture Typing Stat CHUCK prep [CHUCK Prep] Stat 06/06/24 13:22 CT abdomen pelvis w con Stat 06/06/24 14:00 Urinalysis and Microscopic Stat Urine Culture Stat 06/06/24 14:20 Complete Blood Count AUTO DIFF Stat Comprehensive Metabolic Panel Stat Lactate (Lactic Acid) Stat Hydromorphone HCl (Hydromorphone 0.5 Mg Inj) 0.5 mg IV Q15MIN PRN PRN Reason: Pain, Last Admin: 06/06/24 14:59 Dose: 0.5 mg Documented By: ORLANDO Discontinued Medications Lidocaine HCl (Lidocaine 2% (Glydo) 6 Ml Gel) 12 ml TOP NOW ONE Stop: 06/06/24 13:23 Last Admin: 06/06/24 14:03 Dose: 12 ml Documented By: ORLANDO Oxycodone/Acetaminophen (Oxycodone/Acetaminophen 5/325 Tablet) 2 tab PO NOW ONE Stop: 06/06/24 13:57 Last Admin: 06/06/24 14:03 Dose: 2 tab Documented By: ORLANDO Vital Signs Vital signs: Vital Signs - 8 hr 06/06/24 12:35 06/06/24 12:53 06/06/24 12:53 Temperature 98.4 F Pulse Rate 103 H 94 H Respiratory Rate 18 18 Blood Pressure 120/83 135/81 Pulse Oximetry 97 97 Oxygen Delivery Method Room Air 06/06/24 13:00 06/06/24 13:00 06/06/24 13:30 Temperature Pulse Rate 95 H Respiratory Rate Blood Pressure 139/80 139/83 Pulse Oximetry 96 Oxygen Delivery Method 06/06/24 13:30 06/06/24 14:00 06/06/24 14:00 Temperature 98.3 F Pulse Rate 93 H 92 H Respiratory Rate Blood Pressure 126/69 Pulse Oximetry 97 97 Oxygen Delivery Method 06/06/24 14:30 06/06/24 14:32 06/06/24 14:32 Temperature Pulse Rate 93 H 90 Respiratory Rate Blood Pressure 131/83 Pulse Oximetry 96 97 Oxygen Delivery Method 06/06/24 14:56 06/06/24 14:56 06/06/24 15:00 Temperature Pulse Rate 91 H Respiratory Rate Blood Pressure 145/72 H 145/79 H Pulse Oximetry 97 Oxygen Delivery Method 06/06/24 15:00 06/06/24 15:30 06/06/24 15:30 Temperature Pulse Rate 92 H 99 H Respiratory Rate Blood Pressure 136/77 Pulse Oximetry 96 96 Oxygen Delivery Method Medical Decision Making Lab Data 06/06/24 14:20 06/06/24 14:20 Labs: Lab Results 06/06/24 06/06/24 Range/Units 14:00 14:20 WBC 9.3 (4.5-11.0) X10^3/uL RBC 4.27 (4.0-5.2) X10^6/uL Hgb 9.4 L (12.0-16.0) g/dL Hct 29.8 L (36-46) % MCV 69.8 L (80-100) fL MCH 22.0 L (26-34) PG MCHC 31.5 (30-36) % RDW 22.1 H (11.6-14.8) % Plt Count 964 H* (150-400) X10^3/uL Neut % (Auto) 68.3 (50-75) % Lymph % (Auto) 16.2 L (25-40) % [place] % (Auto) 12.6 (3-14) % Eos % (Auto) 1.9 L (2-4) % Baso % (Auto) 1.0 (0-2) % Neut # (Auto) 6300 (4001-9335) /uL Lymph # (Auto) 1500 (6261-8850) /uL [place] # (Auto) 1200 H (0-900) /uL Eos # (Auto) 200 (0-450) /uL Baso # (Auto) 100 (0-100) /uL Platelet Estimate RBC Morphology See below Anisocytosis 2+ H Microcytosis 1+ H Macrocytosis 1+ H Sodium 131 L (137-145) mmol/L Potassium 4.1 (3.4-5.1) mmol/L Chloride 100 (98-107) mmol/L Carbon Dioxide 25 (22-32) mmol/L BUN 9 (7-17) mg/dL Creatinine 0.57 (0.52-1.04) mg/dL Estimated GFR > 60 (>60) mL/min BUN/Creatinine Ratio 15.8 (6-22) Glucose 100 (80-110) mg/dL Lactate 0.9 (0.7-2.1) mmol/L Calcium 8.7 (8.4-10.2) mg/dL Total Bilirubin 0.3 (0.2-1.3) mg/dL AST 20 (14-36) IU/L ALT 10 (<35) IU/L Alkaline Phosphatase 118 (38-126) U/L Total Protein 7.0 (6.3-8.2) g/dL Albumin 3.3 L (3.5-5.0) g/dL Globulin 3.7 (1.7-4.1) g/dL Albumin/Globulin Ratio 0.9 L (1.0-2.8) Urine Color Yellow Urine Appearance Cloudy Urine pH 5.5 (4.5-8.0) Ur Specific [place] 1.025 (1.000-1.035) Urine Protein 1+ H (Negative) Urine Glucose (UA) Negative (Negative) g/dL Urine Ketones 1+ H (NEGATIVE) Urine Occult Blood 1+ H (Negative) Urine Nitrate Positive H (Negative) Urine Bilirubin Negative (NEGATIVE) Urine Urobilinogen 0.2 (0.2) E.U./dL Ur Leukocyte Esterase 2+ H (NEGATIVE) Urine RBC 1-5/hpf (0-5/HPF) Urine WBC >100/hpf H (0-5/HPF) Ur Squamous Epith Cells None seen (0-5/HPF) Urine Bacteria Many (>30) H (None) Ur Culture Indicated? Specimen cultured Vol Urine Centrifuged 10ml (spun) Imaging Data CT scan - abdomen/pelvis: Radiologist's Impression: PROCEDURE: CT ABDOMEN PELVIS W CON INDICATIONS: ? colovesicle and/or colovaginal fistula TECHNIQUE: After the administration of intravenous contrast, axial sections acquired from the lung bases to the pubic symphysis. Coronal and sagittal reformats were performed. For radiation dose reduction, the following was used: automated exposure control, adjustment of mA and/or kV according to patient size. COMPARISON: [facility], CT, CT ABDOMEN PELVIS W CON, 10/29/2023, 15:39. FINDINGS: Image quality: Diagnostic. Lower Chest: No significant findings. ABDOMEN: Liver: No solid mass. Mildly diffusely hypoattenuating. Gallbladder: No radiopaque gallstones or wall thickening. Biliary ducts: No biliary dilation. Pancreas: No ductal dilation. Spleen: Size is within normal limits. Adrenal Glands: A left adrenal nodule is unchanged. Otherwise normal. Kidneys and Ureters: No hydronephrosis. No solid mass. No complex renal cystic lesion which requires follow up. Bowel and peritoneum: Bowel is of normal caliber without obstruction. There is bowel wall thickening and inflammation within the sigmoid colon which is increased compared to the prior study. The previous call to set fluid collection is decreased in size but demonstrates a thick enhancing wall. This now measures approximately 3 x 0.9 by 2.5 cm and demonstrates no discrete continuity with bowel organs of the pelvis. Again seen are numerous loops of small bowel which have a tethered appearance in this area. Ventral Wall: Postsurgical changes of the anterior abdomen are shown. There is a 4.8 x 2.1 x 2.3 cm area of soft tissue attenuation, fluid, and gas at the incision. Abdominal Nodes: No retroperitoneal or mesenteric adenopathy by size criteria. Vessels: Aorta and inferior vena cava are normal in size. PELVIS: Pelvic Organs: Unremarkable. Bladder: No bladder wall thickening, accounting for underdistention. Pelvic Nodes: No enlarged lymph nodes. Miscellaneous: No inguinal hernias are seen. Bones: No aggressive osseous abnormality. IMPRESSION: Postsurgical changes with continued inflammation at the surgical bed and a small residual abscess that is not amenable to percutaneous drainage. No discrete evidence of colovesicular or colovaginal fistula, although these diagnoses would require rectal contrast and are extremely difficult to diagnose with CT. Ventral abdominal incisional abscess versus surgical packing material. Dictated by: Jaylene Rosales M.D. on 06/06/2024 at 14:53 MDM Narrative Medical decision making narrative: CC: Vulvovaginal pain and discharge Complicating co-morbidities: Recent complicated diverticulitis with abscess, subsequent colovesical fistula with colostomy and surgical takedown in April Data collected from: patient Medical records reviewed: Surgical notes with treatment of her diverticulitis and subsequent fistula is and: Take down are reviewed Differential considered: Herpes outbreak, vaginal and/or colovesicular fistula, severe vaginal yeast with secondary bacterial infection Exam documented above, pertinent findings include: Majority of exam is benign. Perineal exam is quite impressive. Inner labia and extra vaginal mucosa including periurethral orifice significantly red, swollen, tender with vesicular type lesions circumferentially. No obvious blisters per se. Exquisitely tender to touch Lab Test results independently reviewed as above. Pertinent findings: CBC shows no leukocytosis. Improved chronic anemia, thrombocytosis with platelets at 964 Chemistries are quite reassuring. Renal function is improved and within normal limits. Electrolytes were unremarkable liver studies are unremarkable Lactic is not elevated Urinalysis shows protein, ketones, blood, nitrites, leukocyte esterase, white cells, bacteria no squamous cells -this was a catheterized sample CHUCK prep does not show yeast G stain, genital culture and HSV culture is currently pending Imaging studies independently reviewed: Appropriate CT imaging study was reviewed with Dr. Jacobs prior to ordering knowing that completely diagnosing colovesical fistula can be challenging. Because of her recent colostomy take down as well as significant vulvovaginal pain rectal contrast is not going to be appropriate with today's visit. CT scan with contrast no oral contrast was ordered Notes of the packed areas and healing surgical wound sites are made. There is a small area of bowel wall thickening within the sigmoid colon with 3 x 1 x 3 cm area of fluid without discrete edges not amenable to percutaneous drainage. No obvious colovesicular or colovaginal fistulas appreciated Consultations: Discussed CT scan findings with Dr. Byrd, surgeon who did see this patient in outpatient evaluation recently. He felt that the area of abnormality and fluid collection appreciated on the CT scan in light of no significant abdominal pain and no leukocytosis was not something that needed additional immediate follow up. Treatments: Oral Percocet Discussion: 64-year-old woman with recent significant GI surgery, wounds are still healing but do not appear to be infected. Significant vulvovaginal irritation that I suspect is a HSV outbreak at this point. There was no sign of yeast, this does not look like fistula or stool draining from the vagina. Urine does look like it is infected. Most recent urinalysis had E coli and Klebsiella both of which were sensitive to Keflex. When questioned patient about the possibility of herpes in her past she thinks she may at some point have had a small outbreak but is not entirely sure. Herpes viral culture, vaginal culture and Gram stain are still pending. CHUCK does not suggest acute yeast infection. We will plan on treating her with Keflex for 10 days for her urinary tract infection, we will place her on valacyclovir, 1000mg q12 10 days. Noted thrombocytosis, uncertain significance. Patient will need outpatient follow up with her primary care physician regarding the thrombocytosis as well as the presumed HSV infection. I am going to treat this is a primary outbreak given the severity and presumed that it is recurred secondary to immune suppression with her recent surgeries and recovery. She does have settled follow up with surgery. At this point she will be safe for discharge home Discharge Plan Departure Patient Disposition: Home Clinical Impression: Primary vulvovaginal herpes simplex infection, Other thrombocytosis Urinary tract infection Qualifiers: Urinary tract infection type: acute cystitis Hematuria presence: without hematuria Qualified Code(s): N30.00 - Acute cystitis without hematuria Instructions: DI for Urinary Tract Infection (UTI), DI for Genital Herpes Activity Restrictions/Additional Instructions: Thank you for coming in today It looks like all of your abdominal issues and surgeries are continuing to heal nicely. It does not look like there are any new or concerning connections between your colon and your vagina or your bladder It does look like you have another bladder infection. The antibiotic I have chosen treats the E coli and the Klebsiella bacteria that were most recently in your urine With the sores all around your labia, I believe that this is a herpes outbreak. Sometimes herpes that was encountered many many years ago will come back to life when your immune system is suppressed like after recovering from a big surgery. You do not have a yeast infection. The herpes cultures as well as vaginal cultures are still pending but likely will not make any difference with current recommendations. I want you to complete a 10 day course of Valacyclovir to try and reduce the pain and swelling around your vagina Keeping all of the ?girl parts? clean is going to be very important in helping everything heal well and prevent more bladder infections. I would strongly recommend shower daily or using running water rinsed over your labia with gentle cleaning always wiping away from your urethra. If the irritation from the herpes is causing the vagina lips to stick together, you can use something like olive oil to keep the area slightly lubricated If you are having increasing abdominal pain new discharge, fevers or other concerns you do need to be re-evaluated You need to schedule an appointment with your primary care physician, at some point you need to have your CBC rechecked to make sure that your platelet count is returning to normal Prescriptions: New cephalexin 500 mg capsule 500 mg PO TID Qty: 21 0RF valacyclovir 1 gram tablet 1,000 mg PO BID Qty: 20 0RF oxycodone 5 mg tablet 5 mg PO Q6H PRN (Reason: pain) Qty: 14 0RF No Action buspirone 15 MG tablet 15 mg PO BID Qty: 60 3RF lisinopril 30 mg tablet 30 mg PO DAILY diclofenac sodium [Aleve (diclofenac)] 1 % gel 2 g topical .q6hr metronidazole 0.75 % cream 1 applic topical BID tramadol 50 mg tablet 50 mg PO DAILY PRN (Reason: Pain (Scale Score 4-6)) methocarbamol 500 mg tablet 500 - 1,000 mg PO Q6H PRN (Reason: muscle spasm) alendronate 70 mg tablet 70 mg PO WEEKLY Rx Instructions: Takes on -states she hasn't taken it in a while amlodipine 5 mg tablet 5 mg PO DAILY omeprazole 20 mg capsule,delayed release(DR/EC) 20 mg PO DAILY hydrochlorothiazide 25 mg tablet 25 mg PO DAILY Patient Comments: TAKE ONE(1) TABLET BY MOUTH ONCE DAILY pregabalin 75 mg capsule 75 mg PO BID Qty: 30 0RF ibuprofen 600 MG tablet 600 mg PO Q6HP PRN (Reason: Pain (Scale Score 4-6)) hydrocodone-acetaminophen 5-325 mg tablet 1 tab PO Q8H PRN (Reason: pain) Qty: 14 0RF Referrals: Julia Lindo MD [Primary Care Provider] - Stand Alone Forms: Patient Portal/API/Survey
--- NOTE | 2024-06-06 13:22 | DI.CT.S_ITS ---
PROCEDURE: CT ABDOMEN PELVIS W CON INDICATIONS: ? colovesicle and/or colovaginal fistula TECHNIQUE: After the administration of intravenous contrast, axial sections acquired from the lung bases to the pubic symphysis. Coronal and sagittal reformats were performed. For radiation dose reduction, the following was used: automated exposure control, adjustment of mA and/or kV according to patient size. COMPARISON: [facility], CT, CT ABDOMEN PELVIS W CON, 10/29/2023, 15:39. FINDINGS: Image quality: Diagnostic. Lower Chest: No significant findings. ABDOMEN: Liver: No solid mass. Mildly diffusely hypoattenuating. Gallbladder: No radiopaque gallstones or wall thickening. Biliary ducts: No biliary dilation. Pancreas: No ductal dilation. Spleen: Size is within normal limits. Adrenal Glands: A left adrenal nodule is unchanged. Otherwise normal. Kidneys and Ureters: No hydronephrosis. No solid mass. No complex renal cystic lesion which requires follow up. Bowel and peritoneum: Bowel is of normal caliber without obstruction. There is bowel wall thickening and inflammation within the sigmoid colon which is increased compared to the prior study. The previous call to set fluid collection is decreased in size but demonstrates a thick enhancing wall. This now measures approximately 3 x 0.9 by 2.5 cm and demonstrates no discrete continuity with bowel organs of the pelvis. Again seen are numerous loops of small bowel which have a tethered appearance in this area. Ventral Wall: Postsurgical changes of the anterior abdomen are shown. There is a 4.8 x 2.1 x 2.3 cm area of soft tissue attenuation, fluid, and gas at the incision. Abdominal Nodes: No retroperitoneal or mesenteric adenopathy by size criteria. Vessels: Aorta and inferior vena cava are normal in size. PELVIS: Pelvic Organs: Unremarkable. Bladder: No bladder wall thickening, accounting for underdistention. Pelvic Nodes: No enlarged lymph nodes. Miscellaneous: No inguinal hernias are seen. Bones: No aggressive osseous abnormality. IMPRESSION: Postsurgical changes with continued inflammation at the surgical bed and a small residual abscess that is not amenable to percutaneous drainage. No discrete evidence of colovesicular or colovaginal fistula, although these diagnoses would require rectal contrast and are extremely difficult to diagnose with CT. Ventral abdominal incisional abscess versus surgical packing material. Dictated by: Jaylene Rosales M.D. on 06/06/2024 at 14:53 Approved by: Jaylene Rosales M.D. on 06/06/2024 at 15:02
[2024-06-06] MEDS: LIDOCAINE 2% (GLYDO) 6 ML GEL 12 ML TOP (14:03)
[2024-06-06] MEDS: OXYCODONE/ACETAMINOPHEN 5/325 TABLET 2 TAB PO (14:03)
[2024-06-06 14:28] LABS: Appearance Urine UA CLOUDY; Bilirubin Urine UA NEGATIVE (NEGATIVE); Color Urine UA YELLOW; Glucose Urine UA NEGATIVE (Negative); Ketones Urine UA 1+ (NEGATIVE); Leukocyte Esterase Urine UA 2+ (NEGATIVE); Nitrite Urine UA POSITIVE (Negative); Occult Blood Urine UA 1+ (Negative); Protein Urine UA 1+ (Negative); Specific Gravity Urine UA 1.025 (1.000-1.035); Urobilinogen Urine UA 0.2 E.U./dL (0.2); pH Urine UA 5.5 (4.5-8.0)
[2024-06-06 14:37] LABS: Lactate (Lactic Acid) 0.9 mmol/L (0.7-2.1)
[2024-06-06 14:38] LABS: Alanine Aminotransferase 10 IU/L (<35); Albumin 3.3 g/dL (3.5-5.0); Albumin Globulin Ratio 0.9 (1.0-2.8); Alkaline Phosphatase 118 U/L (38-126); Aspartate Aminotransferase 20 IU/L (14-36); BUN Creatinine Ratio 15.8 (6-22); Bilirubin Total 0.3 mg/dL (0.2-1.3); Blood Urea Nitrogen 9 mg/dL (7-17); Calcium 8.7 mg/dL (8.4-10.2); Carbon Dioxide 25 mmol/L (22-32); Chloride 100 mmol/L (98-107); Estimated Glomerular Filt Rate > 60 mL/min (>60); Globulin 3.7 g/dL (1.7-4.1); Glucose 100 mg/dL (80-110); HEMOLYSIS < 15 (0-50); Potassium 4.1 mmol/L (3.4-5.1); Sodium 131 mmol/L (137-145)
[2024-06-06 14:40] LABS: Bacteria Urine Many (>30); Culture Indicated Urine Specimen Cultured; Squamous Epithelial Cell Urine None Seen (0-5/HPF); Urine Volume 10mL (spun); WBC Urine >100/HPF (0-5/HPF)
[2024-06-06 14:41] LABS: RBC Urine 1-5/HPF (0-5/HPF)
[2024-06-06 14:49] LABS: Add Manual Diff / Slide Review NO; Basophils Absolute Auto 100 /uL (0-100); Eosinophils Absolute Auto 200 /uL (0-450); Eosinophils Percent Auto 1.9 % (2-4); Hematocrit 29.8 % (36-46); Hemoglobin 9.4 g/dL (12.0-16.0); Lymphocytes Absolute Auto 1500 /uL (1100-4500); Lymphocytes Percent Auto 16.2 % (25-40); Mean Corpuscular HGB Conc 31.5 % (30-36); Mean Corpuscular Volume 69.8 fL (80-100); Monocytes Absolute Auto 1200 /uL (0-900); Monocytes Percent Auto 12.6 % (3-14); Neutrophils Absolute Auto 6300 /uL (1500-7000); Neutrophils Percent Auto 68.3 % (50-75); Red Blood Cell Count 4.27 X10^6/uL (4.0-5.2); Red Cell Distribution Width 22.1 % (11.6-14.8); White Blood Cell Count 9.3 X10^3/uL (4.5-11.0)
[2024-06-06 14:50] LABS: Platelet Count 964 X10^3/uL (150-400)
[2024-06-06] MEDS: HYDROMORPHONE 0.5 MG INJ IV (14:59)
[2024-06-06 15:19] LABS: Anisocytosis 2+; Macrocytosis 1+; Microcytosis 1+
== END 2024-06-06 17:53 | disposition home or self-care (01) ==
PROVIDERS: Emergency Provider Emergency Medicine; Family Provider Nurse Practitioner; PCP Family Medicine
DX: A60.04 Herpesviral vulvovaginitis (principal); D75.838 Other thrombocytosis; N30.00 Acute cystitis without hematuria
CPT/HCPCS: 36415; 74177; 80053; 81001; 83605; 85025; 87070; 87077; 87086; 87147; 87186; 87205; 87220; 87255; 96374; 99284; J1171; Q9967

== ENCOUNTER → 2024-09-11 12:25 | Outpatient (CLI) | payer MEDICARE, MEDICAID, SELFPAY ==
[2023-10-31 07:11] VITALS: PULSE 102; RESP 17; O2SAT 97
[2024-04-22 21:53] VITALS: BMI 41.8
--- NOTE | 2024-09-11 12:26 | DI.CT.S_ITS ---
PROCEDURE: CT ABDOMEN PELVIS W CON INDICATIONS: Vaginal flatus TECHNIQUE: After the administration of intravenous contrast, axial sections acquired from the lung bases to the pubic symphysis. Coronal and sagittal reformats were performed. For radiation dose reduction, the following was used: automated exposure control, adjustment of mA and/or kV according to patient size. COMPARISON: [facility], CT, CT ABDOMEN PELVIS W CON, 06/06/2024, 14:44. FINDINGS: Image quality: Diagnostic Lower chest: Unremarkable lung bases Borderline cardiomegaly. Liver: Possible steatosis. No suspicious focal solid lesion Gallbladder and biliary system: Unremarkable, nondilated Pancreas: No ductal dilation Spleen: Nonenlarged Adrenals: Multiple adrenal nodules again seen on the left Kidneys: Right posterior renal cysts. No solid renal mass. No hydronephrosis. Vessels and lymph nodes: Main portal vein is patent. No abdominal aortic aneurysm. No pathologic lymphadenopathy by size criteria. Bowel and peritoneum: No evidence of small bowel obstruction. No drainable abscess or ascites. Nondilated appendix. Colorectal postsurgical changes are seen. Colonic diverticula. There is no extravasation of rectal contrast. A rectal tube is in place. Blind-ending pouch is seen adjacent to the surgical site. Moderate surrounding edema and edematous fat stranding persists. The injected rectal contrast does not appear to communicate with the small bowel, vaginal lumen, or bladder. Small foci of extraluminal gas is seen, most obvious to the left of the peritoneal reflection and presacral space. Body wall: Rectus diastasis. Anterior body wall edema and thickening, overall with decreased anterior body wall fluid collection. Pelvis: Bladder air is present. Uterus is not seen Bones: There are degenerative changes. IMPRESSION: No extravasation of injected rectal contrast or communication with the vaginal or bladder lumen. However, small foci of extraluminal gas are seen adjacent to the rectal sigmoid postsurgical region, which could represent microscopic leak. Moderate persistent edema is seen, without drainable fluid collection. Thickening edema also seen in the anterior body wall, with decreased fluid collection, attention on follow-up. No small bowel obstruction. Other findings above. Dictated by: Lefty Jacobs M.D. on 09/12/2024 at 17:13 Approved by: Lefty Jacobs M.D. on 09/12/2024 at 17:24
[2024-09-11 12:56] LABS: Estimated Glomerular Filt Rate > 60 mL/min (>60)
== END ==
PROVIDERS: Family Provider Nurse Practitioner; PCP Family Medicine; Referring Provider Surgery; Visit Provider Surgery
DX: N89.8 Other specified noninflammatory disorders of vagina (principal); E27.9 Disorder of adrenal gland, unspecified; N82.4 Other female intestinal-genital tract fistulae; N28.1 Cyst of kidney, acquired; K57.90 Diverticulosis of intestine, part unspecified, without perforation or abscess without bleeding; M62.08 Separation of muscle (nontraumatic), other site; Z48.89 Encounter for other specified surgical aftercare
CPT/HCPCS: 36415; 74177; 82565; Q9967